=== PATIENT | male | born 1960 | race African-American/Black ===

== ENCOUNTER 2017-02-02 22:17 | Emergency (ER) | payer OTHER ==
[~2017-02-02] VITALS: Ht 175.3 cm; Wt 81.6 kg
[2017-02-02 22:40] VITALS: BP 176/119
[2017-02-02] MEDS ORDERED: AMOX1TAB61 PO (22:45)
--- NOTE | 2017-02-02 22:46 | PHYS DOC ---
Past Medical History Past Medical History: Bronchitis, Hypertension Past Surgical History: No Surgical History Alcohol Use: None Drug Use: None Adult General Chief Complaint Chief Complaint: ANIMAL BITE [facility] HPI Patient is a 57 year old male presents to emergency department with complaints of a dog bite to the left lower extremity. He states he was at his cousin's house and his cousin's dog "who is a biter", bit him on the left lower extremity. She reports she took 1 g of amoxicillin prior to coming to the emergency department. His immunizations today. Review of Systems Review of Systems Constitutional: Denies fever or chills [] Eyes: Denies change in visual acuity, redness, or eye pain [] HENT: Denies nasal congestion or sore throat [] Respiratory: Denies cough or shortness of breath [] Cardiovascular: No additional information not addressed in HPI [] GI: Denies abdominal pain, nausea, vomiting, bloody stools or diarrhea [] : Denies dysuria or hematuria [] Musculoskeletal: Denies back pain or joint pain [] Integument: Dog bite Neurologic: Denies headache, focal weakness or sensory changes [] Endocrine: Denies polyuria or polydipsia [] Allergies Allergies Allergies Coded Allergies Type Severity Reaction Last Updated Verified No Known Drug Allergies 04/14/14 No Physical Exam Physical Exam ] Cardiovascular:Heart rate regular rhythm, no murmur [] Lungs & Thorax: Bilateral breath sounds clear to auscultation [] Skin: Left lower extremity, posterior, with 3 superficial puncture wounds. Back: No tenderness, no CVA tenderness. [] Extremities: No tenderness, no cyanosis, no clubbing, ROM intact, no edema. Left lower extremity, Supple, neurovascular intact distally. Full range of motion the ankle and knee without difficulty. [] Neurologic: Alert and oriented X 3, normal motor function, normal sensory function, no focal deficits noted. [] Psychologic: Affect normal, judgement normal, mood normal. [] EKG EKG [] Radiology/Procedures Radiology/Procedures [] Course & Med Decision Making Course & Med Decision Making Wound was copiously irrigated, cleansed with Betadine normal saline, dressed with a bulky bandage. Patient tolerated procedure well. Pertinent Labs and Imaging studies reviewed. (See chart for details) [] Dragon Disclaimer Dragon Disclaimer This electronic medical record was generated, in whole or in part, using a voice recognition dictation system. Departure Departure Impression: Primary Impression: Dog bite Disposition: 01 HOME, SELF-CARE Condition: STABLE Referrals: NON,STAFF (PCP) Patient Instructions: Animal Bite Additional Instructions: Keep area clean and dry, wash with soap and water, dressing as needed. Scripts Amoxicillin/Potassium Clav (AUGMENTIN 875-125 TABLET) 1 Each Tablet 1 TAB PO BID, #20 TAB Prov: CHECO TRIANA APRN 02/02/17 CHECO TRIANA APRN Feb 02, 2017 22:45
== END 2017-02-02 23:02 | disposition home or self-care (01) ==
LOC: ER 22:17
DX: S81.852A Open bite, left lower leg, initial encounter (principal); I10 Essential (primary) hypertension; W54.0XXA Bitten by dog, initial encounter; Y93.89 Activity, other specified; Y92.009 Unspecified place in unspecified non-institutional (private) residence as the place of occurrence of the external cause; Y99.8 Other external cause status
CPT/HCPCS: 99283

== ENCOUNTER 2019-06-12 18:53 | Inpatient (IN) | payer OTHER ==
[~2019-06-12] VITALS: Ht 170.2 cm; Wt 85.5 kg
[~2019-06-12 18:53] MED LIST: AMOX1TAB61 PO
[2019-06-12] MEDS ORDERED: NITROGLYCERIN SUBLINGUAL 0.4 MG BOTTLE OF 25. SL PRN ×2 (19:00→21:45)
[2019-06-12] MEDS ORDERED: ASPIRIN CHEWABLE 81 MG TABLET. PO ONE (19:15)
--- NOTE | 2019-06-12 19:17 | PHYS DOC ---
Past Medical History Past Medical History: Bronchitis, Hypertension Past Surgical History: No Surgical History Alcohol Use: None Drug Use: None Adult General Chief Complaint Chief Complaint: CHEST PAIN HPI HPI 59-year-old male with history of hypertension presents to emergency Department complaints of chest pain, abdominal pain, shortness of breath which started approximately 1 hour prior to his arrival. Patient states he had no significant activity at that time when symptoms started. He denies any nausea, vomiting, diaphoresis. He is pale on examination. Pressures 200s over 100 systolically, heart rates in the 1 teens with atrial fibrillation. Nothing makes pain worse, nothing makes his pain better. Did not take any pain medications to alleviate his chest pain or abdomen pain. Review of Systems Review of Systems Constitutional: Denies fever or chills [] Respiratory: Shortness of breath Cardiovascular: No additional information not addressed in HPI [] GI: + abdominal pain, no nausea, vomiting, bloody stools or diarrhea [] Musculoskeletal: Denies back pain or joint pain [] Neurologic: Denies headache, focal weakness or sensory changes [] All other systems were reviewed and found to be within normal limits, except as documented in this note. Current Medications Current Medications Current Medications Medications (Trade) Dose Ordered Sig/Edilberto Start Time Stop Time Status Last Admin Dose Admin Aspirin (Children'S Aspirin) 324 mg 1X ONCE 06/12/19 19:15 06/12/19 19:11 DC Diltiazem HCl 125 mg/Dextrose 125 ml @ 5 mls/hr CONT PRN 06/12/19 20:30 06/12/19 20:18 5 MLS/HR Heparin Sodium (Porcine) (Heparin Sodium) 2,250 unit PRN Q6HRS PRN 06/12/19 21:00 Heparin Sodium/ Dextrose 500 ml @ 0 mls/hr CONT PRN 06/12/19 21:00 Info (CONTRAST GIVEN -- Rx MONITORING) 1 each PRN DAILY PRN 06/12/19 19:30 06/14/19 19:29 Iohexol (Omnipaque 350 Mg/ml) 100 ml 1X ONCE 06/12/19 20:30 06/12/19 20:31 DC 06/12/19 20:17 100 ML Labetalol HCl (Normodyne Iv Push) 10 mg 1X ONCE 06/12/19 20:30 06/12/19 20:31 DC 06/12/19 20:13 10 MG Nitroglycerin (Nitrostat) 0.4 mg PRN Q5MIN PRN 06/12/19 19:00 06/12/19 19:11 DC Ondansetron HCl (Zofran) 4 mg 1X ONCE 06/12/19 20:30 06/12/19 20:31 DC 06/12/19 20:18 4 MG Sodium Chloride 1,000 ml @ 1,000 mls/hr 1X ONCE 06/12/19 21:30 06/12/19 22:29 Allergies Allergies Allergies Coded Allergies Type Severity Reaction Last Updated Verified No Known Drug Allergies 04/14/14 No Physical Exam Physical Exam Constitutional: Well developed, well nourished, distress 2/2 sob/pain, non-toxic appearance. [] HENT: Normocephalic, atraumatic, bilateral external ears normal, oropharynx moist, no oral exudates, nose normal. [] Eyes: PERRLA, EOMI, conjunctiva normal, no discharge. [] Neck: Normal range of motion, no tenderness, supple, no stridor. [] Cardiovascular: Irregularly irregular, Lungs & Thorax: Equal breath sounds, mild expiratory wheeze Abdomen: Bowel sounds normal, soft, no tenderness, no masses, no pulsatile masses. [] Skin: Warm, dry, no erythema, no rash. [] Back: No tenderness, no CVA tenderness. [] Extremities: No tenderness, no edema. [] Neurologic: Alert and oriented X 3, no focal deficits noted. [] Psychologic: Affect normal, judgement normal, mood normal. [] Current Patient Data Vital Signs Vital Signs Date Time Temp Pulse Resp B/P (MAP) Pulse Ox O2 Delivery O2 Flow Rate FiO2 06/12/19 21:01 110 16 164/115 (131) 99 Room Air 06/12/19 19:05 97.7 97.7 Lab Values Laboratory Tests Test 06/12/19 19:10 06/12/19 20:05 White Blood Count 6.6 x10^3/uL (4.0-11.0) Red Blood Count 4.80 x10^6/uL (4.30-5.70) Hemoglobin 17.1 g/dL (13.0-17.5) Hematocrit 51.0 % (39.0-53.0) Mean Corpuscular Volume 106 fL (79-100) H Mean Corpuscular Hemoglobin 36 pg (25-35) H Mean Corpuscular Hemoglobin Concent 34 g/dL (31-37) Red Cell Distribution Width 16.6 % (11.5-14.5) H Platelet Count 222 x10^3/uL (140-400) Neutrophils (%) (Auto) 69 % (31-73) Lymphocytes (%) (Auto) 22 % (24-48) L Monocytes (%) (Auto) 7 % (0-9) Eosinophils (%) (Auto) 1 % (0-3) Basophils (%) (Auto) 1 % (0-3) Neutrophils # (Auto) 4.6 x10^3/uL (1.8-7.7) Lymphocytes # (Auto) 1.5 x10^3/uL (1.0-4.8) Monocytes # (Auto) 0.5 x10^3/uL (0.0-1.1) Eosinophils # (Auto) 0.1 x10^3/uL (0.0-0.7) Basophils # (Auto) 0.0 x10^3/uL (0.0-0.2) Sodium Level 137 mmol/L (136-145) Potassium Level 5.9 mmol/L (3.5-5.1) H Chloride Level 103 mmol/L (98-107) Carbon Dioxide Level 25 mmol/L (21-32) Anion Gap 9 (6-14) Blood Urea Nitrogen 29 mg/dL (8-26) H Creatinine 1.9 mg/dL (0.7-1.3) H Estimated GFR (Cockcroft-Gault) 44.1 BUN/Creatinine Ratio 15 (6-20) Glucose Level 108 mg/dL (70-99) H Calcium Level 9.1 mg/dL (8.5-10.1) Total Bilirubin 1.3 mg/dL (0.2-1.0) H Aspartate Amino Transferase (AST) 21 U/L (15-37) Alanine Aminotransferase (ALT) 25 U/L (16-63) Alkaline Phosphatase 108 U/L (46-116) Troponin I Quantitative 0.032 ng/mL (0.000-0.055) Total Protein 6.6 g/dL (6.4-8.2) Albumin 2.9 g/dL (3.4-5.0) L Albumin/Globulin Ratio 0.8 (1.0-1.7) L Laboratory Tests 06/12/19 19:10 Laboratory Tests 06/12/19 20:05 EKG EKG EKG reveals atrial fibrillation, heart rate 118, no evidence of acute ST elevation. He has had some T-wave inversion appreciated in V5.[] Interpretation Time: Interpretation time 1912 Radiology/Procedures Radiology/Procedures [facility] [address] [place] [address] IMAGING REPORT Signed PATIENT: APOLINAR DAVIS ACCOUNT: [id number] : 1960 LOCATION: ER AGE: 59 SEX: M EXAM STATUS: REG ER ORD. PHYSICIAN: MIKEL VELARDE MD REASON: concern for dissection, chest/abdominal pain PROCEDURE: CT ANGIO CHEST ABD PELVIS CT angiography chest, abdomen and pelvis without and with contrast HISTORY: Aortic dissection. Chest and abdominal pain. TECHNIQUE: Helical CT imaging of the chest, abdomen and pelvis acquired precontrast and arterial phase postcontrast with 3-D MIP reconstructions of the arteries to evaluate vascular anatomy and pathology with a total of 200 mL Omnipaque 350 intravenous contrast due to repeat injection performed for improved aorta opacification. Chest findings: No hyperdense intramural hematoma of the thoracic aorta on the precontrast sequence. No pulmonary artery emboli. Left coronary calcified plaque. No thoracic aortic aneurysm or dissection. Ascending thoracic aorta diameter 3.6 cm. There is a 2 cm thrombus within the left atrial appendage. Cardiomegaly with enlargement of all 4 chambers. Main pulmonary artery enlarged diameter of 4.8 cm. No adenopathy. Esophagus unremarkable. Amplatzer device atrial septum for closure. No pneumothorax, pulmonary opacities or pleural effusions. Abdomen findings: No hyperdense intramural hematoma of the aorta or iliac arteries on the noncontrast study. Right renal upper pole 2 cm oval dense lesion on precontrast imaging measures 38 units and on the early postcontrast imaging is more dense measuring 89 units suggesting enhancement. This is best demonstrated on axial noncontrast images 157 and postcontrast image 98. Separately at the right renal upper pole there is a 1.5 cm dense cyst with pre and postcontrast density of 30 units. Calcified plaque and tortuosity aorta and iliac arteries without aneurysm, dissection, tibia stenosis or occlusion. No stenosis or occlusion of the abdominal arteries. Pancreas, adrenals, left kidney, and liver are unremarkable. There could be gallbladder wall thickening present. No obstruction or inflammatory changes in GI tract. Pelvis findings: Calcified plaque and tortuosity iliac arteries. No aneurysm, dissection, stenosis or occlusion. Prominence of the prostate gland. Bladder, rectum and bones are unremarkable. IMPRESSION: 1. No dissection or aneurysm of the thoracic aorta, abdominal aorta or iliac arteries. No pulmonary artery emboli. No acute process. 2. Left atrial appendage thrombus. 3. Right renal upper pole 2 cm dense lesion measuring 38 units precontrast and 89 units arterial phase postcontrast raising the possibility of renal neoplasm. This could be further assessed with outpatient renal sonography or MRI. 4. Possible gallbladder wall thickening of uncertain significance. Early changes of cholecystitis is not excluded. r more of the following individualized dose reduction techniques were utilized for this examination: 1. Automated exposure control 2. Adjustment of the mA and/or kV according to patient size 3. Use of iterative reconstruction technique Electronically signed by: Patel Alvarez MD (06/12/2019 8:27 PM) [facility] DICTATED and SIGNED BY: PATEL ALVAREZ MD DATE: 06/12/192026 [] [facility] [address] [place] [address] IMAGING REPORT Signed PATIENT: APOLINAR DAVIS ACCOUNT: [id number] : 1960 LOCATION: ER AGE: 59 SEX: M EXAM STATUS: REG ER ORD. PHYSICIAN: MIKEL VELARDE MD REASON: Chest Pain PROCEDURE: PORTABLE CHEST 1V AP chest x-ray COMPARISON: Chest x-ray April 14, 2014. HISTORY: Chest pain. FINDINGS: Cardiomegaly stable. Mediastinal silhouette is normal. Enlarged pulmonary arteries at the arlene are stable likely representing changes of pulmonary hypertension. No pneumothorax. No pleural effusions. Linear right infrahilar lower lobe density could be atelectasis or early infiltrate. Left lung clear. Bones unremarkable. IMPRESSION: Right infrahilar linear lower lobe density may represent segmental atelectasis or early pneumonia. Cardiomegaly stable. Electronically signed by: Patel Alvarez MD (06/12/2019 7:38 PM) [facility] DICTATED and SIGNED BY: PATEL ALVAREZ MD DATE: 06/12/191937 Course & Med Decision Making Course & Med Decision Making Pertinent Labs and Imaging studies reviewed. (See chart for details) []59-year-old male with history of hypertension presents to emergency Department complaints of chest pain, abdominal pain, shortness of breath which started approximately 1 hour prior to his arrival. Patient states he had no significant activity at that time when symptoms started. He denies any nausea, vomiting, diaphoresis. He is pale on examination. Pressures 200s over 100 systolically, heart rates in the 1 teens with atrial fibrillation. Nothing makes pain worse, nothing makes his pain better. Did not take any pain medications to alleviate his chest pain or abdomen pain. Patient presented with symptoms as discussed above chest pain, abdominal pain, shortness of breath. Laboratory values revealed white blood count 6.6, Hemoccult 17.1, potassium 5.9, creatinine 1.9, troponin 0.032. Patient provided with IV fluids, initial evaluation with CTA given concern for dissection reveals evidence of right renal mass, left atrial appendage thrombus no evidence of dissection appreciated. Patient was noted to be in atrial fibrillation, atrial flutter rate initially in the 140s to 150s have subsequently improved to the low 100s after labetalol 10 mg, Cardizem drip. Given atrial fibrillation, atrial flutter, atrial appendage thrombus patient started on heparin drip. IV fluids initiated given renal insufficiency. Medical management regarding patient's hyperkalemia at 5.9. Patient plan for admission to [facility] Discussed admission with hospitalist Consultation placed to Cardiology VS reviewed - HR 90's, saturations 99%, Afebrile Dragon Disclaimer Dragon Disclaimer This electronic medical record was generated, in whole or in part, using a voice recognition dictation system. Critical Care Time Critical care time was 40 minutes exclusive of procedures. Departure Departure Impression: Primary Impression: Chest pain Additional Impressions: OSORIO (acute kidney injury) Atrial fibrillation and flutter Hyperkalemia Left atrial thrombus Disposition: ADMITTED INPATIENT Admitting Physician: LINDA Condition: IMPROVED Referrals: NON,STAFF (PCP) Problem Qualifiers MIKEL VELARDE MD Jun 12, 2019 19:17
[2019-06-12 19:20] LABS: BASO % 1 % (0-3); EOS # 0.1 x10^3/uL (0.0-0.7); EOS % 1 % (0-3); HEMOGLOBIN 17.1 g/dL (13.0-17.5); LYMPH # 1.5 x10^3/uL (1.0-4.8); LYMPH % 22 % (24-48); MEAN CORPUSCULAR HEMOGLOBIN 36 pg (25-35); MEAN CORPUSCULAR HGB CONC 34 g/dL (31-37); MEAN CORPUSCULAR VOLUME 106 fL (79-100); MONO # 0.5 x10^3/uL (0.0-1.1); MONO % 7 % (0-9); NEUT # 4.6 x10^3/uL (1.8-7.7); NEUT % 69 % (31-73); PLATELET COUNT 222 x10^3/uL (140-400); RED CELL DISTRIBUTION WIDTH 16.6 % (11.5-14.5); WHITE BLOOD COUNT 6.6 x10^3/uL (4.0-11.0)
[2019-06-12] MEDS ORDERED: IOHEXOL 350 MG/ML 100 ML VIAL. IV ONE ×2 (19:30→20:30)
[2019-06-12] MEDS ORDERED: CONTRAST GIVEN. MC PRN (19:30)
--- NOTE | 2019-06-12 19:42 | RAD ---
AP chest x-ray COMPARISON: Chest x-ray April 14, 2014. HISTORY: Chest pain. FINDINGS: Cardiomegaly stable. Mediastinal silhouette is normal. Enlarged pulmonary arteries at the arlene are stable likely representing changes of pulmonary hypertension. No pneumothorax. No pleural effusions. Linear right infrahilar lower lobe density could be atelectasis or early infiltrate. Left lung clear. Bones unremarkable. IMPRESSION: Right infrahilar linear lower lobe density may represent segmental atelectasis or early pneumonia. Cardiomegaly stable. Electronically signed by: Cristobal Gasca MD (06/12/2019 7:38 PM) [facility]
[2019-06-12] MEDS: dilTIAZem INJ 125 MG in IV DEXTROSE 5% 100ML 100 ML IV PRN (20:18)
[2019-06-12] MEDS ORDERED: ONDANSETRON PF 4 MG/2 ML VIAL. IV ONE (20:30)
[2019-06-12] MEDS ORDERED: LABETALOL 20 MG/4 ML DISP.SYRIN. IVP ONE (20:30)
--- NOTE | 2019-06-12 20:30 | RAD ---
CT angiography chest, abdomen and pelvis without and with contrast HISTORY: Aortic dissection. Chest and abdominal pain. TECHNIQUE: Helical CT imaging of the chest, abdomen and pelvis acquired precontrast and arterial phase postcontrast with 3-D MIP reconstructions of the arteries to evaluate vascular anatomy and pathology with a total of 200 mL Omnipaque 350 intravenous contrast due to repeat injection performed for improved aorta opacification. Chest findings: No hyperdense intramural hematoma of the thoracic aorta on the precontrast sequence. No pulmonary artery emboli. Left coronary calcified plaque. No thoracic aortic aneurysm or dissection. Ascending thoracic aorta diameter 3.6 cm. There is a 2 cm thrombus within the left atrial appendage. Cardiomegaly with enlargement of all 4 chambers. Main pulmonary artery enlarged diameter of 4.8 cm. No adenopathy. Esophagus unremarkable. Amplatzer device atrial septum for closure. No pneumothorax, pulmonary opacities or pleural effusions. Abdomen findings: No hyperdense intramural hematoma of the aorta or iliac arteries on the noncontrast study. Right renal upper pole 2 cm oval dense lesion on precontrast imaging measures 38 units and on the early postcontrast imaging is more dense measuring 89 units suggesting enhancement. This is best demonstrated on axial noncontrast images 157 and postcontrast image 98. Separately at the right renal upper pole there is a 1.5 cm dense cyst with pre and postcontrast density of 30 units. Calcified plaque and tortuosity aorta and iliac arteries without aneurysm, dissection, tibia stenosis or occlusion. No stenosis or occlusion of the abdominal arteries. Pancreas, adrenals, left kidney, and liver are unremarkable. There could be gallbladder wall thickening present. No obstruction or inflammatory changes in GI tract. Pelvis findings: Calcified plaque and tortuosity iliac arteries. No aneurysm, dissection, stenosis or occlusion. Prominence of the prostate gland. Bladder, rectum and bones are unremarkable. IMPRESSION: 1. No dissection or aneurysm of the thoracic aorta, abdominal aorta or iliac arteries. No pulmonary artery emboli. No acute process. 2. Left atrial appendage thrombus. 3. Right renal upper pole 2 cm dense lesion measuring 38 units precontrast and 89 units arterial phase postcontrast raising the possibility of renal neoplasm. This could be further assessed with outpatient renal sonography or MRI. 4. Possible gallbladder wall thickening of uncertain significance. Early changes of cholecystitis is not excluded. r more of the following individualized dose reduction techniques were utilized for this examination: 1. Automated exposure control 2. Adjustment of the mA and/or kV according to patient size 3. Use of iterative reconstruction technique Electronically signed by: Cristobal Gasca MD (06/12/2019 8:27 PM) [facility]
[2019-06-12 20:34] LABS: CALCIUM 9.1 mg/dL (8.5-10.1); CREATININE 1.9 mg/dL (0.7-1.3); GFR 44.1; POTASSIUM 5.9 mmol/L (3.5-5.1)
[2019-06-12 20:38] LABS: ALBUMIN 2.9 g/dL (3.4-5.0); ALBUMIN/GLOBULIN RATIO 0.8 (1.0-1.7); TOTAL BILIRUBIN 1.3 mg/dL (0.2-1.0); TOTAL PROTEIN 6.6 g/dL (6.4-8.2)
[2019-06-12] MEDS ORDERED: HEPARIN 25,000UTS/500ML PREMIX 500 ML IV PRN (21:00)
[2019-06-12] MEDS ORDERED: HEPARIN for IV BOLUS 10,000 UNIT/10 ML VIAL. IV PRN (21:00)
[2019-06-12] MEDS ORDERED: HEPARIN for IV BOLUS 10,000 UNIT/10 ML VIAL. IV ONE (21:00)
[2019-06-12] MEDS ORDERED: SODIUM BICARB ADULT 8.4% 50 MEQ/50 ML DISP.SYRIN. IV ONE (21:15)
[2019-06-12] MEDS ORDERED: INSULIN REGULAR 100 UNIT/ML 3ML VIAL. IV ONE (21:15)
[2019-06-12] MEDS ORDERED: DEXTROSE 50% 25 GM / 50ML DISP.SYRIN. IV ONE (21:15)
[2019-06-12] MEDS ORDERED: IV NORMAL SALINE 1000ML BAG 1,000 ML IV ONE (21:30)
[2019-06-12] MEDS ORDERED: ACETAMINOPHEN 325 MG TABLET. PO PRN (21:45)
[2019-06-12] MEDS ORDERED: ONDANSETRON PF 4 MG/2 ML VIAL. IV PRN (21:45)
[2019-06-12] MEDS ORDERED: MORPHINE SULFATE 2 MG/ML VIAL. IV PRN (21:45)
[2019-06-12 22:30] VITALS: BP 181/138
--- NOTE | 2019-06-12 22:30 | NUR ---
Pt admitted with chest pain, troy, renal mass and thrombus. admission packet given explained poc, pt verbalized understanding. call light in reach, will cont to monitor pt status and safety. pmrn
[2019-06-12 22:45] VITALS: BP 184/137
[2019-06-12 23:00] VITALS: BP 147/114
[2019-06-12 23:15] VITALS: BP 165/120
[2019-06-13] VITALS (9 sets, daily range): BP systolic 120–266; BP diastolic 80–126
[2019-06-13] MEDS ORDERED: POLYETHYLENE GLYCOL 3350 17 GM PACKET. PO PRN
[2019-06-13] MEDS: hydrALAZINE 20 MG/ML VIAL. IVP PRN ×2 (00:08→04:12)
[2019-06-13 01:57] LABS: BASO % 0 % (0-3); EOS % 0 % (0-3); HEMATOCRIT 48.7 % (39.0-53.0); HEMOGLOBIN 16.4 g/dL (13.0-17.5); LYMPH # 1.3 x10^3/uL (1.0-4.8); LYMPH % 15 % (24-48); MEAN CORPUSCULAR HEMOGLOBIN 36 pg (25-35); MEAN CORPUSCULAR HGB CONC 34 g/dL (31-37); MEAN CORPUSCULAR VOLUME 106 fL (79-100); MONO # 0.5 x10^3/uL (0.0-1.1); MONO % 6 % (0-9); NEUT # 6.4 x10^3/uL (1.8-7.7); NEUT % 78 % (31-73); PLATELET COUNT 191 x10^3/uL (140-400); RED BLOOD COUNT 4.59 x10^6/uL (4.30-5.70); RED CELL DISTRIBUTION WIDTH 16.5 % (11.5-14.5); WHITE BLOOD COUNT 8.2 x10^3/uL (4.0-11.0)
[2019-06-13 02:21] LABS: ALBUMIN 2.8 g/dL (3.4-5.0); ALBUMIN/GLOBULIN RATIO 0.6 (1.0-1.7); CALCIUM 8.8 mg/dL (8.5-10.1); CREATININE 1.9 mg/dL (0.7-1.3); GFR 44.1; POTASSIUM 4.6 mmol/L (3.5-5.1); TOTAL BILIRUBIN 1.3 mg/dL (0.2-1.0); TOTAL PROTEIN 7.2 g/dL (6.4-8.2)
[2019-06-13] MEDS ORDERED: FURO-69 PO (04:29)
[2019-06-13] MEDS ORDERED: APIX5TAB PO (04:29)
[2019-06-13] MEDS ORDERED: ASPI-630 PO (04:29)
[2019-06-13] MEDS ORDERED: SPIR25TA5 PO (04:29)
[2019-06-13] MEDS ORDERED: CARV25TA PO (04:29)
[2019-06-13] MEDS ORDERED: TAMS0.4C97 PO (04:29)
[2019-06-13] MEDS ORDERED: HYDR100T24 PO (04:29)
--- NOTE | 2019-06-13 05:07 | NUR ---
Critical ufh and elevated 2nd troponin pt asystomatic, on heparin gtt and cardizem gtt as per protocal will inform cardiology and cont plan of care. will monitor pt status and safety. pmrn
[2019-06-13] MEDS: dilTIAZem INJ 125 MG in IV DEXTROSE 5% 100ML 100 ML IV PRN (06:22)
--- NOTE | 2019-06-13 06:49 | EKG ---
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
[2019-06-13] MEDS ORDERED: HEPARIN for IV BOLUS 10,000 UNIT/10 ML VIAL. IV PRN ×2 (07:20→07:30)
[2019-06-13] MEDS ORDERED: ASPIRIN CHEWABLE 81 MG TABLET. PO SCH (08:00)
[2019-06-13] MEDS ORDERED: CARVEDILOL 12.5 MG TABLET. PO SCH (08:00)
[2019-06-13] MEDS ORDERED: SPIRONOLACTONE 25 MG TABLET PO SCH (09:00)
[2019-06-13] MEDS ORDERED: AMOXICILLIN/K CLAV 875/125MG TABLET. PO SCH (09:00)
[2019-06-13] MEDS ORDERED: TAMSULOSIN 0.4 MG CAP.ER.24H. PO SCH (09:00)
[2019-06-13] MEDS ORDERED: FUROSEMIDE 20 MG TABLET PO SCH (09:00)
--- NOTE | 2019-06-13 09:42 | PDOC2 ---
CARDIAC CONSULT DATE OF CONSULT Date of Consult DATE: 06/13/19 TIME: 09:32 REASON FOR CONSULT Reason for Consult: CP, afib/flutter, VENKATA thrombus REFERRING PHYSICIAN Referring Physician: Ruben SOURCE Source: Chart review, Patient HISTORY OF PRESENT ILLNESS HISTORY OF PRESENT ILLNESS This is a 59 yo male admitted for complains of chest pain and shortness of breath. This started yesterday but mainly his SOA is the complain. also has been coughing but no fever orchills and nonproductive. His BP was high to begin with. He has not been forthcoming with the details of his s/s and told me that he just fallen off the wagon reporting that he has been skipping his meds and has been intermittently somking and using cocaine as well. He is known for AFIB and has CAD he told me. He could not clear the information in regards to his VENKATA thrombus but he has been seeing Dr. Olson in for cardiology. No nausea or vomiting, no diaphoresis. PAST MEDICAL HISTORY Cardiovascular: AFIB, CAD, CHF (NICM), HTN, Hyperlipidemia, Other (PAD; ASD; hx of VENKATA thrombus) Pulmonary: COPD (?) GI: No pertinent hx Heme/Onc: Other (chronic NOAC) Hepatobiliary: No pertinent hx Psych: No pertinent hx Musculoskeletal: Osteoarthritis Rheumatologic: No pertinent hx Infectious disease: No pertinent hx ENT: No pertinent hx Renal/: Chronic renal insuff (CKD3), Other (right renal mass) Endocrine: No pertinent hx Dermatology: No pertinent hx PAST SURGICAL HISTORY Past Surgical History: Other (s/p right popliteal/tibial thrombectomy; cardiac ablation; ASD with closure 2015) FAMILY HISTORY Family History: Family History Unknown SOCIAL HISTORY Smoke: <1 pack per day ALCOHOL: none Drugs: Cocaine, Marijuana Lives: Alone CURRENT MEDICATIONS CURRENT MEDICATIONS Current Medications Medications (Trade) Dose Ordered Sig/Edilberto Route PRN Reason Start Time Stop Time Status Last Admin Dose Admin Iohexol (Omnipaque 350 Mg/ml) 100 ml 1X ONCE IV 06/12/19 19:30 06/12/19 19:31 DC 06/12/19 19:30 Labetalol HCl (Normodyne Iv Push) 10 mg 1X ONCE IVP 06/12/19 20:30 06/12/19 20:31 DC 06/12/19 20:13 Ondansetron HCl (Zofran) 4 mg 1X ONCE IV 06/12/19 20:30 06/12/19 20:31 DC 06/12/19 20:18 Diltiazem HCl 125 mg/Dextrose 125 ml @ 5 mls/hr CONT PRN IV PER PROTOCOL 06/12/19 20:30 06/13/19 06:22 Iohexol (Omnipaque 350 Mg/ml) 100 ml 1X ONCE IV 06/12/19 20:30 06/12/19 20:31 DC 06/12/19 20:17 Heparin Sodium (Porcine) (Heparin Sodium) 4,000 unit 1X ONCE IV 06/12/19 21:00 06/12/19 21:01 DC 06/12/19 20:58 Heparin Sodium/ Dextrose 500 ml @ 0 mls/hr CONT PRN IV PER PROTOCOL 06/12/19 21:00 06/12/19 21:12 Sodium Bicarbonate (Sodium Bicarb Adult 8.4% Syr) 50 meq 1X ONCE IV 06/12/19 21:15 06/12/19 21:16 DC 06/12/19 21:20 Dextrose (Dextrose 50%-Water Syringe) 25 gm 1X ONCE IV 06/12/19 21:15 06/12/19 21:16 DC 06/12/19 21:22 Insulin Human Regular (HumuLIN R VIAL) 10 unit 1X ONCE IV 06/12/19 21:15 06/12/19 21:16 DC 06/12/19 21:24 Hydralazine HCl (Apresoline Inj) 20 mg PRN Q4HRS PRN IVP ELEVATED BP, SEE COMMENTS 06/12/19 23:30 06/13/19 04:12 ALLERGIES ALLERGIES: Coded Allergies: No Known Drug Allergies (Unverified , 04/14/14) ROS Review of System limited, not cooperative with details. PHYSICAL EXAM General: Alert, Oriented X3, Cooperative, No acute distress HEENT: Atraumatic, Mucous membr. moist/pink Lungs: Other (diminisehd bases) Heart: Other (AFIB) Abdomen: Soft, No tenderness Extremities: No cyanosis, No edema Skin: No breakdown, No significant lesion Neuro: Normal speech, Sensation intact Psych/Mental Status: Mental status NL, Mood NL MUSCULOSKELETAL: Osteoarthritic changes both hands VITALS/I&O VITALS/I&O: Vital Signs Date Time Temp Pulse Resp B/P (MAP) Pulse Ox O2 Delivery O2 Flow Rate FiO2 06/13/19 07:00 99.0 88 18 155/97 (116) 93 Room Air 99.0 06/12/19 23:00 2.0 I & O 06/12/19 06/12/19 06/13/19 14:59 22:59 06:59 Intake Total 317 ml Output Total 625 ml Balance -308 ml LABS Lab: Laboratory Tests Test 06/12/19 19:10 06/12/19 20:05 06/13/19 01:45 White Blood Count 6.6 x10^3/uL (4.0-11.0) 8.2 x10^3/uL (4.0-11.0) Red Blood Count 4.80 x10^6/uL (4.30-5.70) 4.59 x10^6/uL (4.30-5.70) Hemoglobin 17.1 g/dL (13.0-17.5) 16.4 g/dL (13.0-17.5) Hematocrit 51.0 % (39.0-53.0) 48.7 % (39.0-53.0) Mean Corpuscular Volume 106 fL (79-100) H 106 fL (79-100) H Mean Corpuscular Hemoglobin 36 pg (25-35) H 36 pg (25-35) H Mean Corpuscular Hemoglobin Concent 34 g/dL (31-37) 34 g/dL (31-37) Red Cell Distribution Width 16.6 % (11.5-14.5) H 16.5 % (11.5-14.5) H Platelet Count 222 x10^3/uL (140-400) 191 x10^3/uL (140-400) Neutrophils (%) (Auto) 69 % (31-73) 78 % (31-73) H Lymphocytes (%) (Auto) 22 % (24-48) L 15 % (24-48) L Monocytes (%) (Auto) 7 % (0-9) 6 % (0-9) Eosinophils (%) (Auto) 1 % (0-3) 0 % (0-3) Basophils (%) (Auto) 1 % (0-3) 0 % (0-3) Neutrophils # (Auto) 4.6 x10^3/uL (1.8-7.7) 6.4 x10^3/uL (1.8-7.7) Lymphocytes # (Auto) 1.5 x10^3/uL (1.0-4.8) 1.3 x10^3/uL (1.0-4.8) Monocytes # (Auto) 0.5 x10^3/uL (0.0-1.1) 0.5 x10^3/uL (0.0-1.1) Eosinophils # (Auto) 0.1 x10^3/uL (0.0-0.7) 0.0 x10^3/uL (0.0-0.7) Basophils # (Auto) 0.0 x10^3/uL (0.0-0.2) 0.0 x10^3/uL (0.0-0.2) Sodium Level 137 mmol/L (136-145) 141 mmol/L (136-145) Potassium Level 5.9 mmol/L (3.5-5.1) H 4.6 mmol/L (3.5-5.1) # Chloride Level 103 mmol/L (98-107) 106 mmol/L (98-107) Carbon Dioxide Level 25 mmol/L (21-32) 28 mmol/L (21-32) Anion Gap 9 (6-14) 7 (6-14) Blood Urea Nitrogen 29 mg/dL (8-26) H 27 mg/dL (8-26) H Creatinine 1.9 mg/dL (0.7-1.3) H 1.9 mg/dL (0.7-1.3) H Estimated GFR (Cockcroft-Gault) 44.1 44.1 BUN/Creatinine Ratio 15 (6-20) 14 (6-20) Glucose Level 108 mg/dL (70-99) H 106 mg/dL (70-99) H Calcium Level 9.1 mg/dL (8.5-10.1) 8.8 mg/dL (8.5-10.1) Total Bilirubin 1.3 mg/dL (0.2-1.0) H 1.3 mg/dL (0.2-1.0) H Aspartate Amino Transferase (AST) 21 U/L (15-37) 16 U/L (15-37) Alanine Aminotransferase (ALT) 25 U/L (16-63) 19 U/L (16-63) Alkaline Phosphatase 108 U/L (46-116) 107 U/L (46-116) Troponin I Quantitative 0.032 ng/mL (0.000-0.055) 0.057 ng/mL (0.000-0.055) Total Protein 6.6 g/dL (6.4-8.2) 7.2 g/dL (6.4-8.2) Albumin 2.9 g/dL (3.4-5.0) L 2.8 g/dL (3.4-5.0) L Albumin/Globulin Ratio 0.8 (1.0-1.7) L 0.6 (1.0-1.7) L Heparin Anti-Xa Act, Unfractionated > 1.10 IU/mL (0.30-0.70) *H Thyroid Stimulating Hormone (TSH) 0.557 uIU/mL (0.358-3.74) Laboratory Tests 06/12/19 19:10 06/13/19 01:45 Laboratory Tests 06/12/19 20:05 06/13/19 01:45 ECHOCARDIOGRAM ECHOCARDIOGRAM 12/31/2017 The left ventricle is mildly dilated, moderately depressed function, estimated ejection fraction is 40%. The inferior and inferolateral segments are hypokinetic. Moderate diastolic function The right ventricle is normal in size and function. The left and right atria are mildly dilated. Amplatzer septal occlusion device is present, no residual interatrial shunt No significant valve disease is identified. The estimated PA systolic pressure is 57 mmHg HEART CATH HEART CATH 11/2015, normal coronaries ASSESSMENT/PLAN ASSESSMENT/PLAN 1. Possible pneumonia: per PCP 2. Accelerated HTN: improving 3. Cocaine/marijuana abuse 4. AIFB RVR: now rate controlled. this is paroxysmal by hx 5. Atypical CP: due to multiple culprits above. Doubt ACS 6. Elevated trop: peaked at 0.05, demand mediated, type 2 with above culprits. 7. 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 Now noted in CT. On eliquis at home 8. NICM: last known EF at 40%. compensated 9. Hx of ASD percutaneous repair 10. Noncompliance: has been skipping meds. 11. Hx of right renal mass: follows with urology. 12. OSORIO on CKD3: baseline Cr in 2018 was at 1.5 Recommendations. 1. Will restart home BP regimen including coreg. Discussed interaction with cocaine if he continues. Discussed cessation 2. DC cardizem, stop heparin and restart home eliquis, 3. TTE, and TSH. 4. AFIB induction is due to his cocaine abuse and noncompliance. He has a follow up with cardiology in 06/23/2019 and will defer further treatment adjustment with them 5. Smoking cessation. HEENA MCKEON [employer] MEMBER Jun 13, 2019 09:42
[2019-06-13 10:10] LABS: BARBITURATES NEG (NEG); BENZODIAZEPINES NEG (NEG); CANNABINOIDS POS (NEG); COCAINE POS (NEG); METHADONE NEG (NEG); OPIATES NEG (NEG); PHENCYCLIDINE NEG (NEG)
[2019-06-13 10:11] LABS: AMPHETAMINE/METHAMPHETAMINE NEG (NEG)
--- NOTE | 2019-06-13 10:38 | PDOC1 ---
History and Physical Date of Admission Date of Admission DATE: 06/13/19 TIME: 10:38 Source Source: Chart review History of Present Illness History of Present Illness Mr. Bermudez, 59-year-old male with history of hypertension presents to emergency Department complaints of chest pain, abdominal pain, shortness of breath which started approximately 1 hour prior to his arrival. Patient states he had no significant activity at that time when symptoms started. He denies any nausea, vomiting, diaphoresis. He is pale on examination. Pressures 200s over 100 systolically, heart rates in the 1 teens with atrial fibrillation. Nothing makes pain worse, nothing makes his pain better. Did not take any pain medications to alleviate his chest pain or abdomen pain. Past Medical History Cardiovascular: AFIB, CAD, CHF (NICM), HTN, Hyperlipidemia, Other (PAD; ASD; hx of VENKATA thrombus) Pulmonary: COPD (?) GI: No pertinent hx Heme/Onc: Other (chronic NOAC) Hepatobiliary: No pertinent hx Psych: No pertinent hx Musculoskeletal: Osteoarthritis Rheumatologic: No pertinent hx Infectious disease: No pertinent hx ENT: No pertinent hx Renal/: Chronic renal insuff (CKD3), Other (right renal mass) Endocrine: No pertinent hx Dermatology: No pertinent hx Past Surgical History Past Surgical History: Other (s/p right popliteal/tibial thrombectomy; cardiac ablation; ASD with closure 2015) Family History Family History: Family History Unknown Social History Smoke: <1 pack per day ALCOHOL: none Drugs: Cocaine, Marijuana Current Problem List Problem List Problems Medical Problems: (1) OSORIO (acute kidney injury) Status: Acute (2) Atrial fibrillation and flutter Status: Acute (3) Chest pain Status: Acute (4) Hyperkalemia Status: Acute (5) Left atrial thrombus Status: Acute Current Medications Current Medications Current Medications Aspirin (Children'S Aspirin) 324 mg 1X ONCE PO ; Start 06/12/19 at 19:15; Stop 06/12/19 at 19:11; Status DC Nitroglycerin (Nitrostat) 0.4 mg PRN Q5MIN PRN SL CP RATING > 1/10; Start 06/12/19 at 19:00; Stop 06/12/19 at 19:11; Status DC Iohexol (Omnipaque 350 Mg/ml) 100 ml 1X ONCE IV Last administered on 06/12/19at 19:30; Start 06/12/19 at 19:30; Stop 06/12/19 at 19:31; Status DC Info (CONTRAST GIVEN -- Rx MONITORING) 1 each PRN DAILY PRN MC SEE COMMENTS; Start 06/12/19 at 19:30; Stop 06/14/19 at 19:29 Labetalol HCl (Normodyne Iv Push) 10 mg 1X ONCE IVP Last administered on 06/12/19at 20:13; Start 06/12/19 at 20:30; Stop 06/12/19 at 20:31; Status DC Ondansetron HCl (Zofran) 4 mg 1X ONCE IV Last administered on 06/12/19at 20:18; Start 06/12/19 at 20:30; Stop 06/12/19 at 20:31; Status DC Diltiazem HCl 125 mg/Dextrose 125 ml @ 5 mls/hr CONT PRN IV PER PROTOCOL Last administered on 06/13/19at 06:22; Start 06/12/19 at 20:30 Iohexol (Omnipaque 350 Mg/ml) 100 ml 1X ONCE IV Last administered on 06/12/19at 20:17; Start 06/12/19 at 20:30; Stop 06/12/19 at 20:31; Status DC Heparin Sodium (Porcine) (Heparin Sodium) 4,000 unit 1X ONCE IV Last administered on 06/12/19at 20:58; Start 06/12/19 at 21:00; Stop 06/12/19 at 21:01; Status DC Heparin Sodium/ Dextrose 500 ml @ 0 mls/hr CONT PRN IV PER PROTOCOL Last administered on 06/12/19at 21:12; Start 06/12/19 at 21:00; Stop 06/13/19 at 10:29; Status DC Heparin Sodium (Porcine) (Heparin Sodium) 2,250 unit PRN Q6HRS PRN IV FOR UFH LEVEL LESS THAN 0.2; Start 06/12/19 at 21:00; Stop 06/13/19 at 07:20; Status DC Sodium Chloride 1,000 ml @ 1,000 mls/hr 1X ONCE IV ; Start 06/12/19 at 21:30; Stop 06/12/19 at 22:29; Status DC Sodium Bicarbonate (Sodium Bicarb Adult 8.4% Syr) 50 meq 1X ONCE IV Last administered on 06/12/19at 21:20; Start 06/12/19 at 21:15; Stop 06/12/19 at 21:16; Status DC Dextrose (Dextrose 50%-Water Syringe) 25 gm 1X ONCE IV Last administered on 06/12/19at 21:22; Start 06/12/19 at 21:15; Stop 06/12/19 at 21:16; Status DC Insulin Human Regular (HumuLIN R VIAL) 10 unit 1X ONCE IV Last administered on 06/12/19at 21:24; Start 06/12/19 at 21:15; Stop 06/12/19 at 21:16; Status DC Ondansetron HCl (Zofran) 4 mg PRN Q8HRS PRN IV NAUSEA/VOMITING; Start 06/12/19 at 21:45; Stop 06/13/19 at 21:44 Morphine Sulfate (Morphine Sulfate) 2 mg PRN Q2HR PRN IV PAIN; Start 06/12/19 at 21:45; Stop 06/13/19 at 21:44 Acetaminophen (Tylenol) 650 mg PRN Q4HRS PRN PO FEVER; Start 06/12/19 at 21:45; Stop 06/13/19 at 21:44 Nitroglycerin (Nitrostat) 0.4 mg PRN Q5MIN PRN SL CHEST PAIN; Start 06/12/19 at 21:45; Stop 06/13/19 at 21:44 Hydralazine HCl (Apresoline Inj) 20 mg PRN Q4HRS PRN IVP ELEVATED BP, SEE COMMENTS Last administered on 06/13/19at 04:12; Start 06/12/19 at 23:30 Polyethylene Glycol (miraLAX PACKET) 17 gm PRN DAILY PRN PO CONSTIPATION; Start 06/13/19 at 00:00 Amoxicillin/ Clavulanate Potassium (Augmentin 875/ 125mg) 1 tab BID PO ; Start 06/13/19 at 09:00 Apixaban (Eliquis) 5 mg BID PO ; Start 06/13/19 at 11:00 Aspirin (Children'S Aspirin) 81 mg DAILYWBKFT PO ; Start 06/13/19 at 08:00 Furosemide (Lasix) 20 mg DAILY PO ; Start 06/13/19 at 09:00 Spironolactone (Aldactone) 25 mg DAILY PO ; Start 06/13/19 at 09:00 Tamsulosin HCl (Flomax) 0.4 mg DAILY PO ; Start 06/13/19 at 09:00 Carvedilol (Coreg) 25 mg BIDWMEALS PO ; Start 06/13/19 at 08:00 Hydralazine HCl (Apresoline) 100 mg TID PO ; Start 06/13/19 at 09:00 Heparin Sodium (Porcine) (Heparin Sodium) 5,100 unit PRN Q6HRS PRN IV FOR aPTT <30; Start 06/13/19 at 07:20; Stop 06/13/19 at 10:29; Status DC Heparin Sodium (Porcine) (Heparin Sodium) 3,400 unit PRN Q6HRS PRN IV FOR aPTT 30-44; Start 06/13/19 at 07:30; Stop 06/13/19 at 10:29; Status DC Active Scripts Active Augmentin 875-125 Tablet (Amoxicillin/Potassium Clav) 1 Each Tablet 1 Tab PO BID Reported Aspirin 81 Mg Tab.chew 81 Mg PO DAILY Eliquis (Apixaban) 5 Mg Tablet 5 Mg PO BID Lasix (Furosemide) 20 Mg Tablet 20 Mg PO DAILY Spironolactone 25 Mg Tablet 25 Mg PO DAILY Coreg (Carvedilol) 25 Mg Tablet 25 Mg PO BIDWMEALS Hydralazine Hcl 100 Mg Tablet 100 Mg PO TID Flomax (Tamsulosin Hcl) 0.4 Mg Cap.er.24h 0.4 Mg PO DAILY Allergies Allergies: Coded Allergies: No Known Drug Allergies (Unverified , 04/14/14) ROS General: YES: Fatigue, Malaise; No: Chills, Night Sweats, Appetite, Other PSYCHOLOGICAL ROS: YES: Irritablity, Sleep disturbances; No: Anxiety, Behavioral Disorder, Concentration difficultie, Decreased libido, Depression, Disorientation, Hostility, Memory difficulties, Mood Swings, Obsessive thoughts, Suicidal ideation, Other Eyes: No Blurry vision, No Decreased vision, No Double vision, No Dry eyes, No Excessive tearing, No Eye Pain, No Itchy Eyes, No Loss of vision, No Photophobia, No Scotomata, No Uses contacts, No Uses glasses, No Other HEENT: No: Heacaches, Visual Changes, Hearing change, Nasal congestion, Nasal discharge, Oral lesions, Sinus pain, Sore Throat, Epistaxis, Sneezing, Snoring, Tinnitus, Vertigo, Vocal changes, Other Respiratory: YES: Shortness of breath, SOB with excertion; No: Cough, Hemoptysis, Orthopnea, Pleuritic Pain, Sputum Changes, Stridor, Tachypnea, Wheezing, Other Cardiovascular: No Chest Pain, No Palpitations, No Orthopnea, No Paroxysmal Noc. Dyspnea, No Edema, No Lt Headedness, No Other Gastrointestinal: No Nausea, No Vomiting, No Abdominal Pain, No Diarrhea, No Constipation, No Melena, No Hematochezia, No Other Genitourinary: No Dysuria, No Frequency, No Incontinence, No Hematuria, No Retention, No Discharge, No Urgency, No Pain, No Flank Pain, No Other, No , No , No , No , No , No , No Musculoskeletal: Yes Joint Stiffness; No Gait Disturbance, No Joint Pain, No Joint Swelling, No Muscle Pain, No Muscular Weakness, No Pain In:, No Swelling In:, No Other Neurological: No Behavorial Changes, No Bowel/Bladder ControlChng, No Confusio n, No Dizziness, No Gait Disturbance, No Headaches, No Impaired Coord/balance, No Memory Loss, No Numbness/Tingling, No Seizures, No Speech Problems, No Tremors, No Visual Changes, No Weakness, No Other Skin: No Dry Skin, No Eczema, No Hair Changes, No Lumps, No Mole Changes, No Mottling, No Nail Changes, No Pruritus, No Rash, No Skin Lesion Changes, No Other, No Acne Physical Exam General: Alert, Oriented X3, Cooperative, No acute distress HEENT: Atraumatic Lungs: Clear to auscultation Heart: S1S2, no gallops, irregularly irregular Abdomen: Normal bowel sounds, Soft Extremities: No clubbing, No edema, Normal pulses Skin: No rashes, No significant lesion Neuro: Normal gait, Normal tone Psych/Mental Status: Mood NL Vitals Vitals Vital Signs Date Time Temp Pulse Resp B/P (MAP) Pulse Ox O2 Delivery O2 Flow Rate FiO2 06/13/19 07:00 99.0 88 18 155/97 (116) 93 Room Air 99.0 06/12/19 23:00 2.0 Labs Labs Laboratory Tests Test 06/12/19 19:10 06/12/19 20:05 06/13/19 01:45 06/13/19 08:50 White Blood Count 6.6 x10^3/uL (4.0-11.0) 8.2 x10^3/uL (4.0-11.0) Red Blood Count 4.80 x10^6/uL (4.30-5.70) 4.59 x10^6/uL (4.30-5.70) Hemoglobin 17.1 g/dL (13.0-17.5) 16.4 g/dL (13.0-17.5) Hematocrit 51.0 % (39.0-53.0) 48.7 % (39.0-53.0) Mean Corpuscular Volume 106 fL (79-100) 106 fL (79-100) Mean Corpuscular Hemoglobin 36 pg (25-35) 36 pg (25-35) Mean Corpuscular Hemoglobin Concent 34 g/dL (31-37) 34 g/dL (31-37) Red Cell Distribution Width 16.6 % (11.5-14.5) 16.5 % (11.5-14.5) Platelet Count 222 x10^3/uL (140-400) 191 x10^3/uL (140-400) Neutrophils (%) (Auto) 69 % (31-73) 78 % (31-73) Lymphocytes (%) (Auto) 22 % (24-48) 15 % (24-48) Monocytes (%) (Auto) 7 % (0-9) 6 % (0-9) Eosinophils (%) (Auto) 1 % (0-3) 0 % (0-3) Basophils (%) (Auto) 1 % (0-3) 0 % (0-3) Neutrophils # (Auto) 4.6 x10^3/uL (1.8-7.7) 6.4 x10^3/uL (1.8-7.7) Lymphocytes # (Auto) 1.5 x10^3/uL (1.0-4.8) 1.3 x10^3/uL (1.0-4.8) Monocytes # (Auto) 0.5 x10^3/uL (0.0-1.1) 0.5 x10^3/uL (0.0-1.1) Eosinophils # (Auto) 0.1 x10^3/uL (0.0-0.7) 0.0 x10^3/uL (0.0-0.7) Basophils # (Auto) 0.0 x10^3/uL (0.0-0.2) 0.0 x10^3/uL (0.0-0.2) Sodium Level 137 mmol/L (136-145) 141 mmol/L (136-145) Potassium Level 5.9 mmol/L (3.5-5.1) 4.6 mmol/L (3.5-5.1) Chloride Level 103 mmol/L (98-107) 106 mmol/L (98-107) Carbon Dioxide Level 25 mmol/L (21-32) 28 mmol/L (21-32) Anion Gap 9 (6-14) 7 (6-14) Blood Urea Nitrogen 29 mg/dL (8-26) 27 mg/dL (8-26) Creatinine 1.9 mg/dL (0.7-1.3) 1.9 mg/dL (0.7-1.3) Estimated GFR (Cockcroft-Gault) 44.1 44.1 BUN/Creatinine Ratio 15 (6-20) 14 (6-20) Glucose Level 108 mg/dL (70-99) 106 mg/dL (70-99) Calcium Level 9.1 mg/dL (8.5-10.1) 8.8 mg/dL (8.5-10.1) Total Bilirubin 1.3 mg/dL (0.2-1.0) 1.3 mg/dL (0.2-1.0) Aspartate Amino Transf (AST/SGOT) 21 U/L (15-37) 16 U/L (15-37) Alanine Aminotransferase (ALT/SGPT) 25 U/L (16-63) 19 U/L (16-63) Alkaline Phosphatase 108 U/L (46-116) 107 U/L (46-116) Troponin I Quantitative 0.032 ng/mL (0.000-0.055) 0.057 ng/mL (0.000-0.055) 0.071 ng/mL (0.000-0.055) Total Protein 6.6 g/dL (6.4-8.2) 7.2 g/dL (6.4-8.2) Albumin 2.9 g/dL (3.4-5.0) 2.8 g/dL (3.4-5.0) Albumin/Globulin Ratio 0.8 (1.0-1.7) 0.6 (1.0-1.7) Heparin Anti-Xa Act, Unfractionated > 1.10 IU/mL (0.30-0.70) Thyroid Stimulating Hormone (TSH) 0.557 uIU/mL (0.358-3.74) Activated Partial Thromboplast Time 48 SEC (24-38) Test 06/13/19 09:50 Urine Opiates Screen Neg (NEG) Urine Methadone Screen Neg (NEG) Urine Barbiturates Neg (NEG) Urine Phencyclidine Screen Neg (NEG) Urine Amphetamine/Methamphetamine Neg (NEG) Urine Benzodiazepines Screen Neg (NEG) Urine Cocaine Screen Pos (NEG) Urine Cannabinoids Screen Pos (NEG) Urine Ethyl Alcohol Neg (NEG) Laboratory Tests Test 06/12/19 19:10 06/12/19 20:05 06/13/19 01:45 06/13/19 08:50 White Blood Count 6.6 x10^3/uL (4.0-11.0) 8.2 x10^3/uL (4.0-11.0) Red Blood Count 4.80 x10^6/uL (4.30-5.70) 4.59 x10^6/uL (4.30-5.70) Hemoglobin 17.1 g/dL (13.0-17.5) 16.4 g/dL (13.0-17.5) Hematocrit 51.0 % (39.0-53.0) 48.7 % (39.0-53.0) Mean Corpuscular Volume 106 fL (79-100) 106 fL (79-100) Mean Corpuscular Hemoglobin 36 pg (25-35) 36 pg (25-35) Mean Corpuscular Hemoglobin Concent 34 g/dL (31-37) 34 g/dL (31-37) Red Cell Distribution Width 16.6 % (11.5-14.5) 16.5 % (11.5-14.5) Platelet Count 222 x10^3/uL (140-400) 191 x10^3/uL (140-400) Neutrophils (%) (Auto) 69 % (31-73) 78 % (31-73) Lymphocytes (%) (Auto) 22 % (24-48) 15 % (24-48) Monocytes (%) (Auto) 7 % (0-9) 6 % (0-9) Eosinophils (%) (Auto) 1 % (0-3) 0 % (0-3) Basophils (%) (Auto) 1 % (0-3) 0 % (0-3) Neutrophils # (Auto) 4.6 x10^3/uL (1.8-7.7) 6.4 x10^3/uL (1.8-7.7) Lymphocytes # (Auto) 1.5 x10^3/uL (1.0-4.8) 1.3 x10^3/uL (1.0-4.8) Monocytes # (Auto) 0.5 x10^3/uL (0.0-1.1) 0.5 x10^3/uL (0.0-1.1) Eosinophils # (Auto) 0.1 x10^3/uL (0.0-0.7) 0.0 x10^3/uL (0.0-0.7) Basophils # (Auto) 0.0 x10^3/uL (0.0-0.2) 0.0 x10^3/uL (0.0-0.2) Sodium Level 137 mmol/L (136-145) 141 mmol/L (136-145) Potassium Level 5.9 mmol/L (3.5-5.1) 4.6 mmol/L (3.5-5.1) Chloride Level 103 mmol/L (98-107) 106 mmol/L (98-107) Carbon Dioxide Level 25 mmol/L (21-32) 28 mmol/L (21-32) Anion Gap 9 (6-14) 7 (6-14) Blood Urea Nitrogen 29 mg/dL (8-26) 27 mg/dL (8-26) Creatinine 1.9 mg/dL (0.7-1.3) 1.9 mg/dL (0.7-1.3) Estimated GFR (Cockcroft-Gault) 44.1 44.1 BUN/Creatinine Ratio 15 (6-20) 14 (6-20) Glucose Level 108 mg/dL (70-99) 106 mg/dL (70-99) Calcium Level 9.1 mg/dL (8.5-10.1) 8.8 mg/dL (8.5-10.1) Total Bilirubin 1.3 mg/dL (0.2-1.0) 1.3 mg/dL (0.2-1.0) Aspartate Amino Transf (AST/SGOT) 21 U/L (15-37) 16 U/L (15-37) Alanine Aminotransferase (ALT/SGPT) 25 U/L (16-63) 19 U/L (16-63) Alkaline Phosphatase 108 U/L (46-116) 107 U/L (46-116) Troponin I Quantitative 0.032 ng/mL (0.000-0.055) 0.057 ng/mL (0.000-0.055) 0.071 ng/mL (0.000-0.055) Total Protein 6.6 g/dL (6.4-8.2) 7.2 g/dL (6.4-8.2) Albumin 2.9 g/dL (3.4-5.0) 2.8 g/dL (3.4-5.0) Albumin/Globulin Ratio 0.8 (1.0-1.7) 0.6 (1.0-1.7) Heparin Anti-Xa Act, Unfractionated > 1.10 IU/mL (0.30-0.70) Thyroid Stimulating Hormone (TSH) 0.557 uIU/mL (0.358-3.74) Activated Partial Thromboplast Time 48 SEC (24-38) Test 06/13/19 09:50 Urine Opiates Screen Neg (NEG) Urine Methadone Screen Neg (NEG) Urine Barbiturates Neg (NEG) Urine Phencyclidine Screen Neg (NEG) Urine Amphetamine/Methamphetamine Neg (NEG) Urine Benzodiazepines Screen Neg (NEG) Urine Cocaine Screen Pos (NEG) Urine Cannabinoids Screen Pos (NEG) Urine Ethyl Alcohol Neg (NEG) VTE Prophylaxis Ordered VTE Prophylaxis Devices: Yes VTE Pharmacological Prophylaxi: Yes Assessment/Plan Assessment/Plan afib RVR acute diastolic chf renal mass known, follows at [facility], has had repeat imaging and has been stable no atrial thrombus, has hx of PVO or other repair to atria cocaine abuse, recent, cause problems to admit TARIK DENNEY MD Jun 13, 2019 10:38
[2019-06-13] MEDS ORDERED: APIXABAN 5 MG TABLET. PO SCH (11:00)
--- NOTE | 2019-06-13 11:19 | NUR ---
SS following for discharge planning. SS reviewed pt chart. Pt is from home and is currently on room air. SS will continue to follow for discharge planning.
--- NOTE | 2019-06-13 12:50 | PDOC3 ---
Discharge Summary Visit Information Date of Admission: Jun 13, 2019 Date of Discharge: Jun 13, 2019 Final Diagnosis afib RVR acute diastolic chf renal mass known, follows at , has had repeat imaging and has been stable no atrial thrombus, has hx of PVO or other repair to atria cocaine abuse, recent, cause problems to admit Problems Medical Problems: (1) OSORIO (acute kidney injury) Status: Acute (2) Atrial fibrillation and flutter Status: Acute (3) Chest pain Status: Acute (4) Hyperkalemia Status: Acute (5) Left atrial thrombus Status: Acute Brief Hospital Course Allergies Allergies Coded Allergies Type Severity Reaction Last Updated Verified No Known Drug Allergies 04/14/14 No Vital Signs Vital Signs Date Time Temp Pulse Resp B/P (MAP) Pulse Ox O2 Delivery O2 Flow Rate FiO2 06/13/19 10:44 98.0 84 16 141/86 (104) 92 Room Air 98.0 06/12/19 23:00 2.0 Lab Results Laboratory Tests Test 06/12/19 19:10 06/12/19 20:05 06/13/19 01:45 06/13/19 08:50 White Blood Count 6.6 x10^3/uL (4.0-11.0) 8.2 x10^3/uL (4.0-11.0) Red Blood Count 4.80 x10^6/uL (4.30-5.70) 4.59 x10^6/uL (4.30-5.70) Hemoglobin 17.1 g/dL (13.0-17.5) 16.4 g/dL (13.0-17.5) Hematocrit 51.0 % (39.0-53.0) 48.7 % (39.0-53.0) Mean Corpuscular Volume 106 fL (79-100) 106 fL (79-100) Mean Corpuscular Hemoglobin 36 pg (25-35) 36 pg (25-35) Mean Corpuscular Hemoglobin Concent 34 g/dL (31-37) 34 g/dL (31-37) Red Cell Distribution Width 16.6 % (11.5-14.5) 16.5 % (11.5-14.5) Platelet Count 222 x10^3/uL (140-400) 191 x10^3/uL (140-400) Neutrophils (%) (Auto) 69 % (31-73) 78 % (31-73) Lymphocytes (%) (Auto) 22 % (24-48) 15 % (24-48) Monocytes (%) (Auto) 7 % (0-9) 6 % (0-9) Eosinophils (%) (Auto) 1 % (0-3) 0 % (0-3) Basophils (%) (Auto) 1 % (0-3) 0 % (0-3) Neutrophils # (Auto) 4.6 x10^3/uL (1.8-7.7) 6.4 x10^3/uL (1.8-7.7) Lymphocytes # (Auto) 1.5 x10^3/uL (1.0-4.8) 1.3 x10^3/uL (1.0-4.8) Monocytes # (Auto) 0.5 x10^3/uL (0.0-1.1) 0.5 x10^3/uL (0.0-1.1) Eosinophils # (Auto) 0.1 x10^3/uL (0.0-0.7) 0.0 x10^3/uL (0.0-0.7) Basophils # (Auto) 0.0 x10^3/uL (0.0-0.2) 0.0 x10^3/uL (0.0-0.2) Sodium Level 137 mmol/L (136-145) 141 mmol/L (136-145) Potassium Level 5.9 mmol/L (3.5-5.1) 4.6 mmol/L (3.5-5.1) Chloride Level 103 mmol/L (98-107) 106 mmol/L (98-107) Carbon Dioxide Level 25 mmol/L (21-32) 28 mmol/L (21-32) Anion Gap 9 (6-14) 7 (6-14) Blood Urea Nitrogen 29 mg/dL (8-26) 27 mg/dL (8-26) Creatinine 1.9 mg/dL (0.7-1.3) 1.9 mg/dL (0.7-1.3) Estimated GFR (Cockcroft-Gault) 44.1 44.1 BUN/Creatinine Ratio 15 (6-20) 14 (6-20) Glucose Level 108 mg/dL (70-99) 106 mg/dL (70-99) Calcium Level 9.1 mg/dL (8.5-10.1) 8.8 mg/dL (8.5-10.1) Total Bilirubin 1.3 mg/dL (0.2-1.0) 1.3 mg/dL (0.2-1.0) Aspartate Amino Transf (AST/SGOT) 21 U/L (15-37) 16 U/L (15-37) Alanine Aminotransferase (ALT/SGPT) 25 U/L (16-63) 19 U/L (16-63) Alkaline Phosphatase 108 U/L (46-116) 107 U/L (46-116) Troponin I Quantitative 0.032 ng/mL (0.000-0.055) 0.057 ng/mL (0.000-0.055) 0.071 ng/mL (0.000-0.055) Total Protein 6.6 g/dL (6.4-8.2) 7.2 g/dL (6.4-8.2) Albumin 2.9 g/dL (3.4-5.0) 2.8 g/dL (3.4-5.0) Albumin/Globulin Ratio 0.8 (1.0-1.7) 0.6 (1.0-1.7) Heparin Anti-Xa Act, Unfractionated > 1.10 IU/mL (0.30-0.70) Thyroid Stimulating Hormone (TSH) 0.557 uIU/mL (0.358-3.74) Activated Partial Thromboplast Time 48 SEC (24-38) Test 06/13/19 09:50 Urine Opiates Screen Neg (NEG) Urine Methadone Screen Neg (NEG) Urine Barbiturates Neg (NEG) Urine Phencyclidine Screen Neg (NEG) Urine Amphetamine/Methamphetamine Neg (NEG) Urine Benzodiazepines Screen Neg (NEG) Urine Cocaine Screen Pos (NEG) Urine Cannabinoids Screen Pos (NEG) Urine Ethyl Alcohol Neg (NEG) Laboratory Tests Test 06/12/19 19:10 06/12/19 20:05 06/13/19 01:45 06/13/19 08:50 White Blood Count 6.6 x10^3/uL (4.0-11.0) 8.2 x10^3/uL (4.0-11.0) Red Blood Count 4.80 x10^6/uL (4.30-5.70) 4.59 x10^6/uL (4.30-5.70) Hemoglobin 17.1 g/dL (13.0-17.5) 16.4 g/dL (13.0-17.5) Hematocrit 51.0 % (39.0-53.0) 48.7 % (39.0-53.0) Mean Corpuscular Volume 106 fL (79-100) 106 fL (79-100) Mean Corpuscular Hemoglobin 36 pg (25-35) 36 pg (25-35) Mean Corpuscular Hemoglobin Concent 34 g/dL (31-37) 34 g/dL (31-37) Red Cell Distribution Width 16.6 % (11.5-14.5) 16.5 % (11.5-14.5) Platelet Count 222 x10^3/uL (140-400) 191 x10^3/uL (140-400) Neutrophils (%) (Auto) 69 % (31-73) 78 % (31-73) Lymphocytes (%) (Auto) 22 % (24-48) 15 % (24-48) Monocytes (%) (Auto) 7 % (0-9) 6 % (0-9) Eosinophils (%) (Auto) 1 % (0-3) 0 % (0-3) Basophils (%) (Auto) 1 % (0-3) 0 % (0-3) Neutrophils # (Auto) 4.6 x10^3/uL (1.8-7.7) 6.4 x10^3/uL (1.8-7.7) Lymphocytes # (Auto) 1.5 x10^3/uL (1.0-4.8) 1.3 x10^3/uL (1.0-4.8) Monocytes # (Auto) 0.5 x10^3/uL (0.0-1.1) 0.5 x10^3/uL (0.0-1.1) Eosinophils # (Auto) 0.1 x10^3/uL (0.0-0.7) 0.0 x10^3/uL (0.0-0.7) Basophils # (Auto) 0.0 x10^3/uL (0.0-0.2) 0.0 x10^3/uL (0.0-0.2) Sodium Level 137 mmol/L (136-145) 141 mmol/L (136-145) Potassium Level 5.9 mmol/L (3.5-5.1) 4.6 mmol/L (3.5-5.1) Chloride Level 103 mmol/L (98-107) 106 mmol/L (98-107) Carbon Dioxide Level 25 mmol/L (21-32) 28 mmol/L (21-32) Anion Gap 9 (6-14) 7 (6-14) Blood Urea Nitrogen 29 mg/dL (8-26) 27 mg/dL (8-26) Creatinine 1.9 mg/dL (0.7-1.3) 1.9 mg/dL (0.7-1.3) Estimated GFR (Cockcroft-Gault) 44.1 44.1 BUN/Creatinine Ratio 15 (6-20) 14 (6-20) Glucose Level 108 mg/dL (70-99) 106 mg/dL (70-99) Calcium Level 9.1 mg/dL (8.5-10.1) 8.8 mg/dL (8.5-10.1) Total Bilirubin 1.3 mg/dL (0.2-1.0) 1.3 mg/dL (0.2-1.0) Aspartate Amino Transf (AST/SGOT) 21 U/L (15-37) 16 U/L (15-37) Alanine Aminotransferase (ALT/SGPT) 25 U/L (16-63) 19 U/L (16-63) Alkaline Phosphatase 108 U/L (46-116) 107 U/L (46-116) Troponin I Quantitative 0.032 ng/mL (0.000-0.055) 0.057 ng/mL (0.000-0.055) 0.071 ng/mL (0.000-0.055) Total Protein 6.6 g/dL (6.4-8.2) 7.2 g/dL (6.4-8.2) Albumin 2.9 g/dL (3.4-5.0) 2.8 g/dL (3.4-5.0) Albumin/Globulin Ratio 0.8 (1.0-1.7) 0.6 (1.0-1.7) Heparin Anti-Xa Act, Unfractionated > 1.10 IU/mL (0.30-0.70) Thyroid Stimulating Hormone (TSH) 0.557 uIU/mL (0.358-3.74) Activated Partial Thromboplast Time 48 SEC (24-38) Test 06/13/19 09:50 Urine Opiates Screen Neg (NEG) Urine Methadone Screen Neg (NEG) Urine Barbiturates Neg (NEG) Urine Phencyclidine Screen Neg (NEG) Urine Amphetamine/Methamphetamine Neg (NEG) Urine Benzodiazepines Screen Neg (NEG) Urine Cocaine Screen Pos (NEG) Urine Cannabinoids Screen Pos (NEG) Urine Ethyl Alcohol Neg (NEG) Brief Hospital Course Mr. Bermudez is a 59 old male, admit with acute dyspnea, afib RVR, acute diatolic failure I was very upset about poss problems, but then found out he used cocaine the day before admit, has known renal mass that is stable and has prior repair to PFO of atria or something at has great care and plan for mult chronic problems at and should follow there needed 20 hrs of cardizem gtt here, then great we talked to him at length about cocaine use, komal. with him taking Coreg, CV team and I discussed with ourselves and with him, f/u Discharge Information Condition at Discharge: Improved Follow Up: Weeks Disposition/Orders: D/C to Home Scheduled Apixaban (Eliquis) 5 Mg Tablet, 5 MG PO BID for stroke prevention, (Reported) Entered as Reported by: MARTÍNEZ DAWSON on 06/13/19428 Last Action: Continued on 06/13/19432 by MARTÍNEZ DAWSON Aspirin (Aspirin) 81 Mg Tab.chew, 81 MG PO DAILY for blood thinner, (Reported) Entered as Reported by: MARTÍNEZ DAWSON on 06/13/19428 Last Action: Continued on 06/13/19432 by MARTÍNEZ DAWSON Carvedilol (Coreg) 25 Mg Tablet, 25 MG PO BIDWMEALS for blood pressure and chf, (Reported) Entered as Reported by: MARTÍNEZ DAWSON on 06/13/19428 Last Action: Converted on 06/13/19432 by MARTÍNEZ DAWSON Furosemide (Lasix) 20 Mg Tablet, 20 MG PO DAILY for diuretic, (Reported) Entered as Reported by: MARTÍNEZ DAWSON on 06/13/19428 Last Action: Continued on 06/13/19432 by MARTÍNEZ DAWSON Hydralazine Hcl (Hydralazine Hcl) 100 Mg Tablet, 100 MG PO TID for blood pressure, (Reported) Entered as Reported by: MARTÍNEZ DAWSON on 06/13/19428 Last Action: Converted on 06/13/19432 by MARTÍNEZ DAWSON Spironolactone (Spironolactone) 25 Mg Tablet, 25 MG PO DAILY for heart, (Reported) Entered as Reported by: MARTÍNEZ DAWSON on 06/13/19428 Last Action: Continued on 06/13/19432 by MARTÍNEZ DAWSON Tamsulosin Hcl (Flomax) 0.4 Mg Cap.er.24h, 0.4 MG PO DAILY for prostate, (Reported) Entered as Reported by: MARTÍNEZ DAWSON on 06/13/19428 Last Action: Continued on 06/13/19432 by MARTÍNEZ DAWSON Discontinued Medications Amoxicillin/Potassium Clav (Augmentin 875-125 Tablet) 1 Each Tablet, 1 TAB PO BID, #20 Prescribed by: CHECO TRIANA APRN on 02/02/17 3865 Last Action: Continued on 06/13/19432 by MARTÍNEZ DAWSON Patient Instructions Patient Instructions > 30 min face to face, TARIK DENNEY MD Jun 13, 2019 12:50
--- NOTE | 2019-06-13 14:09 | CARD ---
MR#: [id number] Date of Study: 06/13/2019 Ordering Physician: HEENA MCKEON, Referring Physician: HEENA MCKEON, Tech: Kacey Quevedo APPROVED REPORT EXAM: Two-dimensional and M-mode echocardiogram with Doppler and color Doppler. Other Information Quality : AverageHR: 92bpm INDICATION Atrial Fibrillation Chest Pain 2D DIMENSIONS RVDd3.8 (2.9-3.5cm)Left Atrium(2D)4.7 (1.6-4.0cm) IVSd1.9 (0.7-1.1cm)Aortic Root(2D)3.0 (2.0-3.7cm) LVDd5.5 (3.9-5.9cm)LVOT Diameter2.2 (1.8-2.4cm) PWd1.5 (0.7-1.1cm)LVDs4.3 (2.5-4.0cm) FS (%) 22.4 %SV67.0 ml LVEF(%)44.6 (>50%) Aortic Valve AoV Peak Bakari.88.7cm/sAoV VTI19.1cm AO Peak GR.3.1mmHgLVOT VTI 10.83cm AO Mean GR.3mmHg Mitral Valve MV E Gcqiuamb10.6cm/sMV DECEL [id number] MV A Umikspwq58.4cm/sE/A Ratio1.8 TDI Lateral E' P. V11.01cm/sMedial E' P. V6.18cm/s E/Lateral E'8.0E/Medial E'14.2 Tricuspid Valve TR P. Qrtzeukt224te/sRAP [id number] TR Peak Gr.46ywBfMSYM41flTd Pulmonary Vein S1 Nmoplofv26.9cm/sS2 Umsmhayh87.31cm/s D2 Nuzqhqpx30.3cm/sPVa [id number] LEFT VENTRICLE The left ventricle is normal size. There is moderate to severe concentric left ventricular hypertroph y. The systolic function is mildly impaired. The Ejection Fraction is 40-45%. There is global hypokin esis of the left ventricle. Basal to mid inferior wall is moderately hypokinetic. Tissue Doppler imag ing reveals moderate left ventricular diastolic dysfunction. RIGHT VENTRICLE The right ventricle is moderate to severely dilated. Mild RV hypertrophy. Normal RV function. ATRIA The left atrium is mildly dilated. The right atrium is moderately dilated. The interatrial septum is intact with no evidence for an atrial septal defect or patent foramen ovale as noted on 2-D or Dopple r imaging. AORTIC VALVE The aortic valve is normal in structure and function. Doppler and Color Flow revealed no significant aortic regurgitation. There is no significant aortic valvular stenosis. MITRAL VALVE The mitral valve is normal in structure and function. There is no evidence of mitral valve prolapse. There is no mitral valve stenosis. Doppler and Color-flow revealed trace mitral regurgitation. TRICUSPID VALVE The tricuspid valve is normal in structure and function. Doppler and Color Flow revealed mild tricusp id regurgitation with an estimated PAP of 59 mmHg. There is no tricuspid valve prolapse or vegetation . There is no tricuspid valve stenosis. PULMONIC VALVE The pulmonic valve is not well visualized. Doppler and Color Flow revealed moderate pulmonic valvular regurgitation. There is no pulmonic valvular stenosis. GREAT VESSELS The aortic root is normal in size. The IVC is dilated and collapses <50% with inspiration. PERICARDIAL EFFUSION There is moderate left pleural effusion. There is no evidence of significant pericardial effusion. Critical Notification Critical Value: No <Conclusion> The systolic function is mildly impaired. The Ejection Fraction is 40-45%. There is global hypokinesis of the left ventricle. Basal to mid inferior wall is moderately hypokinet ic. The right ventricle is moderate to severely dilated. Doppler and Color Flow revealed mild tricuspid regurgitation with an estimated PAP of 59 mmHg. Signed by : Guillermo Aragon, Electronically Approved : 06/13/2019 14:08:59
--- NOTE | 2019-06-13 17:05 | NUR ---
Discharge Note: APOLINAR DAVIS Discharge instructions and discharge home medications reviewed with Patient and a copy given. All questions have been answered and understanding verbalized. The following instructions and handouts were given: SOA, Atrial Flutter, Afib, CP, OSORIO, Discontinued lines and drains: Peripheral IV intact. Patient discharged to Home or Self Care with Family Member via Wheelchair
--- NOTE | 2019-06-13 19:09 | CONS ---
DATE OF CONSULTATION: 06/13/2019 REQUESTING PHYSICIAN: Arlene Wells M.D. REASON FOR CONSULTATION: Right renal upper pole 2-cm mass noted on CT scan on 06/12/2019. HISTORY OF PRESENT ILLNESS: The patient is a 59-year-old -[place] gentleman who has a history of cardiovascular disease, nonischemic cardiomyopathy, atrial flutter status post ablation, and history of right popliteal tibial thrombectomy. He was noted to have a right superior pole renal mass in 2016 for which a right partial nephrectomy was scheduled, but on the day of surgery, he was found to have urine positive for cocaine and the surgery was canceled. He follows at [facility] for management, and he was last seen by Dr. Agrawal in 05/2018 and he was noted to have stable renal mass. He had an ultrasound of the right kidney on 05/01/2019, which revealed that the mass was 2.3 cm, slightly decreased when compared to the previous size of 2.8 cm. He was admitted to [facility] on 06/12/2019 with chest pain. He underwent CT angiogram of the chest, abdomen, and pelvis on 06/12/2019, which revealed no evidence of dissection or aneurysm of the aorta. A 2-cm mass lesion noted in the right kidney and hence I was consulted for further evaluation. The patient has been evaluated by Cardiology. PAST MEDICAL HISTORY: AFib, coronary artery disease, CHF, hypertension, hyperlipidemia, COPD, osteoarthritis, CKD, right renal mass. FAMILY HISTORY: Negative for kidney cancer. SOCIAL HISTORY: He smokes less than 1 pack a day. He uses cocaine and marijuana. REVIEW OF SYSTEMS: A 12-point review of system was performed. Pertinent positives are mentioned in the history of present illness. Rest of the system review is negative. PHYSICAL EXAMINATION: GENERAL APPEARANCE: The patient is a 59-year-old -[place] gentleman who is in no acute cardiorespiratory distress. VITAL SIGNS: Blood pressure 120/80, temperature 98 degrees. HEENT: Head: Atraumatic, normocephalic. Eyes: No icterus. NECK: Supple. CHEST: Bilaterally symmetrical. No crepitations or rhonchi heard. HEART: S1, S2 normal. ABDOMEN: Soft, nontender. CENTRAL NERVOUS SYSTEM: No focal deficits. LYMPHATICS: No lymphadenopathy. SKIN: No rashes. PSYCHOLOGIC: Mood and affect are appropriate. LABORATORY DATA: WBC 8.2, hemoglobin 16.4, and platelet count 191. Creatinine 1.9. IMPRESSION AND PLAN: 1. Right renal mass that he has had since 2016. I reviewed the CT scan done on 06/12/2019. I also reviewed the records at [facility] and he continues to follow with Urology, Dr. Agrawal. His most recent scan at [facility] in 04/2019 revealed mild improvement in the renal lesion. The patient prefers to continue to follow up with Dr. Erik Agrawal at [facility]. Hence, no further workup will be ordered during this admission. 2. Chest pain. Appreciate Cardiology evaluation. CT scan does not reveal any evidence of aortic dissection or aneurysm. 3. Chronic kidney disease. Continue management per primary team. I discussed with registered nurse. JOSE HERNANDEZ MD DR: PANTERA/yair JOB#: [id number] / [id number] FIORDALIZA
== END 2019-06-13 17:08 | disposition home or self-care (01) | DRG 917 ==
LOC: ER 18:53 → 2 NORTH 21:00
PROVIDERS: ADMIT Internal Medicine; ATTEND Internal Medicine
DX: T40.5X1A Poisoning by cocaine, accidental (unintentional), initial encounter (principal); I50.31 Acute diastolic (congestive) heart failure; N17.9 Acute kidney failure, unspecified; I13.0 Hypertensive heart and chronic kidney disease with heart failure and stage 1 through stage 4 chronic kidney disease, or unspecified chronic kidney disease; I24.8 Other forms of acute ischemic heart disease; I48.92 Unspecified atrial flutter; I42.9 Cardiomyopathy, unspecified; I48.0 Paroxysmal atrial fibrillation; E87.5 Hyperkalemia; I51.3 Intracardiac thrombosis, not elsewhere classified; I25.10 Atherosclerotic heart disease of native coronary artery without angina pectoris; E78.5 Hyperlipidemia, unspecified; M19.90 Unspecified osteoarthritis, unspecified site; N18.3 Chronic kidney disease, stage 3 (moderate); F17.210 Nicotine dependence, cigarettes, uncomplicated; F14.10 Cocaine abuse, uncomplicated; F12.10 Cannabis abuse, uncomplicated; Z91.19 Patient's noncompliance with other medical treatment and regimen; J44.9 Chronic obstructive pulmonary disease, unspecified; Z53.9 Procedure and treatment not carried out, unspecified reason; Z79.01 Long term (current) use of anticoagulants; Z90.5 Acquired absence of kidney
CPT/HCPCS: 36415; 71045; 71275; 74174; 80053; 80307; 84443; 84484; 85025; 85520; 85730; 93005; 93306; 96365; 96375; 96376; J0360; J1644; J1815; J2405; J3490; J7042; Q9967; 99291-25; G0378

== ENCOUNTER 2021-04-07 08:46 | Inpatient (IN) | payer OTHER ==
[~2021-04-07] VITALS: Ht 170.2 cm; Wt 82.6 kg
[~2021-04-07 08:46] MED LIST changes: +APIX5TAB PO; +ASPI-630 PO; +CARV25TA PO; +FURO-69 PO; +HYDR100T24 PO; +SPIR25TA5 PO; +TAMS0.4C97 PO
[2021-04-07] MEDS ORDERED: IPRATRPIUM/ALBUTEROL 0.5/2.5MG 3 ML NEBU. NEB ONE ×2 (09:15→21:00)
[2021-04-07] MEDS ORDERED: DEXAMETHASONE SOD PHOS 4 MG/ML VIAL IVP ONE (09:15)
[2021-04-07] MEDS ORDERED: ASPIRIN ENTERIC COATED 325 MG TABLET.DR. PO ONE (09:15)
[2021-04-07 09:21] LABS: BASO % 1 % (0-3); EOS # 0.1 x10^3/uL (0.0-0.7); EOS % 1 % (0-3); HEMATOCRIT 51.7 % (39.0-53.0); HEMOGLOBIN 17.7 g/dL (13.0-17.5); LYMPH # 1.2 x10^3/uL (1.0-4.8); LYMPH % 23 % (24-48); MEAN CORPUSCULAR HEMOGLOBIN 37 pg (25-35); MEAN CORPUSCULAR HGB CONC 34 g/dL (31-37); MEAN CORPUSCULAR VOLUME 107 fL (79-100); MONO # 0.8 x10^3/uL (0.0-1.1); MONO % 17 % (0-9); NEUT # 2.9 x10^3/uL (1.8-7.7); NEUT % 58 % (31-73); PLATELET COUNT 197 x10^3/uL (140-400); RED BLOOD COUNT 4.83 x10^6/uL (4.30-5.70); RED CELL DISTRIBUTION WIDTH 18.1 % (11.5-14.5)
--- NOTE | 2021-04-07 09:26 | PHYS DOC ---
Past Medical History Past Medical History: A-Fib, Hypertension Additional Past Medical Histor: ENLARGED PROSTATE Past Surgical History: No Surgical History Smoking Status: Current Every Day Smoker Alcohol Use: Occasionally Drug Use: None Social History Narrative: LAST USED 2 DAYS AGO General Adult EDM: Chief Complaint: SHORTNESS OF BREATH HPI: HPI: Patient is a 61 year old male who presents with shortness of breath that began two days ago and has worsened recently. States symptoms began soon after he relapsed on crack cocaine two days ago. Since then patient also reports new onset orthopnea, dyspnea on exetion, and bilateral LE swelling. Also reports new onset cough with frothy white sputum. Denies chest pain, headache, nausea, vomiting, or hemoptysis. Review of Systems: Review of Systems: Constitutional: Denies fever or chills Eyes: Denies redness or eye pain HENT: Denies nasal congestion or sore throat Respiratory: Reports cough, shortness of breath, and orthopnea Cardiovascular: Denies chest pain or palpitations GI: Denies abdominal pain, nausea, or vomiting : Denies dysuria or hematuria Musculoskeletal: Reports bilateral lower extremity swelling. Denies back pain or joint pain Integument: Denies rash or skin lesions Neurologic: Denies headache, focal weakness or sensory changes Complete systems were reviewed and found to be within normal limits, except as documented in this note. Heart Score: C/O Chest Pain: N/A Current Medications: Current Medications Medications (Trade) Dose Ordered Sig/Edilberto Start Time Stop Time Status Last Admin Dose Admin Albuterol/ Ipratropium (Duoneb) 3 ml 1X ONCE 04/07/21 09:15 04/07/21 09:16 DC Aspirin (Ecotrin) 325 mg 1X ONCE 04/07/21 09:15 04/07/21 09:16 DC Dexamethasone Sodium Phosphate (Decadron) 10 mg 1X ONCE 04/07/21 09:15 04/07/21 09:16 DC Allergies: Allergies: Allergies Coded Allergies Type Severity Reaction Last Updated Verified No Known Drug Allergies 04/14/14 No Physical Exam: PE: Constitutional: Well developed, well nourished, no acute distress, non-toxic appearance HENT: Normocephalic, atraumatic Eyes: PERRL, EOMI, conjunctiva normal, no discharge Neck: Normal range of motion, no tenderness, supple Cardiovascular: Irregularly irregular rhythm. No murmurs. Lungs & Thorax: Expiratory wheezes heard over lower lung bases. No respiratory distress, equal chest rise and fall Abdomen: Soft, no tenderness Skin: Warm, dry, no erythema, no rash Back: No tenderness, no CVA tenderness Extremities: 3+ pitting edema in bilateral LE. No tenderness, ROM intact Neurologic: Alert and oriented X 3, normal motor function, normal sensory function, no focal deficits noted Psychologic: Affect normal, judgment normal Current Patient Data: Vital Signs: Vital Signs Date Time Temp Pulse Resp B/P (MAP) Pulse Ox O2 Delivery O2 Flow Rate FiO2 04/07/21 09:05 98.9 128 32 157/98 (93) 96 Room Air 98.9 EKG: EK BPM, a-fb, t wave inversion noted in V4 and V5 likely from old infarct, QRS 92ms, QTc 455ms Radiology/Procedures: Radiology/Procedures: EXAM: CT OF THE CHEST WITHOUT CONTRAST. HISTORY: Shortness of breath. TECHNIQUE: Computed tomography of the chest was performed without intravenous contrast. One or more of the following individualized dose reduction techniques were utilized for this examination: 1. Automated exposure control. 2. Adjustment of the mA and/or kV according to patient size. 3. Use of iterative reconstruction technique. COMPARISON: 06/12/2019. FINDINGS: Images of the upper abdomen reveal a 1.8 cm benign cyst in the right kidney. Bone windows reveal no suspicious lesions. There are no pathologically enlarged mediastinal or axillary lymph nodes. There is no pleural or pericardial effusion. The heart is moderately enlarged in a predominantly right-sided pattern. An atrial septal closure device is in place. The main pulmonary artery measures 4.4 cm. There are mild groundglass opacities in both lower lobes. There are small nodular infiltrates in the right lower lobe and posteriorly in the right upper lobe. Mild centrilobular emphysema is suspected in the apices. There is mild bronchial wall thickening. IMPRESSION: 1. Moderate cardiomegaly in a predominantly right-sided pattern. Enlargement of the central pulmonary arteries suggests pulmonary arterial hypertension. 2. Mild nodular infiltrates in the right lung may reflect aspiration or minimal infectious pneumonitis. 3. Groundglass opacities in the bases suggest mild pulmonary edema. 4. Suspect mild centrilobular emphysema. Electronically signed by: Alexis Major MD (04/07/2021 11:24 AM) [id number] Course & Med Decision Making: Course & Med Decision Making 61 year old male presents with 2 day history of shortness of breath. Labs and im aging obtained and posted to chart. Breathing treatment administered with some improvement of symptoms. Abnormal labs include elevated BNP, troponin, and creatinine. Patient is also hyperkalemic and was given calcium gluconate. Upon chart review, it appears that his creatinine level is his baseline. Patient requiring admission for further evaluation and treatment. Discussed with Dr. Miranda (hospitalist) who is in agreement with admission. Discussed findings and plan with patient, who acknowledges understanding and agreement. Dragon Disclaimer: Dragon Disclaimer: This electronic medical record was generated, in whole or in part, using a voice recognition dictation system. Departure Departure Impression: Primary Impression: Atrial fibrillation with RVR Additional Impressions: Cocaine use CHF (congestive heart failure) Qualified Codes: I50.9 - Heart failure, unspecified Elevated troponin Hyperkalemia Chronic renal insufficiency Qualified Codes: N18.9 - Chronic kidney disease, unspecified Disposition: 09 ADMITTED INPATIENT Admitting Physician: LINDA Kumar) Condition: GUARDED Referrals: UNKNOWN PCP NAME (PCP) Critical Care Time Critical care time was 30 minutes which includes time at bedside, spent in discussion of patient's care with specialists and/or family members, with interpretation of laboratory and/or radiological studies and is exclusive of katie quiles. ANNIE TYLER DO Apr 07, 2021 09:26
[2021-04-07 09:32] LABS: BASE EXCESS COOX -2 mmol/L (-3-3); HCO3 COOX 24 mmol/L (21-28); METHEMOGLOBIN 0.5 % (0.0-1.9); OXYHEMOGLOBIN 95.7 %; PCO2 COOX 47 mmHg (35-46); PO2 COOX 100 mmHg (65-108); SAT O2 COOX 97 % (92-99)
[2021-04-07 09:38] LABS: CALCIUM 9.2 mg/dL (8.5-10.1); GFR 41.3
[2021-04-07 09:40] LABS: ALBUMIN/GLOBULIN RATIO 0.6 (1.0-1.7); MAGNESIUM 2.3 mg/dL (1.8-2.4); TOTAL BILIRUBIN 0.7 mg/dL (0.2-1.0); TOTAL PROTEIN 8.2 g/dL (6.4-8.2)
--- NOTE | 2021-04-07 10:31 | EKG ---
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 (Measurements might be questionable) RI6.02 No previous ECG available for comparison
[2021-04-07] MEDS ORDERED: BUMETANIDE 1 MG/4 ML VIAL. IV ONE (10:44)
[2021-04-07] MEDS ORDERED: CALCIUM GLUCONATE 1,000 MG/10 ML VIAL. IVP ONE (11:15)
[2021-04-07] MEDS ORDERED: DEXTROSE 50% 25 GM / 50ML DISP.SYRIN. IV ONE (11:15)
[2021-04-07] MEDS ORDERED: INSULIN REGULAR 100 UNIT/ML 3ML VIAL. IV ONE (11:15)
--- NOTE | 2021-04-07 11:27 | RAD ---
EXAM: CT OF THE CHEST WITHOUT CONTRAST. HISTORY: Shortness of breath. TECHNIQUE: Computed tomography of the chest was performed without intravenous contrast. One or more o f the following individualized dose reduction techniques were utilized for this examination: 1. Automated exposure control. 2. Adjustment of the mA and/or kV according to patient size. 3. Use of iterative reconstruction technique. COMPARISON: 06/12/2019. FINDINGS: Images of the upper abdomen reveal a 1.8 cm benign cyst in the right kidney. Bone windows r eveal no suspicious lesions. There are no pathologically enlarged mediastinal or axillary lymph nodes. There is no pleural or quincy cardial effusion. The heart is moderately enlarged in a predominantly right-sided pattern. An atrial septal closure dev ice is in place. The main pulmonary artery measures 4.4 cm. There are mild groundglass opacities in both lower lobes. There are small nodular infiltrates in the right lower lobe and posteriorly in the right upper lobe. Mild centrilobular emphysema is suspected i n the apices. There is mild bronchial wall thickening. IMPRESSION: 1. Moderate cardiomegaly in a predominantly right-sided pattern. Enlargement of the central pulmonary arteries suggests pulmonary arterial hypertension. 2. Mild nodular infiltrates in the right lung may reflect aspiration or minimal infectious pneumoniti s. 3. Groundglass opacities in the bases suggest mild pulmonary edema. 4. Suspect mild centrilobular emphysema. Electronically signed by: Alexis Major MD (04/07/2021 11:24 AM) [id number]
[2021-04-07] MEDS ORDERED: ONDANSETRON PF 4 MG/2 ML VIAL. IVP PRN (12:30)
[2021-04-07] MEDS ORDERED: PIP/TAZO PER PHARMACY MC PRN (12:45)
[2021-04-07] MEDS ORDERED: PIPERACILLIN/TAZOBACTAM 3.375 GM in IV NORMAL SALINE 50ML 50 ML IV ONE (13:00)
--- NOTE | 2021-04-07 13:14 | HP ---
ADMIT DATE: 04/07/2021 CHIEF COMPLAINT: Shortness of breath. HISTORY OF PRESENT ILLNESS: The patient is a pleasant 61-year-old male who presented with shortness of breath. While in the ER, we had noticed that he is quite hypoxic, we have him on a lot of oxygen. His potassium is also high at 6. He also has azotemia with a BUN of 35 and a creatinine of 2. Hemoglobin is high at 17.7. Surprisingly, his COVID testing is negative, but his chest x-ray does show cardiomegaly and pulmonary hypertension, infiltrates and possible emphysema. We are admitting the patient with consultation to Cardiology and Nephrology. PAST MEDICAL HISTORY: BPH, AFib, hypertension, tobacco abuse. ALLERGIES: None. FAMILY HISTORY: Hypertension. SOCIAL HISTORY: He smokes and drinks. No drugs. MEDICATIONS: Reviewed, please refer to the MRAD. REVIEW OF SYSTEMS: Unobtainable. The patient is just too weak and barely talk, but he does complain of shortness of breath and cough and weakness. PHYSICAL EXAMINATION: VITALS: Within normal limits and are stable. GENERAL: No apparent distress. Alert and oriented. HEENT: Normal cephalic atraumatic, external auditory canals are patent EYES: Extraocular muscles are intact, pupils are equally round and reactive to light and accommodation MUSCULOSKELETAL: Well developed, well nourished, good range of motion ENDOCRINE: No thyromegaly was palpated LYMPHATICS: No cervical chain or axillary nodes were noted HEMATOPOIETIC: No bruising NECK: Supple, no JVD, no thyromegaly was noted. LUNGS: He has bibasilar crackles. HEART: He has a distant S1, S2 with a soft S3. ABDOMEN: Soft, nontender. Positive bowel sounds no organomegaly, normal bowel sounds. EXTREMITIES: He has 2-3+ edema. NEUROLOGIC: Normal speech, normal tone. A and O x 3, moves all extremities, no obvious focal deficits. PSYCHIATRIC: Normal affect, normal mood. Stable. SKIN: He has some ichthyosis on the lower extremities. VASCULAR: Good capillary refill, neurovascular bundle appears to be intact. LABORATORY DATA: COVID testing is negative. White count 5, hemoglobin 17.7, platelets 197. Electrolytes: Sodium 139, potassium 6.0, chloride 104, bicarb 29, BUN 35, creatinine 2, glucose 125. Chest x-ray shows vascular congestion, cardiomegaly, possible pneumonia and pulmonary hypertension. ASSESSMENT AND PLAN: Wzcgl-bx-norylit systolic and diastolic heart failure, respiratory failure, renal failure. The patient has been admitted to the cardiac floor. IV Lasix. We are going to correct his potassium. We are giving him insulin and glucose, breathing treatments, Kayexalate. He got a dose of IV Cardizem in the ER for some tachycardia. Start empiric IV antibiotics, p.r.n. Zofran. Trend labs. Serial enzymes, serial EKGs. Prognosis extremely guarded. CC TIME: Thirty-one minutes. ROD/DOMINIK/CRISTINA DR: Matt TID: [id number]
--- NOTE | 2021-04-07 15:10 | PDOC2 ---
[facility] 04/07/21 1510: CARDIAC CONSULT DATE OF CONSULT Date of Consult DATE: 04/07/21 TIME: 14:12 REASON FOR CONSULT Reason for Consult: AFIB RVR, CHF, elevated troponin REFERRING PHYSICIAN Referring Physician: Mike SOURCE Source: Chart review, Patient HISTORY OF PRESENT ILLNESS HISTORY OF PRESENT ILLNESS This is a pleasant 61 yo male admitted for complains shortness of breath. Further imaging verified that he has fluid overload. He is known for cardiovascular disease, noncompliance and substance abuse. Also noted with atrial flutter with RVR. He is a smoker and admits he used crack cocaine 2 days ago. Positive for orthopnea, leg swelling and EVANS. Denies any chest pain, fever or chills. Reports that he has been complaint with his meds and had a setback 2 days ago and used cocaine thinking about his son who 2 yrs ago. PAST MEDICAL HISTORY Past Medical History Cardiovascular: AFIB, CAD, CHF (NICM), HTN, Hyperlipidemia, Other (PAD; ASD; hx of VENKATA thrombus) Pulmonary: COPD, pneumonia GI: No pertinent hx Heme/Onc: Other (chronic NOAC) Hepatobiliary: No pertinent hx Psych: No pertinent hx Musculoskeletal: Osteoarthritis Rheumatologic: No pertinent hx Infectious disease: No pertinent hx ENT: No pertinent hx Renal/: Chronic renal insuff (CKD3), Other (right renal mass) Endocrine: No pertinent hx Dermatology: No pertinent hx PAST SURGICAL HISTORY Past Surgical History s/p right popliteal/tibial thrombectomy; cardiac ablation; ASD with closure 2016 FAMILY HISTORY Family History: Family History Unknown SOCIAL HISTORY Social History Smoke: <1 pack per day ALCOHOL: none Drugs: Cocaine, Marijuana Lives: Alone CURRENT MEDICATIONS CURRENT MEDICATIONS Current Medications Medications (Trade) Dose Ordered Sig/Edilberto Route PRN Reason Start Time Stop Time Status Last Admin Dose Admin Albuterol/ Ipratropium (Duoneb) 3 ml 1X ONCE NEB 04/07/21 09:15 04/07/21 09:16 DC 04/07/21 09:19 Dexamethasone Sodium Phosphate (Decadron) 10 mg 1X ONCE IVP 04/07/21 09:15 04/07/21 09:16 DC 04/07/21 09:19 Aspirin (Ecotrin) 325 mg 1X ONCE PO 04/07/21 09:15 04/07/21 09:16 DC 04/07/21 09:18 Diltiazem HCl (Cardizem Iv Push) 20 mg 1X ONCE IVP 04/07/21 09:45 04/07/21 09:46 DC 04/07/21 09:33 Diltiazem HCl 125 mg/Sodium Chloride 125 ml @ 5 mls/hr CONT PRN IV SEE I/O RECORD 04/07/21 09:30 04/07/21 09:34 Bumetanide (Bumex) 1 mg DAILY ONCE IV 04/07/21 10:44 04/07/21 10:45 DC 04/07/21 11:09 Calcium Gluconate (Calcium Gluconate) 1,000 mg 1X ONCE IVP 04/07/21 11:15 04/07/21 11:16 DC 04/07/21 12:14 Insulin Human Regular (HumuLIN R VIAL) 10 unit 1X ONCE IV 04/07/21 11:15 04/07/21 11:16 DC 04/07/21 12:19 Dextrose (Dextrose 50%-Water Syringe) 25 gm 1X ONCE IV 04/07/21 11:15 04/07/21 11:16 DC 04/07/21 12:12 ALLERGIES ALLERGIES: Coded Allergies: No Known Drug Allergies (Unverified , 04/14/14) ROS Review of System 14 point ROS evaluated with pertinent positives noted per HPI PHYSICAL EXAM General: Alert, Oriented X3, Cooperative, No acute distress HEENT: Atraumatic, Mucous membr. moist/pink Lungs: Other (diminished, diffuse wheeze) Heart: Regular rate (atrial flutter with variable conduction) Abdomen: Soft Extremities: No cyanosis, Other (3+ bilateral LE pitting edema) Skin: No breakdown Neuro: Normal speech, Sensation intact Psych/Mental Status: Mental status NL MUSCULOSKELETAL: Osteoarthritic changes both hands VITALS/I&O VITALS/I&O: Vital Signs Date Time Temp Pulse Resp B/P (MAP) Pulse Ox O2 Delivery O2 Flow Rate FiO2 04/07/21 13:30 72 105/58 (74) 96 Nasal Cannula 2.0 04/07/21 09:05 98.9 32 98.9 LABS Lab: Laboratory Tests Test 04/07/21 09:00 04/07/21 09:20 04/07/21 09:33 White Blood Count 5.0 x10^3/uL (4.0-11.0) Red Blood Count 4.83 x10^6/uL (4.30-5.70) Hemoglobin 17.7 g/dL (13.0-17.5) H Hematocrit 51.7 % (39.0-53.0) Mean Corpuscular Volume 107 fL (79-100) H Mean Corpuscular Hemoglobin 37 pg (25-35) H Mean Corpuscular Hemoglobin Concent 34 g/dL (31-37) Red Cell Distribution Width 18.1 % (11.5-14.5) H Platelet Count 197 x10^3/uL (140-400) Neutrophils (%) (Auto) 58 % (31-73) Lymphocytes (%) (Auto) 23 % (24-48) L Monocytes (%) (Auto) 17 % (0-9) H Eosinophils (%) (Auto) 1 % (0-3) Basophils (%) (Auto) 1 % (0-3) Neutrophils # (Auto) 2.9 x10^3/uL (1.8-7.7) Lymphocytes # (Auto) 1.2 x10^3/uL (1.0-4.8) Monocytes # (Auto) 0.8 x10^3/uL (0.0-1.1) Eosinophils # (Auto) 0.1 x10^3/uL (0.0-0.7) Basophils # (Auto) 0.0 x10^3/uL (0.0-0.2) Sodium Level 139 mmol/L (136-145) Potassium Level 6.0 mmol/L (3.5-5.1) H Chloride Level 104 mmol/L (98-107) Carbon Dioxide Level 29 mmol/L (21-32) Anion Gap 6 (6-14) Blood Urea Nitrogen 35 mg/dL (8-26) H Creatinine 2.0 mg/dL (0.7-1.3) H Estimated GFR (Cockcroft-Gault) 41.3 BUN/Creatinine Ratio 18 (6-20) Glucose Level 125 mg/dL (70-99) H Lactic Acid Level 1.1 mmol/L (0.4-2.0) Calcium Level 9.2 mg/dL (8.5-10.1) Magnesium Level 2.3 mg/dL (1.8-2.4) Total Bilirubin 0.7 mg/dL (0.2-1.0) Aspartate Amino Transferase (AST) 30 U/L (15-37) Alanine Aminotransferase (ALT) 33 U/L (16-63) Alkaline Phosphatase 140 U/L (46-116) H Creatine Kinase 224 U/L (39-308) Creatine Kinase MB (Mass) 8.7 ng/mL (0.0-3.6) H Creatine Kinase MB Relative Index 3.9 % (0-4) Troponin I Quantitative 0.104 ng/mL (0.000-0.055) BB-Zfd-N-Type Natriuretic Peptide 6224 pg/mL (0-124) H Total Protein 8.2 g/dL (6.4-8.2) Albumin 3.0 g/dL (3.4-5.0) L Albumin/Globulin Ratio 0.6 (1.0-1.7) L SARS-CoV-2 Antigen (Rapid) Negative (NEGATIVE) O2 Saturation 97 % (92-99) Arterial Blood pH 7.34 (7.35-7.45) L Arterial Blood pCO2 at Patient Temp 47 mmHg (35-46) H Arterial Blood pO2 at Patient Temp 100 mmHg (65-108) Arterial Blood HCO3 24 mmol/L (21-28) Arterial Blood Base Excess -2 mmol/L (-3-3) Oxyhemoglobin 95.7 % Methemoglobin 0.5 % (0.0-1.9) Carbon Monoxide, Quantitative 0.9 % (0.0-1.9) FiO2 32%/ 3l nc Laboratory Tests 04/07/21 09:00 Laboratory Tests 04/07/21 09:00 ECHOCARDIOGRAM ECHOCARDIOGRAM * RONI 03/26/2020 [facility] * * Normal left ventricular systolic function with an EF of 20%. * Mild left ventricular dilation * Moderate to severe left atrial enlargement * The RV is mildly dilated with mildly impaired function * 24 mm Amplatzer ASO occluder device is well seated. No evidence of residual shunt by color doppler. * Small partially mobile thrombus (9 mm X 6 mm) is noted in the left atrial appendage. * Dense spontaneous echo contrast is noted in the left atrium * VENKATA emptying velocity 20 cm/s * Mild mitral and tricuspid valve regurgitation * No pericardial effusion STRESS TEST STRESS TEST 03/27/2020 [facility] FINDINGS: Pharmacological Stress Electrocardiogram: The patient's resting heart rate was 97 bpm and the resting blood pressure was 116/94. The patients peak stress heart rate was 105 bpm and the peak stress blood pressure was 81/60. The patient experienced shortness of breath, flushing, and dizziness. He was given reversal agent with 50 mg IV aminophylline. He complained of some right-sided chest tightness. The resting ECG shows atrial fibrillation with a rapid ventricular response. The heart rate was 110 bpm. There was a left axis deviation with a left anterior fascicular block. There were nonspecific T wave abnormalities, most prominent in the lateral leads. Following Regadenoson infusion there are no new diagnostic ECG changes and the patient remained in atrial fibrillation with borderline rapid ventricular response throughout the study. Conclusion: Pharmacologic stress ECG is nondiagnostic for ischemia due to the underlying baseline nonspecific T wave abnormalities in the lateral leads. Iscymrjai-tg-Kaembtpfyy Count Ratio: 0.59 (normal = or < 0.52). Scintigraphic Findings: Raw images reveal the left ventricular cavity is normal in size. There is increased pulmonary tracer uptake, a high risk prognostic indicator. There is anterior soft tissue attenuation present, which is most prominent on the upright acquisition. There is a small amount of diaphragm attenuation as well. No transient ischemic dilation is present. Tomographic images were reconstructed in three orthogonal views. There is a small sized, mild intensity, reversible perfusion abnormality of the inferoapical segment. The stress upright images demonstrate a small sized, mild intensity, reversible perfusion abnormality of the mid to apical anterior wall. This finding is not correlated on the stress supine images, and therefore is most likely secondary to a shifting soft tissue attenuation artifact. There is normal homogenous uptake of thallium in all other myocardial segments. All myocardial segments appear viable. Polar coordinate map identifies similar perfusion abnormalities. TID Ratio: 1.24 (normal <1.36). Summed Stress Score: 4 , Summed Rest Score: 0 Regional Wall Thickening and Motion Post Stress: Given the patient's underlying atrial fibrillation with rapid ventricular response throughout the study, they were expected gating abnormalities. The calculated LV systolic function may be inaccurate on this study as a result. There does appear to be diffuse global hypokinesis. Left Ventricular Ejection Fraction = 21 %. Left Ventricular End Diastolic Volume: 120 mL SUMMARY/OPINION: This study is abnormal, and technically high risk overall based on the calculated ejection fraction and the presence of an increased pulmonary to m yocardial count ratio. There is also a small sized, mild intensity, reversible perfusion abnormality of the inferoapical segment. There is diffuse global hypokinesis, with a calculated ejection fraction of 21%. This may be less accurate, given the gating challenges with the patient in an irregular u nderlying cardiac rhythm. The pharmacologic stress ECG was nondiagnostic for ischemia in the setting of baseline T wave inversion in the lateral leads. The patient was in atrial fibrillation with a borderline rapid ventricular response throughout the study. There are no prior studies available for comparison. In aggregate the current study is high risk in regards to predicted annual cardiovascular mortality rate. ASSESSMENT/PLAN ASSESSMENT/PLAN 1. Acute on chronic diastolic/systolic CHF 2. Cocaine/marijuana abuse: last use 2 days ago 3. NICM: last known EF at 20% 4. AFIB RVR: appears to be chronic. rate better 5. NSTEMI: type 2, demand mediated with culprits above 6. Hx of VENKATA thrombus and ASD closure 7. CKD3 and hx of right renal mass 8. Hyperkalemia: K at 6 9. Hx of noncompliance: has been skipping meds. 10. Acute respiratory failure with CHF/COPD and possible pneumonitis likely from cocaine inhalation 11. AECOPD 12. Metabolic encephalopathy Recommendations. 1. DC cardizem. Monitor BP trend. Start on coreg and if wheezing remains then will consider an alternative .Hold aldactone for now. May utilize digoxin PRN once K is better. Discussed case with primary florist helper 2. Restart eliquis for stroke prevention 3. Optimize diuretic therapy. K reversal agents have been given in ED. 5. Discussed smoking and substance abuse abstinence 6. Follow up with cardiology on 04/18 @ 1300 7. Antibiotic per PCP 8. Solumedrol and albuterol x1, Consult pulmonary 9. Bipap PRN DAVID GORMAN MD 04/07/21 5072: CARDIAC CONSULT ASSESSMENT/PLAN ASSESSMENT/PLAN Patient seen and examined The patient reports feeling significantly better. I agree with our nurse practitioners assessment and plan. Acute on chronic diastolic/systolic CHF. Nonischemic cardiomyopathy with an ejection fraction of 20%. Mild diuresis with monitoring of lab. Cocaine/marijuana abuse: last use 2 days ago. The patient also has been skipping his medications. NICM: last known EF at 20% AFIB RVR: appears to be chronic. rate significantly improved. Discontinuing Cardizem and starting low-dose Coreg. Possible use of digoxin once potassium is under better control. NSTEMI: type 2, demand mediated with culprits above. Continue treatment as above and rule out. Hx of VENKATA thrombus and ASD closure CKD3 and hx of right renal mass. Monitoring lab. Hyperkalemia: K at 6. Treatment as above. Acute respiratory failure with CHF/COPD and possible pneumonitis likely from cocaine inhalation. Solu-Medrol. Pulmonary consultation. HEENA MCKEON APRN Apr 07, 2021 15:10 DAVID GORMAN MD Apr 07, 2021 17:42
[2021-04-07 15:43] LABS: CALCIUM 9.4 mg/dL (8.5-10.1); CREATININE 1.9 mg/dL (0.7-1.3); GFR 43.8; POTASSIUM 5.1 mmol/L (3.5-5.1)
[2021-04-07] MEDS ORDERED: methylPREDNISolone SOD SUCC PF 125 MG/2 ML VIAL. IV ONE (15:45)
[2021-04-07] MEDS ORDERED: ALBUTEROL SULFATE 2.5 MG/3 ML NEBU. NEB ONE (15:45)
[2021-04-07] MEDS: FUROSEMIDE 40 MG/4 ML VIAL. IVP SCH (16:05)
[2021-04-07] MEDS ORDERED: DIGOXIN IV 500 MCG/2 ML AMPUL. IV ONE (16:15)
[2021-04-07] MEDS ORDERED: CARVEDILOL 6.25 MG TABLET. PO SCH (17:00)
[2021-04-07] MEDS ORDERED: CARVEDILOL 3.125 MG TABLET. PO SCH (17:00)
[2021-04-07 17:22] VITALS: BP 158/84
[2021-04-07 17:34] VITALS: BP 158/84
[2021-04-07 17:42] VITALS: BP 158/84
[2021-04-07] MEDS: PIPERACILLIN/TAZOBACTAM 3.375 GM in IV NORMAL SALINE 50ML 50 ML IV SCH ×2 (18:15→18:30)
[2021-04-07 18:17] LABS: BILIRUBIN,URINE NEGATIVE (NEG); CLARITY,URINE CLEAR; COLOR,URINE YELLOW; NITRITE,URINE NEGATIVE (NEG); PROTEIN,URINE 30 mg/dL (NEG-TRACE); UROBILINOGEN,URINE 0.2 mg/dL (0.2 mg/dL)
[2021-04-07 18:22] LABS: AMPHETAMINE/METHAMPHETAMINE NEG (NEG); BARBITURATES NEG (NEG); BENZODIAZEPINES NEG (NEG); CANNABINOIDS NEG (NEG); COCAINE POS (NEG); METHADONE NEG (NEG); OPIATES NEG (NEG); PHENCYCLIDINE NEG (NEG)
[2021-04-07 18:23] LABS: HYALINE CASTS, URINE MODERATE /HPF
[2021-04-07 18:24] LABS: AMORPHOUS SEDIMENT,UR PRESENT /HPF; BACTERIA,URINE 0 /HPF (0-FEW)
[2021-04-07 18:44] VITALS: BP 167/92
--- NOTE | 2021-04-07 18:49 | NUR ---
The patient, APOLINAR DAVIS, 61 y/o, M admitted by VAIBHAV MAYO III, DO, was given written information regarding hospital policies, unit procedures and contact persons. Valuables were checked and left with patient. Pt admitted to room 663 at 1405. VSS. A&O x4. POWERS. Monitor showing a fib with ventricular response 80-90's. No ectopy. O2 at 2L NC with sats in 90's. Coarse expiratory breath sounds posteriorly. No cough or sputum production. Bilateral 4+ pedal edema with faint pp present. Voiding yellow urine with foul smell.Tolerating diet well. Skin intact. Cardizem infusing at 5 cc/hr per LAC. #20 saline lock inserted in left hand. Cardizem DC'd at 1535 per ortavia. Coreg, Lasix, Solumedrol, and Digoxin administered as ordered. UA sent. Follow-up K+ was 5.1. Fall precautions. Pt states he had both Covid vaccines-Moderna. First one in November and second one in December. Denies pain. Cardiology and renal consults called. Orders reviewed.
[2021-04-07 19:00] VITALS: BP 148/107
--- NOTE | 2021-04-07 19:30 | NUR ---
IN REPORT NOTICED THAT 663 CAME OFF THE MONITOR, HE WAS ALL TANGLED IN HIW CORDS,WIRES,OXYGEN TUBING, TELE BOX WAS ON HIS BEDSIDE TABLE. PT SAID HIS RIGHT LEG HURT SAW A DARKER AREA THE SIZE OF PINKY FINGER. NO SWELLING, EDEMA OR REDNESS. LCRN
[2021-04-07 19:50] LABS: AMPHETAMINE/METHAMPHETAMINE NEG (NEG); BARBITURATES NEG (NEG); BENZODIAZEPINES NEG (NEG); CANNABINOIDS NEG (NEG); COCAINE POS (NEG); METHADONE NEG (NEG); OPIATES NEG (NEG); PHENCYCLIDINE NEG (NEG)
--- NOTE | 2021-04-07 19:55 | NUR ---
PLACED PT ON 50% MATHEUS MASK. AND CALLED A RAPID. AND CALLED HIS DOCTORS. SANDRO
[2021-04-07] MEDS: APIXABAN 5 MG TABLET. PO SCH (20:20)
[2021-04-07] MEDS ORDERED: ACETAMINOPHEN 500 MG TABLET PO PRN (21:00)
--- NOTE | 2021-04-07 21:00 | NUR ---
pt bp elevated 148/107 and 184/111, wheezes/coarse reported, lcrn
--- NOTE | 2021-04-07 21:00 | NUR ---
a rapid was called. dr mai. lasix and morphine. lcrn
[2021-04-07] MEDS: hydrALAZINE 20 MG/ML VIAL. IVP PRN (21:19)
[2021-04-07] MEDS ORDERED: IPRATRPIUM/ALBUTEROL 0.5/2.5MG 3 ML NEBU. NEB SCH (21:30)
[2021-04-07] MEDS ORDERED: oxyCODONE/APAP 5/325 1 TAB TABLET PO ONE (21:30)
[2021-04-07] MEDS: MORPHINE SULFATE 2 MG/ML INJ. IVP PRN (21:42)
[2021-04-07] MEDS ORDERED: FUROSEMIDE 40 MG/4 ML VIAL. IVP ONE (22:00)
[2021-04-07 23:00] VITALS: BP 161/112
[2021-04-08] VITALS (15 sets, daily range): BP systolic 81–181; BP diastolic 59–117
[2021-04-08] MEDS: MORPHINE SULFATE 2 MG/ML INJ. IVP PRN ×4 (01:46→22:44)
[2021-04-08] MEDS: hydrALAZINE 20 MG/ML VIAL. IVP PRN (03:19)
--- NOTE | 2021-04-08 03:40 | EKG ---
[facility] [address] [place] [address] Test Date: 2021-04-07 Test Time: 10:11:11 Pat Name: APOLINAR DAVIS Department: Room: 654 1 Gender: M [employer] Developer: : 1960 Requested By: ANNIE TYLER Order Number: [id number] Reading MD: Measurements Intervals [place] Rate: 100 P: OR: QRS: -64 QRSD: 92 T: 144 QT: 350 QTc: 455 Interpretive Statements IRREGULAR RHYTHM, NO P-WAVE FOUND ABNORMAL LEFT AXIS DEVIATION S1,S2,S3 PATTERN CONSIDER LEFT VENTRICULAR HYPERTROPHY QRS(T) CONTOUR ABNORMALITY CONSIDER ANTEROSEPTAL MYOCARDIAL DAMAGE CONSISTENT WITH INFERIOR INFARCT PROBABLY OLD ST & T ABNORMALITY, CONSIDER ANTEROLATERAL ISCHEMIA OR LEFT VENTRICULAR STRAIN T ABNORMALITY IN ANTERIOR LEADS ABNORMAL ECG RI6.02 Compared to ECG 04/07/2021 10:09:49 Left-axis deviation now present Myocardial infarct finding now present Possible ischemia now present Possible ischemia now present T-wave abnormality now present
[2021-04-08] MEDS ORDERED: ALPRAZolam 0.25 MG TABLET PO ONE (04:30)
[2021-04-08] MEDS ORDERED: CARVEDILOL 6.25 MG TABLET. PO ONE (04:30)
[2021-04-08] MEDS: PIPERACILLIN/TAZOBACTAM 3.375 GM in IV NORMAL SALINE 50ML 50 ML IV SCH ×2 (05:43→12:41)
[2021-04-08 05:58] LABS: BASE EXCESS ABG -1 mmol/L (-3-3); FIO2 ABG 50; HCO3 ABG 24 mmol/L (21-28); PCO2 ABG 43 mmHg (35-46); PO2 ABG 84 mmHg (65-108); SAT O2 ABG 96 % (92-99)
[2021-04-08] MEDS: FUROSEMIDE 40 MG/4 ML VIAL. IVP SCH ×2 (06:00→20:24)
[2021-04-08] MEDS ORDERED: FUROSEMIDE 40 MG/4 ML VIAL. IVP ONE ×2 (06:00→10:45)
[2021-04-08] MEDS ORDERED: DIGOXIN IV 500 MCG/2 ML AMPUL. IV ONE (07:00)
--- NOTE | 2021-04-08 07:00 | NUR ---
SYNAPSE OF THE LAST DIRECTOR CORRECTIONAL AGENCY: 04/[address] ELIZABETH PT'S HOME MEDS.REPORTED RIGHT LEG PAIN AND ELEVATED BP. SEE ORDERS. 04/[address] ELIZABETH ABOUT COARSE AND WHEEZY LUNGS. DUO NEBS WERE ORDERED AND CHANGED TO INHALER PER RT DUE TO PT BEING A PUI PT.. AND PT REQUESTING A PAIN PILL FOR HIS RIGHT LOWER LEG WHICH IS EDEMATOUS AND RED BOTTOM OF KNEE TO TOP OF FOOT BOTH FEET ARE +4 EDEMA. 04/[address] GORMAN ABOUT PT'S HEART RATE AND RESTLESSNESS. SEE ORDER FOR MORPHINE 2MG PRN Q 2. 04/[address] GORMNA ABOUT PT'S HEART RATE AND RESTLESSNESS. SEE ORDER FOR COREG AND XANAX. 04/[address] ELIZABETH AND DR RIGGS. JENNIFERIX, SONIA HERNANDEZ. THEN MOVED PT UP TO 254 DUE TO HIM FREQUENTLY GETTING OOB, PT SOB AND HEART RATE STILL ELEVATED. PT URINATING ALL OVER HIS ROOM THROUGH OUT THE NIGHT AND NOT HITTING THE URINAL. CHEST XRAY ORDERED BY SONIA HUTCHINSON ORDERED DUE TO SECOND DOSE OF IV LASIX 40MG. ABG'S WERE OKAY. PT NOW WORN OUT HR 160"S, RR WERE 40'S 04/[address] GORMAN ABOUT ELEVATED HEART RATE SUSTAINING 160'S . SEE ORDERS FOR DIGOXIN. PASSING PT OFF TO [facility] ON DAYS LCRN
[2021-04-08] MEDS: DIGOXIN IV 500 MCG/2 ML AMPUL. IV SCH ×2 (07:26→08:57)
[2021-04-08] MEDS ORDERED: METOPROLOL IV PUSH 5 MG/5 ML VIAL. IVP ONE (08:15)
[2021-04-08] MEDS: TAMSULOSIN 0.4 MG CAP.ER.24H. PO SCH ×2 (09:00→10:13)
--- NOTE | 2021-04-08 09:06 | CONS ---
DATE OF CONSULTATION: 04/08/2021 PULMONARY CONSULTATION ATTENDING PHYSICIAN: Dr. Miranda. REASON FOR CONSULTATION: Respiratory failure. HISTORY OF PRESENT ILLNESS: The patient is a 61-year-old male who has history of nonischemic cardiomyopathy with an EF of 40%, history of cocaine abuse, history of ASD, history of left atrial thrombus. He was brought into the hospital with increasing dyspnea. He is noncompliant. The patient was noted to be in atrial flutter with rapid ventricular response. He has been doing crack cocaine for the last 2 days. He has orthopnea and lower extremity edema and dyspnea on exertion. Last night, he was very restless and agitated and I was informed about the patient's consult. Initial ABG showed a pH of 7.34, pCO2 of 47, pO2 100 on 32% FIO2. Due to the patient's respiratory distress, he was placed on BiPAP overnight. ABGs done showed a pH of 7.37, pCO2 of 43 and a pO2 of 84 on 50% FIO2. The patient's CT chest was reviewed. The patient has cardiomegaly and prominent right-sided pattern. He has ground glass mild infiltrates in the lower lobes consistent with pneumonitis and centrilobular emphysema. The patient has been seen by Cardiology for AFib, RVR. He received 80 mg of morphine overnight and he is not fully awake today, currently on BiPAP. He is still tachycardic, heart rate in the 140s. PAST MEDICAL HISTORY: Significant for history of nonischemic cardiomyopathy, EF of 40%; history of cocaine abuse; has history of CHF; CAD; atrial fibrillation; PAD, ASD; history of a left atrial thrombus; COPD; osteoarthritis; CKD and history of right renal mass. SURGERIES: Including a right popliteal tibial thrombectomy, cardiac ablation, ASD with closure in 2016. FAMILY HISTORY: Unknown. SOCIAL HISTORY: Has tobaccoism as well as cocaine and marijuana. SYSTEM REVIEW: Unable to obtain due to his encephalopathy. PHYSICAL EXAMINATION: VITAL SIGNS: Reviewed. Blood pressure 94/59; pulse is in the 140s, atrial flutter; pulse ox 97%. GENERAL: He is not following any commands. He received 8 mg of morphine. NECK: Supple. LUNGS: With diminished breath sounds. CARDIOVASCULAR: With tachycardia. ABDOMEN: Obese. EXTREMITIES: Bilateral 2+ pitting edema. LABORATORY DATA: Reviewed. COVID negative. Urine drug screen positive for cocaine. BUN 36, creatinine 1.9. Troponin 0.076. ABGs are discussed in my history of presence illness. IMPRESSION: 1. Acute hypoxic respiratory failure secondary to atrial flutter with rapid ventricular response and suspected congestive heart failure. 2. Abnormal CT chest with ground glass infiltrates. Could be early congestive heart failure versus cocaine-induced pneumonitis. 3. Atrial flutter with rapid ventricular response, heart rate is still 140s. Cardiology is managing. 4. Acute kidney injury. 5. Substance abuse and ongoing cocainism. The patient also has tobacco use. 6. Abnormal previous echo with RV dilation due to suspected secondary Pulmonary HTN ( ASD/ CMP). No need for VTE w/u except dopplers. Pt already on Eliquis RECOMMENDATIONS: 1. Discussed with RN and RT. We will continue present BiPAP. 2. The patient is status post diuresis. 3. Follow chest x-ray. 4. Management of atrial flutter per Cardiology. 5. The patient has encephalopathy, received morphine sulfate, will avoid further morphine. He could be withdrawing from drugs as well. 6. DuoNebs. 7. Empiric antibiotics were initiated, appeared clinically low suspicion for infection. 7. Continue Eliquis for atrial flutter/fib. 8. Obtain venous Dopplers of lower extremities. 9. Discussed with RN and RT. Chart reviewed, imaging studies reviewed. Critical care time 35 minutes including decision making. WHITNEY/HELENE MARTELL: WHITNEY/yair TID: [id number] MTDD
[2021-04-08 09:22] LABS: CREATININE 2.6 mg/dL (0.7-1.3); GFR 30.5
--- NOTE | 2021-04-08 10:03 | RAD ---
Portable chest x-ray compared to noncontrast CT scan of the chest dated April 07, 2021 for cancer de bris. FINDINGS: The demonstration of cardiomegaly and bilateral pulmonary artery enlargement suggests mild pulmonary hypertension. Lung volumes are low. There are vague groundglass opacities peripherally, whi ch may reflect pulmonary edema or atypical infectious or inflammatory infiltrate. No large pleural ef fusions. IMPRESSION: 1. Vague peripheral groundglass infiltrates bilaterally possibly due to early edema or atypical infec tious or inflammatory pneumonitis. 2. Cardiomegaly. 3. Pulmonary hypertension. Electronically signed by: Jasvir Barreto MD (04/08/2021 10:01 AM) [id number]
[2021-04-08] MEDS: APIXABAN 5 MG TABLET. PO SCH (10:13)
[2021-04-08] MEDS: IPRATROPIUM/ALBUTEROL 20/100mcg/INH INHALER. INH SCH ×4 (10:13→20:00)
--- NOTE | 2021-04-08 10:43 | PDOC2 ---
CONSULT Date of Consult Date of Consult DATE: 04/08/21 TIME: 10:28 Reason for Consult Reason for Consult: RENAL FAILURE WITH HIGH K Referring Physician Referring Physician: MARIA ESTHER Identification/Chief Complaint Chief Complaint SOB History of Present Illness Reason for Visit: THIS IS A 61 YR OLD WITH SOB. HAS HX OF CM WITH EF OF 20%. HAD AFIB RVR AND TX WITH CARDIZEM GTT. ALSO HAS HX OF L ATRIAL THROMBUS WITH HX OF ASD AND HAS BEEN ON ANTICOAGULATION. ON ADMIT NOTED TO BE ALSO POS FOR COCAINE ON HIS UDS. HAS C/O OF LE EDEMA WELL. PLACED ON BIPAP THIS AM DUE TO HIS RESP DISTRESS. ABG SHOWED A RESP ACIDOSIS WELL. REMAINS TACHYCARDIC WITH OCC LOW BP. WAS HYPERTENSIVE ON ADMIT. APPARENTLY VERY NON COMPLIANT. HAS CKD STAGE 3B. CR HAS BEEN IN THE 2.0 RANGE WITH MOST RECENT CR OF 2.6. K OF 6.0. NO OTHER HX KNOWN PAST MEDICAL HISTORY: Significant for history of nonischemic cardiomyopathy, EF of 40%; history of cocaine abuse; has history of CHF; CAD; atrial fibrillation; PAD, ASD; history of a left atrial thrombus; COPD; osteoarthritis; CKD and history of right renal mass. Past Medical History Cardiovascular: AFIB, CAD, CHF, HTN, Hyperlipidemia, Other Pulmonary: COPD GI: No pertinent hx Heme/Onc: Other Hepatobiliary: No pertinent hx Psych: No pertinent hx Musculoskeletal: Osteoarthritis Rheumatologic: No pertinent hx Infectious disease: No pertinent hx Renal/: Chronic renal insuff, Other Endocrine: No pertinent hx Past Surgical History Past Surgical History: Other Family History Family History: Family History Unknown Social History ALCOHOL: none Drugs: Cocaine, Marijuana Lives: Alone Current Problem List Problem List Problems Medical Problems: (1) Atrial fibrillation with RVR Status: Acute (2) CHF (congestive heart failure) Status: Acute (3) Chronic renal insufficiency Status: Acute (4) Cocaine use Status: Acute (5) Elevated troponin Status: Acute (6) Hyperkalemia Status: Acute Current Medications Current Medications Current Medications Albuterol/ Ipratropium (Duoneb) 3 ml 1X ONCE NEB Last administered on 04/07/21at 09:19; Start 04/07/21 at 09:15; Stop 04/07/21 at 09:16; Status DC Dexamethasone Sodium Phosphate (Decadron) 10 mg 1X ONCE IVP Last administered on 04/07/21at 09:19; Start 04/07/21 at 09:15; Stop 04/07/21 at 09:16; Status DC Aspirin (Ecotrin) 325 mg 1X ONCE PO Last administered on 04/07/21at 09:18; Sta rt 04/07/21 at 09:15; Stop 04/07/21 at 09:16; Status DC Diltiazem HCl (Cardizem Iv Push) 20 mg 1X ONCE IVP Last administered on 04/07/21at 09:33; Start 04/07/21 at 09:45; Stop 04/07/21 at 09:46; Status DC Diltiazem HCl 125 mg/Sodium Chloride 125 ml @ 5 mls/hr CONT PRN IV SEE I/O RECORD Last administered on 04/07/21at 09:34; Start 04/07/21 at 09:30; Stop 04/07/21 at 14:58; Status DC Bumetanide (Bumex) 1 mg DAILY ONCE IV Last administered on 04/07/21at 11:09; Start 04/07/21 at 10:44; Stop 04/07/21 at 10:45; Status DC Calcium Gluconate (Calcium Gluconate) 1,000 mg 1X ONCE IVP Last administered on 04/07/21at 12:14; Start 04/07/21 at 11:15; Stop 04/07/21 at 11:16; Status DC Insulin Human Regular (HumuLIN R VIAL) 10 unit 1X ONCE IV Last administered on 04/07/21at 12:19; Start 04/07/21 at 11:15; Stop 04/07/21 at 11:16; Status DC Dextrose (Dextrose 50%-Water Syringe) 25 gm 1X ONCE IV Last administered on 04/07/21at 12:12; Start 04/07/21 at 11:15; Stop 04/07/21 at 11:16; Status DC Ondansetron HCl (Zofran) 4 mg PRN Q8HRS PRN IVP NAUSEA/VOMITING; Start 04/07/21 at 12:30; Stop 04/08/21 at 12:29 Piperacillin Sod/ Tazobactam Sod (Zosyn Per Pharmacy) 1 each PRN DAILY PRN MC SEE COMMENTS; Start 04/07/21 at 12:45 Piperacillin Sod/ Tazobactam Sod 3.375 gm/Sodium Chloride 50 ml @ 100 mls/hr 1X ONCE IV Last administered on 04/07/21at 14:30; Start 04/07/21 at 13:00; Stop 04/07/21 at 13:29; Status DC Piperacillin Sod/ Tazobactam Sod 3.375 gm/Sodium Chloride 50 ml @ 100 mls/hr Q6HRS IV Last administered on 04/08/21at 05:43; Start 04/07/21 at 18:00 Carvedilol (Coreg) 3.125 mg BIDWMEALS PO ; Start 04/07/21 at 17:00; Stop 04/07/21 at 15:07; Status DC Carvedilol (Coreg) 6.25 mg BIDWMEALS PO Last administered on 04/07/21at 15:52; Start 04/07/21 at 17:00 Apixaban (Eliquis) 5 mg BID PO Last administered on 04/07/21at 20:20; Start 04/07/21 at 21:00 Furosemide (Lasix) 40 mg BID66 IVP Last administered on 04/07/21at 16:05; Start 04/07/21 at 18:00 Info (Anti-Coagulation Monitoring By Pharmacy) 1 each PRN DAILY PRN MC PER PROTOCOL; Start 04/07/21 at 15:15 Methylprednisolone Sodium Succinate (SOLU-Medrol 125MG VIAL) 125 mg 1X ONCE IV Last administered on 04/07/21at 15:59; Start 04/07/21 at 15:45; Stop 04/07/21 at 15:46; Status DC Albuterol Sulfate (Ventolin Neb Soln) 2.5 mg 1X ONCE NEB Last administered on 04/07/21at 16:54; Start 04/07/21 at 15:45; Stop 04/07/21 at 15:46; Status DC Digoxin (Lanoxin) 250 mcg 1X ONCE IV Last administered on 04/07/21at 16:16; Start 04/07/21 at 16:15; Stop 04/07/21 at 16:16; Status DC Tamsulosin HCl (Flomax) 0.4 mg DAILY PO ; Start 04/08/21 at 09:00 Acetaminophen (Tylenol) 500 mg PRN Q6HRS PRN PO MILD PAIN / TEMP > 100.3'F; Start 04/07/21 at 21:00 Albuterol/ Ipratropium (Duoneb) 3 ml 1X ONCE NEB ; Start 04/07/21 at 21:00; Stop 04/07/21 at 21:01; Status DC Hydralazine HCl (Apresoline Inj) 10 mg PRN Q4HRS PRN IVP ELEVATED BP, SEE COMMENTS Last administered on 04/08/21at 03:19; Start 04/07/21 at 21:00 Oxycodone/ Acetaminophen (Percocet 5/325) 1 tab 1X ONCE PO Last administered on 04/07/21at 21:17; Start 04/07/21 at 21:30; Stop 04/07/21 at 21:31; Status DC Albuterol/ Ipratropium (Duoneb) 3 ml RTQID NEB ; Start 04/07/21 at 21:30; Status Cancel Furosemide (Lasix) 40 mg 1X ONCE IVP Last administered on 04/07/21at 21:42; Start 04/07/21 at 22:00; Stop 04/07/21 at 22:01; Status DC Morphine Sulfate (Morphine Sulfate) 2 mg PRN Q2HR PRN IVP SEVERE PAIN 7-10 Last administered on 04/08/21at 05:42; Start 04/07/21 at 21:30 Albuterol/ Ipratropium (Combivent Respimat 20-100 Mcg) 1 puff RTQID INH Last administered on 04/08/21at 10:13; Start 04/08/21 at 08:00 Carvedilol (Coreg) 6.25 mg 1X ONCE PO Last administered on 04/08/21at 04:20; S tart 04/08/21 at 04:30; Stop 04/08/21 at 04:31; Status DC Alprazolam (Xanax) 0.25 mg 1X ONCE PO Last administered on 04/08/21at 04:20; Start 04/08/21 at 04:30; Stop 04/08/21 at 04:31; Status DC Furosemide (Lasix) 40 mg 1X ONCE IVP Last administered on 04/08/21at 05:42; Start 04/08/21 at 06:00; Stop 04/08/21 at 06:01; Status DC Digoxin (Lanoxin) 250 mcg 1X ONCE IV Last administered on 04/08/21at 06:49; Start 04/08/21 at 07:00; Stop 04/08/21 at 07:01; Status DC Digoxin (Lanoxin) 250 mcg DAILY IV Last administered on 04/08/21at 08:57; Start 04/08/21 at 07:15 Metoprolol Tartrate (Lopressor Vial) 5 mg 1X ONCE IVP Last administered on 04/08/21at 08:56; Start 04/08/21 at 08:15; Stop 04/08/21 at 08:17; Status DC Lorazepam (Ativan Inj) 2 mg PRN Q4HRS PRN IVP ANXIETY / AGITATION Last administered on 04/08/21at 10:12; Start 04/08/21 at 10:15 Active Scripts Active Reported Aspirin 81 Mg Tab.chew 81 Mg PO DAILY Eliquis (Apixaban) 5 Mg Tablet 5 Mg PO BID Lasix (Furosemide) 20 Mg Tablet 20 Mg PO DAILY Spironolactone 25 Mg Tablet 25 Mg PO DAILY Coreg (Carvedilol) 25 Mg Tablet 25 Mg PO BIDWMEALS Flomax (Tamsulosin Hcl) 0.4 Mg Cap.er.24h 0.4 Mg PO DAILY Allergies Allergies: Coded Allergies: No Known Drug Allergies (Unverified , 04/14/14) ROS Review of System UNABLE TO OBTAIN FROM THIS PT DUE TO RESP DISTRESS AND ON BIPAP Physical Exam General: Cooperative, moderate distress HEENT: Atraumatic, PERRLA Lungs: Other (WHEEZES AND RALES AT BASES) Heart: Other (TACHY WITH AFIB RVR AND MR) Abdomen: Normal bowel sounds, Soft, No tenderness Extremities: No clubbing, Other (2+ LE EDEMA) Skin: No significant lesion Neuro: Other (UNABLE TO ASSESS) Psych/Mental Status: Other (ANXIOUS AFFECT ON BIPAP) MUSCULOSKELETAL: No joint tenderness, No deformity, Other Vitals VITALS Vital Signs Date Time Temp Pulse Resp B/P (MAP) Pulse Ox O2 Delivery O2 Flow Rate FiO2 04/08/21 08:57 142 100/63 04/08/21 07:55 97 BiPAP/CPAP 04/08/21 06:52 97.7 33 97.7 04/08/21 03:00 15.0 Labs Labs Laboratory Tests Test 04/07/21 09:00 04/07/21 09:20 04/07/21 09:33 04/07/21 15:20 White Blood Count 5.0 x10^3/uL (4.0-11.0) Red Blood Count 4.83 x10^6/uL (4.30-5.70) Hemoglobin 17.7 g/dL (13.0-17.5) Hematocrit 51.7 % (39.0-53.0) Mean Corpuscular Volume 107 fL (79-100) Mean Corpuscular Hemoglobin 37 pg (25-35) Mean Corpuscular Hemoglobin Concent 34 g/dL (31-37) Red Cell Distribution Width 18.1 % (11.5-14.5) Platelet Count 197 x10^3/uL (140-400) Neutrophils (%) (Auto) 58 % (31-73) Lymphocytes (%) (Auto) 23 % (24-48) Monocytes (%) (Auto) 17 % (0-9) Eosinophils (%) (Auto) 1 % (0-3) Basophils (%) (Auto) 1 % (0-3) Neutrophils # (Auto) 2.9 x10^3/uL (1.8-7.7) Lymphocytes # (Auto) 1.2 x10^3/uL (1.0-4.8) Monocytes # (Auto) 0.8 x10^3/uL (0.0-1.1) Eosinophils # (Auto) 0.1 x10^3/uL (0.0-0.7) Basophils # (Auto) 0.0 x10^3/uL (0.0-0.2) Sodium Level 139 mmol/L (136-145) 141 mmol/L (136-145) Potassium Level 6.0 mmol/L (3.5-5.1) 5.1 mmol/L (3.5-5.1) Chloride Level 104 mmol/L (98-107) 105 mmol/L (98-107) Carbon Dioxide Level 29 mmol/L (21-32) 28 mmol/L (21-32) Anion Gap 6 (6-14) 8 (6-14) Blood Urea Nitrogen 35 mg/dL (8-26) 36 mg/dL (8-26) Creatinine 2.0 mg/dL (0.7-1.3) 1.9 mg/dL (0.7-1.3) Estimated GFR (Cockcroft-Gault) 41.3 43.8 BUN/Creatinine Ratio 18 (6-20) Glucose Level 125 mg/dL (70-99) 119 mg/dL (70-99) Lactic Acid Level 1.1 mmol/L (0.4-2.0) Calcium Level 9.2 mg/dL (8.5-10.1) 9.4 mg/dL (8.5-10.1) Magnesium Level 2.3 mg/dL (1.8-2.4) Total Bilirubin 0.7 mg/dL (0.2-1.0) Aspartate Amino Transf (AST/SGOT) 30 U/L (15-37) Alanine Aminotransferase (ALT/SGPT) 33 U/L (16-63) Alkaline Phosphatase 140 U/L (46-116) Creatine Kinase 224 U/L (39-308) Creatine Kinase MB (Mass) 8.7 ng/mL (0.0-3.6) Creatine Kinase MB Relative Index 3.9 % (0-4) Troponin I Quantitative 0.104 ng/mL (0.000-0.055) 0.049 ng/mL (0.000-0.055) AI-Cdt-Z-Type Natriuretic Peptide 6224 pg/mL (0-124) Total Protein 8.2 g/dL (6.4-8.2) Albumin 3.0 g/dL (3.4-5.0) Albumin/Globulin Ratio 0.6 (1.0-1.7) SARS-CoV-2 RNA (MICHAEL) Negative (Negative) SARS-CoV-2 Antigen (Rapid) Negative (NEGATIVE) O2 Saturation 97 % (92-99) Arterial Blood pH 7.34 (7.35-7.45) Arterial Blood pCO2 at Patient Temp 47 mmHg (35-46) Arterial Blood pO2 at Patient Temp 100 mmHg (65-108) Arterial Blood HCO3 24 mmol/L (21-28) Arterial Blood Base Excess -2 mmol/L (-3-3) Oxyhemoglobin 95.7 % Methemoglobin 0.5 % (0.0-1.9) Carbon Monoxide, Quantitative 0.9 % (0.0-1.9) FiO2 32%/ 3l nc Test 04/07/21 18:10 04/08/21 01:45 04/08/21 03:03 Urine Collection Type Unknown Urine Color Yellow Urine Clarity Clear Urine pH 5.0 (<5.0-8.0) Urine Specific [place] 1.010 (1.000-1.030) Urine Protein 30 mg/dL (NEG-TRACE) Urine Glucose (UA) Negative mg/dL (NEG) Urine Ketones (Stick) Negative mg/dL (NEG) Urine Blood Small (NEG) Urine Nitrite Negative (NEG) Urine Bilirubin Negative (NEG) Urine Urobilinogen Dipstick 0.2 mg/dL (0.2 mg/dL) Urine Leukocyte Esterase Negative (NEG) Urine RBC 3-5 /HPF (0-2) Urine WBC 1-4 /HPF (0-4) Urine Squamous Epithelial Cells Few /LPF Urine Amorphous Sediment Present /HPF Urine Bacteria 0 /HPF (0-FEW) Urine Hyaline Casts Moderate /HPF Urine Mucus Slight /LPF Urine Opiates Screen Neg (NEG) Urine Methadone Screen Neg (NEG) Urine Barbiturates Neg (NEG) Urine Phencyclidine Screen Neg (NEG) Urine Amphetamine/Methamphetamine Neg (NEG) Urine Benzodiazepines Screen Neg (NEG) Urine Cocaine Screen Pos (NEG) Urine Cannabinoids Screen Neg (NEG) Urine Ethyl Alcohol Neg (NEG) Sodium Level 139 mmol/L (136-145) Potassium Level 5.0 mmol/L (3.5-5.1) Chloride Level 99 mmol/L (98-107) Carbon Dioxide Level 29 mmol/L (21-32) Anion Gap 11 (6-14) Blood Urea Nitrogen 50 mg/dL (8-26) Creatinine 2.6 mg/dL (0.7-1.3) Estimated GFR (Cockcroft-Gault) 30.5 Glucose Level 137 mg/dL (70-99) Calcium Level 10.0 mg/dL (8.5-10.1) Magnesium Level 2.3 mg/dL (1.8-2.4) Troponin I Quantitative 0.076 ng/mL (0.000-0.055) O2 Saturation 96 % (92-99) Arterial Blood pH 7.37 (7.35-7.45) Arterial Blood pCO2 at Patient Temp 43 mmHg (35-46) Arterial Blood pO2 at Patient Temp 84 mmHg (65-108) Arterial Blood HCO3 24 mmol/L (21-28) Arterial Blood Base Excess -1 mmol/L (-3-3) FiO2 50 Laboratory Tests Test 04/07/21 15:20 04/07/21 18:10 04/08/21 01:45 04/08/21 03:03 Sodium Level 141 mmol/L (136-145) 139 mmol/L (136-145) Potassium Level 5.1 mmol/L (3.5-5.1) 5.0 mmol/L (3.5-5.1) Chloride Level 105 mmol/L (98-107) 99 mmol/L (98-107) Carbon Dioxide Level 28 mmol/L (21-32) 29 mmol/L (21-32) Anion Gap 8 (6-14) 11 (6-14) Blood Urea Nitrogen 36 mg/dL (8-26) 50 mg/dL (8-26) Creatinine 1.9 mg/dL (0.7-1.3) 2.6 mg/dL (0.7-1.3) Estimated GFR (Cockcroft-Gault) 43.8 30.5 Glucose Level 119 mg/dL (70-99) 137 mg/dL (70-99) Calcium Level 9.4 mg/dL (8.5-10.1) 10.0 mg/dL (8.5-10.1) Troponin I Quantitative 0.049 ng/mL (0.000-0.055) 0.076 ng/mL (0.000-0.055) Urine Collection Type Unknown Urine Color Yellow Urine Clarity Clear Urine pH 5.0 (<5.0-8.0) Urine Specific [place] 1.010 (1.000-1.030) Urine Protein 30 mg/dL (NEG-TRACE) Urine Glucose (UA) Negative mg/dL (NEG) Urine Ketones (Stick) Negative mg/dL (NEG) Urine Blood Small (NEG) Urine Nitrite Negative (NEG) Urine Bilirubin Negative (NEG) Urine Urobilinogen Dipstick 0.2 mg/dL (0.2 mg/dL) Urine Leukocyte Esterase Negative (NEG) Urine RBC 3-5 /HPF (0-2) Urine WBC 1-4 /HPF (0-4) Urine Squamous Epithelial Cells Few /LPF Urine Amorphous Sediment Present /HPF Urine Bacteria 0 /HPF (0-FEW) Urine Hyaline Casts Moderate /HPF Urine Mucus Slight /LPF Urine Opiates Screen Neg (NEG) Urine Methadone Screen Neg (NEG) Urine Barbiturates Neg (NEG) Urine Phencyclidine Screen Neg (NEG) Urine Amphetamine/Methamphetamine Neg (NEG) Urine Benzodiazepines Screen Neg (NEG) Urine Cocaine Screen Pos (NEG) Urine Cannabinoids Screen Neg (NEG) Urine Ethyl Alcohol Neg (NEG) Magnesium Level 2.3 mg/dL (1.8-2.4) O2 Saturation 96 % (92-99) Arterial Blood pH 7.37 (7.35-7.45) Arterial Blood pCO2 at Patient Temp 43 mmHg (35-46) Arterial Blood pO2 at Patient Temp 84 mmHg (65-108) Arterial Blood HCO3 24 mmol/L (21-28) Arterial Blood Base Excess -1 mmol/L (-3-3) FiO2 50 Images Images Portable chest x-ray compared to noncontrast CT scan of the chest dated April 07, 2021 for cancer debris. FINDINGS: The demonstration of cardiomegaly and bilateral pulmonary artery enlargement suggests mild pulmonary hypertension. Lung volumes are low. There are vague groundglass opacities peripherally, which may reflect pulmonary edema or atypical infectious or inflammatory infiltrate. No large pleural effusions. IMPRESSION: 1. Vague peripheral groundglass infiltrates bilaterally possibly due to early edema or atypical infectious or inflammatory pneumonitis. 2. Cardiomegaly. 3. Pulmonary hypertension. Electronically signed by: Jasvir Barreto MD (04/08/2021 10:01 AM) [id number] EXAM: CT OF THE CHEST WITHOUT CONTRAST. HISTORY: Shortness of breath. TECHNIQUE: Computed tomography of the chest was performed without intravenous contrast. One or more of the following individualized dose reduction techniques were utilized for this examination: 1. Automated exposure control. 2. Adjustment of the mA and/or kV according to patient size. 3. Use of iterative reconstruction technique. COMPARISON: 06/12/2019. FINDINGS: Images of the upper abdomen reveal a 1.8 cm benign cyst in the right kidney. Bone windows reveal no suspicious lesions. There are no pathologically enlarged mediastinal or axillary lymph nodes. There is no pleural or pericardial effusion. The heart is moderately enlarged in a predominantly right-sided pattern. An atrial septal closure device is in place. The main pulmonary artery measures 4.4 cm. There are mild groundglass opacities in both lower lobes. There are small nodular infiltrates in the right lower lobe and posteriorly in the right upper lobe. Mild centrilobular emphysema is suspected in the apices. There is mild bronchial wall thickening. IMPRESSION: 1. Moderate cardiomegaly in a predominantly right-sided pattern. Enlargement of the central pulmonary arteries suggests pulmonary arterial hypertension. 2. Mild nodular infiltrates in the right lung may reflect aspiration or minimal infectious pneumonitis. 3. Groundglass opacities in the bases suggest mild pulmonary edema. 4. Suspect mild centrilobular emphysema. Electronically signed by: Alexis Major MD (04/07/2021 11:24 AM) [id number] Assessment/Plan Assessment/Plan IMP HYPERKALEMIA CKD STAGE 3B - CR OF ABOUT 2.0 OSORIO-CARDIORENAL WITH CR OF 2.6-UA NEG AFIB RVT NSTEMI ACUTE ON CHRONIC SYSTOLIC AND DIASTOLIC CHF CM WITH EF OF 20% COCAIN ABUSE POLYCYTHEMIA HX ASD CLOSURE AND LA THROMBUS ACUTE ON CHRONIC RESP FAILURE POSSIBLE PNEUMONITIS PLAN EMPIRIC ANTIBIOTICS SUPPLEMENTAL O2 BIPAP PULM TOILET CARDIOLOGY EVAL NEED RATE CONTROL PULM EVAL ANTICOAGULATION DIURESIS MAY NEED DIALYSIS CCT [id number] EFE URENA MD Apr 08, 2021 10:43
--- NOTE | 2021-04-08 10:55 | RAD ---
INDICATION: Reason: leg edema / Spl. Instructions: / History: COMPARISON: None. TECHNIQUE: Grayscale, color and doppler ultrasound images were obtained of the right lower extremity venous vasculature. Could not perform left leg ultrasound secondary to patient declining at this time . RIGHT: No thrombus identified in the common femoral vein, femoral vein, popliteal vein or visualized calf ve ins. IMPRESSION: * No thrombus identified in deep venous system of right lower extremity. Electronically signed by: Ming Alba MD (04/08/2021 10:53 AM) [id number]
--- NOTE | 2021-04-08 11:12 | PDOC ---
[facility] PROGRESS NOTE Date of Service DOS: DATE: 04/08/21 TIME: 11:04 History of Present Illness History of Present Illness 04/08/2021 Pt seen and examined Pt was very agitated and encephalopathic Pt has Folley to BSD Pt has mits on hands for safety Pt has edema D/W RN Chart reviewed The patient is a pleasant 61-year-old male who presented with shortness of breath. While in the ER, we had noticed that he is quite hypoxic, we have him on a lot of oxygen. His potassium is also high at 6. He also has azotemia with a BUN of 35 and a creatinine of 2. Hemoglobin is high at 17.7. Surprisingly, his COVID testing is negative, but his chest x-ray does show cardiomegaly and pulmonary hypertension, infiltrates and possible emphysema. We are admitting the patient with consultation to Cardiology and Nephrology. Vitals/I&O Vitals/I&O: Vital Signs Date Time Temp Pulse Resp B/P (MAP) Pulse Ox O2 Delivery O2 Flow Rate FiO2 04/08/21 08:57 142 100/63 04/08/21 07:55 97 BiPAP/CPAP 04/08/21 06:52 97.7 33 97.7 04/08/21 03:00 15.0 I & O 04/07/21 04/07/21 04/08/21 15:00 23:00 07:00 Intake Total 500 ml Output Total 800 ml 1300 ml 1100 ml Balance -800 ml -800 ml -1100 ml Physical Exam General: Cooperative, moderate distress Heart: Other (TACHY WITH AFIB RVR AND MR) Lungs: Other ( BIPAP) Abdomen: Normal bowel sounds, No tenderness Extremities: No clubbing, Other (2+ LE EDEMA) Skin: No significant lesion Labs Labs: Laboratory Tests Test 04/07/21 15:20 04/07/21 18:10 04/08/21 01:45 04/08/21 03:03 Sodium Level 141 mmol/L (136-145) 139 mmol/L (136-145) Potassium Level 5.1 mmol/L (3.5-5.1) 5.0 mmol/L (3.5-5.1) Chloride Level 105 mmol/L (98-107) 99 mmol/L (98-107) Carbon Dioxide Level 28 mmol/L (21-32) 29 mmol/L (21-32) Anion Gap 8 (6-14) 11 (6-14) Blood Urea Nitrogen 36 mg/dL (8-26) 50 mg/dL (8-26) Creatinine 1.9 mg/dL (0.7-1.3) 2.6 mg/dL (0.7-1.3) Estimated GFR (Cockcroft-Gault) 43.8 30.5 Glucose Level 119 mg/dL (70-99) 137 mg/dL (70-99) Calcium Level 9.4 mg/dL (8.5-10.1) 10.0 mg/dL (8.5-10.1) Troponin I Quantitative 0.049 ng/mL (0.000-0.055) 0.076 ng/mL (0.000-0.055) Urine Collection Type Unknown Urine Color Yellow Urine Clarity Clear Urine pH 5.0 (<5.0-8.0) Urine Specific [place] 1.010 (1.000-1.030) Urine Protein 30 mg/dL (NEG-TRACE) Urine Glucose (UA) Negative mg/dL (NEG) Urine Ketones (Stick) Negative mg/dL (NEG) Urine Blood Small (NEG) Urine Nitrite Negative (NEG) Urine Bilirubin Negative (NEG) Urine Urobilinogen Dipstick 0.2 mg/dL (0.2 mg/dL) Urine Leukocyte Esterase Negative (NEG) Urine RBC 3-5 /HPF (0-2) Urine WBC 1-4 /HPF (0-4) Urine Squamous Epithelial Cells Few /LPF Urine Amorphous Sediment Present /HPF Urine Bacteria 0 /HPF (0-FEW) Urine Hyaline Casts Moderate /HPF Urine Mucus Slight /LPF Urine Opiates Screen Neg (NEG) Urine Methadone Screen Neg (NEG) Urine Barbiturates Neg (NEG) Urine Phencyclidine Screen Neg (NEG) Urine Amphetamine/Methamphetamine Neg (NEG) Urine Benzodiazepines Screen Neg (NEG) Urine Cocaine Screen Pos (NEG) Urine Cannabinoids Screen Neg (NEG) Urine Ethyl Alcohol Neg (NEG) Magnesium Level 2.3 mg/dL (1.8-2.4) O2 Saturation 96 % (92-99) Arterial Blood pH 7.37 (7.35-7.45) Arterial Blood pCO2 at Patient Temp 43 mmHg (35-46) Arterial Blood pO2 at Patient Temp 84 mmHg (65-108) Arterial Blood HCO3 24 mmol/L (21-28) Arterial Blood Base Excess -1 mmol/L (-3-3) FiO2 50 Review of Systems Review of Systems: No cervical chain or axillary nodes were noted No bruising Assessment and Plan Assessmemt and Plan 04/08/2021 Assessment: CHF exacerbation Afib Rvr Hypokalemia Plan: Bipap Folley to BSD Mits on hands Ativan 2mg IV Lasix Cardiac monitoring Home Rx Full code Await covid reports Appreciate subspecialty input Problems Medical Problems: (1) Atrial fibrillation with RVR Status: Acute (2) CHF (congestive heart failure) Status: Acute (3) Chronic renal insufficiency Status: Acute (4) Cocaine use Status: Acute (5) Elevated troponin Status: Acute (6) Hyperkalemia Status: Acute Comment Review of Relevant I have reviewed the following items vesna (where applicable) has been applied. Medications: Current Medications Medications (Trade) Dose Ordered Sig/Edilberto Route PRN Reason Start Time Stop Time Status Last Admin Dose Admin Calcium Gluconate (Calcium Gluconate) 1,000 mg 1X ONCE IVP 04/07/21 11:15 04/07/21 11:16 DC 04/07/21 12:14 Insulin Human Regular (HumuLIN R VIAL) 10 unit 1X ONCE IV 04/07/21 11:15 04/07/21 11:16 DC 04/07/21 12:19 Dextrose (Dextrose 50%-Water Syringe) 25 gm 1X ONCE IV 04/07/21 11:15 04/07/21 11:16 DC 04/07/21 12:12 Piperacillin Sod/ Tazobactam Sod 3.375 gm/Sodium Chloride 50 ml @ 100 mls/hr 1X ONCE IV 04/07/21 13:00 04/07/21 13:29 DC 04/07/21 14:30 Piperacillin Sod/ Tazobactam Sod 3.375 gm/Sodium Chloride 50 ml @ 100 mls/hr Q6HRS IV 04/07/21 18:00 04/08/21 05:43 Carvedilol (Coreg) 6.25 mg BIDWMEALS PO 04/07/21 17:00 04/07/21 15:52 Apixaban (Eliquis) 5 mg BID PO 04/07/21 21:00 04/07/21 20:20 Furosemide (Lasix) 40 mg [id number] IVP 04/07/21 18:00 04/07/21 16:05 Methylprednisolone Sodium Succinate (SOLU-Medrol 125MG VIAL) 125 mg 1X ONCE IV 04/07/21 15:45 04/07/21 15:46 DC 04/07/21 15:59 Albuterol Sulfate (Ventolin Neb Soln) 2.5 mg 1X ONCE NEB 04/07/21 15:45 04/07/21 15:46 DC 04/07/21 16:54 Digoxin (Lanoxin) 250 mcg 1X ONCE IV 04/07/21 16:15 04/07/21 16:16 DC 04/07/21 16:16 Hydralazine HCl (Apresoline Inj) 10 mg PRN Q4HRS PRN IVP ELEVATED BP, SEE COMMENTS 04/07/21 21:00 04/08/21 03:19 Oxycodone/ Acetaminophen (Percocet 5/325) 1 tab 1X ONCE PO 04/07/21 21:30 04/07/21 21:31 DC 04/07/21 21:17 Furosemide (Lasix) 40 mg 1X ONCE IVP 04/07/21 22:00 04/07/21 22:01 DC 04/07/21 21:42 Morphine Sulfate (Morphine Sulfate) 2 mg PRN Q2HR PRN IVP SEVERE PAIN 7-10 04/07/21 21:30 04/08/21 05:42 Albuterol/ Ipratropium (Combivent Respimat 20-100 Mcg) 1 puff RTQID INH 04/08/21 08:00 04/08/21 10:13 Carvedilol (Coreg) 6.25 mg 1X ONCE PO 04/08/21 04:30 04/08/21 04:31 DC 04/08/21 04:20 Alprazolam (Xanax) 0.25 mg 1X ONCE PO 04/08/21 04:30 04/08/21 04:31 DC 04/08/21 04:20 Furosemide (Lasix) 40 mg 1X ONCE IVP 04/08/21 06:00 04/08/21 06:01 DC 04/08/21 05:42 Digoxin (Lanoxin) 250 mcg 1X ONCE IV 04/08/21 07:00 04/08/21 07:01 DC 04/08/21 06:49 Digoxin (Lanoxin) 250 mcg DAILY IV 04/08/21 07:15 04/08/21 08:57 Metoprolol Tartrate (Lopressor Vial) 5 mg 1X ONCE IVP 04/08/21 08:15 04/08/21 08:17 DC 04/08/21 08:56 Lorazepam (Ativan Inj) 2 mg PRN Q4HRS PRN IVP ANXIETY / AGITATION 04/08/21 10:15 04/08/21 10:12 Justifications for Admission Other Justification [email or web address] MAYO III DO Apr 08, 2021 11:12
--- NOTE | 2021-04-08 12:45 | NUR ---
SS following for discharge planning. SS reviewed pt chart and discussed with pt RN. Pt is from home and is currently on the BIPAP at 50%. COVID19 negative. Pt on IV Zosyn. SS will continue to follow for discharge planning.
--- NOTE | 2021-04-08 14:17 | PDOC ---
HEENA MCKEON RESAW FEEDER 04/08/21 1417: CARDIO Progress Notes Date and Time Date of Service 04/08/2021 Time of Evaluation 1350 Vitals Vitals Vital Signs Date Time Temp Pulse Resp B/P (MAP) Pulse Ox O2 Delivery O2 Flow Rate FiO2 04/08/21 11:36 96 BiPAP/CPAP 04/08/21 11:00 95.5 140 33 117/66 (83) 95.5 04/08/21 03:00 15.0 Weight Weight [ ] Input and Output Intake and Output Intake and Output 04/08/21 07:00 Intake Total 500 ml Output Total 3200 ml Balance -2700 ml Intake Oral 500 ml Output Urine Total 3200 ml # Voids 4 Laboratory Labs Laboratory Tests Test 04/07/21 15:20 04/07/21 18:10 04/08/21 01:45 04/08/21 03:03 Sodium Level 141 mmol/L (136-145) 139 mmol/L (136-145) Potassium Level 5.1 mmol/L (3.5-5.1) 5.0 mmol/L (3.5-5.1) Chloride Level 105 mmol/L (98-107) 99 mmol/L (98-107) Carbon Dioxide Level 28 mmol/L (21-32) 29 mmol/L (21-32) Anion Gap 8 (6-14) 11 (6-14) Blood Urea Nitrogen 36 mg/dL (8-26) 50 mg/dL (8-26) Creatinine 1.9 mg/dL (0.7-1.3) 2.6 mg/dL (0.7-1.3) Estimated GFR (Cockcroft-Gault) 43.8 30.5 Glucose Level 119 mg/dL (70-99) 137 mg/dL (70-99) Calcium Level 9.4 mg/dL (8.5-10.1) 10.0 mg/dL (8.5-10.1) Troponin I Quantitative 0.049 ng/mL (0.000-0.055) 0.076 ng/mL (0.000-0.055) Urine Collection Type Unknown Urine Color Yellow Urine Clarity Clear Urine pH 5.0 (<5.0-8.0) Urine Specific [place] 1.010 (1.000-1.030) Urine Protein 30 mg/dL (NEG-TRACE) Urine Glucose (UA) Negative mg/dL (NEG) Urine Ketones (Stick) Negative mg/dL (NEG) Urine Blood Small (NEG) Urine Nitrite Negative (NEG) Urine Bilirubin Negative (NEG) Urine Urobilinogen Dipstick 0.2 mg/dL (0.2 mg/dL) Urine Leukocyte Esterase Negative (NEG) Urine RBC 3-5 /HPF (0-2) Urine WBC 1-4 /HPF (0-4) Urine Squamous Epithelial Cells Few /LPF Urine Amorphous Sediment Present /HPF Urine Bacteria 0 /HPF (0-FEW) Urine Hyaline Casts Moderate /HPF Urine Mucus Slight /LPF Urine Opiates Screen Neg (NEG) Urine Methadone Screen Neg (NEG) Urine Barbiturates Neg (NEG) Urine Phencyclidine Screen Neg (NEG) Urine Amphetamine/Methamphetamine Neg (NEG) Urine Benzodiazepines Screen Neg (NEG) Urine Cocaine Screen Pos (NEG) Urine Cannabinoids Screen Neg (NEG) Urine Ethyl Alcohol Neg (NEG) Magnesium Level 2.3 mg/dL (1.8-2.4) O2 Saturation 96 % (92-99) Arterial Blood pH 7.37 (7.35-7.45) Arterial Blood pCO2 at Patient Temp 43 mmHg (35-46) Arterial Blood pO2 at Patient Temp 84 mmHg (65-108) Arterial Blood HCO3 24 mmol/L (21-28) Arterial Blood Base Excess -1 mmol/L (-3-3) FiO2 50 Physical Exam HEENT: Neck Supple W Full Motion Chest: Symmetric LUNGS: Other (diminished, bipap) Heart: irregularly irregular (AFIB RVR) Abdomen: Other (protuberant) Extremities: Other (RLE 3+ pitting edema) Neurology: other (sedated, confused) Assessment Assessment 1. Acute on chronic diastolic/systolic CHF 2. Cocaine/marijuana abuse: last use 3 days ago 3. NICM: last known EF at 20% 4. AFIB RVR: appears to be chronic 5. NSTEMI: type 2, demand mediated with culprits above 6. Hx of VENKATA thrombus and ASD closure 7. OSORIO on CKD3 and hx of right renal mass. Nephrology following 8. Hyperkalemia: K better 9. Hx of noncompliance: has been skipping meds. 10. Acute respiratory failure with CHF/COPD and possible pneumonitis likely from cocaine inhalation. Pulmonary following 11. AECOPD 12. Metabolic encephalopathy; sedated with ativan Recommendations. 1. Metoprolol IV with pt being NPO due to mentation. Hold PO coreg. Monitor BP trend 2. Continue eliquis for stroke prevention will hold as pt is NPO transition to lovenox 3. Continue lasix therapy 5. Smoking and substance abuse abstinence 6. Follow up with cardiology as scheduled on 04/18 @ 1300 7. Antibiotic per PCP 8. Received digoxin boluses and RVR is refractory as pt is restless but ABG is wnl with bipap. Start on amiodarone drip for rate control 9. Continue bipap 10. Would benefit from milrinone but his HR in RVR. Will consider once HR is better controlled. Justicifation of Admission Dx: Justifications for Admission: Justification of Admission Dx: Yes DAVID GORMAN MD 04/08/21 1642: CARDIO Progress Notes Assessment Assessment Patient seen and evaluated. I agree with our nurse practitioners assessment and plan. Acute on chronic diastolic/systolic CHF. With poor LV function. Cocaine/marijuana abuse: last use 3 days ago NICM: last known EF at 20%. Followed at . AFIB RVR: appears to be chronic. Metoprolol IV secondary the patient being n.p.o. Discontinuing Coreg. Starting amiodarone [place]. NSTEMI: type 2, demand mediated with culprits above Hx of VENKATA thrombus and ASD closure OSORIO on CKD3 and hx of right renal mass. Nephrology following Hyperkalemia: K better Hx of noncompliance: has been skipping meds. Acute respiratory failure with CHF/COPD and possible pneumonitis likely from cocaine inhalation. Pulmonary following AECOPD Metabolic encephalopathy; sedated with ativan HEENA MCKEON RESAW FEEDER Apr 08, 2021 14:17 DAVID GORMAN MD Apr 08, 2021 16:42
[2021-04-08] MEDS ORDERED: AMIODARONE 150 MG in IV DEXTROSE 5% 100ML 100 ML IV ONE (14:30)
[2021-04-08] MEDS: AMIODARONE 450 MG in IV DEXTROSE 5% 250 ML IV PRN (14:49)
[2021-04-08] MEDS: METOPROLOL IV PUSH 5 MG/5 ML VIAL. IVP SCH (20:26)
[2021-04-09] VITALS (15 sets, daily range): BP systolic 85–121; BP diastolic 46–103
[2021-04-09] MEDS: AMIODARONE 450 MG in IV DEXTROSE 5% 250 ML IV PRN ×2 (00:16→18:19)
[2021-04-09] MEDS: FUROSEMIDE 40 MG/4 ML VIAL. IVP SCH ×2 (00:17→18:25)
[2021-04-09] MEDS: METOPROLOL IV PUSH 5 MG/5 ML VIAL. IVP SCH ×5 (00:17→22:51)
[2021-04-09] MEDS: IPRATROPIUM/ALBUTEROL 20/100mcg/INH INHALER. INH SCH ×4 (08:00→20:00)
[2021-04-09] MEDS: DIGOXIN IV 500 MCG/2 ML AMPUL. IV SCH (08:18)
[2021-04-09 08:51] LABS: CALCIUM 9.5 mg/dL (8.5-10.1); CREATININE 3.9 mg/dL (0.7-1.3); GFR 19.1; MAGNESIUM 2.7 mg/dL (1.8-2.4); PHOSPHORUS 8.3 mg/dL (2.6-4.7); POTASSIUM 5.5 mmol/L (3.5-5.1)
[2021-04-09] MEDS: TAMSULOSIN 0.4 MG CAP.ER.24H. PO SCH (09:00)
--- NOTE | 2021-04-09 09:27 | PDOC ---
PULMONARY PROGRESS NOTES DATE: 04/09/21 TIME: 09:25 Subjective Remains on BiPAP. Restless and agitated. Receiving as needed Ativan. Vitals Vital Signs Date Time Temp Pulse Resp B/P (MAP) Pulse Ox O2 Delivery O2 Flow Rate FiO2 04/09/21 08:57 95 BiPAP/CPAP 04/09/21 08:18 111 92/70 04/09/21 08:00 15.0 04/09/21 07:00 98.2 32 98.2 Lungs: Other (Decreased breath sounds) Cardiovascular: S1, Other (Tachycardia) Abdomen: Soft Extremities: Other (1+ edema) Skin: Warm Labs Laboratory Tests Test 04/07/21 09:33 04/07/21 15:20 04/07/21 18:10 04/08/21 01:45 O2 Saturation 97 % (92-99) Arterial Blood pH 7.34 (7.35-7.45) Arterial Blood pCO2 at Patient Temp 47 mmHg (35-46) Arterial Blood pO2 at Patient Temp 100 mmHg (65-108) Arterial Blood HCO3 24 mmol/L (21-28) Arterial Blood Base Excess -2 mmol/L (-3-3) Oxyhemoglobin 95.7 % Methemoglobin 0.5 % (0.0-1.9) Carbon Monoxide, Quantitative 0.9 % (0.0-1.9) FiO2 32%/ 3l nc Sodium Level 141 mmol/L (136-145) 139 mmol/L (136-145) Potassium Level 5.1 mmol/L (3.5-5.1) 5.0 mmol/L (3.5-5.1) Chloride Level 105 mmol/L (98-107) 99 mmol/L (98-107) Carbon Dioxide Level 28 mmol/L (21-32) 29 mmol/L (21-32) Anion Gap 8 (6-14) 11 (6-14) Blood Urea Nitrogen 36 mg/dL (8-26) 50 mg/dL (8-26) Creatinine 1.9 mg/dL (0.7-1.3) 2.6 mg/dL (0.7-1.3) Estimated GFR (Cockcroft-Gault) 43.8 30.5 Glucose Level 119 mg/dL (70-99) 137 mg/dL (70-99) Calcium Level 9.4 mg/dL (8.5-10.1) 10.0 mg/dL (8.5-10.1) Troponin I Quantitative 0.049 ng/mL (0.000-0.055) 0.076 ng/mL (0.000-0.055) Urine Collection Type Unknown Urine Color Yellow Urine Clarity Clear Urine pH 5.0 (<5.0-8.0) Urine Specific [place] 1.010 (1.000-1.030) Urine Protein 30 mg/dL (NEG-TRACE) Urine Glucose (UA) Negative mg/dL (NEG) Urine Ketones (Stick) Negative mg/dL (NEG) Urine Blood Small (NEG) Urine Nitrite Negative (NEG) Urine Bilirubin Negative (NEG) Urine Urobilinogen Dipstick 0.2 mg/dL (0.2 mg/dL) Urine Leukocyte Esterase Negative (NEG) Urine RBC 3-5 /HPF (0-2) Urine WBC 1-4 /HPF (0-4) Urine Squamous Epithelial Cells Few /LPF Urine Amorphous Sediment Present /HPF Urine Bacteria 0 /HPF (0-FEW) Urine Hyaline Casts Moderate /HPF Urine Mucus Slight /LPF Urine Opiates Screen Neg (NEG) Urine Methadone Screen Neg (NEG) Urine Barbiturates Neg (NEG) Urine Phencyclidine Screen Neg (NEG) Urine Amphetamine/Methamphetamine Neg (NEG) Urine Benzodiazepines Screen Neg (NEG) Urine Cocaine Screen Pos (NEG) Urine Cannabinoids Screen Neg (NEG) Urine Ethyl Alcohol Neg (NEG) Magnesium Level 2.3 mg/dL (1.8-2.4) Test 04/08/21 03:03 04/09/21 06:45 O2 Saturation 96 % (92-99) Arterial Blood pH 7.37 (7.35-7.45) Arterial Blood pCO2 at Patient Temp 43 mmHg (35-46) Arterial Blood pO2 at Patient Temp 84 mmHg (65-108) Arterial Blood HCO3 24 mmol/L (21-28) Arterial Blood Base Excess -1 mmol/L (-3-3) FiO2 50 Sodium Level 137 mmol/L (136-145) Potassium Level 5.5 mmol/L (3.5-5.1) Chloride Level 98 mmol/L (98-107) Carbon Dioxide Level 31 mmol/L (21-32) Anion Gap 8 (6-14) Blood Urea Nitrogen 74 mg/dL (8-26) Creatinine 3.9 mg/dL (0.7-1.3) Estimated GFR (Cockcroft-Gault) 19.1 Glucose Level 122 mg/dL (70-99) Calcium Level 9.5 mg/dL (8.5-10.1) Phosphorus Level 8.3 mg/dL (2.6-4.7) Magnesium Level 2.7 mg/dL (1.8-2.4) Laboratory Tests Test 04/09/21 06:45 Sodium Level 137 mmol/L (136-145) Potassium Level 5.5 mmol/L (3.5-5.1) Chloride Level 98 mmol/L (98-107) Carbon Dioxide Level 31 mmol/L (21-32) Anion Gap 8 (6-14) Blood Urea Nitrogen 74 mg/dL (8-26) Creatinine 3.9 mg/dL (0.7-1.3) Estimated GFR (Cockcroft-Gault) 19.1 Glucose Level 122 mg/dL (70-99) Calcium Level 9.5 mg/dL (8.5-10.1) Phosphorus Level 8.3 mg/dL (2.6-4.7) Magnesium Level 2.7 mg/dL (1.8-2.4) Medications Active Scripts Medications Dose Route/Sig Max Daily Dose Days Date Category Aspirin 81 Mg Tab.chew 81 Mg PO DAILY 06/13/19 Reported Eliquis (Apixaban) 5 Mg Tablet 5 Mg PO BID 06/13/19 Reported Lasix (Furosemide) 20 Mg Tablet 20 Mg PO DAILY 06/13/19 Reported Spironolactone 25 Mg Tablet 25 Mg PO DAILY 06/13/19 Reported Coreg (Carvedilol) 25 Mg Tablet 25 Mg PO BIDWMEALS 06/13/19 Reported Flomax (Tamsulosin Hcl) 0.4 Mg Cap.er.24h 0.4 Mg PO DAILY 06/13/19 Reported Impression . 1. Acute hypoxic respiratory failure secondary to atrial flutter with rapid ventricular response and suspected congestive heart failure. 2. Abnormal CT chest with ground glass infiltrates. Could be early congestive heart failure versus cocaine-induced pneumonitis. 3. Atrial flutter with rapid ventricular response, heart rate is still 140s. Cardiology is managing. 4. Acute kidney injury. 5. Substance abuse and ongoing cocainism. The patient also has tobacco use. 6. Abnormal previous echo with RV dilation due to suspected secondary Pulmonary HTN ( ASD/ CMP). No need for VTE w/u except dopplers. Pt already on Eliquis Plan . RECOMMENDATIONS: 1. Discussed with RN and RT. We will continue present BiPAP. 2. The patient is status post diuresis. 3. Follow chest x-ray. as needed 4. Management of atrial flutter per Cardiology. 5. The patient has encephalopathy, He could be withdrawing from drugs as well. 6. DuoNebs. 7. Empiric antibiotics were initiated, appeared clinically low suspicion for infection. 7. Continue Eliquis for atrial flutter/fib. 8. Obtain venous Dopplers of lower extremities. 9. Discussed with RN and RT. Chart reviewed, imaging studies reviewed. Venous Dopplers negative for DVT JULIETA RIGGS MD Apr 09, 2021 09:27
--- NOTE | 2021-04-09 10:46 | PDOC ---
Renal-Progress Notes Subjective Notes Notes CONFUSED History of Present Illness Hx of present illness NOT GETTING ANY BETTER Vitals Vitals Vital Signs Date Time Temp Pulse Resp B/P (MAP) Pulse Ox O2 Delivery O2 Flow Rate FiO2 04/09/21 08:57 95 BiPAP/CPAP 04/09/21 08:18 111 92/70 04/09/21 08:00 15.0 04/09/21 07:00 98.2 32 98.2 Weight Weight [ ] I.O. Intake and Output Intake and Output 04/09/21 07:00 Intake Total 100 ml Output Total 1000 ml Balance -900 ml Intake Oral 100 ml Output Urine Total 1000 ml Labs Labs Laboratory Tests Test 04/09/21 06:45 Sodium Level 137 mmol/L (136-145) Potassium Level 5.5 mmol/L (3.5-5.1) Chloride Level 98 mmol/L (98-107) Carbon Dioxide Level 31 mmol/L (21-32) Anion Gap 8 (6-14) Blood Urea Nitrogen 74 mg/dL (8-26) Creatinine 3.9 mg/dL (0.7-1.3) Estimated GFR (Cockcroft-Gault) 19.1 Glucose Level 122 mg/dL (70-99) Calcium Level 9.5 mg/dL (8.5-10.1) Phosphorus Level 8.3 mg/dL (2.6-4.7) Magnesium Level 2.7 mg/dL (1.8-2.4) Review of Systems Constitutional: yes: other (UNABLE TO OBTAIN) Physical Exam General Appearance: moderate distress, cachetic Skin: warm Respiratory: decreased breath sounds, BiPAP/NIPPV, dyspnea Abdomen: soft, bowel sounds present, no guarding Genitourinary: bladder flat Extremities: pulses present Neurology: confused, other (confused) Assessment Assessment IMP HYPERKALEMI CKD STAGE 3B - CR OF ABOUT 2.0 OSORIO-CARDIORENAL WITH WORSENING CLEARANCE AFIB RVT NSTEMI ACUTE ON CHRONIC SYSTOLIC AND DIASTOLIC CHF CM WITH EF OF 20% COCAIN ABUSE POLYCYTHEMIA HX ASD CLOSURE AND LA THROMBUS ACUTE ON CHRONIC RESP FAILURE POSSIBLE PNEUMONITIS PLAN EMPIRIC ANTIBIOTICS SUPPLEMENTAL O2 BIPAP PULM TOILET CARDIOLOGY EVAL NEED RATE CONTROL PULM EVAL ANTICOAGULATION DIURESIS UNABLE TO COME OFF BIPAP NEEDS TO START DIALYSIS UNABLE TO FIND FAMILY TO GET CONSENT HAVE D/W DR MAYO DUE TO MED NECESSITY WILL PROCEED WITH LINE AND HD MAY NOT TOLERATE DIALYSIS DUE TO SEVERE CM WILL ATTEMPT TO HD UF ABOUT 2.0 LITERS OR MORE IF TOLERATED OVERALL POOR PROGNOSIS EFE URENA MD Apr 09, 2021 10:46
--- NOTE | 2021-04-09 11:12 | PDOC ---
[facility] PROGRESS NOTE Date of Service DOS: DATE: 04/09/21 TIME: 11:06 Chief Complaint Chief Complaint CHF exacerbation Afib Rvr Hypokalemia History of Present Illness History of Present Illness 04/09/2021 Pt seen and examined at bedside D/W nephrology to do emergent dialysis. We tried to get ahold of a family member but could not find a working phone number. We deemed the temporary cath for d ialysis necessary for pt care and treatment. It is in the pts best interest to get dialysis today. Pt has hypoxic encephalitis Pt is very agitated D/W RN Chart reviewed 04/08/2021 Pt seen and examined Pt was very agitated and encephalopathic Pt has Fol[place] to BSD Pt has mits on hands for safety Pt has edema D/W RN Chart reviewed The patient is a pleasant 61-year-old male who presented with shortness of breath. While in the ER, we had noticed that he is quite hypoxic, we have him on a lot of oxygen. His potassium is also high at 6. He also has azotemia with a BUN of 35 and a creatinine of 2. Hemoglobin is high at 17.7. Surprisingly, his COVID testing is negative, but his chest x-ray does show cardiomegaly and pulmonary hypertension, infiltrates and possible emphysema. We are admitting the patient with consultation to Cardiology and Nephrology. Vitals/I&O Vitals/I&O: Vital Signs Date Time Temp Pulse Resp B/P (MAP) Pulse Ox O2 Delivery O2 Flow Rate FiO2 04/09/21 10:54 97.6 99 28 104/84 (91) 92 BiPAP/CPAP 97.6 04/09/21 08:00 15.0 I & O 04/08/21 04/08/21 04/09/21 15:00 23:00 07:00 Intake Total 100 ml 0 ml Output Total 450 ml 550 ml Balance -350 ml -550 ml Physical Exam General: Cooperative, moderate distress Heart: Other (TACHY WITH AFIB RVR AND MR) Lungs: Other (Decreased breath sounds) Abdomen: Normal bowel sounds, No tenderness Extremities: No clubbing, Other (2+ LE EDEMA) Skin: No significant lesion Labs Labs: Laboratory Tests Test 04/09/21 06:45 Sodium Level 137 mmol/L (136-145) Potassium Level 5.5 mmol/L (3.5-5.1) Chloride Level 98 mmol/L (98-107) Carbon Dioxide Level 31 mmol/L (21-32) Anion Gap 8 (6-14) Blood Urea Nitrogen 74 mg/dL (8-26) Creatinine 3.9 mg/dL (0.7-1.3) Estimated GFR (Cockcroft-Gault) 19.1 Glucose Level 122 mg/dL (70-99) Calcium Level 9.5 mg/dL (8.5-10.1) Phosphorus Level 8.3 mg/dL (2.6-4.7) Magnesium Level 2.7 mg/dL (1.8-2.4) Review of Systems Review of Systems: Could not assess due to bipap and respiratory distress Assessment and Plan Assessmemt and Plan 04/09/2021 Assessment: CHF exacerbation Afib Rvr Hypokalemia BPH AFib HTN Tobacco abuse Plan: Going for temporary emergent dialysis today. Refer to HPI. Full code Bipap DVT Prophylaxis Continue Rx Appreciate nephrology input Cardiac monitoring Problems Medical Problems: (1) Atrial fibrillation with RVR Status: Acute (2) CHF (congestive heart failure) Status: Acute (3) Chronic renal insufficiency Status: Acute (4) Cocaine use Status: Acute (5) Elevated troponin Status: Acute (6) Hyperkalemia Status: Acute Comment Review of Relevant I have reviewed the following items vesna (where applicable) has been applied. Medications: Current Medications Medications (Trade) Dose Ordered Sig/Edilberto Route PRN Reason Start Time Stop Time Status Last Admin Dose Admin Amiodarone HCl 150 mg/Dextrose 103 ml @ 600 mls/hr 1X ONCE IV 04/08/21 14:30 04/08/21 14:40 DC 04/08/21 14:43 Amiodarone HCl 450 mg/Dextrose 259 ml @ 0 mls/hr CONT PRN IV SEE I/O RECORD 04/08/21 14:30 04/09/21 14:29 04/09/21 00:16 Metoprolol Tartrate (Lopressor Vial) 5 mg Q6HRS IVP 04/08/21 18:00 04/09/21 06:26 Enoxaparin Sodium (Lovenox 100mg Syringe) 90 mg Q24H SQ 04/08/21 16:00 04/08/21 17:18 Justifications for Admission Other Justification VAIBHAV MAYO III DO Apr 09, 2021 11:12
--- NOTE | 2021-04-09 14:45 | PDOC ---
PROGRESS NOTES Date of Service DATE: 04/09/21 TIME: 14:42 Subjective Subjective Patient seen and examined Objective Objective Vital Signs Date Time Temp Pulse Resp B/P (MAP) Pulse Ox O2 Delivery O2 Flow Rate FiO2 04/09/21 13:05 99 104/84 04/09/21 11:35 94 BiPAP/CPAP 04/09/21 10:54 97.6 28 97.6 04/09/21 08:00 15.0 Intake and Output 04/09/21 07:00 Intake Total 100 ml Output Total 1000 ml Balance -900 ml Intake Oral 100 ml Output Urine Total 1000 ml Physical Exam Physical Exam Agitated. Chest. Decreased breath sounds bilaterally. CV. Irregularly irregular. Rate now 95 bpm. Abdomen. Soft. Assessment Assessment Problems Medical Problems: (1) Atrial fibrillation with RVR Status: Acute (2) CHF (congestive heart failure) Status: Acute (3) Chronic renal insufficiency Status: Acute (4) Cocaine use Status: Acute (5) Elevated troponin Status: Acute (6) Hyperkalemia Status: Acute Acute on chronic diastolic/systolic CHF. With poor LV function. Increasing shortness of breath due to poor LV function and progressive renal failure. Attempting to increase cardiac medications as tolerated. Renal evaluating for possible dialysis. Cocaine/marijuana abuse: last use 3 days prior to admission. NICM: last known EF at 20%. Followed at . AFIB RVR: appears to be chronic. Metoprolol IV secondary the patient being n.p.o. Discontined Coreg. On amiodarone. Continuing to monitor. NSTEMI: type 2, demand mediated with culprits above Hx of VENKATA thrombus and ASD closure OSORIO on CKD3 and hx of right renal mass. Creatinine today has increased to 3.9 with a potassium of 5.5. Nephrology is following Hx of noncompliance: has been skipping meds. Acute respiratory failure with CHF/COPD and possible pneumonitis likely from britney darwin inhalation. Pulmonary following AECOPD Metabolic encephalopathy; sedated with ativan Comment Review of Relevant I have reviewed the following items vesna (where applicable) has been applied. Labs Laboratory Tests Test 04/07/21 15:20 04/07/21 18:10 04/08/21 01:45 04/08/21 03:03 Sodium Level 141 mmol/L (136-145) 139 mmol/L (136-145) Potassium Level 5.1 mmol/L (3.5-5.1) 5.0 mmol/L (3.5-5.1) Chloride Level 105 mmol/L (98-107) 99 mmol/L (98-107) Carbon Dioxide Level 28 mmol/L (21-32) 29 mmol/L (21-32) Anion Gap 8 (6-14) 11 (6-14) Blood Urea Nitrogen 36 mg/dL (8-26) 50 mg/dL (8-26) Creatinine 1.9 mg/dL (0.7-1.3) 2.6 mg/dL (0.7-1.3) Estimated GFR (Cockcroft-Gault) 43.8 30.5 Glucose Level 119 mg/dL (70-99) 137 mg/dL (70-99) Calcium Level 9.4 mg/dL (8.5-10.1) 10.0 mg/dL (8.5-10.1) Troponin I Quantitative 0.049 ng/mL (0.000-0.055) 0.076 ng/mL (0.000-0.055) Urine Collection Type Unknown Urine Color Yellow Urine Clarity Clear Urine pH 5.0 (<5.0-8.0) Urine Specific Harwood 1.010 (1.000-1.030) Urine Protein 30 mg/dL (NEG-TRACE) Urine Glucose (UA) Negative mg/dL (NEG) Urine Ketones (Stick) Negative mg/dL (NEG) Urine Blood Small (NEG) Urine Nitrite Negative (NEG) Urine Bilirubin Negative (NEG) Urine Urobilinogen Dipstick 0.2 mg/dL (0.2 mg/dL) Urine Leukocyte Esterase Negative (NEG) Urine RBC 3-5 /HPF (0-2) Urine WBC 1-4 /HPF (0-4) Urine Squamous Epithelial Cells Few /LPF Urine Amorphous Sediment Present /HPF Urine Bacteria 0 /HPF (0-FEW) Urine Hyaline Casts Moderate /HPF Urine Mucus Slight /LPF Urine Opiates Screen Neg (NEG) Urine Methadone Screen Neg (NEG) Urine Barbiturates Neg (NEG) Urine Phencyclidine Screen Neg (NEG) Urine Amphetamine/Methamphetamine Neg (NEG) Urine Benzodiazepines Screen Neg (NEG) Urine Cocaine Screen Pos (NEG) Urine Cannabinoids Screen Neg (NEG) Urine Ethyl Alcohol Neg (NEG) Magnesium Level 2.3 mg/dL (1.8-2.4) O2 Saturation 96 % (92-99) Arterial Blood pH 7.37 (7.35-7.45) Arterial Blood pCO2 at Patient Temp 43 mmHg (35-46) Arterial Blood pO2 at Patient Temp 84 mmHg (65-108) Arterial Blood HCO3 24 mmol/L (21-28) Arterial Blood Base Excess -1 mmol/L (-3-3) FiO2 50 Test 04/09/21 06:45 Sodium Level 137 mmol/L (136-145) Potassium Level 5.5 mmol/L (3.5-5.1) Chloride Level 98 mmol/L (98-107) Carbon Dioxide Level 31 mmol/L (21-32) Anion Gap 8 (6-14) Blood Urea Nitrogen 74 mg/dL (8-26) Creatinine 3.9 mg/dL (0.7-1.3) Estimated GFR (Cockcroft-Gault) 19.1 Glucose Level 122 mg/dL (70-99) Calcium Level 9.5 mg/dL (8.5-10.1) Phosphorus Level 8.3 mg/dL (2.6-4.7) Magnesium Level 2.7 mg/dL (1.8-2.4) Laboratory Tests Test 04/09/21 06:45 Sodium Level 137 mmol/L (136-145) Potassium Level 5.5 mmol/L (3.5-5.1) Chloride Level 98 mmol/L (98-107) Carbon Dioxide Level 31 mmol/L (21-32) Anion Gap 8 (6-14) Blood Urea Nitrogen 74 mg/dL (8-26) Creatinine 3.9 mg/dL (0.7-1.3) Estimated GFR (Cockcroft-Gault) 19.1 Glucose Level 122 mg/dL (70-99) Calcium Level 9.5 mg/dL (8.5-10.1) Phosphorus Level 8.3 mg/dL (2.6-4.7) Magnesium Level 2.7 mg/dL (1.8-2.4) Medications Current Medications Albuterol/ Ipratropium (Duoneb) 3 ml 1X ONCE NEB Last administered on 04/07/21at 09:19; Start 04/07/21 at 09:15; Stop 04/07/21 at 09:16; Status DC Dexamethasone Sodium Phosphate (Decadron) 10 mg 1X ONCE IVP Last administered on 04/07/21at 09:19; Start 04/07/21 at 09:15; Stop 04/07/21 at 09:16; Status DC Aspirin (Ecotrin) 325 mg 1X ONCE PO Last administered on 04/07/21at 09:18; Start 04/07/21 at 09:15; Stop 04/07/21 at 09:16; Status DC Diltiazem HCl (Cardizem Iv Push) 20 mg 1X ONCE IVP Last administered on 04/07/21at 09:33; Start 04/07/21 at 09:45; Stop 04/07/21 at 09:46; Status DC Diltiazem HCl 125 mg/Sodium Chloride 125 ml @ 5 mls/hr CONT PRN IV SEE I/O RECORD Last administered on 04/07/21at 09:34; Start 04/07/21 at 09:30; Stop 04/07/21 at 14:58; Status DC Bumetanide (Bumex) 1 mg DAILY ONCE IV Last administered on 04/07/21at 11:09; Start 04/07/21 at 10:44; Stop 04/07/21 at 10:45; Status DC Calcium Gluconate (Calcium Gluconate) 1,000 mg 1X ONCE IVP Last administered on 04/07/21at 12:14; Start 04/07/21 at 11:15; Stop 04/07/21 at 11:16; Status DC Insulin Human Regular (HumuLIN R VIAL) 10 unit 1X ONCE IV Last administered on 04/07/21at 12:19; Start 04/07/21 at 11:15; Stop 04/07/21 at 11:16; Status DC Dextrose (Dextrose 50%-Water Syringe) 25 gm 1X ONCE IV Last administered on 04/07/21at 12:12; Start 04/07/21 at 11:15; Stop 04/07/21 at 11:16; Status DC Ondansetron HCl (Zofran) 4 mg PRN Q8HRS PRN IVP NAUSEA/VOMITING; Start 04/07/21 at 12:30; Stop 04/08/21 at 12:29; Status DC Piperacillin Sod/ Tazobactam Sod (Zosyn Per Pharmacy) 1 each PRN DAILY PRN MC SEE COMMENTS; Start 04/07/21 at 12:45; Stop 04/08/21 at 13:50; Status DC Piperacillin Sod/ Tazobactam Sod 3.375 gm/Sodium Chloride 50 ml @ 100 mls/hr 1X ONCE IV Last administered on 04/07/21at 14:30; Start 04/07/21 at 13:00; Stop 04/07/21 at 13:29; Status DC Piperacillin Sod/ Tazobactam Sod 3.375 gm/Sodium Chloride 50 ml @ 100 mls/hr Q6HRS IV Last administered on 04/08/21at 12:41; Start 04/07/21 at 18:00; Stop 04/08/21 at 13:50; Status DC Carvedilol (Coreg) 3.125 mg BIDWMEALS PO ; Start 04/07/21 at 17:00; Stop 04/07/21 at 15:07; Status DC Carvedilol (Coreg) 6.25 mg BIDWMEALS PO Last administered on 04/07/21at 15:52; Start 04/07/21 at 17:00; Stop 04/08/21 at 14:18; Status DC Apixaban (Eliquis) 5 mg BID PO Last administered on 04/07/21at 20:20; Start 04/07/21 at 21:00; Stop 04/08/21 at 14:18; Status DC Furosemide (Lasix) 40 mg BID66 IVP Last administered on 04/09/21at 00:17; Start 04/07/21 at 18:00 Info (Anti-Coagulation Monitoring By Pharmacy) 1 each PRN DAILY PRN MC PER PROTOCOL; Start 04/07/21 at 15:15 Methylprednisolone Sodium Succinate (SOLU-Medrol 125MG VIAL) 125 mg 1X ONCE IV Last administered on 04/07/21at 15:59; Start 04/07/21 at 15:45; Stop 04/07/21 at 15:46; Status DC Albuterol Sulfate (Ventolin Neb Soln) 2.5 mg 1X ONCE NEB Last administered on 04/07/21at 16:54; Start 04/07/21 at 15:45; Stop 04/07/21 at 15:46; Status DC Digoxin (Lanoxin) 250 mcg 1X ONCE IV Last administered on 04/07/21at 16:16; Start 04/07/21 at 16:15; Stop 04/07/21 at 16:16; Status DC Tamsulosin HCl (Flomax) 0.4 mg DAILY PO ; Start 04/08/21 at 09:00 Acetaminophen (Tylenol) 500 mg PRN Q6HRS PRN PO MILD PAIN / TEMP > 100.3'F; Start 04/07/21 at 21:00 Albuterol/ Ipratropium (Duoneb) 3 ml 1X ONCE NEB ; Start 04/07/21 at 21:00; Stop 04/07/21 at 21:01; Status DC Hydralazine HCl (Apresoline Inj) 10 mg PRN Q4HRS PRN IVP ELEVATED BP, SEE COMMENTS Last administered on 04/08/21at 03:19; Start 04/07/21 at 21:00 Oxycodone/ Acetaminophen (Percocet 5/325) 1 tab 1X ONCE PO Last administered on 04/07/21at 21:17; Start 04/07/21 at 21:30; Stop 04/07/21 at 21:31; Status DC Albuterol/ Ipratropium (Duoneb) 3 ml RTQID NEB ; Start 04/07/21 at 21:30; Status Cancel Furosemide (Lasix) 40 mg 1X ONCE IVP Last administered on 04/07/21at 21:42; Start 04/07/21 at 22:00; Stop 04/07/21 at 22:01; Status DC Morphine Sulfate (Morphine Sulfate) 2 mg PRN Q2HR PRN IVP SEVERE PAIN 7-10 Last administered on 04/08/21at 22:44; Start 04/07/21 at 21:30 Albuterol/ Ipratropium (Combivent Respimat 20-100 Mcg) 1 puff RTQID INH Last administered on 04/08/21at 17:17; Start 04/08/21 at 08:00 Carvedilol (Coreg) 6.25 mg 1X ONCE PO Last administered on 04/08/21at 04:20; Start 04/08/21 at 04:30; Stop 04/08/21 at 04:31; Status DC Alprazolam (Xanax) 0.25 mg 1X ONCE PO Last administered on 04/08/21at 04:20; Start 04/08/21 at 04:30; Stop 04/08/21 at 04:31; Status DC Furosemide (Lasix) 40 mg 1X ONCE IVP Last administered on 04/08/21at 05:42; Start 04/08/21 at 06:00; Stop 04/08/21 at 06:01; Status DC Digoxin (Lanoxin) 250 mcg 1X ONCE IV Last administered on 04/08/21at 06:49; Start 04/08/21 at 07:00; Stop 04/08/21 at 07:01; Status DC Digoxin (Lanoxin) 250 mcg DAILY IV Last administered on 04/09/21at 08:18; Start 04/08/21 at 07:15 Metoprolol Tartrate (Lopressor Vial) 5 mg 1X ONCE IVP Last administered on 04/08/21at 08:56; Start 04/08/21 at 08:15; Stop 04/08/21 at 08:17; Status DC Lorazepam (Ativan Inj) 2 mg PRN Q4HRS PRN IVP ANXIETY / AGITATION Last administered on 04/09/21at 08:21; Start 04/08/21 at 10:15 Furosemide (Lasix) 40 mg 1X ONCE IVP Last administered on 04/08/21at 12:43; Start 04/08/21 at 10:45; Stop 04/08/21 at 10:47; Status DC Amiodarone HCl 150 mg/Dextrose 103 ml @ 600 mls/hr 1X ONCE IV Last administered on 04/08/21at 14:43; Start 04/08/21 at 14:30; Stop 04/08/21 at 14:40; Status DC Amiodarone HCl 450 mg/Dextrose 259 ml @ 0 mls/hr CONT PRN IV SEE I/O RECORD Last administered on 04/09/21at 00:16; Start 04/08/21 at 14:30; Stop 04/09/21 at 14:29; Status DC Metoprolol Tartrate (Lopressor Vial) 5 mg Q6HRS IVP Last administered on 04/09/21at 13:05; Start 04/08/21 at 18:00 Enoxaparin Sodium (Lovenox Per Pharmacy Treatment Dosing) 1 each PRN DAILY PRN MC SEE COMMENTS; Start 04/08/21 at 14:30 Enoxaparin Sodium (Lovenox 100mg Syringe) 90 mg Q24H SQ Last administered on 04/08/21at 17:18; Start 04/08/21 at 16:00 Active Scripts Active Reported Aspirin 81 Mg Tab.chew 81 Mg PO DAILY Eliquis (Apixaban) 5 Mg Tablet 5 Mg PO BID Lasix (Furosemide) 20 Mg Tablet 20 Mg PO DAILY Spironolactone 25 Mg Tablet 25 Mg PO DAILY Coreg (Carvedilol) 25 Mg Tablet 25 Mg PO BIDWMEALS Flomax (Tamsulosin Hcl) 0.4 Mg Cap.er.24h 0.4 Mg PO DAILY Vitals/I & O Vital Sign - Last 24 Hours 04/08/21 04/08/21 04/08/21 04/08/21 14:43 14:45 15:05 15:25 Pulse 140 104 104 96 B/P (MAP) 117/66 104/75 (85) 104/79 (87) 90/71 (77) 04/08/21 04/08/21 04/08/21 04/08/21 15:45 16:05 16:10 16:45 Pulse 98 94 98 B/P (MAP) 98/69 (79) 90/60 (70) 124/67 (86) Pulse Ox 93 O2 Delivery BiPAP/CPAP 04/08/21 04/08/21 04/08/21 04/08/21 17:05 18:25 19:00 19:35 Temp 97.5 97.5 Pulse 96 102 110 Resp 30 B/P (MAP) 81/60 (67) 129/117 (121) 115/86 (96) Pulse Ox 96 O2 Delivery BiPAP/CPAP Bi-pap 04/08/21 04/08/21 04/08/21 04/08/21 20:00 20:25 20:26 21:24 Pulse 96 96 B/P (MAP) 181/94 (123) 181/94 Pulse Ox 98 O2 Delivery BiPAP/CPAP O2 Flow Rate 15.0 04/08/21 04/08/21 04/08/21 04/09/21 22:44 23:00 23:14 00:00 Temp 96.7 96.7 Pulse 114 Resp 20 36 20 B/P (MAP) 150/69 (96) Pulse Ox 98 96 92 90 O2 Delivery BiPAP/CPAP BiPAP/CPAP 04/09/21 04/09/21 04/09/21 04/09/21 00:17 02:00 02:50 05:00 Temp 97.0 97.0 Pulse 114 93 Resp 30 B/P (MAP) 150/69 97/74 (82) Pulse Ox 91 97 89 O2 Delivery BiPAP/CPAP BiPAP/CPAP BiPAP/CPAP 04/09/21 04/09/21 04/09/21 04/09/21 06:26 07:00 07:35 08:00 Temp 98.2 98.2 Pulse 97 105 Resp 32 B/P (MAP) 92/70 92/65 (74) Pulse Ox 90 97 O2 Delivery BiPAP/CPAP BiPAP/CPAP O2 Flow Rate 15.0 04/09/21 04/09/21 04/09/21 04/09/21 08:00 08:18 08:57 10:54 Temp 97.6 97.6 Pulse 111 99 Resp 28 B/P (MAP) 92/70 104/84 (91) Pulse Ox 95 92 O2 Delivery Bi-pap BiPAP/CPAP BiPAP/CPAP 04/09/21 04/09/21 11:35 13:05 Pulse 99 B/P (MAP) 104/84 Pulse Ox 94 O2 Delivery BiPAP/CPAP Intake and Output 04/08/21 04/08/21 04/09/21 15:00 23:00 07:00 Intake Total 100 ml 0 ml Output Total 450 ml 550 ml Balance -350 ml -550 ml Justifications for Admission Other Justification DAVID GORMAN MD Apr 09, 2021 14:45
[2021-04-09] MEDS ORDERED: MORPHINE SULFATE 4 MG/ML INJ. IVP PRN (19:30)
[2021-04-10 02:34] VITALS: BP 92/65
[2021-04-10 04:58] VITALS: BP 96/52
[2021-04-10] MEDS: METOPROLOL IV PUSH 5 MG/5 ML VIAL. IVP SCH ×2 (05:46→11:40)
[2021-04-10] MEDS: FUROSEMIDE 40 MG/4 ML VIAL. IVP SCH ×2 (05:46→16:14)
[2021-04-10 06:31] VITALS: BP 123/76
[2021-04-10 08:23] LABS: CALCIUM 9.3 mg/dL (8.5-10.1); CREATININE 4.4 mg/dL (0.7-1.3); GFR 16.6; MAGNESIUM 2.7 mg/dL (1.8-2.4); PHOSPHORUS 8.7 mg/dL (2.6-4.7); POTASSIUM 5.4 mmol/L (3.5-5.1)
[2021-04-10] MEDS: DIGOXIN IV 500 MCG/2 ML AMPUL. IV SCH (08:36)
[2021-04-10] MEDS: TAMSULOSIN 0.4 MG CAP.ER.24H. PO SCH (08:44)
[2021-04-10] MEDS ORDERED: LIDOCAINE WITH 8.4% SOD BICARB 3 ML DISP.SYRIN. ONE (09:36)
[2021-04-10] MEDS ORDERED: HEPARIN PF 500 UNIT/5 ML DISP.SYRIN. IVP ONE (09:39)
[2021-04-10] MEDS ORDERED: HEPARIN for IV BOLUS 10,000 UNIT/10 ML VIAL. ONE (09:41)
--- NOTE | 2021-04-10 09:48 | PDOC ---
PULMONARY PROGRESS NOTES DATE: 04/10/21 TIME: 09:48 Subjective Remains on BiPAP. Restless and agitated. Receiving as needed Ativan. Vitals Vital Signs Date Time Temp Pulse Resp B/P (MAP) Pulse Ox O2 Delivery O2 Flow Rate FiO2 04/10/21 08:36 98 123/76 04/10/21 07:38 94 BiPAP/CPAP 04/10/21 06:31 98.2 24 98.2 04/09/21 21:57 3.0 Lungs: Other (Decreased breath sounds) Cardiovascular: S1, Other (Tachycardia) Abdomen: Soft Extremities: Other (1+ edema) Skin: Warm Labs Laboratory Tests Test 04/09/21 06:45 04/09/21 15:15 04/10/21 06:10 Sodium Level 137 mmol/L (136-145) 142 mmol/L (136-145) Potassium Level 5.5 mmol/L (3.5-5.1) 5.4 mmol/L (3.5-5.1) Chloride Level 98 mmol/L (98-107) 102 mmol/L (98-107) Carbon Dioxide Level 31 mmol/L (21-32) 30 mmol/L (21-32) Anion Gap 8 (6-14) 10 (6-14) Blood Urea Nitrogen 74 mg/dL (8-26) 98 mg/dL (8-26) Creatinine 3.9 mg/dL (0.7-1.3) 4.4 mg/dL (0.7-1.3) Estimated GFR (Cockcroft-Gault) 19.1 16.6 Glucose Level 122 mg/dL (70-99) 114 mg/dL (70-99) Calcium Level 9.5 mg/dL (8.5-10.1) 9.3 mg/dL (8.5-10.1) Phosphorus Level 8.3 mg/dL (2.6-4.7) 8.7 mg/dL (2.6-4.7) Magnesium Level 2.7 mg/dL (1.8-2.4) 2.7 mg/dL (1.8-2.4) Hepatitis B Surface Antigen Nonreactive (Nonreactive) Laboratory Tests Test 04/09/21 15:15 04/10/21 06:10 Hepatitis B Surface Antigen Nonreactive (Nonreactive) Sodium Level 142 mmol/L (136-145) Potassium Level 5.4 mmol/L (3.5-5.1) Chloride Level 102 mmol/L (98-107) Carbon Dioxide Level 30 mmol/L (21-32) Anion Gap 10 (6-14) Blood Urea Nitrogen 98 mg/dL (8-26) Creatinine 4.4 mg/dL (0.7-1.3) Estimated GFR (Cockcroft-Gault) 16.6 Glucose Level 114 mg/dL (70-99) Calcium Level 9.3 mg/dL (8.5-10.1) Phosphorus Level 8.7 mg/dL (2.6-4.7) Magnesium Level 2.7 mg/dL (1.8-2.4) Medications Active Scripts Medications Dose Route/Sig Max Daily Dose Days Date Category Aspirin 81 Mg Tab.chew 81 Mg PO DAILY 06/13/19 Reported Eliquis (Apixaban) 5 Mg Tablet 5 Mg PO BID 06/13/19 Reported Lasix (Furosemide) 20 Mg Tablet 20 Mg PO DAILY 06/13/19 Reported Spironolactone 25 Mg Tablet 25 Mg PO DAILY 06/13/19 Reported Coreg (Carvedilol) 25 Mg Tablet 25 Mg PO BIDWMEALS 06/13/19 Reported Flomax (Tamsulosin Hcl) 0.4 Mg Cap.er.24h 0.4 Mg PO DAILY 06/13/19 Reported Impression . 1. Acute hypoxic respiratory failure secondary to atrial flutter with rapid ventricular response and suspected congestive heart failure. 2. Abnormal CT chest with ground glass infiltrates. Could be early congestive heart failure versus cocaine-induced pneumonitis. 3. Atrial flutter with rapid ventricular response, heart rate is still 140s. Cardiology is managing. 4. Acute kidney injury. 5. Substance abuse and ongoing cocainism. The patient also has tobacco use. 6. Abnormal previous echo with RV dilation due to suspected secondary Pulmonary HTN ( ASD/ CMP). No need for VTE w/u except dopplers. Pt already on Eliquis Plan . RECOMMENDATIONS: 1. Discussed with RN . We will continue present BiPAP. 2. The patient is status post diuresis. 3. Follow chest x-ray. as needed 4. Management of atrial flutter per Cardiology. 5. The patient has encephalopathy, He could be withdrawing from drugs as well. 6. DuoNebs. 7. Empiric antibiotics were initiated, appeared clinically low suspicion for infection. 7. Continue Eliquis for atrial flutter/fib. 8. Obtain venous Dopplers of lower extremities. 9. Discussed with RN . Venous Dopplers negative for DVT JULIETA RIGGS MD Apr 10, 2021 09:48
[2021-04-10] MEDS ORDERED: LIDOCAINE WITH 8.4% SOD BICARB 3 ML DISP.SYRIN. IJ ONE (10:00)
--- NOTE | 2021-04-10 10:45 | PDOC ---
Renal-Progress Notes Subjective Notes Notes REMAINS CONFUSED History of Present Illness Hx of present illness WORSE Vitals Vitals Vital Signs Date Time Temp Pulse Resp B/P (MAP) Pulse Ox O2 Delivery O2 Flow Rate FiO2 04/10/21 08:36 98 123/76 04/10/21 07:38 94 BiPAP/CPAP 04/10/21 06:31 98.2 24 98.2 04/09/21 21:57 3.0 Weight Weight [ ] I.O. Intake and Output Intake and Output 04/10/21 07:00 Intake Total 203 ml Output Total 650 ml Balance -447 ml Intake Oral 0 ml IV Total 203 ml Output Urine Total 650 ml Labs Labs Laboratory Tests Test 04/09/21 15:15 04/10/21 06:10 Hepatitis B Surface Antigen Nonreactive (Nonreactive) Sodium Level 142 mmol/L (136-145) Potassium Level 5.4 mmol/L (3.5-5.1) Chloride Level 102 mmol/L (98-107) Carbon Dioxide Level 30 mmol/L (21-32) Anion Gap 10 (6-14) Blood Urea Nitrogen 98 mg/dL (8-26) Creatinine 4.4 mg/dL (0.7-1.3) Estimated GFR (Cockcroft-Gault) 16.6 Glucose Level 114 mg/dL (70-99) Calcium Level 9.3 mg/dL (8.5-10.1) Phosphorus Level 8.7 mg/dL (2.6-4.7) Magnesium Level 2.7 mg/dL (1.8-2.4) Review of Systems Constitutional: yes: other (UNABLE TO OBTAIN, CONFUSED) Physical Exam General Appearance: moderate distress, cachetic Skin: warm Respiratory: decreased breath sounds, BiPAP/NIPPV, dyspnea Abdomen: soft, bowel sounds present, no guarding Genitourinary: bladder flat Extremities: pulses present Neurology: confused, other (confused) Assessment Assessment IMP HYPERKALEMIA CKD STAGE 3B - CR OF ABOUT 2.0 OSORIO-CARDIORENAL WITH WORSENING CLEARANCE-CR UP TO 4.4 AFIB RVT NSTEMI ACUTE ON CHRONIC SYSTOLIC AND DIASTOLIC CHF CM WITH EF OF 20% COCAIN ABUSE POLYCYTHEMIA HX ASD CLOSURE AND LA THROMBUS ACUTE ON CHRONIC RESP FAILURE POSSIBLE PNEUMONITIS PLAN EMPIRIC ANTIBIOTICS SUPPLEMENTAL O2 BIPAP PULM TOILET CARDIOLOGY EVAL NEED RATE CONTROL PULM EVAL ANTICOAGULATION DIURESIS UNABLE TO COME OFF BIPAP NEEDS TO START DIALYSIS UNABLE TO FIND FAMILY TO GET CONSENT HAVE D/W DR MAYO DUE TO MED NECESSITY WILL PROCEED WITH LINE AND HD MAY NOT TOLERATE DIALYSIS DUE TO SEVERE CM TEMP HD LINE TODAY WILL ATTEMPT TO HD UF ABOUT 2.0 LITERS OR MORE IF TOLERATED OVERALL POOR PROGNOSIS EFE URENA MD Apr 10, 2021 10:45
--- NOTE | 2021-04-10 11:04 | RAD ---
XR CHEST 1V CLINICAL INDICATIONS: Reason: post temporary hemodialysis catheter placement. COMPARISON: April 08, 2021. Findings: A right IJ hemodialysis catheter has been placed and the inferior tip is seen within the up per right atrium. No acute lung infiltrate or pleural effusion or pulmonary edema or lung mass or pne umothorax is seen. Heart size is enlarged but stable. Mediastinum and pulmonary vasculature are uncha nged. IMPRESSION: No pneumothorax after placement of hemodialysis catheter. Electronically signed by: Edu Herndon MD (04/10/2021 11:02 AM) [id number]
[2021-04-10 11:15] VITALS: BP 150/69
[2021-04-10] MEDS ORDERED: ALBUMIN HUMAN 25% 200 ML IV PRN (11:15)
[2021-04-10] MEDS ORDERED: IV NORMAL SALINE 1000ML BAG 1,000 ML IV PRN ×2 (11:15)
[2021-04-10] MEDS ORDERED: DIALYSIS PATIENT. MC PRN ×2 (12:15)
--- NOTE | 2021-04-10 12:59 | PDOC ---
[facility] PROGRESS NOTE Date of Service DOS: DATE: 04/10/21 TIME: 12:53 Chief Complaint Chief Complaint CHF exacerbation Afib Rvr Hypokalemia History of Present Illness History of Present Illness 04/10/2021 Pt seen and examined at bedside Patient got his temporary dialysis catheter yesterday its in the right IJ Patient's brother Cleveland is now here Pt went for dialysis today Pt has hypoxic encephalitis Pt has a Bipap Pt is on 60% FiO2 with 99% Sat Pt has Mits on for safety D/W RN Chart reviewed 04/09/2021 Pt seen and examined at bedside D/W nephrology to do emergent dialysis. We tried to get ahold of a family member but could not find a working phone number. We deemed the temporary cath for dialysis necessary for pt care and treatment. It is in the pts best interest to get dialysis today. Pt has hypoxic encephalitis Pt is very agitated D/W RN Chart reviewed 04/08/2021 Pt seen and examined Pt was very agitated and encephalopathic Pt has Folley to BSD Pt has mits on hands for safety Pt has edema D/W RN Chart reviewed The patient is a pleasant 61-year-old male who presented with shortness of breath. While in the ER, we had noticed that he is quite hypoxic, we have him on a lot of oxygen. His potassium is also high at 6. He also has azotemia with a BUN of 35 and a creatinine of 2. Hemoglobin is high at 17.7. Surprisingly, his COVID testing is negative, but his chest x-ray does show cardiomegaly and pulmonary hypertension, infiltrates and possible emphysema. We are admitting the patient with consultation to Cardiology and Nephrology. Vitals/I&O Vitals/I&O: Vital Signs Date Time Temp Pulse Resp B/P (MAP) Pulse Ox O2 Delivery O2 Flow Rate FiO2 04/10/21 11:53 98 Venturi Mask 15.0 04/10/21 11:40 61 150/69 04/10/21 11:15 96.8 18 96.8 I & O 04/09/21 04/09/21 04/10/21 15:00 23:00 07:00 Intake Total 203 ml 0 ml 0 ml Output Total 350 ml 300 ml Balance 203 ml -350 ml -300 ml Physical Exam General: moderate distress Heart: Other (TACHY WITH AFIB RVR AND MR) Lungs: Other (Decreased breath sounds) Abdomen: Normal bowel sounds, No tenderness Extremities: No clubbing, Other (2+ LE EDEMA) Skin: No significant lesion Labs Labs: Laboratory Tests Test 04/09/21 15:15 04/10/21 06:10 Hepatitis B Surface Antigen Nonreactive (Nonreactive) Sodium Level 142 mmol/L (136-145) Potassium Level 5.4 mmol/L (3.5-5.1) Chloride Level 102 mmol/L (98-107) Carbon Dioxide Level 30 mmol/L (21-32) Anion Gap 10 (6-14) Blood Urea Nitrogen 98 mg/dL (8-26) Creatinine 4.4 mg/dL (0.7-1.3) Estimated GFR (Cockcroft-Gault) 16.6 Glucose Level 114 mg/dL (70-99) Calcium Level 9.3 mg/dL (8.5-10.1) Phosphorus Level 8.7 mg/dL (2.6-4.7) Magnesium Level 2.7 mg/dL (1.8-2.4) Review of Systems Review of Systems: Could not obtain ROS from Pt due to Bipap and respiratory distress Assessment and Plan Assessmemt and Plan 04/10/2021 Assessment: CHF exacerbation Afib Rvr Hypokalemia Anoxic encephalopathy Edema Plan: Continue Bipap Dialysis today Mikey Lara to JESSICA Rojas for patient safety Ativan 2mg as needed Cardiac monitoring Home Rx Full code Appreciate cardiology, nephrology, and pulmonolgy input Trend labs DVT Prophylaxis Prognosis guarded CC time 32-minutes Problems Medical Problems: (1) Atrial fibrillation with RVR Status: Acute (2) CHF (congestive heart failure) Status: Acute (3) Chronic renal insufficiency Status: Acute (4) Cocaine use Status: Acute (5) Elevated troponin Status: Acute (6) Hyperkalemia Status: Acute Comment Review of Relevant I have reviewed the following items vesna (where applicable) has been applied. Medications: Current Medications Medications (Trade) Dose Ordered Sig/Edilberto Route PRN Reason Start Time Stop Time Status Last Admin Dose Admin Amiodarone HCl 450 mg/Dextrose 259 ml @ 0 mls/hr CONT PRN IV SEE I/O RECORD 04/09/21 17:30 04/09/21 18:19 Lorazepam (Ativan Inj) 2 mg PRN Q2HRS PRN IVP ANXIETY / AGITATION 8/14/21 19:15 04/10/21 10:09 Lidocaine HCl (Buffered Lidocaine 1%) 3 ml 1X ONCE IJ 04/10/21 10:00 04/10/21 10:03 DC 04/10/21 10:13 Justifications for Admission Other Justification VAIBHAV MAYO III DO Apr 10, 2021 12:59
--- NOTE | 2021-04-10 13:25 | PDOC ---
PROGRESS NOTES Date of Service DATE: 04/10/21 TIME: 13:23 Subjective Subjective Patient seen and examined Objective Objective Vital Signs Date Time Temp Pulse Resp B/P (MAP) Pulse Ox O2 Delivery O2 Flow Rate FiO2 04/10/21 11:53 98 Venturi Mask 15.0 04/10/21 11:40 61 150/69 04/10/21 11:15 96.8 18 96.8 Intake and Output 04/10/21 07:00 Intake Total 203 ml Output Total 650 ml Balance -447 ml Intake Oral 0 ml IV Total 203 ml Output Urine Total 650 ml Physical Exam Abdomen: Normal bowel sounds Heart: Regular rate General: Other (Agitated) Lungs: Other (Decreased breath sounds) Assessment Assessment Problems Medical Problems: (1) Atrial fibrillation with RVR Status: Acute (2) CHF (congestive heart failure) Status: Acute (3) Chronic renal insufficiency Status: Acute (4) Cocaine use Status: Acute (5) Elevated troponin Status: Acute (6) Hyperkalemia Status: Acute Acute on chronic diastolic/systolic CHF. Poor LV function. Increasing shortness of breath due to poor LV function and progressive renal failure. Dialysis today. Adjusting medications based on patient's response. Cocaine/marijuana abuse: last use 3 days prior to admission. NICM: last known EF at 20%. Followed at . Paroxysmal atrial fib flutter. Rate is under better control. Continuing to monitor. Continue present treatment. NSTEMI: type 2, demand mediated with culprits above Hx of VENKATA thrombus and ASD closure OSORIO on CKD3 and hx of right renal mass. Dialysis as per the renal service. Hx of noncompliance: has been skipping meds. Acute respiratory failure with CHF/COPD and possible pneumonitis likely from cocaine inhalation. Pulmonary following AECOPD Metabolic encephalopathy; sedated with ativan Comment Review of Relevant I have reviewed the following items vesna (where applicable) has been applied. Labs Laboratory Tests Test 04/09/21 06:45 04/09/21 15:15 04/10/21 06:10 Sodium Level 137 mmol/L (136-145) 142 mmol/L (136-145) Potassium Level 5.5 mmol/L (3.5-5.1) 5.4 mmol/L (3.5-5.1) Chloride Level 98 mmol/L (98-107) 102 mmol/L (98-107) Carbon Dioxide Level 31 mmol/L (21-32) 30 mmol/L (21-32) Anion Gap 8 (6-14) 10 (6-14) Blood Urea Nitrogen 74 mg/dL (8-26) 98 mg/dL (8-26) Creatinine 3.9 mg/dL (0.7-1.3) 4.4 mg/dL (0.7-1.3) Estimated GFR (Cockcroft-Gault) 19.1 16.6 Glucose Level 122 mg/dL (70-99) 114 mg/dL (70-99) Calcium Level 9.5 mg/dL (8.5-10.1) 9.3 mg/dL (8.5-10.1) Phosphorus Level 8.3 mg/dL (2.6-4.7) 8.7 mg/dL (2.6-4.7) Magnesium Level 2.7 mg/dL (1.8-2.4) 2.7 mg/dL (1.8-2.4) Hepatitis B Surface Antigen Nonreactive (Nonreactive) Laboratory Tests Test 04/09/21 15:15 04/10/21 06:10 Hepatitis B Surface Antigen Nonreactive (Nonreactive) Sodium Level 142 mmol/L (136-145) Potassium Level 5.4 mmol/L (3.5-5.1) Chloride Level 102 mmol/L (98-107) Carbon Dioxide Level 30 mmol/L (21-32) Anion Gap 10 (6-14) Blood Urea Nitrogen 98 mg/dL (8-26) Creatinine 4.4 mg/dL (0.7-1.3) Estimated GFR (Cockcroft-Gault) 16.6 Glucose Level 114 mg/dL (70-99) Calcium Level 9.3 mg/dL (8.5-10.1) Phosphorus Level 8.7 mg/dL (2.6-4.7) Magnesium Level 2.7 mg/dL (1.8-2.4) Medications Current Medications Albuterol/ Ipratropium (Duoneb) 3 ml 1X ONCE NEB Last administered on 04/07/21at 09:19; Start 04/07/21 at 09:15; Stop 04/07/21 at 09:16; Status DC Dexamethasone Sodium Phosphate (Decadron) 10 mg 1X ONCE IVP Last administered on 04/07/21at 09:19; Start 04/07/21 at 09:15; Stop 04/07/21 at 09:16; Status DC Aspirin (Ecotrin) 325 mg 1X ONCE PO Last administered on 04/07/21at 09:18; Start 04/07/21 at 09:15; Stop 04/07/21 at 09:16; Status DC Diltiazem HCl (Cardizem Iv Push) 20 mg 1X ONCE IVP Last administered on 04/07at 09:33; Start 04/07/21 at 09:45; Stop 04/07/21 at 09:46; Status DC Diltiazem HCl 125 mg/Sodium Chloride 125 ml @ 5 mls/hr CONT PRN IV SEE I/O RECORD Last administered on 04/07/21at 09:34; Start 04/07/21 at 09:30; Stop 04/07/21 at 14:58; Status DC Bumetanide (Bumex) 1 mg DAILY ONCE IV Last administered on 04/07/21at 11:09; Start 04/07/21 at 10:44; Stop 04/07/21 at 10:45; Status DC Calcium Gluconate (Calcium Gluconate) 1,000 mg 1X ONCE IVP Last administered on 04/07/21at 12:14; Start 04/07/21 at 11:15; Stop 04/07/21 at 11:16; Status DC Insulin Human Regular (HumuLIN R VIAL) 10 unit 1X ONCE IV Last administered on 04/07/21at 12:19; Start 04/07/21 at 11:15; Stop 04/07/21 at 11:16; Status DC Dextrose (Dextrose 50%-Water Syringe) 25 gm 1X ONCE IV Last administered on 04/07/21at 12:12; Start 04/07/21 at 11:15; Stop 04/07/21 at 11:16; Status DC Ondansetron HCl (Zofran) 4 mg PRN Q8HRS PRN IVP NAUSEA/VOMITING; Start 04/07/21 at 12:30; Stop 04/08/21 at 12:29; Status DC Piperacillin Sod/ Tazobactam Sod (Zosyn Per Pharmacy) 1 each PRN DAILY PRN MC SEE COMMENTS; Start 04/07/21 at 12:45; Stop 04/08/21 at 13:50; Status DC Piperacillin Sod/ Tazobactam Sod 3.375 gm/Sodium Chloride 50 ml @ 100 mls/hr 1X ONCE IV Last administered on 04/07/21at 14:30; Start 04/07/21 at 13:00; Stop 04/07/21 at 13:29; Status DC Piperacillin Sod/ Tazobactam Sod 3.375 gm/Sodium Chloride 50 ml @ 100 mls/hr Q6HRS IV Last administered on 04/08/21at 12:41; Start 04/07/21 at 18:00; Stop 04/08/21 at 13:50; Status DC Carvedilol (Coreg) 3.125 mg BIDWMEALS PO ; Start 04/07/21 at 17:00; Stop 04/07/21 at 15:07; Status DC Carvedilol (Coreg) 6.25 mg BIDWMEALS PO Last administered on 04/07/21at 15:52; Start 04/07/21 at 17:00; Stop 04/08/21 at 14:18; Status DC Apixaban (Eliquis) 5 mg BID PO Last administered on 04/07/21at 20:20; Start 04/07/21 at 21:00; Stop 04/08/21 at 14:18; Status DC Furosemide (Lasix) 40 mg BID66 IVP Last administered on 04/10/21at 05:46; Start 04/07/21 at 18:00 Info (Anti-Coagulation Monitoring By Pharmacy) 1 each PRN DAILY PRN MC PER PROTOCOL; Start 04/07/21 at 15:15 Methylprednisolone Sodium Succinate (SOLU-Medrol 125MG VIAL) 125 mg 1X ONCE IV Last administered on 04/07/21at 15:59; Start 04/07/21 at 15:45; Stop 04/07/21 at 15:46; Status DC Albuterol Sulfate (Ventolin Neb Soln) 2.5 mg 1X ONCE NEB Last administered on 04/07/21at 16:54; Start 04/07/21 at 15:45; Stop 04/07/21 at 15:46; Status DC Digoxin (Lanoxin) 250 mcg 1X ONCE IV Last administered on 04/07/21at 16:16; Start 04/07/21 at 16:15; Stop 04/07/21 at 16:16; Status DC Tamsulosin HCl (Flomax) 0.4 mg DAILY PO ; Start 04/08/21 at 09:00 Acetaminophen (Tylenol) 500 mg PRN Q6HRS PRN PO MILD PAIN / TEMP > 100.3'F; Start 04/07/21 at 21:00 Albuterol/ Ipratropium (Duoneb) 3 ml 1X ONCE NEB ; Start 04/07/21 at 21:00; Stop 04/07/21 at 21:01; Status DC Hydralazine HCl (Apresoline Inj) 10 mg PRN Q4HRS PRN IVP ELEVATED BP, SEE COMMENTS Last administered on 04/08/21at 03:19; Start 04/07/21 at 21:00 Oxycodone/ Acetaminophen (Percocet 5/325) 1 tab 1X ONCE PO Last administered on 04/07/21at 21:17; Start 04/07/21 at 21:30; Stop 04/07/21 at 21:31; Status DC Albuterol/ Ipratropium (Duoneb) 3 ml RTQID NEB ; Start 04/07/21 at 21:30; Status Cancel Furosemide (Lasix) 40 mg 1X ONCE IVP Last administered on 04/07/21at 21:42; Start 04/07/21 at 22:00; Stop 04/07/21 at 22:01; Status DC Morphine Sulfate (Morphine Sulfate) 2 mg PRN Q2HR PRN IVP SEVERE PAIN 7-10 Last administered on 04/08/21at 22:44; Start 04/07/21 at 21:30; Stop 04/09/21 at 19:08; Status DC Albuterol/ Ipratropium (Combivent Respimat 20-100 Mcg) 1 puff RTQID INH Last administered on 04/08/21at 17:17; Start 04/08/21 at 08:00 Carvedilol (Coreg) 6.25 mg 1X ONCE PO Last administered on 04/08/21at 04:20; Start 04/08/21 at 04:30; Stop 04/08/21 at 04:31; Status DC Alprazolam (Xanax) 0.25 mg 1X ONCE PO Last administered on 04/08/21at 04:20; Start 04/08/21 at 04:30; Stop 04/08/21 at 04:31; Status DC Furosemide (Lasix) 40 mg 1X ONCE IVP Last administered on 04/08/21at 05:42; Start 04/08/21 at 06:00; Stop 04/08/21 at 06:01; Status DC Digoxin (Lanoxin) 250 mcg 1X ONCE IV Last administered on 04/08/21at 06:49; Start 04/08/21 at 07:00; Stop 04/08/21 at 07:01; Status DC Digoxin (Lanoxin) 250 mcg DAILY IV Last administered on 04/10/21at 08:36; Start 04/08/21 at 07:15 Metoprolol Tartrate (Lopressor Vial) 5 mg 1X ONCE IVP Last administered on 04/08/21at 08:56; Start 04/08/21 at 08:15; Stop 04/08/21 at 08:17; Status DC Lorazepam (Ativan Inj) 2 mg PRN Q4HRS PRN IVP ANXIETY / AGITATION Last administered on 04/09/21at 16:16; Start 04/08/21 at 10:15; Stop 04/09/21 at 19:08; Status DC Furosemide (Lasix) 40 mg 1X ONCE IVP Last administered on 04/08/21at 12:43; S tart 04/08/21 at 10:45; Stop 04/08/21 at 10:47; Status DC Amiodarone HCl 150 mg/Dextrose 103 ml @ 600 mls/hr 1X ONCE IV Last administered on 04/08/21at 14:43; Start 04/08/21 at 14:30; Stop 04/08/21 at 14:40; Status DC Amiodarone HCl 450 mg/Dextrose 259 ml @ 0 mls/hr CONT PRN IV SEE I/O RECORD Last administered on 04/09/21at 00:16; Start 04/08/21 at 14:30; Stop 04/09/21 at 14:29; Status DC Metoprolol Tartrate (Lopressor Vial) 5 mg Q6HRS IVP Last administered on 04/10/21at 05:46; Start 04/08/21 at 18:00; Stop 04/10/21 at 11:44; Status DC Enoxaparin Sodium (Lovenox Per Pharmacy Treatment Dosing) 1 each PRN DAILY PRN MC SEE COMMENTS; Start 04/08/21 at 14:30 Enoxaparin Sodium (Lovenox 100mg Syringe) 90 mg Q24H SQ Last administered on 04/09/21at 16:16; Start 04/08/21 at 16:00 Amiodarone HCl 450 mg/Dextrose 259 ml @ 0 mls/hr CONT PRN IV SEE I/O RECORD Last administered on 04/09/21at 18:19; Start 04/09/21 at 17:30 Lorazepam (Ativan Inj) 2 mg PRN Q2HRS PRN IVP ANXIETY / AGITATION Last administered on 04/10/21at 10:09; Start 04/09/21 at 19:15 Morphine Sulfate (Morphine Sulfate) 4 mg PRN Q2HR PRN IVP SEVERE PAIN 7-10; Start 04/09/21 at 19:30; Stop 04/09/21 at 19:22; Status DC Lidocaine HCl (Buffered Lidocaine 1%) 3 ml STK-MED ONCE .ROUTE ; Start 04/10/21 at 09:36; Stop 04/10/21 at 09:36; Status DC Heparin Sodium (Porcine) (Hep Lock Adult) 500 unit STK-MED ONCE IVP ; Start 04/10/21 at 09:39; Stop 04/10/21 at 09:39; Status DC Heparin Sodium (Porcine) (Heparin Sodium) 10,000 unit STK-MED ONCE .ROUTE ; Start 04/10/21 at 09:41; Stop 04/10/21 at 09:41; Status DC Lidocaine HCl (Buffered Lidocaine 1%) 3 ml 1X ONCE IJ Last administered on 04/10/21at 10:13; Start 04/10/21 at 10:00; Stop 04/10/21 at 10:03; Status DC Sodium Chloride 1,000 ml @ 1,000 mls/hr Q1H PRN IV hypotension; Start 04/10/21 at 11:15; Stop 04/10/21 at 17:14 Albumin Human 200 ml @ 200 mls/hr 1X PRN PRN IV Hypotension; Start 04/10/21 at 11:15; Stop 04/10/21 at 17:14 Sodium Chloride 1,000 ml @ 400 mls/hr Q2H30M PRN IV PATENCY; Start 04/10/21 at 11:15; Stop 04/10/21 at 23:14 Info (PHARMACY MONITORING -- do not chart) 1 each PRN DAILY PRN MC SEE COMMENTS; Start 04/10/21 at 12:15; Status UNV Info (PHARMACY MONITORING -- do not chart) 1 each PRN DAILY PRN MC SEE COMMENTS; Start 04/10/21 at 12:15 Active Scripts Active Reported Aspirin 81 Mg Tab.chew 81 Mg PO DAILY Eliquis (Apixaban) 5 Mg Tablet 5 Mg PO BID Lasix (Furosemide) 20 Mg Tablet 20 Mg PO DAILY Spironolactone 25 Mg Tablet 25 Mg PO DAILY Coreg (Carvedilol) 25 Mg Tablet 25 Mg PO BIDWMEALS Flomax (Tamsulosin Hcl) 0.4 Mg Cap.er.24h 0.4 Mg PO DAILY Vitals/I & O Vital Sign - Last 24 Hours 04/09/21 04/09/21 04/09/21 04/09/21 13:55 14:53 15:50 15:55 Temp 98.1 98.1 Pulse 90 92 114 Resp 26 B/P (MAP) 91/74 (80) 89/66 (74) 121/103 (109) Pulse Ox 95 94 O2 Delivery BiPAP/CPAP BiPAP/CPAP 04/09/21 04/09/21 04/09/21 04/09/21 16:55 17:55 18:22 18:26 Pulse 98 98 100 B/P (MAP) 104/57 (73) 116/72 (87) 116/72 Pulse Ox 94 O2 Delivery BiPAP/CPAP 04/09/21 04/09/21 04/09/21 04/09/21 18:55 19:14 19:22 21:05 Temp 98.1 98.1 Pulse 90 94 Resp 20 B/P (MAP) 91/75 (80) 112/75 (87) Pulse Ox 99 94 O2 Delivery Bi-pap BiPAP/CPAP BiPAP/CPAP 04/09/21 04/09/21 04/09/21 04/09/21 21:57 22:36 22:50 22:51 Temp 97.5 97.5 Pulse 61 81 81 Resp 24 B/P (MAP) 85/46 (59) 96/48 (64) 96/48 Pulse Ox 96 100 O2 Delivery VAPOTHERM BiPAP/CPAP O2 Flow Rate 3.0 04/10/21 04/10/21 04/10/21 04/10/21 00:00 02:34 02:39 04:58 Temp 97.9 97.9 Pulse 97 89 Resp 18 B/P (MAP) 92/65 (74) 96/52 (67) Pulse Ox 96 100 100 O2 Delivery BiPAP/CPAP BiPAP/CPAP BiPAP/CPAP 04/10/21 04/10/21 04/10/21 04/10/21 05:00 05:46 06:31 07:38 Temp 98.2 98.2 Pulse 104 76 Resp 24 B/P (MAP) 123/76 123/76 (92) Pulse Ox 100 95 94 O2 Delivery BiPAP/CPAP BiPAP/CPAP BiPAP/CPAP 04/10/21 04/10/21 04/10/21 04/10/21 08:00 08:36 11:15 11:40 Temp 96.8 96.8 Pulse 98 61 61 Resp 18 B/P (MAP) 123/76 150/69 (96) 150/69 Pulse Ox 100 O2 Delivery Bi-pap Room Air 04/10/21 11:53 Pulse Ox 98 O2 Delivery Venturi Mask O2 Flow Rate 15.0 Intake and Output 04/09/21 04/09/21 04/10/21 15:00 23:00 07:00 Intake Total 203 ml 0 ml 0 ml Output Total 350 ml 300 ml Balance 203 ml -350 ml -300 ml Justifications for Admission Other Justification DAVID GORMAN MD Apr 10, 2021 13:25
[2021-04-10 17:23] LABS: BASE EXCESS COOX -2 mmol/L (-3-3); HCO3 COOX 25 mmol/L (21-28); METHEMOGLOBIN 0.6 % (0.0-1.9); OXYHEMOGLOBIN 97.4 %; PCO2 COOX 53 mmHg (35-46); PO2 COOX 138 mmHg (65-108); SAT O2 COOX 98 % (92-99)
[2021-04-10 19:23] VITALS: BP 106/82
[2021-04-10] MEDS: IPRATROPIUM/ALBUTEROL 20/100mcg/INH INHALER. INH SCH (20:00)
[2021-04-10 22:33] VITALS: BP 138/89
[2021-04-11] VITALS (14 sets, daily range): BP systolic 59–109; BP diastolic 42–74
[2021-04-11] MEDS: AMIODARONE 450 MG in IV DEXTROSE 5% 250 ML IV PRN ×2 (01:01→17:19)
[2021-04-11] MEDS: FUROSEMIDE 40 MG/4 ML VIAL. IVP SCH ×2 (05:00→17:19)
[2021-04-11] MEDS: IPRATROPIUM/ALBUTEROL 20/100mcg/INH INHALER. INH SCH (08:00)
[2021-04-11] MEDS: TAMSULOSIN 0.4 MG CAP.ER.24H. PO SCH (08:09)
[2021-04-11] MEDS: DIGOXIN IV 500 MCG/2 ML AMPUL. IV SCH (08:17)
[2021-04-11 08:24] LABS: CALCIUM 9.3 mg/dL (8.5-10.1); CREATININE 5.6 mg/dL (0.7-1.3); GFR 12.6
[2021-04-11] MEDS ORDERED: IV NORMAL SALINE 1000ML BAG 1,000 ML IV PRN ×2 (08:30)
[2021-04-11] MEDS ORDERED: DIALYSIS PATIENT. MC PRN (08:30)
[2021-04-11 08:33] LABS: POTASSIUM 6.2 mmol/L (3.5-5.1)
[2021-04-11 08:36] LABS: HEMOGLOBIN 16.4 g/dL (13.0-17.5); RED BLOOD COUNT 4.56 x10^6/uL (4.30-5.70); RED CELL DISTRIBUTION WIDTH 16.9 % (11.5-14.5); WHITE BLOOD COUNT 16.5 x10^3/uL (4.0-11.0)
--- NOTE | 2021-04-11 09:05 | PDOC ---
PULMONARY PROGRESS NOTES DATE: 04/11/21 TIME: 09:03 Subjective Remains on BiPAP. Restless and agitated. Receiving as needed Ativan. Vitals Vital Signs Date Time Temp Pulse Resp B/P (MAP) Pulse Ox O2 Delivery O2 Flow Rate FiO2 04/11/21 08:19 97 BiPAP/CPAP 04/11/21 08:17 115 91/56 04/11/21 07:00 95.8 20 95.8 04/10/21 17:21 15.0 Lungs: Other (Decreased breath sounds) Cardiovascular: S1, Other (Tachycardia) Abdomen: Soft Extremities: Other (1+ edema) Skin: Warm Labs Laboratory Tests Test 04/09/21 15:15 04/10/21 06:10 04/10/21 17:15 04/11/21 07:40 Hepatitis B Surface Antigen Nonreactive (Nonreactive) Sodium Level 142 mmol/L (136-145) 139 mmol/L (136-145) Potassium Level 5.4 mmol/L (3.5-5.1) 6.2 mmol/L (3.5-5.1) Chloride Level 102 mmol/L (98-107) 100 mmol/L (98-107) Carbon Dioxide Level 30 mmol/L (21-32) 25 mmol/L (21-32) Anion Gap 10 (6-14) 14 (6-14) Blood Urea Nitrogen 98 mg/dL (8-26) 91 mg/dL (8-26) Creatinine 4.4 mg/dL (0.7-1.3) 5.6 mg/dL (0.7-1.3) Estimated GFR (Cockcroft-Gault) 16.6 12.6 Glucose Level 114 mg/dL (70-99) 126 mg/dL (70-99) Calcium Level 9.3 mg/dL (8.5-10.1) 9.3 mg/dL (8.5-10.1) Phosphorus Level 8.7 mg/dL (2.6-4.7) Magnesium Level 2.7 mg/dL (1.8-2.4) Hepatitis B Surface Antibody Reactive O2 Saturation 98 % (92-99) Arterial Blood pH 7.30 (7.35-7.45) Arterial Blood pCO2 at Patient Temp 53 mmHg (35-46) Arterial Blood pO2 at Patient Temp 138 mmHg (65-108) Arterial Blood HCO3 25 mmol/L (21-28) Arterial Blood Base Excess -2 mmol/L (-3-3) Oxyhemoglobin 97.4 % Methemoglobin 0.6 % (0.0-1.9) Carbon Monoxide, Quantitative 0.3 % (0.0-1.9) FiO2 50% venti mask White Blood Count 16.5 x10^3/uL (4.0-11.0) Red Blood Count 4.56 x10^6/uL (4.30-5.70) Hemoglobin 16.4 g/dL (13.0-17.5) Hematocrit 49.0 % (39.0-53.0) Mean Corpuscular Volume 107 fL (79-100) Mean Corpuscular Hemoglobin 36 pg (25-35) Mean Corpuscular Hemoglobin Concent 34 g/dL (31-37) Red Cell Distribution Width 16.9 % (11.5-14.5) Platelet Count 133 x10^3/uL (140-400) Laboratory Tests Test 04/10/21 17:15 04/11/21 07:40 O2 Saturation 98 % (92-99) Arterial Blood pH 7.30 (7.35-7.45) Arterial Blood pCO2 at Patient Temp 53 mmHg (35-46) Arterial Blood pO2 at Patient Temp 138 mmHg (65-108) Arterial Blood HCO3 25 mmol/L (21-28) Arterial Blood Base Excess -2 mmol/L (-3-3) Oxyhemoglobin 97.4 % Methemoglobin 0.6 % (0.0-1.9) Carbon Monoxide, Quantitative 0.3 % (0.0-1.9) FiO2 50% venti mask White Blood Count 16.5 x10^3/uL (4.0-11.0) Red Blood Count 4.56 x10^6/uL (4.30-5.70) Hemoglobin 16.4 g/dL (13.0-17.5) Hematocrit 49.0 % (39.0-53.0) Mean Corpuscular Volume 107 fL (79-100) Mean Corpuscular Hemoglobin 36 pg (25-35) Mean Corpuscular Hemoglobin Concent 34 g/dL (31-37) Red Cell Distribution Width 16.9 % (11.5-14.5) Platelet Count 133 x10^3/uL (140-400) Sodium Level 139 mmol/L (136-145) Potassium Level 6.2 mmol/L (3.5-5.1) Chloride Level 100 mmol/L (98-107) Carbon Dioxide Level 25 mmol/L (21-32) Anion Gap 14 (6-14) Blood Urea Nitrogen 91 mg/dL (8-26) Creatinine 5.6 mg/dL (0.7-1.3) Estimated GFR (Cockcroft-Gault) 12.6 Glucose Level 126 mg/dL (70-99) Calcium Level 9.3 mg/dL (8.5-10.1) Medications Active Scripts Medications Dose Route/Sig Max Daily Dose Days Date Category Aspirin 81 Mg Tab.chew 81 Mg PO DAILY 06/13/19 Reported Eliquis (Apixaban) 5 Mg Tablet 5 Mg PO BID 06/13/19 Reported Lasix (Furosemide) 20 Mg Tablet 20 Mg PO DAILY 06/13/19 Reported Spironolactone 25 Mg Tablet 25 Mg PO DAILY 06/13/19 Reported Coreg (Carvedilol) 25 Mg Tablet 25 Mg PO BIDWMEALS 06/13/19 Reported Flomax (Tamsulosin Hcl) 0.4 Mg Cap.er.24h 0.4 Mg PO DAILY 06/13/19 Reported Impression . 1. Acute hypoxic respiratory failure secondary to atrial flutter with rapid ventricular response and suspected congestive heart failure. 2. Abnormal CT chest with ground glass infiltrates. Could be early congestive heart failure versus cocaine-induced pneumonitis. 3. Atrial flutter with rapid ventricular response, heart rate is still 140s. Cardiology is managing. 4. Acute kidney injury. 5. Substance abuse and ongoing cocainism. The patient also has tobacco use. 6. Abnormal previous echo with RV dilation due to suspected secondary Pulmonary HTN ( ASD/ CMP). No need for VTE w/u except dopplers. Pt already on Eliquis 7. Encephalopathy, drug induced Plan . RECOMMENDATIONS: 1. Discussed with RN . We will continue present BiPAP. 2. The patient is status post diuresis. 3. Follow chest x-ray. as needed 4. Management of atrial flutter per Cardiology.on Amio 5. The patient has encephalopathy, He could be withdrawing from drugs as well. 6. DuoNebs. 7. Empiric antibiotics were initiated, appeared clinically low suspicion for infection. 7. Continue Eliquis for atrial flutter/fib. 8. Neg venous Dopplers of lower extremities. 9. Discussed with RN . JULIETA RIGGS MD Apr 11, 2021 09:05
--- NOTE | 2021-04-11 10:39 | PDOC ---
Renal-Progress Notes Subjective Notes Notes REMAINS CONFUSED History of Present Illness Hx of present illness NOT MUCH BETTER OVERALL Vitals Vitals Vital Signs Date Time Temp Pulse Resp B/P (MAP) Pulse Ox O2 Delivery O2 Flow Rate FiO2 04/11/21 08:19 97 BiPAP/CPAP 04/11/21 08:17 115 91/56 04/11/21 07:00 95.8 20 95.8 04/10/21 17:21 15.0 Weight Weight [ ] I.O. Intake and Output Intake and Output 04/11/21 07:00 Intake Total 1371 ml Output Total 300 ml Balance 1071 ml Intake Oral 0 ml IV Total 200 ml Other 1171 ml Output Urine Total 300 ml Labs Labs Laboratory Tests Test 04/10/21 17:15 04/11/21 07:40 O2 Saturation 98 % (92-99) Arterial Blood pH 7.30 (7.35-7.45) Arterial Blood pCO2 at Patient Temp 53 mmHg (35-46) Arterial Blood pO2 at Patient Temp 138 mmHg (65-108) Arterial Blood HCO3 25 mmol/L (21-28) Arterial Blood Base Excess -2 mmol/L (-3-3) Oxyhemoglobin 97.4 % Methemoglobin 0.6 % (0.0-1.9) Carbon Monoxide, Quantitative 0.3 % (0.0-1.9) FiO2 50% venti mask White Blood Count 16.5 x10^3/uL (4.0-11.0) Red Blood Count 4.56 x10^6/uL (4.30-5.70) Hemoglobin 16.4 g/dL (13.0-17.5) Hematocrit 49.0 % (39.0-53.0) Mean Corpuscular Volume 107 fL (79-100) Mean Corpuscular Hemoglobin 36 pg (25-35) Mean Corpuscular Hemoglobin Concent 34 g/dL (31-37) Red Cell Distribution Width 16.9 % (11.5-14.5) Platelet Count 133 x10^3/uL (140-400) Sodium Level 139 mmol/L (136-145) Potassium Level 6.2 mmol/L (3.5-5.1) Chloride Level 100 mmol/L (98-107) Carbon Dioxide Level 25 mmol/L (21-32) Anion Gap 14 (6-14) Blood Urea Nitrogen 91 mg/dL (8-26) Creatinine 5.6 mg/dL (0.7-1.3) Estimated GFR (Cockcroft-Gault) 12.6 Glucose Level 126 mg/dL (70-99) Calcium Level 9.3 mg/dL (8.5-10.1) Review of Systems Constitutional: yes: other (UNABLE TO OBTAIN, CONFUSED) All Other Systems XR CHEST 1V CLINICAL INDICATIONS: Reason: post temporary hemodialysis catheter placement. COMPARISON: April 08, 2021. Findings: A right IJ hemodialysis catheter has been placed and the inferior tip is seen within the upper right atrium. No acute lung infiltrate or pleural effusion or pulmonary edema or lung mass or pneumothorax is seen. Heart size is enlarged but stable. Mediastinum and pulmonary vasculature are unchanged. IMPRESSION: No pneumothorax after placement of hemodialysis catheter. Electronically signed by: Edu Herndon MD (04/10/2021 11:02 AM) [id number] Physical Exam General Appearance: moderate distress, cachetic Skin: warm Respiratory: decreased breath sounds, BiPAP/NIPPV, dyspnea Abdomen: soft, bowel sounds present, no guarding Genitourinary: bladder flat Extremities: pulses present Neurology: confused, other (confused) Assessment Assessment IMP HYPERKALEMIA-K OF 6.2 CKD STAGE 3B - CR OF ABOUT 2.0 OSORIO-CARDIORENAL WITH WORSENING CLEARANCE AND ANURIA AFIB RVT NSTEMI ACUTE ON CHRONIC SYSTOLIC AND DIASTOLIC CHF CM WITH EF OF 20% COCAIN ABUSE POLYCYTHEMIA HX ASD CLOSURE AND LA THROMBUS ACUTE ON CHRONIC RESP FAILURE POSSIBLE PNEUMONITIS PLAN EMPIRIC ANTIBIOTICS SUPPLEMENTAL O2 BIPAP PULM TOILET CARDIOLOGY EVAL NEED RATE CONTROL PULM EVAL ANTICOAGULATION DIURESIS UNABLE TO COME OFF BIPAP NEEDS TO START DIALYSIS HD AGAIN TODAY UF TOLERATED OVERALL POOR PROGNOSIS EFE URENA MD Apr 11, 2021 10:39
--- NOTE | 2021-04-11 10:44 | PDOC ---
PROGRESS NOTES Date of Service: DATE: 04/11/21 TIME: 10:42 Chief Complaint Chief Complaint CHF exacerbation Afib Rvr Hypokalemia History of Present Illness History of Present Illness 04/10/2021 Pt seen and examined at bedside Patient got his temporary dialysis catheter yesterday its in the right IJ Patient's brother [place] is now here Pt went for dialysis today Pt has hypoxic encephalitis Pt has a Bipap Pt is on 60% FiO2 with 99% Sat Pt has Mits on for safety D/W RN Chart reviewed 04/09/2021 Pt seen and examined at bedside D/W nephrology to do emergent dialysis. We tried to get ahold of a family member but could not find a working phone number. We deemed the temporary cath for dialysis necessary for pt care and treatment. It is in the pts best interest to get dialysis today. Pt has hypoxic encephalitis Pt is very agitated D/W RN Chart reviewed 04/08/2021 Pt seen and examined Pt was very agitated and encephalopathic Pt has Folley to BSD Pt has mits on hands for safety Pt has edema D/W RN Chart reviewed The patient is a pleasant 61-year-old male who presented with shortness of breath. While in the ER, we had noticed that he is quite hypoxic, we have him on a lot of oxygen. His potassium is also high at 6. He also has azotemia with a BUN of 35 and a creatinine of 2. Hemoglobin is high at 17.7. Surprisingly, his COVID testing is negative, but his chest x-ray does show cardiomegaly and pulmonary hypertension, infiltrates and possible emphysema. We are admitting the patient with consultation to Cardiology and Nephrology. 04/11/2021 seen and examined at bedside temporary dialysis catheter 8-14 its in the right IJ hypoxic encephalopathy Pt has a Bipap Pt is on 60% FiO2 with 99% Sat Mits on for safety D/W RN Chart reviewed Vitals Vitals Vital Signs Date Time Temp Pulse Resp B/P (MAP) Pulse Ox O2 Delivery O2 Flow Rate FiO2 04/11/21 08:19 97 BiPAP/CPAP 04/11/21 08:17 115 91/56 04/11/21 07:00 95.8 20 95.8 04/10/21 17:21 15.0 Physical Exam General: Other (Agitated) Heart: Regular rate Lungs: Other (Decreased breath sounds) Abdomen: Normal bowel sounds Extremities: No clubbing, Other (2+ LE EDEMA) Skin: No significant lesion Labs LABS PATIENT: APOLINAR DAVIS ACCOUNT: [id number] : 1960 LOCATION: [facility] AGE: 61 SEX: M EXAM STATUS: ADM IN ORD. PHYSICIAN: JITENDRA KAMINSKI MD REASON: post temporary HD cath placement right IJ PROCEDURE: CHEST AP ONLY XR CHEST 1V CLINICAL INDICATIONS: Reason: post temporary hemodialysis catheter placement. COMPARISON: April 08, 2021. Findings: A right IJ hemodialysis catheter has been placed and the inferior tip is seen within the upper right atrium. No acute lung infiltrate or pleural effusion or pulmonary edema or lung mass or pneumothorax is seen. Heart size is enlarged but stable. Mediastinum and pulmonary vasculature are unchanged. IMPRESSION: No pneumothorax after placement of hemodialysis catheter. Electronically signed by: Jerrell Herndon MD (04/10/2021 11:02 AM) [id number] DICTATED and SIGNED BY: JERRELL HERNDON MD DATE: 04/10/21 [id number] Laboratory Tests Test 04/10/21 17:15 04/11/21 07:40 O2 Saturation 98 % (92-99) Arterial Blood pH 7.30 (7.35-7.45) Arterial Blood pCO2 at Patient Temp 53 mmHg (35-46) Arterial Blood pO2 at Patient Temp 138 mmHg (65-108) Arterial Blood HCO3 25 mmol/L (21-28) Arterial Blood Base Excess -2 mmol/L (-3-3) Oxyhemoglobin 97.4 % Methemoglobin 0.6 % (0.0-1.9) Carbon Monoxide, Quantitative 0.3 % (0.0-1.9) FiO2 50% venti mask White Blood Count 16.5 x10^3/uL (4.0-11.0) Red Blood Count 4.56 x10^6/uL (4.30-5.70) Hemoglobin 16.4 g/dL (13.0-17.5) Hematocrit 49.0 % (39.0-53.0) Mean Corpuscular Volume 107 fL (79-100) Mean Corpuscular Hemoglobin 36 pg (25-35) Mean Corpuscular Hemoglobin Concent 34 g/dL (31-37) Red Cell Distribution Width 16.9 % (11.5-14.5) Platelet Count 133 x10^3/uL (140-400) Sodium Level 139 mmol/L (136-145) Potassium Level 6.2 mmol/L (3.5-5.1) Chloride Level 100 mmol/L (98-107) Carbon Dioxide Level 25 mmol/L (21-32) Anion Gap 14 (6-14) Blood Urea Nitrogen 91 mg/dL (8-26) Creatinine 5.6 mg/dL (0.7-1.3) Estimated GFR (Cockcroft-Gault) 12.6 Glucose Level 126 mg/dL (70-99) Calcium Level 9.3 mg/dL (8.5-10.1) Assessment and Plan Assessmemt and Plan Problems Medical Problems: (1) Atrial fibrillation with RVR Status: Acute (2) CHF (congestive heart failure) Status: Acute (3) Chronic renal insufficiency Status: Acute (4) Cocaine use Status: Acute (5) Elevated troponin Status: Acute (6) Hyperkalemia Status: Acute Comment Review of Relevant I have reviewed the following items vesna (where applicable) has been applied. Labs Laboratory Tests Test 04/09/21 15:15 04/10/21 06:10 04/10/21 17:15 04/11/21 07:40 Hepatitis B Surface Antigen Nonreactive (Nonreactive) Sodium Level 142 mmol/L (136-145) 139 mmol/L (136-145) Potassium Level 5.4 mmol/L (3.5-5.1) 6.2 mmol/L (3.5-5.1) Chloride Level 102 mmol/L (98-107) 100 mmol/L (98-107) Carbon Dioxide Level 30 mmol/L (21-32) 25 mmol/L (21-32) Anion Gap 10 (6-14) 14 (6-14) Blood Urea Nitrogen 98 mg/dL (8-26) 91 mg/dL (8-26) Creatinine 4.4 mg/dL (0.7-1.3) 5.6 mg/dL (0.7-1.3) Estimated GFR (Cockcroft-Gault) 16.6 12.6 Glucose Level 114 mg/dL (70-99) 126 mg/dL (70-99) Calcium Level 9.3 mg/dL (8.5-10.1) 9.3 mg/dL (8.5-10.1) Phosphorus Level 8.7 mg/dL (2.6-4.7) Magnesium Level 2.7 mg/dL (1.8-2.4) Hepatitis B Surface Antibody Reactive O2 Saturation 98 % (92-99) Arterial Blood pH 7.30 (7.35-7.45) Arterial Blood pCO2 at Patient Temp 53 mmHg (35-46) Arterial Blood pO2 at Patient Temp 138 mmHg (65-108) Arterial Blood HCO3 25 mmol/L (21-28) Arterial Blood Base Excess -2 mmol/L (-3-3) Oxyhemoglobin 97.4 % Methemoglobin 0.6 % (0.0-1.9) Carbon Monoxide, Quantitative 0.3 % (0.0-1.9) FiO2 50% venti mask White Blood Count 16.5 x10^3/uL (4.0-11.0) Red Blood Count 4.56 x10^6/uL (4.30-5.70) Hemoglobin 16.4 g/dL (13.0-17.5) Hematocrit 49.0 % (39.0-53.0) Mean Corpuscular Volume 107 fL (79-100) Mean Corpuscular Hemoglobin 36 pg (25-35) Mean Corpuscular Hemoglobin Concent 34 g/dL (31-37) Red Cell Distribution Width 16.9 % (11.5-14.5) Platelet Count 133 x10^3/uL (140-400) Laboratory Tests Test 04/10/21 17:15 04/11/21 07:40 O2 Saturation 98 % (92-99) Arterial Blood pH 7.30 (7.35-7.45) Arterial Blood pCO2 at Patient Temp 53 mmHg (35-46) Arterial Blood pO2 at Patient Temp 138 mmHg (65-108) Arterial Blood HCO3 25 mmol/L (21-28) Arterial Blood Base Excess -2 mmol/L (-3-3) Oxyhemoglobin 97.4 % Methemoglobin 0.6 % (0.0-1.9) Carbon Monoxide, Quantitative 0.3 % (0.0-1.9) FiO2 50% venti mask White Blood Count 16.5 x10^3/uL (4.0-11.0) Red Blood Count 4.56 x10^6/uL (4.30-5.70) Hemoglobin 16.4 g/dL (13.0-17.5) Hematocrit 49.0 % (39.0-53.0) Mean Corpuscular Volume 107 fL (79-100) Mean Corpuscular Hemoglobin 36 pg (25-35) Mean Corpuscular Hemoglobin Concent 34 g/dL (31-37) Red Cell Distribution Width 16.9 % (11.5-14.5) Platelet Count 133 x10^3/uL (140-400) Sodium Level 139 mmol/L (136-145) Potassium Level 6.2 mmol/L (3.5-5.1) Chloride Level 100 mmol/L (98-107) Carbon Dioxide Level 25 mmol/L (21-32) Anion Gap 14 (6-14) Blood Urea Nitrogen 91 mg/dL (8-26) Creatinine 5.6 mg/dL (0.7-1.3) Estimated GFR (Cockcroft-Gault) 12.6 Glucose Level 126 mg/dL (70-99) Calcium Level 9.3 mg/dL (8.5-10.1) Medications Current Medications Albuterol/ Ipratropium (Duoneb) 3 ml 1X ONCE NEB Last administered on 04/07/21at 09:19; Start 04/07/21 at 09:15; Stop 04/07/21 at 09:16; Status DC Dexamethasone Sodium Phosphate (Decadron) 10 mg 1X ONCE IVP Last administered on 04/07/21at 09:19; Start 04/07/21 at 09:15; Stop 04/07/21 at 09:16; Status DC Aspirin (Ecotrin) 325 mg 1X ONCE PO Last administered on 04/07/21at 09:18; Start 04/07/21 at 09:15; Stop 04/07/21 at 09:16; Status DC Diltiazem HCl (Cardizem Iv Push) 20 mg 1X ONCE IVP Last administered on 04/07/21at 09:33; Start 04/07/21 at 09:45; Stop 04/07/21 at 09:46; Status DC Diltiazem HCl 125 mg/Sodium Chloride 125 ml @ 5 mls/hr CONT PRN IV SEE I/O RECORD Last administered on 04/07/21at 09:34; Start 04/07/21 at 09:30; Stop 04/07/21 at 14:58; Status DC Bumetanide (Bumex) 1 mg DAILY ONCE IV Last administered on 04/07/21at 11:09; Start 04/07/21 at 10:44; Stop 04/07/21 at 10:45; Status DC Calcium Gluconate (Calcium Gluconate) 1,000 mg 1X ONCE IVP Last administered on 04/07/21at 12:14; Start 04/07/21 at 11:15; Stop 04/07/21 at 11:16; Status DC Insulin Human Regular (HumuLIN R VIAL) 10 unit 1X ONCE IV Last administered on 04/07/21at 12:19; Start 04/07/21 at 11:15; Stop 04/07/21 at 11:16; Status DC Dextrose (Dextrose 50%-Water Syringe) 25 gm 1X ONCE IV Last administered on 04/07/21at 12:12; Start 04/07/21 at 11:15; Stop 04/07/21 at 11:16; Status DC Ondansetron HCl (Zofran) 4 mg PRN Q8HRS PRN IVP NAUSEA/VOMITING; Start 04/07/21 at 12:30; Stop 04/08/21 at 12:29; Status DC Piperacillin Sod/ Tazobactam Sod (Zosyn Per Pharmacy) 1 each PRN DAILY PRN MC SEE COMMENTS; Start 04/07/21 at 12:45; Stop 04/08/21 at 13:50; Status DC Piperacillin Sod/ Tazobactam Sod 3.375 gm/Sodium Chloride 50 ml @ 100 mls/hr 1X ONCE IV Last administered on 04/07/21at 14:30; Start 04/07/21 at 13:00; Stop 04/07/21 at 13:29; Status DC Piperacillin Sod/ Tazobactam Sod 3.375 gm/Sodium Chloride 50 ml @ 100 mls/hr Q 6HRS IV Last administered on 04/08/21at 12:41; Start 04/07/21 at 18:00; Stop 04/08/21 at 13:50; Status DC Carvedilol (Coreg) 3.125 mg BIDWMEALS PO ; Start 04/07/21 at 17:00; Stop 04/07/21 at 15:07; Status DC Carvedilol (Coreg) 6.25 mg BIDWMEALS PO Last administered on 04/07/21at 15:52; Start 04/07/21 at 17:00; Stop 04/08/21 at 14:18; Status DC Apixaban (Eliquis) 5 mg BID PO Last administered on 04/07/21at 20:20; Start 04/07/21 at 21:00; Stop 04/08/21 at 14:18; Status DC Furosemide (Lasix) 40 mg BID66 IVP Last administered on 04/11/21at 05:00; Start 04/07/21 at 18:00 Info (Anti-Coagulation Monitoring By Pharmacy) 1 each PRN DAILY PRN MC PER PROTOCOL; Start 04/07/21 at 15:15 Methylprednisolone Sodium Succinate (SOLU-Medrol 125MG VIAL) 125 mg 1X ONCE IV Last administered on 04/07/21at 15:59; Start 04/07/21 at 15:45; Stop 04/07/21 at 15:46; Status DC Albuterol Sulfate (Ventolin Neb Soln) 2.5 mg 1X ONCE NEB Last administered on 04/07/21at 16:54; Start 04/07/21 at 15:45; Stop 04/07/21 at 15:46; Status DC Digoxin (Lanoxin) 250 mcg 1X ONCE IV Last administered on 04/07/21at 16:16; Start 04/07/21 at 16:15; Stop 04/07/21 at 16:16; Status DC Tamsulosin HCl (Flomax) 0.4 mg DAILY PO ; Start 04/08/21 at 09:00 Acetaminophen (Tylenol) 500 mg PRN Q6HRS PRN PO MILD PAIN / TEMP > 100.3'F; Start 04/07/21 at 21:00 Albuterol/ Ipratropium (Duoneb) 3 ml 1X ONCE NEB ; Start 04/07/21 at 21:00; Stop 04/07/21 at 21:01; Status DC Hydralazine HCl (Apresoline Inj) 10 mg PRN Q4HRS PRN IVP ELEVATED BP, SEE COMMENTS Last administered on 04/08/21at 03:19; Start 04/07/21 at 21:00 Oxycodone/ Acetaminophen (Percocet 5/325) 1 tab 1X ONCE PO Last administered on 04/07/21at 21:17; Start 04/07/21 at 21:30; Stop 04/07/21 at 21:31; Status DC Albuterol/ Ipratropium (Duoneb) 3 ml RTQID NEB ; Start 04/07/21 at 21:30; Status Cancel Furosemide (Lasix) 40 mg 1X ONCE IVP Last administered on 04/07/21at 21:42; Start 04/07/21 at 22:00; Stop 04/07/21 at 22:01; Status DC Morphine Sulfate (Morphine Sulfate) 2 mg PRN Q2HR PRN IVP SEVERE PAIN 7-10 Last administered on 04/08/21at 22:44; Start 04/07/21 at 21:30; Stop 04/09/21 at 19:08; Status DC Albuterol/ Ipratropium (Combivent Respimat 20-100 Mcg) 1 puff RTQID INH Last administered on 04/08/21at 17:17; Start 04/08/21 at 08:00; Stop 04/11/21 at 08:10; Status DC Carvedilol (Coreg) 6.25 mg 1X ONCE PO Last administered on 04/08/21at 04:20; Start 04/08/21 at 04:30; Stop 04/08/21 at 04:31; Status DC Alprazolam (Xanax) 0.25 mg 1X ONCE PO Last administered on 04/08/21at 04:20; Start 04/08/21 at 04:30; Stop 04/08/21 at 04:31; Status DC Furosemide (Lasix) 40 mg 1X ONCE IVP Last administered on 04/08/21at 05:42; Start 04/08/21 at 06:00; Stop 04/08/21 at 06:01; Status DC Digoxin (Lanoxin) 250 mcg 1X ONCE IV Last administered on 04/08/21at 06:49; Start 04/08/21 at 07:00; Stop 04/08/21 at 07:01; Status DC Digoxin (Lanoxin) 250 mcg DAILY IV Last administered on 04/11/21at 08:17; Start 04/08/21 at 07:15 Metoprolol Tartrate (Lopressor Vial) 5 mg 1X ONCE IVP Last administered on 04/08/21at 08:56; Start 04/08/21 at 08:15; Stop 04/08/21 at 08:17; Status DC Lorazepam (Ativan Inj) 2 mg PRN Q4HRS PRN IVP ANXIETY / AGITATION Last administered on 04/09/21at 16:16; Start 04/08/21 at 10:15; Stop 04/09/21 at 19:08; Status DC Furosemide (Lasix) 40 mg 1X ONCE IVP Last administered on 04/08/21at 12:43; Start 04/08/21 at 10:45; Stop 04/08/21 at 10:47; Status DC Amiodarone HCl 150 mg/Dextrose 103 ml @ 600 mls/hr 1X ONCE IV Last administered on 04/08/21at 14:43; Start 04/08/21 at 14:30; Stop 04/08/21 at 14:40; Status DC Amiodarone HCl 450 mg/Dextrose 259 ml @ 0 mls/hr CONT PRN IV SEE I/O RECORD Last administered on 04/09/21at 00:16; Start 04/08/21 at 14:30; Stop 04/09/21 at 14:29; Status DC Metoprolol Tartrate (Lopressor Vial) 5 mg Q6HRS IVP Last administered on 04/10/21at 05:46; Start 04/08/21 at 18:00; Stop 04/10/21 at 11:44; Status DC Enoxaparin Sodium (Lovenox Per Pharmacy Treatment Dosing) 1 each PRN DAILY PRN MC SEE COMMENTS; Start 04/08/21 at 14:30 Enoxaparin Sodium (Lovenox 100mg Syringe) 90 mg Q24H SQ Last administered on 04/10/21at 16:17; Start 04/08/21 at 16:00 Amiodarone HCl 450 mg/Dextrose 259 ml @ 0 mls/hr CONT PRN IV SEE I/O RECORD Last administered on 04/11/21at 01:01; Start 04/09/21 at 17:30 Lorazepam (Ativan Inj) 2 mg PRN Q2HRS PRN IVP ANXIETY / AGITATION Last administered on 04/11/21at 05:12; Start 04/09/21 at 19:15 Morphine Sulfate (Morphine Sulfate) 4 mg PRN Q2HR PRN IVP SEVERE PAIN 7-10; Start 04/09/21 at 19:30; Stop 04/09/21 at 19:22; Status DC Lidocaine HCl (Buffered Lidocaine 1%) 3 ml STK-MED ONCE .ROUTE ; Start 04/10/21 at 09:36; Stop 04/10/21 at 09:36; Status DC Heparin Sodium (Porcine) (Hep Lock Adult) 500 unit STK-MED ONCE IVP ; Start 04/10/21 at 09:39; Stop 04/10/21 at 09:39; Status DC Heparin Sodium (Porcine) (Heparin Sodium) 10,000 unit STK-MED ONCE .ROUTE ; Start 04/10/21 at 09:41; Stop 04/10/21 at 09:41; Status DC Lidocaine HCl (Buffered Lidocaine 1%) 3 ml 1X ONCE IJ Last administered on 04/10/21at 10:13; Start 04/10/21 at 10:00; Stop 04/10/21 at 10:03; Status DC Sodium Chloride 1,000 ml @ 1,000 mls/hr Q1H PRN IV hypotension; Start 04/10/21 at 11:15; Stop 04/10/21 at 17:14; Status DC Albumin Human 200 ml @ 200 mls/hr 1X PRN PRN IV Hypotension Last administered on 04/10/21at 13:00; Start 04/10/21 at 11:15; Stop 04/10/21 at 17:14; Status DC Sodium Chloride 1,000 ml @ 400 mls/hr Q2H30M PRN IV PATENCY; Start 04/10/21 at 11:15; Stop 04/10/21 at 23:14; Status DC Info (PHARMACY MONITORING -- do not chart) 1 each PRN DAILY PRN MC SEE COMMENTS; Start 04/10/21 at 12:15; Status UNV Info (PHARMACY MONITORING -- do not chart) 1 each PRN DAILY PRN MC SEE COMMENTS; Start 04/10/21 at 12:15 Albuterol/ Ipratropium (Duoneb) 3 ml RTQID NEB ; Start 04/11/21 at 12:00 Heparin Sodium (Porcine) (Heparin Sodium) 2,000 unit 1X ONCE IV Last administered on 04/11/21at 08:30; Start 04/11/21 at 08:30; Stop 04/11/21 at 08:37; Status DC Sodium Chloride 1,000 ml @ 1,000 mls/hr Q1H PRN IV hypotension; Start 04/11/21 at 08:30; Stop 04/11/21 at 14:29 Sodium Chloride 1,000 ml @ 400 mls/hr Q2H30M PRN IV PATENCY; Start 04/11/21 at 08:30; Stop 04/11/21 at 20:29 Info (PHARMACY MONITORING -- do not chart) 1 each PRN DAILY PRN MC SEE COMMENTS; Start 04/11/21 at 08:30 Active Scripts Active Reported Aspirin 81 Mg Tab.chew 81 Mg PO DAILY Eliquis (Apixaban) 5 Mg Tablet 5 Mg PO BID Lasix (Furosemide) 20 Mg Tablet 20 Mg PO DAILY Spironolactone 25 Mg Tablet 25 Mg PO DAILY Coreg (Carvedilol) 25 Mg Tablet 25 Mg PO BIDWMEALS Flomax (Tamsulosin Hcl) 0.4 Mg Cap.er.24h 0.4 Mg PO DAILY Vitals/I & O Vital Sign - Last 24 Hours 04/10/21 04/10/21 04/10/21 04/10/21 11:15 11:40 11:53 17:21 Temp 96.8 96.8 Pulse 61 61 Resp 18 B/P (MAP) 150/69 (96) 150/69 Pulse Ox 100 98 98 O2 Delivery Room Air Venturi Mask Venturi Mask O2 Flow Rate 15.0 15.0 04/10/21 04/10/21 04/10/21 04/11/21 19:23 19:29 22:33 00:30 Temp 98.7 98.3 98.7 98.3 Pulse 60 110 Resp 20 22 B/P (MAP) 106/82 (90) 138/89 (105) Pulse Ox 95 96 100 O2 Delivery BiPAP/CPAP Mask BiPAP/CPAP BiPAP/CPAP 04/11/21 04/11/21 04/11/21 04/11/21 02:40 05:33 07:00 08:17 Temp 98.4 95.8 98.4 95.8 Pulse 114 104 115 Resp 20 20 B/P (MAP) 105/74 (84) 91/56 (68) 91/56 Pulse Ox 97 99 96 O2 Delivery BiPAP/CPAP BiPAP/CPAP BiPAP/CPAP 04/11/21 08:19 Pulse Ox 97 O2 Delivery BiPAP/CPAP Intake and Output 04/10/21 04/10/21 04/11/21 15:00 23:00 07:00 Intake Total 0 ml 1171 ml 200 ml Output Total 250 ml 50 ml Balance 0 ml 921 ml 150 ml Justicifation of Admission Dx: Justifications for Admission: Justification of Admission Dx: Yes OG BRUNSON MD Apr 11, 2021 10:44
[2021-04-11] MEDS: IPRATRPIUM/ALBUTEROL 0.5/2.5MG 3 ML NEBU. NEB SCH ×3 (12:05→21:10)
--- NOTE | 2021-04-11 13:16 | NUR ---
SS following up with discharge planning. SS reviewed pt chart and discussed with pt RN. Pt is currently requiring BIPAP at 35%. COVID19 negative. Pt on IV Lasix and Amiodarone drip. Temporary hemodialysis. Pt confused. SS discussed with Pulmonology and LTACH recommended. SS contacted pt's mother, Magnolia Durand, , and discussed. Pt's mother agreeable to referral to LTACH at [facility], ; fax [phone]. Referral phoned and faxed to [facility]. SS will continue to follow for discharge planning.
--- NOTE | 2021-04-11 19:14 | PDOC ---
PROGRESS NOTES Date of Service DATE: 04/11/21 TIME: 19:13 Subjective Subjective Patient seen and examined Objective Objective Vital Signs Date Time Temp Pulse Resp B/P (MAP) Pulse Ox O2 Delivery O2 Flow Rate FiO2 04/11/21 17:54 96 BiPAP/CPAP 04/11/21 15:00 94.4 110 20 84/57 (66) 94.4 04/10/21 17:21 15.0 Intake and Output 04/11/21 07:00 Intake Total 1371 ml Output Total 300 ml Balance 1071 ml Intake Oral 0 ml IV Total 200 ml Other 1171 ml Output Urine Total 300 ml Physical Exam Abdomen: Normal bowel sounds Heart: Other (Irregular rhythm) General: Other (Continues to be agitated.) Lungs: Other (Decreased breath sounds) Assessment Assessment Problems Medical Problems: (1) Atrial fibrillation with RVR Status: Acute (2) CHF (congestive heart failure) Status: Acute (3) Chronic renal insufficiency Status: Acute (4) Cocaine use Status: Acute (5) Elevated troponin Status: Acute (6) Hyperkalemia Status: Acute Acute on chronic diastolic/systolic CHF. Poor LV function. Increasing shortness of breath due to poor LV function and progressive renal failure. Seen in dialysis. Adjusting medications based on patient's response. Cocaine/marijuana abuse: last use 3 days prior to admission. NICM: last known EF at 20%. Followed at . Paroxysmal atrial fib flutter. Rate is under better control. Continuing to monitor. Continue present treatment. NSTEMI: type 2, demand mediated with culprits above Hx of VENKATA thrombus and ASD closure OSORIO on CKD3 and hx of right renal mass. Dialysis as per the renal service. Hx of noncompliance: has been skipping meds. Acute respiratory failure with CHF/COPD and possible pneumonitis likely from cocaine inhalation. Pulmonary following AECOPD Metabolic encephalopathy; sedated with ativan Comment Review of Relevant I have reviewed the following items vesna (where applicable) has been applied. Labs Laboratory Tests Test 04/10/21 06:10 04/10/21 17:15 04/11/21 07:40 Sodium Level 142 mmol/L (136-145) 139 mmol/L (136-145) Potassium Level 5.4 mmol/L (3.5-5.1) 6.2 mmol/L (3.5-5.1) Chloride Level 102 mmol/L (98-107) 100 mmol/L (98-107) Carbon Dioxide Level 30 mmol/L (21-32) 25 mmol/L (21-32) Anion Gap 10 (6-14) 14 (6-14) Blood Urea Nitrogen 98 mg/dL (8-26) 91 mg/dL (8-26) Creatinine 4.4 mg/dL (0.7-1.3) 5.6 mg/dL (0.7-1.3) Estimated GFR (Cockcroft-Gault) 16.6 12.6 Glucose Level 114 mg/dL (70-99) 126 mg/dL (70-99) Calcium Level 9.3 mg/dL (8.5-10.1) 9.3 mg/dL (8.5-10.1) Phosphorus Level 8.7 mg/dL (2.6-4.7) Magnesium Level 2.7 mg/dL (1.8-2.4) Hepatitis B Surface Antibody Reactive O2 Saturation 98 % (92-99) Arterial Blood pH 7.30 (7.35-7.45) Arterial Blood pCO2 at Patient Temp 53 mmHg (35-46) Arterial Blood pO2 at Patient Temp 138 mmHg (65-108) Arterial Blood HCO3 25 mmol/L (21-28) Arterial Blood Base Excess -2 mmol/L (-3-3) Oxyhemoglobin 97.4 % Methemoglobin 0.6 % (0.0-1.9) Carbon Monoxide, Quantitative 0.3 % (0.0-1.9) FiO2 50% venti mask White Blood Count 16.5 x10^3/uL (4.0-11.0) Red Blood Count 4.56 x10^6/uL (4.30-5.70) Hemoglobin 16.4 g/dL (13.0-17.5) Hematocrit 49.0 % (39.0-53.0) Mean Corpuscular Volume 107 fL (79-100) Mean Corpuscular Hemoglobin 36 pg (25-35) Mean Corpuscular Hemoglobin Concent 34 g/dL (31-37) Red Cell Distribution Width 16.9 % (11.5-14.5) Platelet Count 133 x10^3/uL (140-400) Laboratory Tests Test 04/11/21 07:40 White Blood Count 16.5 x10^3/uL (4.0-11.0) Red Blood Count 4.56 x10^6/uL (4.30-5.70) Hemoglobin 16.4 g/dL (13.0-17.5) Hematocrit 49.0 % (39.0-53.0) Mean Corpuscular Volume 107 fL (79-100) Mean Corpuscular Hemoglobin 36 pg (25-35) Mean Corpuscular Hemoglobin Concent 34 g/dL (31-37) Red Cell Distribution Width 16.9 % (11.5-14.5) Platelet Count 133 x10^3/uL (140-400) Sodium Level 139 mmol/L (136-145) Potassium Level 6.2 mmol/L (3.5-5.1) Chloride Level 100 mmol/L (98-107) Carbon Dioxide Level 25 mmol/L (21-32) Anion Gap 14 (6-14) Blood Urea Nitrogen 91 mg/dL (8-26) Creatinine 5.6 mg/dL (0.7-1.3) Estimated GFR (Cockcroft-Gault) 12.6 Glucose Level 126 mg/dL (70-99) Calcium Level 9.3 mg/dL (8.5-10.1) Medications Current Medications Albuterol/ Ipratropium (Duoneb) 3 ml 1X ONCE NEB Last administered on 04/07/21at 09:19; Start 04/07/21 at 09:15; Stop 04/07/21 at 09:16; Status DC Dexamethasone Sodium Phosphate (Decadron) 10 mg 1X ONCE IVP Last administered on 04/07/21at 09:19; Start 04/07/21 at 09:15; Stop 04/07/21 at 09:16; Status DC Aspirin (Ecotrin) 325 mg 1X ONCE PO Last administered on 04/07/21at 09:18; Start 04/07/21 at 09:15; Stop 04/07/21 at 09:16; Status DC Diltiazem HCl (Cardizem Iv Push) 20 mg 1X ONCE IVP Last administered on 04/07/21at 09:33; Start 04/07/21 at 09:45; Stop 04/07/21 at 09:46; Status DC Diltiazem HCl 125 mg/Sodium Chloride 125 ml @ 5 mls/hr CONT PRN IV SEE I/O RECORD Last administered on 04/07/21at 09:34; Start 04/07/21 at 09:30; Stop 04/07/21 at 14:58; Status DC Bumetanide (Bumex) 1 mg DAILY ONCE IV Last administered on 04/07/21at 11:09; Start 04/07/21 at 10:44; Stop 04/07/21 at 10:45; Status DC Calcium Gluconate (Calcium Gluconate) 1,000 mg 1X ONCE IVP Last administered on 04/07/21at 12:14; Start 04/07/21 at 11:15; Stop 04/07/21 at 11:16; Status DC Insulin Human Regular (HumuLIN R VIAL) 10 unit 1X ONCE IV Last administered on 04/07/21at 12:19; Start 04/07/21 at 11:15; Stop 04/07/21 at 11:16; Status DC Dextrose (Dextrose 50%-Water Syringe) 25 gm 1X ONCE IV Last administered on 04/07/21at 12:12; Start 04/07/21 at 11:15; Stop 04/07/21 at 11:16; Status DC Ondansetron HCl (Zofran) 4 mg PRN Q8HRS PRN IVP NAUSEA/VOMITING; Start 04/07/21 at 12:30; Stop 04/08/21 at 12:29; Status DC Piperacillin Sod/ Tazobactam Sod (Zosyn Per Pharmacy) 1 each PRN DAILY PRN MC SEE COMMENTS; Start 04/07/21 at 12:45; Stop 04/08/21 at 13:50; Status DC Piperacillin Sod/ Tazobactam Sod 3.375 gm/Sodium Chloride 50 ml @ 100 mls/hr 1X ONCE IV Last administered on 04/07/21at 14:30; Start 04/07/21 at 13:00; Stop 04/07/21 at 13:29; Status DC Piperacillin Sod/ Tazobactam Sod 3.375 gm/Sodium Chloride 50 ml @ 100 mls/hr Q6HRS IV Last administered on 04/08/21at 12:41; Start 04/07/21 at 18:00; Stop 04/08/21 at 13:50; Status DC Carvedilol (Coreg) 3.125 mg BIDWMEALS PO ; Start 04/07/21 at 17:00; Stop 04/07/21 at 15:07; Status DC Carvedilol (Coreg) 6.25 mg BIDWMEALS PO Last administered on 04/07/21at 15:52; Start 04/07/21 at 17:00; Stop 04/08/21 at 14:18; Status DC Apixaban (Eliquis) 5 mg BID PO Last administered on 04/07/21at 20:20; Start 04/07/21 at 21:00; Stop 04/08/21 at 14:18; Status DC Furosemide (Lasix) 40 mg BID66 IVP Last administered on 04/11/21at 17:19; Start 04/07/21 at 18:00 Info (Anti-Coagulation Monitoring By Pharmacy) 1 each PRN DAILY PRN MC PER PROTOCOL; Start 04/07/21 at 15:15 Methylprednisolone Sodium Succinate (SOLU-Medrol 125MG VIAL) 125 mg 1X ONCE IV Last administered on 04/07/21at 15:59; Start 04/07/21 at 15:45; Stop 04/07/21 at 15:46; Status DC Albuterol Sulfate (Ventolin Neb Soln) 2.5 mg 1X ONCE NEB Last administered on 04/07/21at 16:54; Start 04/07/21 at 15:45; Stop 04/07/21 at 15:46; Status DC Digoxin (Lanoxin) 250 mcg 1X ONCE IV Last administered on 04/07/21at 16:16; S tart 04/07/21 at 16:15; Stop 04/07/21 at 16:16; Status DC Tamsulosin HCl (Flomax) 0.4 mg DAILY PO ; Start 04/08/21 at 09:00 Acetaminophen (Tylenol) 500 mg PRN Q6HRS PRN PO MILD PAIN / TEMP > 100.3'F; Start 04/07/21 at 21:00 Albuterol/ Ipratropium (Duoneb) 3 ml 1X ONCE NEB ; Start 04/07/21 at 21:00; Stop 04/07/21 at 21:01; Status DC Hydralazine HCl (Apresoline Inj) 10 mg PRN Q4HRS PRN IVP ELEVATED BP, SEE COMMENTS Last administered on 04/08/21at 03:19; Start 04/07/21 at 21:00 Oxycodone/ Acetaminophen (Percocet 5/325) 1 tab 1X ONCE PO Last administered on 04/07/21at 21:17; Start 04/07/21 at 21:30; Stop 04/07/21 at 21:31; Status DC Albuterol/ Ipratropium (Duoneb) 3 ml RTQID NEB ; Start 04/07/21 at 21:30; Status Cancel Furosemide (Lasix) 40 mg 1X ONCE IVP Last administered on 04/07/21at 21:42; Start 04/07/21 at 22:00; Stop 04/07/21 at 22:01; Status DC Morphine Sulfate (Morphine Sulfate) 2 mg PRN Q2HR PRN IVP SEVERE PAIN 7-10 Last administered on 04/08/21at 22:44; Start 04/07/21 at 21:30; Stop 04/09/21 at 19:08; Status DC Albuterol/ Ipratropium (Combivent Respimat 20-100 Mcg) 1 puff RTQID INH Last administered on 04/08/21at 17:17; Start 04/08/21 at 08:00; Stop 04/11/21 at 08:10; Status DC Carvedilol (Coreg) 6.25 mg 1X ONCE PO Last administered on 04/08/21at 04:20; Start 04/08/21 at 04:30; Stop 04/08/21 at 04:31; Status DC Alprazolam (Xanax) 0.25 mg 1X ONCE PO Last administered on 04/08/21at 04:20; Start 04/08/21 at 04:30; Stop 04/08/21 at 04:31; Status DC Furosemide (Lasix) 40 mg 1X ONCE IVP Last administered on 04/08/21at 05:42; Start 04/08/21 at 06:00; Stop 04/08/21 at 06:01; Status DC Digoxin (Lanoxin) 250 mcg 1X ONCE IV Last administered on 04/08/21at 06:49; Start 04/08/21 at 07:00; Stop 04/08/21 at 07:01; Status DC Digoxin (Lanoxin) 250 mcg DAILY IV Last administered on 04/11/21at 08:17; Start 04/08/21 at 07:15 Metoprolol Tartrate (Lopressor Vial) 5 mg 1X ONCE IVP Last administered on 04/08/21at 08:56; Start 04/08/21 at 08:15; Stop 04/08/21 at 08:17; Status DC Lorazepam (Ativan Inj) 2 mg PRN Q4HRS PRN IVP ANXIETY / AGITATION Last administered on 04/09/21at 16:16; Start 04/08/21 at 10:15; Stop 04/09/21 at 19:08; Status DC Furosemide (Lasix) 40 mg 1X ONCE IVP Last administered on 04/08/21at 12:43; Start 04/08/21 at 10:45; Stop 04/08/21 at 10:47; Status DC Amiodarone HCl 150 mg/Dextrose 103 ml @ 600 mls/hr 1X ONCE IV Last administered on 04/08/21at 14:43; Start 04/08/21 at 14:30; Stop 04/08/21 at 14:40; Status DC Amiodarone HCl 450 mg/Dextrose 259 ml @ 0 mls/hr CONT PRN IV SEE I/O RECORD Las t administered on 04/09/21at 00:16; Start 04/08/21 at 14:30; Stop 04/09/21 at 14:29; Status DC Metoprolol Tartrate (Lopressor Vial) 5 mg Q6HRS IVP Last administered on 04/10/21at 05:46; Start 04/08/21 at 18:00; Stop 04/10/21 at 11:44; Status DC Enoxaparin Sodium (Lovenox Per Pharmacy Treatment Dosing) 1 each PRN DAILY PRN MC SEE COMMENTS; Start 04/08/21 at 14:30 Enoxaparin Sodium (Lovenox 100mg Syringe) 90 mg Q24H SQ Last administered on 04/10/21at 16:17; Start 04/08/21 at 16:00 Amiodarone HCl 450 mg/Dextrose 259 ml @ 0 mls/hr CONT PRN IV SEE I/O RECORD Last administered on 04/11/21at 17:19; Start 04/09/21 at 17:30 Lorazepam (Ativan Inj) 2 mg PRN Q2HRS PRN IVP ANXIETY / AGITATION Last administered on 04/11/21at 17:19; Start 04/09/21 at 19:15 Morphine Sulfate (Morphine Sulfate) 4 mg PRN Q2HR PRN IVP SEVERE PAIN 7-10; Start 04/09/21 at 19:30; Stop 04/09/21 at 19:22; Status DC Lidocaine HCl (Buffered Lidocaine 1%) 3 ml STK-MED ONCE .ROUTE ; Start 04/10/21 at 09:36; Stop 04/10/21 at 09:36; Status DC Heparin Sodium (Porcine) (Hep Lock Adult) 500 unit STK-MED ONCE IVP ; Start 04/10/21 at 09:39; Stop 04/10/21 at 09:39; Status DC Heparin Sodium (Porcine) (Heparin Sodium) 10,000 unit STK-MED ONCE .ROUTE ; Start 04/10/21 at 09:41; Stop 04/10/21 at 09:41; Status DC Lidocaine HCl (Buffered Lidocaine 1%) 3 ml 1X ONCE IJ Last administered on 04/10/21at 10:13; Start 04/10/21 at 10:00; Stop 04/10/21 at 10:03; Status DC Sodium Chloride 1,000 ml @ 1,000 mls/hr Q1H PRN IV hypotension; Start 04/10/21 at 11:15; Stop 04/10/21 at 17:14; Status DC Albumin Human 200 ml @ 200 mls/hr 1X PRN PRN IV Hypotension Last administered on 04/10/21at 13:00; Start 04/10/21 at 11:15; Stop 04/10/21 at 17:14; Status DC Sodium Chloride 1,000 ml @ 400 mls/hr Q2H30M PRN IV PATENCY; Start 04/10/21 at 11:15; Stop 04/10/21 at 23:14; Status DC Info (PHARMACY MONITORING -- do not chart) 1 each PRN DAILY PRN MC SEE COMME NTS; Start 04/10/21 at 12:15; Status UNV Info (PHARMACY MONITORING -- do not chart) 1 each PRN DAILY PRN MC SEE COMMENTS; Start 04/10/21 at 12:15 Albuterol/ Ipratropium (Duoneb) 3 ml RTQID NEB Last administered on 04/11/21at 15:32; Start 04/11/21 at 12:00 Heparin Sodium (Porcine) (Heparin Sodium) 2,000 unit 1X ONCE IV Last administered on 04/11/21at 08:30; Start 04/11/21 at 08:30; Stop 04/11/21 at 08:37; Status DC Sodium Chloride 1,000 ml @ 1,000 mls/hr Q1H PRN IV hypotension; Start 04/11/21 at 08:30; Stop 04/11/21 at 14:29; Status DC Sodium Chloride 1,000 ml @ 400 mls/hr Q2H30M PRN IV PATENCY; Start 04/11/21 at 08:30; Stop 04/11/21 at 20:29 Info (PHARMACY MONITORING -- do not chart) 1 each PRN DAILY PRN MC SEE COMMENTS; Start 04/11/21 at 08:30; Status Cancel Active Scripts Active Reported Aspirin 81 Mg Tab.chew 81 Mg PO DAILY Eliquis (Apixaban) 5 Mg Tablet 5 Mg PO BID Lasix (Furosemide) 20 Mg Tablet 20 Mg PO DAILY Spironolactone 25 Mg Tablet 25 Mg PO DAILY Coreg (Carvedilol) 25 Mg Tablet 25 Mg PO BIDWMEALS Flomax (Tamsulosin Hcl) 0.4 Mg Cap.er.24h 0.4 Mg PO DAILY Vitals/I & O Vital Sign - Last 24 Hours 04/10/21 04/10/21 04/10/21 04/11/21 19:23 19:29 22:33 00:30 Temp 98.7 98.3 98.7 98.3 Pulse 60 110 Resp 20 22 B/P (MAP) 106/82 (90) 138/89 (105) Pulse Ox 95 96 100 O2 Delivery BiPAP/CPAP Mask BiPAP/CPAP BiPAP/CPAP 04/11/21 04/11/21 04/11/21 04/11/21 02:40 05:33 07:00 08:00 Temp 98.4 95.8 98.4 95.8 Pulse 114 104 Resp 20 20 B/P (MAP) 105/74 (84) 91/56 (68) Pulse Ox 97 99 96 O2 Delivery BiPAP/CPAP BiPAP/CPAP BiPAP/CPAP Bi-pap 04/11/21 04/11/21 04/11/21 04/11/21 08:17 08:19 15:00 15:32 Temp 94.4 94.4 Pulse 115 110 Resp 20 B/P (MAP) 91/56 84/57 (66) Pulse Ox 97 98 97 O2 Delivery BiPAP/CPAP BiPAP/CPAP BiPAP/CPAP 04/11/21 17:54 Pulse Ox 96 O2 Delivery BiPAP/CPAP Intake and Output 04/10/21 04/10/21 04/11/21 15:00 23:00 07:00 Intake Total 0 ml 1171 ml 200 ml Output Total 250 ml 50 ml Balance 0 ml 921 ml 150 ml Justifications for Admission Other Justification DAVID GORMAN MD Apr 11, 2021 19:14
[2021-04-11] MEDS ORDERED: IV NORMAL SALINE 500ML BAG 500 ML IV ONE (23:00)
[2021-04-11 23:07] LABS: BASE EXCESS ABG -2 mmol/L (-3-3); HCO3 ABG 23 mmol/L (21-28); PCO2 ABG 37 mmHg (35-46); PO2 ABG 79 mmHg (65-108); SAT O2 ABG 95 % (92-99)
[2021-04-11 23:09] LABS: FIO2 ABG 35
[2021-04-12] VITALS (22 sets, daily range): BP systolic 74–185; BP diastolic 45–103
[2021-04-12 05:58] LABS: HEMATOCRIT 49.5 % (39.0-53.0); HEMOGLOBIN 16.6 g/dL (13.0-17.5); RED BLOOD COUNT 4.6 x10^6/uL (4.30-5.70); RED CELL DISTRIBUTION WIDTH 16.8 % (11.5-14.5); WHITE BLOOD COUNT 15.7 x10^3/uL (4.0-11.0)
[2021-04-12 06:11] LABS: CALCIUM 9.5 mg/dL (8.5-10.1); CREATININE 4.8 mg/dL (0.7-1.3); POTASSIUM 5.5 mmol/L (3.5-5.1)
[2021-04-12] MEDS: IPRATRPIUM/ALBUTEROL 0.5/2.5MG 3 ML NEBU. NEB SCH ×4 (08:38→20:30)
--- NOTE | 2021-04-12 08:51 | PDOC ---
PULMONARY PROGRESS NOTES DATE: 04/12/21 TIME: 08:47 Subjective pt. remains on BIPAP at 40% on Dopamine and Amio gtt no improvement in mentation Vitals Vital Signs Date Time Temp Pulse Resp B/P (MAP) Pulse Ox O2 Delivery O2 Flow Rate FiO2 04/12/21 08:40 95 BiPAP/CPAP 04/12/21 06:28 97.7 119 18 104/66 (79) 97.7 Comments unable to report ROS Lungs: Other (Decreased breath sounds) Cardiovascular: S1, Other (Tachycardia) Abdomen: Soft Extremities: Other (1+ edema) Skin: Warm Labs Laboratory Tests Test 04/10/21 17:15 04/11/21 07:40 04/11/21 23:00 04/12/21 04:00 O2 Saturation 98 % (92-99) 95 % (92-99) Arterial Blood pH 7.30 (7.35-7.45) 7.41 (7.35-7.45) Arterial Blood pCO2 at Patient Temp 53 mmHg (35-46) 37 mmHg (35-46) Arterial Blood pO2 at Patient Temp 138 mmHg (65-108) 79 mmHg (65-108) Arterial Blood HCO3 25 mmol/L (21-28) 23 mmol/L (21-28) Arterial Blood Base Excess -2 mmol/L (-3-3) -2 mmol/L (-3-3) Oxyhemoglobin 97.4 % Methemoglobin 0.6 % (0.0-1.9) Carbon Monoxide, Quantitative 0.3 % (0.0-1.9) FiO2 50% venti mask 35 White Blood Count 16.5 x10^3/uL (4.0-11.0) 15.7 x10^3/uL (4.0-11.0) Red Blood Count 4.56 x10^6/uL (4.30-5.70) 4.60 x10^6/uL (4.30-5.70) Hemoglobin 16.4 g/dL (13.0-17.5) 16.6 g/dL (13.0-17.5) Hematocrit 49.0 % (39.0-53.0) 49.5 % (39.0-53.0) Mean Corpuscular Volume 107 fL (79-100) 108 fL (79-100) Mean Corpuscular Hemoglobin 36 pg (25-35) 36 pg (25-35) Mean Corpuscular Hemoglobin Concent 34 g/dL (31-37) 34 g/dL (31-37) Red Cell Distribution Width 16.9 % (11.5-14.5) 16.8 % (11.5-14.5) Platelet Count 133 x10^3/uL (140-400) 144 x10^3/uL (140-400) Sodium Level 139 mmol/L (136-145) 137 mmol/L (136-145) Potassium Level 6.2 mmol/L (3.5-5.1) 5.5 mmol/L (3.5-5.1) Chloride Level 100 mmol/L (98-107) 100 mmol/L (98-107) Carbon Dioxide Level 25 mmol/L (21-32) 25 mmol/L (21-32) Anion Gap 14 (6-14) 12 (6-14) Blood Urea Nitrogen 91 mg/dL (8-26) 75 mg/dL (8-26) Creatinine 5.6 mg/dL (0.7-1.3) 4.8 mg/dL (0.7-1.3) Estimated GFR (Cockcroft-Gault) 12.6 15.0 Glucose Level 126 mg/dL (70-99) 137 mg/dL (70-99) Calcium Level 9.3 mg/dL (8.5-10.1) 9.5 mg/dL (8.5-10.1) Laboratory Tests Test 04/11/21 23:00 04/12/21 04:00 O2 Saturation 95 % (92-99) Arterial Blood pH 7.41 (7.35-7.45) Arterial Blood pCO2 at Patient Temp 37 mmHg (35-46) Arterial Blood pO2 at Patient Temp 79 mmHg (65-108) Arterial Blood HCO3 23 mmol/L (21-28) Arterial Blood Base Excess -2 mmol/L (-3-3) FiO2 35 White Blood Count 15.7 x10^3/uL (4.0-11.0) Red Blood Count 4.60 x10^6/uL (4.30-5.70) Hemoglobin 16.6 g/dL (13.0-17.5) Hematocrit 49.5 % (39.0-53.0) Mean Corpuscular Volume 108 fL (79-100) Mean Corpuscular Hemoglobin 36 pg (25-35) Mean Corpuscular Hemoglobin Concent 34 g/dL (31-37) Red Cell Distribution Width 16.8 % (11.5-14.5) Platelet Count 144 x10^3/uL (140-400) Sodium Level 137 mmol/L (136-145) Potassium Level 5.5 mmol/L (3.5-5.1) Chloride Level 100 mmol/L (98-107) Carbon Dioxide Level 25 mmol/L (21-32) Anion Gap 12 (6-14) Blood Urea Nitrogen 75 mg/dL (8-26) Creatinine 4.8 mg/dL (0.7-1.3) Estimated GFR (Cockcroft-Gault) 15.0 Glucose Level 137 mg/dL (70-99) Calcium Level 9.5 mg/dL (8.5-10.1) Medications Active Scripts Medications Dose Route/Sig Max Daily Dose Days Date Category Aspirin 81 Mg Tab.chew 81 Mg PO DAILY 06/13/19 Reported Eliquis (Apixaban) 5 Mg Tablet 5 Mg PO BID 06/13/19 Reported Lasix (Furosemide) 20 Mg Tablet 20 Mg PO DAILY 06/13/19 Reported Spironolactone 25 Mg Tablet 25 Mg PO DAILY 06/13/19 Reported Coreg (Carvedilol) 25 Mg Tablet 25 Mg PO BIDWMEALS 06/13/19 Reported Flomax (Tamsulosin Hcl) 0.4 Mg Cap.er.24h 0.4 Mg PO DAILY 06/13/19 Reported Impression . 1. Acute hypoxic respiratory failure secondary to atrial flutter with rapid ventricular response and suspected congestive heart failure. 2. Abnormal CT chest with ground glass infiltrates. Could be early congestive heart failure versus cocaine-induced pneumonitis. 3. Atrial flutter with rapid ventricular response, heart rate is still 140s. Cardiology is managing. 4. Acute kidney injury.--on HD 5. Substance abuse and ongoing cocainism. The patient also has tobacco use. 6. Abnormal previous echo with RV dilation due to suspected secondary Pulmonary HTN ( ASD/ CMP). No need for VTE w/u except dopplers. Pt already on Eliquis 7. Encephalopathy, drug induced 8. hypotension on pressors Plan . Continue current BIPAP support at 40%, keep oxygen sats above 92% CXR PRN BIPAP setting reviewed 13/04 rate 12 at 40% Follow cardiology recs --EF 20%, on amio gtt and dopmaine Follow Nephrology recs -- on HD NEBS DVT/GI PPX: D/W RN and RT Social work following for DC planning -- planned to DC to [facility]-JULIETA GOLDBERG MD Apr 12, 2021 08:51
[2021-04-12] MEDS: TAMSULOSIN 0.4 MG CAP.ER.24H. PO SCH (09:00)
[2021-04-12] MEDS: DIGOXIN IV 500 MCG/2 ML AMPUL. IV SCH (10:10)
--- NOTE | 2021-04-12 10:15 | PDOC ---
PROGRESS NOTES Date of Service: DATE: 04/12/21 TIME: 10:14 Chief Complaint Chief Complaint CHF exacerbation Afib Rvr Hypokalemia History of Present Illness History of Present Illness 04/10/2021 Pt seen and examined at bedside Patient got his temporary dialysis catheter yesterday its in the right IJ Patient's brother Cleveland is now here Pt went for dialysis today Pt has hypoxic encephalitis Pt has a Bipap Pt is on 60% FiO2 with 99% Sat Pt has Mits on for safety D/W RN Chart reviewed 04/09/2021 Pt seen and examined at bedside D/W nephrology to do emergent dialysis. We tried to get ahold of a family member but could not find a working phone number. We deemed the temporary cath for dialysis necessary for pt care and treatment. It is in the pts best interest to get dialysis today. Pt has hypoxic encephalitis Pt is very agitated D/W RN Chart reviewed 04/08/2021 Pt seen and examined Pt was very agitated and encephalopathic Pt has Folley to BSD Pt has mits on hands for safety Pt has edema D/W RN Chart reviewed The patient is a pleasant 61-year-old male who presented with shortness of breath. While in the ER, we had noticed that he is quite hypoxic, we have him on a lot of oxygen. His potassium is also high at 6. He also has azotemia with a BUN of 35 and a creatinine of 2. Hemoglobin is high at 17.7. Surprisingly, his COVID testing is negative, but his chest x-ray does show cardiomegaly and pulmonary hypertension, infiltrates and possible emphysema. We are admitting the patient with consultation to Cardiology and Nephrology. 04/11/2021 seen and examined at bedside temporary dialysis catheter 8-14 its in the right IJ hypoxic encephalopathy Pt has a Bipap Pt is on 60% FiO2 with 99% Sat Mits on for safety D/W RN Chart reviewed 04/12/2021 seen and examined at bedside temporary dialysis catheter 8-14 its in the right IJ hypoxic encephalopathy Pt has a Bipap Pt is on 60% FiO2 with 99% Sat Mits on for safety D/W RN Chart reviewed pt. remains on BIPAP at 40% on Dopamine and Amio gtt no improvement in mentation Vitals Vitals Vital Signs Date Time Temp Pulse Resp B/P (MAP) Pulse Ox O2 Delivery O2 Flow Rate FiO2 04/12/21 10:10 83 110/73 04/12/21 08:40 95 BiPAP/CPAP 04/12/21 06:28 97.7 18 97.7 Physical Exam General: Other (Continues to be agitated.) Heart: Other (Irregular rhythm) Lungs: Other (Decreased breath sounds) Abdomen: Normal bowel sounds Extremities: No clubbing, Other (2+ LE EDEMA) Skin: No significant lesion Labs LABS Laboratory Tests Test 04/11/21 23:00 04/12/21 04:00 O2 Saturation 95 % (92-99) Arterial Blood pH 7.41 (7.35-7.45) Arterial Blood pCO2 at Patient Temp 37 mmHg (35-46) Arterial Blood pO2 at Patient Temp 79 mmHg (65-108) Arterial Blood HCO3 23 mmol/L (21-28) Arterial Blood Base Excess -2 mmol/L (-3-3) FiO2 35 White Blood Count 15.7 x10^3/uL (4.0-11.0) Red Blood Count 4.60 x10^6/uL (4.30-5.70) Hemoglobin 16.6 g/dL (13.0-17.5) Hematocrit 49.5 % (39.0-53.0) Mean Corpuscular Volume 108 fL (79-100) Mean Corpuscular Hemoglobin 36 pg (25-35) Mean Corpuscular Hemoglobin Concent 34 g/dL (31-37) Red Cell Distribution Width 16.8 % (11.5-14.5) Platelet Count 144 x10^3/uL (140-400) Sodium Level 137 mmol/L (136-145) Potassium Level 5.5 mmol/L (3.5-5.1) Chloride Level 100 mmol/L (98-107) Carbon Dioxide Level 25 mmol/L (21-32) Anion Gap 12 (6-14) Blood Urea Nitrogen 75 mg/dL (8-26) Creatinine 4.8 mg/dL (0.7-1.3) Estimated GFR (Cockcroft-Gault) 15.0 Glucose Level 137 mg/dL (70-99) Calcium Level 9.5 mg/dL (8.5-10.1) Assessment and Plan Assessmemt and Plan Problems Medical Problems: (1) Atrial fibrillation with RVR Status: Acute (2) CHF (congestive heart failure) Status: Acute (3) Chronic renal insufficiency Status: Acute (4) Cocaine use Status: Acute (5) Elevated troponin Status: Acute (6) Hyperkalemia Status: Acute Comment Review of Relevant I have reviewed the following items vesna (where applicable) has been applied. Labs Laboratory Tests Test 04/10/21 17:15 04/11/21 07:40 04/11/21 23:00 04/12/21 04:00 O2 Saturation 98 % (92-99) 95 % (92-99) Arterial Blood pH 7.30 (7.35-7.45) 7.41 (7.35-7.45) Arterial Blood pCO2 at Patient Temp 53 mmHg (35-46) 37 mmHg (35-46) Arterial Blood pO2 at Patient Temp 138 mmHg (65-108) 79 mmHg (65-108) Arterial Blood HCO3 25 mmol/L (21-28) 23 mmol/L (21-28) Arterial Blood Base Excess -2 mmol/L (-3-3) -2 mmol/L (-3-3) Oxyhemoglobin 97.4 % Methemoglobin 0.6 % (0.0-1.9) Carbon Monoxide, Quantitative 0.3 % (0.0-1.9) FiO2 50% venti mask 35 White Blood Count 16.5 x10^3/uL (4.0-11.0) 15.7 x10^3/uL (4.0-11.0) Red Blood Count 4.56 x10^6/uL (4.30-5.70) 4.60 x10^6/uL (4.30-5.70) Hemoglobin 16.4 g/dL (13.0-17.5) 16.6 g/dL (13.0-17.5) Hematocrit 49.0 % (39.0-53.0) 49.5 % (39.0-53.0) Mean Corpuscular Volume 107 fL (79-100) 108 fL (79-100) Mean Corpuscular Hemoglobin 36 pg (25-35) 36 pg (25-35) Mean Corpuscular Hemoglobin Concent 34 g/dL (31-37) 34 g/dL (31-37) Red Cell Distribution Width 16.9 % (11.5-14.5) 16.8 % (11.5-14.5) Platelet Count 133 x10^3/uL (140-400) 144 x10^3/uL (140-400) Sodium Level 139 mmol/L (136-145) 137 mmol/L (136-145) Potassium Level 6.2 mmol/L (3.5-5.1) 5.5 mmol/L (3.5-5.1) Chloride Level 100 mmol/L (98-107) 100 mmol/L (98-107) Carbon Dioxide Level 25 mmol/L (21-32) 25 mmol/L (21-32) Anion Gap 14 (6-14) 12 (6-14) Blood Urea Nitrogen 91 mg/dL (8-26) 75 mg/dL (8-26) Creatinine 5.6 mg/dL (0.7-1.3) 4.8 mg/dL (0.7-1.3) Estimated GFR (Cockcroft-Gault) 12.6 15.0 Glucose Level 126 mg/dL (70-99) 137 mg/dL (70-99) Calcium Level 9.3 mg/dL (8.5-10.1) 9.5 mg/dL (8.5-10.1) Laboratory Tests Test 04/11/21 23:00 04/12/21 04:00 O2 Saturation 95 % (92-99) Arterial Blood pH 7.41 (7.35-7.45) Arterial Blood pCO2 at Patient Temp 37 mmHg (35-46) Arterial Blood pO2 at Patient Temp 79 mmHg (65-108) Arterial Blood HCO3 23 mmol/L (21-28) Arterial Blood Base Excess -2 mmol/L (-3-3) FiO2 35 White Blood Count 15.7 x10^3/uL (4.0-11.0) Red Blood Count 4.60 x10^6/uL (4.30-5.70) Hemoglobin 16.6 g/dL (13.0-17.5) Hematocrit 49.5 % (39.0-53.0) Mean Corpuscular Volume 108 fL (79-100) Mean Corpuscular Hemoglobin 36 pg (25-35) Mean Corpuscular Hemoglobin Concent 34 g/dL (31-37) Red Cell Distribution Width 16.8 % (11.5-14.5) Platelet Count 144 x10^3/uL (140-400) Sodium Level 137 mmol/L (136-145) Potassium Level 5.5 mmol/L (3.5-5.1) Chloride Level 100 mmol/L (98-107) Carbon Dioxide Level 25 mmol/L (21-32) Anion Gap 12 (6-14) Blood Urea Nitrogen 75 mg/dL (8-26) Creatinine 4.8 mg/dL (0.7-1.3) Estimated GFR (Cockcroft-Gault) 15.0 Glucose Level 137 mg/dL (70-99) Calcium Level 9.5 mg/dL (8.5-10.1) Medications Current Medications Albuterol/ Ipratropium (Duoneb) 3 ml 1X ONCE NEB Last administered on 04/07/21at 09:19; Start 04/07/21 at 09:15; Stop 04/07/21 at 09:16; Status DC Dexamethasone Sodium Phosphate (Decadron) 10 mg 1X ONCE IVP Last administered on 04/07/21at 09:19; Start 04/07/21 at 09:15; Stop 04/07/21 at 09:16; Status DC Aspirin (Ecotrin) 325 mg 1X ONCE PO Last administered on 04/07/21at 09:18; Start 04/07/21 at 09:15; Stop 04/07/21 at 09:16; Status DC Diltiazem HCl (Cardizem Iv Push) 20 mg 1X ONCE IVP Last administered on 04/07/21at 09:33; Start 04/07/21 at 09:45; Stop 04/07/21 at 09:46; Status DC Diltiazem HCl 125 mg/Sodium Chloride 125 ml @ 5 mls/hr CONT PRN IV SEE I/O RECORD Last administered on 04/07/21at 09:34; Start 04/07/21 at 09:30; Stop 04/07/21 at 14:58; Status DC Bumetanide (Bumex) 1 mg DAILY ONCE IV Last administered on 04/07/21at 11:09; Start 04/07/21 at 10:44; Stop 04/07/21 at 10:45; Status DC Calcium Gluconate (Calcium Gluconate) 1,000 mg 1X ONCE IVP Last administered on 04/07/21at 12:14; Start 04/07/21 at 11:15; Stop 04/07/21 at 11:16; Status DC Insulin Human Regular (HumuLIN R VIAL) 10 unit 1X ONCE IV Last administered on 04/07/21at 12:19; Start 04/07/21 at 11:15; Stop 04/07/21 at 11:16; Status DC Dextrose (Dextrose 50%-Water Syringe) 25 gm 1X ONCE IV Last administered on 04/07/21at 12:12; Start 04/07/21 at 11:15; Stop 04/07/21 at 11:16; Status DC Ondansetron HCl (Zofran) 4 mg PRN Q8HRS PRN IVP NAUSEA/VOMITING; Start 04/07/21 at 12:30; Stop 04/08/21 at 12:29; Status DC Piperacillin Sod/ Tazobactam Sod (Zosyn Per Pharmacy) 1 each PRN DAILY PRN MC SEE COMMENTS; Start 04/07/21 at 12:45; Stop 04/08/21 at 13:50; Status DC Piperacillin Sod/ Tazobactam Sod 3.375 gm/Sodium Chloride 50 ml @ 100 mls/hr 1X ONCE IV Last administered on 04/07/21at 14:30; Start 04/07/21 at 13:00; Stop 04/07/21 at 13:29; Status DC Piperacillin Sod/ Tazobactam Sod 3.375 gm/Sodium Chloride 50 ml @ 100 mls/hr Q6HRS IV Last administered on 04/08/21at 12:41; Start 04/07/21 at 18:00; Stop 04/08/21 at 13:50; Status DC Carvedilol (Coreg) 3.125 mg BIDWMEALS PO ; Start 04/07/21 at 17:00; Stop 04/07/21 at 15:07; Status DC Carvedilol (Coreg) 6.25 mg BIDWMEALS PO Last administered on 04/07/21at 15:52; Start 04/07/21 at 17:00; Stop 04/08/21 at 14:18; Status DC Apixaban (Eliquis) 5 mg BID PO Last administered on 04/07/21at 20:20; Start 04/07/21 at 21:00; Stop 04/08/21 at 14:18; Status DC Furosemide (Lasix) 40 mg BID66 IVP Last administered on 04/11/21at 17:19; Start 04/07/21 at 18:00 Info (Anti-Coagulation Monitoring By Pharmacy) 1 each PRN DAILY PRN MC PER PROTOCOL; Start 04/07/21 at 15:15 Methylprednisolone Sodium Succinate (SOLU-Medrol 125MG VIAL) 125 mg 1X ONCE IV Last administered on 04/07/21at 15:59; Start 04/07/21 at 15:45; Stop 04/07/21 at 15:46; Status DC Albuterol Sulfate (Ventolin Neb Soln) 2.5 mg 1X ONCE NEB Last administered on 04/07/21at 16:54; Start 04/07/21 at 15:45; Stop 04/07/21 at 15:46; Status DC Digoxin (Lanoxin) 250 mcg 1X ONCE IV Last administered on 04/07/21at 16:16; Start 04/07/21 at 16:15; Stop 04/07/21 at 16:16; Status DC Tamsulosin HCl (Flomax) 0.4 mg DAILY PO ; Start 04/08/21 at 09:00 Acetaminophen (Tylenol) 500 mg PRN Q6HRS PRN PO MILD PAIN / TEMP > 100.3'F; Start 04/07/21 at 21:00 Albuterol/ Ipratropium (Duoneb) 3 ml 1X ONCE NEB ; Start 04/07/21 at 21:00; Stop 04/07/21 at 21:01; Status DC Hydralazine HCl (Apresoline Inj) 10 mg PRN Q4HRS PRN IVP ELEVATED BP, SEE COMM ENTS Last administered on 04/08/21at 03:19; Start 04/07/21 at 21:00 Oxycodone/ Acetaminophen (Percocet 5/325) 1 tab 1X ONCE PO Last administered on 04/07/21at 21:17; Start 04/07/21 at 21:30; Stop 04/07/21 at 21:31; Status DC Albuterol/ Ipratropium (Duoneb) 3 ml RTQID NEB ; Start 04/07/21 at 21:30; Status Cancel Furosemide (Lasix) 40 mg 1X ONCE IVP Last administered on 04/07/21at 21:42; Start 04/07/21 at 22:00; Stop 04/07/21 at 22:01; Status DC Morphine Sulfate (Morphine Sulfate) 2 mg PRN Q2HR PRN IVP SEVERE PAIN 7-10 Last administered on 04/08/21at 22:44; Start 04/07/21 at 21:30; Stop 04/09/21 at 19:08; Status DC Albuterol/ Ipratropium (Combivent Respimat 20-100 Mcg) 1 puff RTQID INH Last administered on 04/08/21at 17:17; Start 04/08/21 at 08:00; Stop 04/11/21 at 08:10; Status DC Carvedilol (Coreg) 6.25 mg 1X ONCE PO Last administered on 04/08/21at 04:20; Start 04/08/21 at 04:30; Stop 04/08/21 at 04:31; Status DC Alprazolam (Xanax) 0.25 mg 1X ONCE PO Last administered on 04/08/21at 04:20; Start 04/08/21 at 04:30; Stop 04/08/21 at 04:31; Status DC Furosemide (Lasix) 40 mg 1X ONCE IVP Last administered on 04/08/21at 05:42; S tart 04/08/21 at 06:00; Stop 04/08/21 at 06:01; Status DC Digoxin (Lanoxin) 250 mcg 1X ONCE IV Last administered on 04/08/21at 06:49; Start 04/08/21 at 07:00; Stop 04/08/21 at 07:01; Status DC Digoxin (Lanoxin) 250 mcg DAILY IV Last administered on 04/12/21at 10:10; Start 04/08/21 at 07:15 Metoprolol Tartrate (Lopressor Vial) 5 mg 1X ONCE IVP Last administered on 04/08/21at 08:56; Start 04/08/21 at 08:15; Stop 04/08/21 at 08:17; Status DC Lorazepam (Ativan Inj) 2 mg PRN Q4HRS PRN IVP ANXIETY / AGITATION Last administered on 04/09/21at 16:16; Start 04/08/21 at 10:15; Stop 04/09/21 at 19:08; Status DC Furosemide (Lasix) 40 mg 1X ONCE IVP Last administered on 04/08/21at 12:43; Start 04/08/21 at 10:45; Stop 04/08/21 at 10:47; Status DC Amiodarone HCl 150 mg/Dextrose 103 ml @ 600 mls/hr 1X ONCE IV Last administered on 04/08/21at 14:43; Start 04/08/21 at 14:30; Stop 04/08/21 at 14 :40; Status DC Amiodarone HCl 450 mg/Dextrose 259 ml @ 0 mls/hr CONT PRN IV SEE I/O RECORD Last administered on 04/09/21at 00:16; Start 04/08/21 at 14:30; Stop 04/09/21 at 14:29; Status DC Metoprolol Tartrate (Lopressor Vial) 5 mg Q6HRS IVP Last administered on 04/10/21at 05:46; Start 04/08/21 at 18:00; Stop 04/10/21 at 11:44; Status DC Enoxaparin Sodium (Lovenox Per Pharmacy Treatment Dosing) 1 each PRN DAILY PRN MC SEE COMMENTS; Start 04/08/21 at 14:30; Stop 04/12/21 at 08:26; Status DC Enoxaparin Sodium (Lovenox 100mg Syringe) 90 mg Q24H SQ Last administered on 04/10/21at 16:17; Start 04/08/21 at 16:00; Stop 04/12/21 at 08:26; Status DC Amiodarone HCl 450 mg/Dextrose 259 ml @ 0 mls/hr CONT PRN IV SEE I/O RECORD Last administered on 04/11/21at 17:19; Start 04/09/21 at 17:30 Lorazepam (Ativan Inj) 2 mg PRN Q2HRS PRN IVP ANXIETY / AGITATION Last administered on 04/11/21at 17:19; Start 04/09/21 at 19:15 Morphine Sulfate (Morphine Sulfate) 4 mg PRN Q2HR PRN IVP SEVERE PAIN 7-10; Start 04/09/21 at 19:30; Stop 04/09/21 at 19:22; Status DC Lidocaine HCl (Buffered Lidocaine 1%) 3 ml STK-MED ONCE .ROUTE ; Start 04/10/21 at 09:36; Stop 04/10/21 at 09:36; Status DC Heparin Sodium (Porcine) (Hep Lock Adult) 500 unit STK-MED ONCE IVP ; Start 04/10/21 at 09:39; Stop 04/10/21 at 09:39; Status DC Heparin Sodium (Porcine) (Heparin Sodium) 10,000 unit STK-MED ONCE .ROUTE ; Start 04/10/21 at 09:41; Stop 04/10/21 at 09:41; Status DC Lidocaine HCl (Buffered Lidocaine 1%) 3 ml 1X ONCE IJ Last administered on 04/10/21at 10:13; Start 04/10/21 at 10:00; Stop 04/10/21 at 10:03; Status DC Sodium Chloride 1,000 ml @ 1,000 mls/hr Q1H PRN IV hypotension; Start 04/10/21 at 11:15; Stop 04/10/21 at 17:14; Status DC Albumin Human 200 ml @ 200 mls/hr 1X PRN PRN IV Hypotension Last administered on 04/10/21at 13:00; Start 04/10/21 at 11:15; Stop 04/10/21 at 17:14; Status DC Sodium Chloride 1,000 ml @ 400 mls/hr Q2H30M PRN IV PATENCY; Start 04/10/21 at 11:15; Stop 04/10/21 at 23:14; Status DC Info (PHARMACY MONITORING -- do not chart) 1 each PRN DAILY PRN MC SEE COMMENTS; Start 04/10/21 at 12:15; Status UNV Info (PHARMACY MONITORING -- do not chart) 1 each PRN DAILY PRN MC SEE COMMENTS; Start 04/10/21 at 12:15 Albuterol/ Ipratropium (Duoneb) 3 ml RTQID NEB Last administered on 04/12/21at 08:38; Start 04/11/21 at 12:00 Heparin Sodium (Porcine) (Heparin Sodium) 2,000 unit 1X ONCE IV Last administered on 04/11/21at 08:30; Start 04/11/21 at 08:30; Stop 04/11/21 at 08:37; Status DC Sodium Chloride 1,000 ml @ 1,000 mls/hr Q1H PRN IV hypotension; Start 04/11/21 at 08:30; Stop 04/11/21 at 14:29; Status DC Sodium Chloride 1,000 ml @ 400 mls/hr Q2H30M PRN IV PATENCY; Start 04/11/21 at 08:30; Stop 04/11/21 at 20:29; Status DC Info (PHARMACY MONITORING -- do not chart) 1 each PRN DAILY PRN MC SEE COMMENTS; Start 04/11/21 at 08:30; Status Cancel Sodium Chloride 500 ml @ 500 mls/hr 1X ONCE IV Last administered on 04/11/21at 22:40; Start 04/11/21 at 23:00; Stop 04/11/21 at 23:59; Status DC Dopamine HCl/ Dextrose 250 ml @ 16.744 mls/ hr CONT PRN IV SEE I/O RECORD Last administered on 04/12/21at 00:08; Start 04/11/21 at 23:45 Active Scripts Active Reported Aspirin 81 Mg Tab.chew 81 Mg PO DAILY Eliquis (Apixaban) 5 Mg Tablet 5 Mg PO BID Lasix (Furosemide) 20 Mg Tablet 20 Mg PO DAILY Spironolactone 25 Mg Tablet 25 Mg PO DAILY Coreg (Carvedilol) 25 Mg Tablet 25 Mg PO BIDWMEALS Flomax (Tamsulosin Hcl) 0.4 Mg Cap.er.24h 0.4 Mg PO DAILY Vitals/I & O Vital Sign - Last 24 Hours 04/11/21 04/11/21 04/11/21 04/11/21 15:00 15:32 17:54 19:14 Temp 94.4 97.5 94.4 97.5 Pulse 110 96 Resp 20 20 B/P (MAP) 84/57 (66) 104/74 (84) Pulse Ox 98 97 96 94 O2 Delivery BiPAP/CPAP BiPAP/CPAP BiPAP/CPAP BiPAP/CPAP 04/11/21 04/11/21 04/11/21 04/11/21 20:00 21:10 22:36 22:45 Pulse 118 118 B/P (MAP) 59/46 (50) 77/61 (66) Pulse Ox 98 O2 Delivery Bi-pap BiPAP/CPAP 04/11/21 04/11/21 04/11/21 04/11/21 22:50 22:55 23:05 23:15 Pulse 90 92 90 B/P (MAP) 78/54 (62) 92/42 (59) 66/52 (57) Pulse Ox 100 O2 Delivery BiPAP/CPAP 8/16/21 8/16/21 8/16/21 8/16/21 23:25 23:35 23:45 23:50 Temp 97.4 97.4 Pulse 92 92 98 103 Resp 22 B/P (MAP) 73/55 (61) 109/54 (72) 93/70 (78) 93/70 (78) Pulse Ox 94 O2 Delivery BiPAP/CPAP 04/11/21 04/12/21 04/12/21 04/12/21 23:55 00:20 00:35 00:50 Pulse 94 112 122 124 B/P (MAP) 69/51 (57) 82/49 (60) 96/62 (73) 113/71 (85) 04/12/21 04/12/21 04/12/21 04/12/21 01:05 01:30 01:35 01:50 Pulse 122 118 118 B/P (MAP) 91/61 (71) 104/58 (73) 106/66 (79) Pulse Ox 98 O2 Delivery BiPAP/CPAP 04/12/21 04/12/21 04/12/21 04/12/21 02:05 02:20 02:35 02:43 Pulse 120 114 114 116 B/P (MAP) 112/69 (83) 114/67 (83) 94/62 (73) 115/66 (82) 04/12/21 04/12/21 04/12/21 04/12/21 02:50 03:05 03:10 03:15 Temp 96.2 96.2 Pulse 116 126 115 Resp 20 B/P (MAP) 78/55 (63) 136/87 (103) 115/66 (82) Pulse Ox 94 95 O2 Delivery BiPAP/CPAP BiPAP/CPAP 04/12/21 04/12/21 04/12/21 04/12/21 03:35 03:35 03:50 04:05 Pulse 128 122 108 108 B/P (MAP) 185/100 (128) 81/53 (62) 74/45 (55) 169/97 (121) 04/12/21 04/12/21 04/12/21 04/12/21 04:20 05:18 06:28 08:40 Temp 97.7 97.7 Pulse 108 119 Resp 18 B/P (MAP) 164/103 (123) 104/66 (79) Pulse Ox 95 97 95 O2 Delivery BiPAP/CPAP BiPAP/CPAP BiPAP/CPAP 04/12/21 10:10 Pulse 83 B/P (MAP) 110/73 Intake and Output 04/11/21 04/11/21 04/12/21 15:00 23:00 07:00 Output Total 350 ml Balance -350 ml Justicifation of Admission Dx: Justifications for Admission: Justification of Admission Dx: Yes OG BRUNSON MD Apr 12, 2021 10:14
[2021-04-12] MEDS: FUROSEMIDE 40 MG/4 ML VIAL. IVP SCH ×2 (11:00→17:50)
--- NOTE | 2021-04-12 11:51 | PDOC ---
Renal-Progress Notes Subjective Notes Notes REMAINS CONFUSED History of Present Illness Hx of present illness STILL ON BIPAP Vitals Vitals Vital Signs Date Time Temp Pulse Resp B/P (MAP) Pulse Ox O2 Delivery O2 Flow Rate FiO2 04/12/21 11:03 96.6 106 24 108/61 (77) 89 BiPAP/CPAP 96.6 Weight Weight [ ] I.O. Intake and Output Intake and Output 04/12/21 07:00 Output Total 350 ml Balance -350 ml Output Urine Total 350 ml Labs Labs Laboratory Tests Test 04/11/21 23:00 04/12/21 04:00 O2 Saturation 95 % (92-99) Arterial Blood pH 7.41 (7.35-7.45) Arterial Blood pCO2 at Patient Temp 37 mmHg (35-46) Arterial Blood pO2 at Patient Temp 79 mmHg (65-108) Arterial Blood HCO3 23 mmol/L (21-28) Arterial Blood Base Excess -2 mmol/L (-3-3) FiO2 35 White Blood Count 15.7 x10^3/uL (4.0-11.0) Red Blood Count 4.60 x10^6/uL (4.30-5.70) Hemoglobin 16.6 g/dL (13.0-17.5) Hematocrit 49.5 % (39.0-53.0) Mean Corpuscular Volume 108 fL (79-100) Mean Corpuscular Hemoglobin 36 pg (25-35) Mean Corpuscular Hemoglobin Concent 34 g/dL (31-37) Red Cell Distribution Width 16.8 % (11.5-14.5) Platelet Count 144 x10^3/uL (140-400) Sodium Level 137 mmol/L (136-145) Potassium Level 5.5 mmol/L (3.5-5.1) Chloride Level 100 mmol/L (98-107) Carbon Dioxide Level 25 mmol/L (21-32) Anion Gap 12 (6-14) Blood Urea Nitrogen 75 mg/dL (8-26) Creatinine 4.8 mg/dL (0.7-1.3) Estimated GFR (Cockcroft-Gault) 15.0 Glucose Level 137 mg/dL (70-99) Calcium Level 9.5 mg/dL (8.5-10.1) Review of Systems Constitutional: yes: other (UNABLE TO OBTAIN, CONFUSED) Physical Exam General Appearance: moderate distress, cachetic Skin: warm Respiratory: decreased breath sounds, BiPAP/NIPPV, dyspnea Abdomen: soft, bowel sounds present, no guarding Genitourinary: bladder flat Extremities: pulses present Neurology: confused, other (confused) Assessment Assessment IMP HYPERKALEMIA-BETTER CKD STAGE 3B - CR OF ABOUT 2.0 OSORIO-CARDIORENAL WITH WORSENING CLEARANCE AND ANURIA AFIB RVT NSTEMI ACUTE ON CHRONIC SYSTOLIC AND DIASTOLIC CHF CM WITH EF OF 20% 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
--- NOTE | 2021-04-12 12:11 | NUR ---
SS following up with discharge planning. SS reviewed pt chart and discussed with pt RN. Pt is currently on the BIPAP at 40%. COVID19 negative. Pt on Amiodarone and Dopamine drip. Pt on IV Lasix. Pt accepted at [facility], ; fax [phone], pending insurance approval. SS discussed with Chase at [facility]. Insurance authorization pending at this time. SS will continue to follow for discharge planning.
[2021-04-12] MEDS ORDERED: METOPROLOL IV PUSH 5 MG/5 ML VIAL. IVP PRN (13:15)
[2021-04-12] MEDS ORDERED: HEPARIN for IV BOLUS 10,000 UNIT/10 ML VIAL. IV PRN (13:15)
--- NOTE | 2021-04-12 13:16 | PDOC ---
CARDIO Progress Notes Date and Time Date of Service 04/12/2021 Time of Evaluation 1245 Vitals Vitals Vital Signs Date Time Temp Pulse Resp B/P (MAP) Pulse Ox O2 Delivery O2 Flow Rate FiO2 04/12/21 12:33 96 BiPAP/CPAP 04/12/21 11:03 96.6 106 24 108/61 (77) 96.6 Weight Weight [ ] Input and Output Intake and Output Intake and Output 04/12/21 07:00 Output Total 350 ml Balance -350 ml Output Urine Total 350 ml Laboratory Labs Laboratory Tests Test 04/11/21 23:00 04/12/21 04:00 O2 Saturation 95 % (92-99) Arterial Blood pH 7.41 (7.35-7.45) Arterial Blood pCO2 at Patient Temp 37 mmHg (35-46) Arterial Blood pO2 at Patient Temp 79 mmHg (65-108) Arterial Blood HCO3 23 mmol/L (21-28) Arterial Blood Base Excess -2 mmol/L (-3-3) FiO2 35 White Blood Count 15.7 x10^3/uL (4.0-11.0) Red Blood Count 4.60 x10^6/uL (4.30-5.70) Hemoglobin 16.6 g/dL (13.0-17.5) Hematocrit 49.5 % (39.0-53.0) Mean Corpuscular Volume 108 fL (79-100) Mean Corpuscular Hemoglobin 36 pg (25-35) Mean Corpuscular Hemoglobin Concent 34 g/dL (31-37) Red Cell Distribution Width 16.8 % (11.5-14.5) Platelet Count 144 x10^3/uL (140-400) Sodium Level 137 mmol/L (136-145) Potassium Level 5.5 mmol/L (3.5-5.1) Chloride Level 100 mmol/L (98-107) Carbon Dioxide Level 25 mmol/L (21-32) Anion Gap 12 (6-14) Blood Urea Nitrogen 75 mg/dL (8-26) Creatinine 4.8 mg/dL (0.7-1.3) Estimated GFR (Cockcroft-Gault) 15.0 Glucose Level 137 mg/dL (70-99) Calcium Level 9.5 mg/dL (8.5-10.1) Review of Systems Constitutional: yes: other (UNABLE TO OBTAIN, CONFUSED) Physical Exam HEENT: Neck Supple W Full Motion Chest: Symmetric LUNGS: Other (diminished, bipap) Heart: irregularly irregular (AFIB RVR) Abdomen: Other (protuberant) Extremities: Other (RLE 3+ pitting edema) Neurology: confused, other (restless) Assessment Assessment 1. Acute on chronic diastolic/systolic CHF 2. Cocaine/marijuana abuse: last use 3 days ago 3. NICM: last known EF at 20% 4. AFIB RVR: appears to be chronic. remains in RVR 5. NSTEMI: type 2, demand mediated with culprits above 6. Hx of VENKATA thrombus and ASD closure 7. OSORIO on CKD3 and hx of right renal mass. Nephrology following 8. Hyperkalemia: K better 9. Hx of noncompliance: has been skipping meds. 10. Acute respiratory failure with CHF/COPD and possible pneumonitis likely from cocaine inhalation. Pulmonary following 11. AECOPD 12. Metabolic encephalopathy; restless Recommendations. 1. DC dopamine, would not tolerate this with RVR. If BP is adequate then start on metoprolol IV for rate control. Continue amiodarone for rate control. DC lovenox and start on heparin drip. QOD digoxin on dialysis days 2. Fluid off loading per HD. Lasix therapy 3. Poor prognosis 4. He has a follow up with [facility] as scheduled on 04/18 @ 1300 but does have poor compliance 5. Antibiotic per PCP 6. Continue bipap Justicifation of Admission Dx: Justifications for Admission: Justification of Admission Dx: Yes HEENA MCKEON [employer] Apr 12, 2021 13:16
[2021-04-12] MEDS: METOPROLOL IV PUSH 5 MG/5 ML VIAL. IVP SCH ×2 (14:26→17:54)
[2021-04-12] MEDS: HEPARIN 25,000UTS/250ML PREMIX 250 ML IV PRN (14:40)
--- NOTE | 2021-04-12 16:15 | NUR ---
BP 70-80/47-58. Monitor showing afib with ventricular response 60-80's. Radial pulses 2+. Ativan 2mg admin at 1504 for restlessness. Now resting calmly. Karen Espinosa APRN notified. No intervention ordered. Continue to monitor.
[2021-04-12 16:46] LABS: BASE EXCESS ABG -1 mmol/L (-3-3); HCO3 ABG 21 mmol/L (21-28); PCO2 ABG 30 mmHg (35-46); PO2 ABG 79 mmHg (65-108); SAT O2 ABG 96 % (92-99)
[2021-04-12 16:49] LABS: FIO2 ABG 40% BIPAP
--- NOTE | 2021-04-12 23:44 | NUR ---
IV infiltration, Amiodarone. Contacted pharmacy, per pharmacy stop IV, elevate, and apply cold or warm compress. Notified Dr. Juan. no orders recieved. Photo taken and placed in chart, Will continue to monitor.
[2021-04-13] VITALS (16 sets, daily range): BP systolic 65–129; BP diastolic 44–85
[2021-04-13] MEDS: AMIODARONE 450 MG in IV DEXTROSE 5% 250 ML IV PRN ×2 (00:06→16:02)
[2021-04-13] MEDS: FUROSEMIDE 40 MG/4 ML VIAL. IVP SCH ×2 (06:00→18:00)
[2021-04-13] MEDS: METOPROLOL IV PUSH 5 MG/5 ML VIAL. IVP SCH ×4 (06:00→18:00)
[2021-04-13] MEDS ORDERED: IV NORMAL SALINE 1000ML BAG 1,000 ML IV PRN ×2 (07:30)
[2021-04-13] MEDS: TAMSULOSIN 0.4 MG CAP.ER.24H. PO SCH (07:35)
[2021-04-13] MEDS: IPRATRPIUM/ALBUTEROL 0.5/2.5MG 3 ML NEBU. NEB SCH ×4 (07:39→20:56)
[2021-04-13 07:49] LABS: BASO % 0 % (0-3); EOS % 0 % (0-3); HEMOGLOBIN 16.2 g/dL (13.0-17.5); LYMPH # 1.6 x10^3/uL (1.0-4.8); LYMPH % 9 % (24-48); MEAN CORPUSCULAR HEMOGLOBIN 37 pg (25-35); MEAN CORPUSCULAR HGB CONC 34 g/dL (31-37); MEAN CORPUSCULAR VOLUME 109 fL (79-100); MONO # 2.4 x10^3/uL (0.0-1.1); MONO % 13 % (0-9); NEUT # 13.7 x10^3/uL (1.8-7.7); NEUT % 78 % (31-73); PLATELET COUNT 166 x10^3/uL (140-400); RED BLOOD COUNT 4.41 x10^6/uL (4.30-5.70); RED CELL DISTRIBUTION WIDTH 16.7 % (11.5-14.5); WHITE BLOOD COUNT 17.6 x10^3/uL (4.0-11.0)
[2021-04-13 08:21] LABS: CALCIUM 9.5 mg/dL (8.5-10.1); CREATININE 4.5 mg/dL (0.7-1.3); GFR 16.2; PHOSPHORUS 5.7 mg/dL (2.6-4.7); POTASSIUM 5.4 mmol/L (3.5-5.1)
--- NOTE | 2021-04-13 09:34 | PDOC ---
PROGRESS NOTES Date of Service: DATE: 04/13/21 TIME: 09:29 Chief Complaint Chief Complaint CHF exacerbation Afib Rvr Hypokalemia History of Present Illness History of Present Illness 04/10/2021 Pt seen and examined at bedside Patient got his temporary dialysis catheter yesterday its in the right IJ Patient's brother [place] is now here Pt went for dialysis today Pt has hypoxic encephalitis Pt has a Bipap Pt is on 60% FiO2 with 99% Sat Pt has Mits on for safety D/W RN Chart reviewed 04/09/2021 Pt seen and examined at bedside D/W nephrology to do emergent dialysis. We tried to get ahold of a family member but could not find a working phone number. We deemed the temporary cath for dialysis necessary for pt care and treatment. It is in the pts best interest to get dialysis today. Pt has hypoxic encephalitis Pt is very agitated D/W RN Chart reviewed 04/08/2021 Pt seen and examined Pt was very agitated and encephalopathic Pt has Folley to BSD Pt has mits on hands for safety Pt has edema D/W RN Chart reviewed The patient is a pleasant 61-year-old male who presented with shortness of breath. While in the ER, we had noticed that he is quite hypoxic, we have him on a lot of oxygen. His potassium is also high at 6. He also has azotemia with a BUN of 35 and a creatinine of 2. Hemoglobin is high at 17.7. Surprisingly, his COVID testing is negative, but his chest x-ray does show cardiomegaly and pulmonary hypertension, infiltrates and possible emphysema. We are admitting the patient with consultation to Cardiology and Nephrology. 04/11/2021 seen and examined at bedside temporary dialysis catheter 8-14 its in the right IJ hypoxic encephalopathy Pt has a Bipap Pt is on 60% FiO2 with 99% Sat Mits on for safety D/W RN Chart reviewed 04/12/2021 seen and examined at bedside temporary dialysis catheter 8-14 its in the right IJ hypoxic encephalopathy Pt has a Bipap Pt is on 60% FiO2 with 99% Sat Mits on for safety D/W RN Chart reviewed pt. remains on BIPAP at 40% on Dopamine and Amio gtt no improvement in mentation 04/13/2021 seen and examined at bedside temporary dialysis catheter 8-14 its in the right IJ hypoxic encephalopathy on Bipap 8 L nasal cannula. Mits on for safety D/W RN Chart reviewed pt. remains on BIPAP at 40% on Dopamine and Amio gtt no improvement in mentation plan SELECT ADMIT pending insurance D/W SS Vitals Vitals Vital Signs Date Time Temp Pulse Resp B/P (MAP) Pulse Ox O2 Delivery O2 Flow Rate FiO2 04/13/21 07:39 97 BiPAP/CPAP 04/13/21 06:50 97 95/75 (82) 04/13/21 06:09 98.3 24 98.3 04/12/21 08:00 15.0 Physical Exam General: Other (Continues to be agitated.) Heart: Other (Irregular rhythm) Lungs: Other (Decreased breath sounds) Abdomen: Normal bowel sounds Extremities: No clubbing, Other (2+ LE EDEMA) Skin: No significant lesion Labs LABS Laboratory Tests Test 04/12/21 16:41 04/12/21 20:40 04/13/21 06:10 04/13/21 08:38 O2 Saturation 96 % (92-99) Arterial Blood pH 7.47 (7.35-7.45) Arterial Blood pCO2 at Patient Temp 30 mmHg (35-46) Arterial Blood pO2 at Patient Temp 79 mmHg (65-108) Arterial Blood HCO3 21 mmol/L (21-28) Arterial Blood Base Excess -1 mmol/L (-3-3) FiO2 40% bipap Heparin Anti-Xa Act, Unfractionated 0.71 IU/mL (0.30-0.70) 0.87 IU/mL (0.30-0.70) White Blood Count 17.6 x10^3/uL (4.0-11.0) Red Blood Count 4.41 x10^6/uL (4.30-5.70) Hemoglobin 16.2 g/dL (13.0-17.5) Hematocrit 48.0 % (39.0-53.0) Mean Corpuscular Volume 109 fL (79-100) Mean Corpuscular Hemoglobin 37 pg (25-35) Mean Corpuscular Hemoglobin Concent 34 g/dL (31-37) Red Cell Distribution Width 16.7 % (11.5-14.5) Platelet Count 166 x10^3/uL (140-400) Neutrophils (%) (Auto) 78 % (31-73) Lymphocytes (%) (Auto) 9 % (24-48) Monocytes (%) (Auto) 13 % (0-9) Eosinophils (%) (Auto) 0 % (0-3) Basophils (%) (Auto) 0 % (0-3) Neutrophils # (Auto) 13.7 x10^3/uL (1.8-7.7) Lymphocytes # (Auto) 1.6 x10^3/uL (1.0-4.8) Monocytes # (Auto) 2.4 x10^3/uL (0.0-1.1) Eosinophils # (Auto) 0.0 x10^3/uL (0.0-0.7) Basophils # (Auto) 0.0 x10^3/uL (0.0-0.2) Sodium Level 139 mmol/L (136-145) Potassium Level 5.4 mmol/L (3.5-5.1) Chloride Level 101 mmol/L (98-107) Carbon Dioxide Level 25 mmol/L (21-32) Anion Gap 13 (6-14) Blood Urea Nitrogen 95 mg/dL (8-26) Creatinine 4.5 mg/dL (0.7-1.3) Estimated GFR (Cockcroft-Gault) 16.2 Glucose Level 121 mg/dL (70-99) Calcium Level 9.5 mg/dL (8.5-10.1) Phosphorus Level 5.7 mg/dL (2.6-4.7) Albumin 2.0 g/dL (3.4-5.0) Assessment and Plan Assessmemt and Plan Problems Medical Problems: (1) Atrial fibrillation with RVR Status: Acute (2) CHF (congestive heart failure) Status: Acute (3) Chronic renal insufficiency Status: Acute (4) Cocaine use Status: Acute (5) Elevated troponin Status: Acute (6) Hyperkalemia Status: Acute Comment Review of Relevant I have reviewed the following items vesna (where applicable) has been applied. Labs Laboratory Tests Test 04/11/21 23:00 04/12/21 04:00 04/12/21 16:41 04/12/21 20:40 O2 Saturation 95 % (92-99) 96 % (92-99) Arterial Blood pH 7.41 (7.35-7.45) 7.47 (7.35-7.45) Arterial Blood pCO2 at Patient Temp 37 mmHg (35-46) 30 mmHg (35-46) Arterial Blood pO2 at Patient Temp 79 mmHg (65-108) 79 mmHg (65-108) Arterial Blood HCO3 23 mmol/L (21-28) 21 mmol/L (21-28) Arterial Blood Base Excess -2 mmol/L (-3-3) -1 mmol/L (-3-3) FiO2 35 40% bipap White Blood Count 15.7 x10^3/uL (4.0-11.0) Red Blood Count 4.60 x10^6/uL (4.30-5.70) Hemoglobin 16.6 g/dL (13.0-17.5) Hematocrit 49.5 % (39.0-53.0) Mean Corpuscular Volume 108 fL (79-100) Mean Corpuscular Hemoglobin 36 pg (25-35) Mean Corpuscular Hemoglobin Concent 34 g/dL (31-37) Red Cell Distribution Width 16.8 % (11.5-14.5) Platelet Count 144 x10^3/uL (140-400) Sodium Level 137 mmol/L (136-145) Potassium Level 5.5 mmol/L (3.5-5.1) Chloride Level 100 mmol/L (98-107) Carbon Dioxide Level 25 mmol/L (21-32) Anion Gap 12 (6-14) Blood Urea Nitrogen 75 mg/dL (8-26) Creatinine 4.8 mg/dL (0.7-1.3) Estimated GFR (Cockcroft-Gault) 15.0 Glucose Level 137 mg/dL (70-99) Calcium Level 9.5 mg/dL (8.5-10.1) Heparin Anti-Xa Act, Unfractionated 0.71 IU/mL (0.30-0.70) Test 04/13/21 06:10 04/13/21 08:38 White Blood Count 17.6 x10^3/uL (4.0-11.0) Red Blood Count 4.41 x10^6/uL (4.30-5.70) Hemoglobin 16.2 g/dL (13.0-17.5) Hematocrit 48.0 % (39.0-53.0) Mean Corpuscular Volume 109 fL (79-100) Mean Corpuscular Hemoglobin 37 pg (25-35) Mean Corpuscular Hemoglobin Concent 34 g/dL (31-37) Red Cell Distribution Width 16.7 % (11.5-14.5) Platelet Count 166 x10^3/uL (140-400) Neutrophils (%) (Auto) 78 % (31-73) Lymphocytes (%) (Auto) 9 % (24-48) Monocytes (%) (Auto) 13 % (0-9) Eosinophils (%) (Auto) 0 % (0-3) Basophils (%) (Auto) 0 % (0-3) Neutrophils # (Auto) 13.7 x10^3/uL (1.8-7.7) Lymphocytes # (Auto) 1.6 x10^3/uL (1.0-4.8) Monocytes # (Auto) 2.4 x10^3/uL (0.0-1.1) Eosinophils # (Auto) 0.0 x10^3/uL (0.0-0.7) Basophils # (Auto) 0.0 x10^3/uL (0.0-0.2) Sodium Level 139 mmol/L (136-145) Potassium Level 5.4 mmol/L (3.5-5.1) Chloride Level 101 mmol/L (98-107) Carbon Dioxide Level 25 mmol/L (21-32) Anion Gap 13 (6-14) Blood Urea Nitrogen 95 mg/dL (8-26) Creatinine 4.5 mg/dL (0.7-1.3) Estimated GFR (Cockcroft-Gault) 16.2 Glucose Level 121 mg/dL (70-99) Calcium Level 9.5 mg/dL (8.5-10.1) Phosphorus Level 5.7 mg/dL (2.6-4.7) Albumin 2.0 g/dL (3.4-5.0) Heparin Anti-Xa Act, Unfractionated 0.87 IU/mL (0.30-0.70) Laboratory Tests Test 04/12/21 16:41 04/12/21 20:40 04/13/21 06:10 04/13/21 08:38 O2 Saturation 96 % (92-99) Arterial Blood pH 7.47 (7.35-7.45) Arterial Blood pCO2 at Patient Temp 30 mmHg (35-46) Arterial Blood pO2 at Patient Temp 79 mmHg (65-108) Arterial Blood HCO3 21 mmol/L (21-28) Arterial Blood Base Excess -1 mmol/L (-3-3) FiO2 40% bipap Heparin Anti-Xa Act, Unfractionated 0.71 IU/mL (0.30-0.70) 0.87 IU/mL (0.30-0.70) White Blood Count 17.6 x10^3/uL (4.0-11.0) Red Blood Count 4.41 x10^6/uL (4.30-5.70) Hemoglobin 16.2 g/dL (13.0-17.5) Hematocrit 48.0 % (39.0-53.0) Mean Corpuscular Volume 109 fL (79-100) Mean Corpuscular Hemoglobin 37 pg (25-35) Mean Corpuscular Hemoglobin Concent 34 g/dL (31-37) Red Cell Distribution Width 16.7 % (11.5-14.5) Platelet Count 166 x10^3/uL (140-400) Neutrophils (%) (Auto) 78 % (31-73) Lymphocytes (%) (Auto) 9 % (24-48) Monocytes (%) (Auto) 13 % (0-9) Eosinophils (%) (Auto) 0 % (0-3) Basophils (%) (Auto) 0 % (0-3) Neutrophils # (Auto) 13.7 x10^3/uL (1.8-7.7) Lymphocytes # (Auto) 1.6 x10^3/uL (1.0-4.8) Monocytes # (Auto) 2.4 x10^3/uL (0.0-1.1) Eosinophils # (Auto) 0.0 x10^3/uL (0.0-0.7) Basophils # (Auto) 0.0 x10^3/uL (0.0-0.2) Sodium Level 139 mmol/L (136-145) Potassium Level 5.4 mmol/L (3.5-5.1) Chloride Level 101 mmol/L (98-107) Carbon Dioxide Level 25 mmol/L (21-32) Anion Gap 13 (6-14) Blood Urea Nitrogen 95 mg/dL (8-26) Creatinine 4.5 mg/dL (0.7-1.3) Estimated GFR (Cockcroft-Gault) 16.2 Glucose Level 121 mg/dL (70-99) Calcium Level 9.5 mg/dL (8.5-10.1) Phosphorus Level 5.7 mg/dL (2.6-4.7) Albumin 2.0 g/dL (3.4-5.0) Medications Current Medications Albuterol/ Ipratropium (Duoneb) 3 ml 1X ONCE NEB Last administered on 04/07/21at 09:19; Start 04/07/21 at 09:15; Stop 04/07/21 at 09:16; Status DC Dexamethasone Sodium Phosphate (Decadron) 10 mg 1X ONCE IVP Last administered on 04/07/21at 09:19; Start 04/07/21 at 09:15; Stop 04/07/21 at 09:16; Status DC Aspirin (Ecotrin) 325 mg 1X ONCE PO Last administered on 04/07/21at 09:18; Start 04/07/21 at 09:15; Stop 04/07/21 at 09:16; Status DC Diltiazem HCl (Cardizem Iv Push) 20 mg 1X ONCE IVP Last administered on 04/07/21at 09:33; Start 04/07/21 at 09:45; Stop 04/07/21 at 09:46; Status DC Diltiazem HCl 125 mg/Sodium Chloride 125 ml @ 5 mls/hr CONT PRN IV SEE I/O RECORD Last administered on 04/07/21at 09:34; Start 04/07/21 at 09:30; Stop 04/07/21 at 14:58; Status DC Bumetanide (Bumex) 1 mg DAILY ONCE IV Last administered on 04/07/21at 11:09; Start 04/07/21 at 10:44; Stop 04/07/21 at 10:45; Status DC Calcium Gluconate (Calcium Gluconate) 1,000 mg 1X ONCE IVP Last administered on 04/07/21at 12:14; Start 04/07/21 at 11:15; Stop 04/07/21 at 11:16; Status DC Insulin Human Regular (HumuLIN R VIAL) 10 unit 1X ONCE IV Last administered on 04/07/21at 12:19; Start 04/07/21 at 11:15; Stop 04/07/21 at 11:16; Status DC Dextrose (Dextrose 50%-Water Syringe) 25 gm 1X ONCE IV Last administered on 04/07/21at 12:12; Start 04/07/21 at 11:15; Stop 04/07/21 at 11:16; Status DC Ondansetron HCl (Zofran) 4 mg PRN Q8HRS PRN IVP NAUSEA/VOMITING; Start 04/07/21 at 12:30; Stop 04/08/21 at 12:29; Status DC Piperacillin Sod/ Tazobactam Sod (Zosyn Per Pharmacy) 1 each PRN DAILY PRN MC SEE COMMENTS; Start 04/07/21 at 12:45; Stop 04/08/21 at 13:50; Status DC Piperacillin Sod/ Tazobactam Sod 3.375 gm/Sodium Chloride 50 ml @ 100 mls/hr 1X ONCE IV Last administered on 04/07/21at 14:30; Start 04/07/21 at 13:00; Stop 04/07/21 at 13:29; Status DC Piperacillin Sod/ Tazobactam Sod 3.375 gm/Sodium Chloride 50 ml @ 100 mls/hr Q6HRS IV Last administered on 04/08/21at 12:41; Start 04/07/21 at 18:00; Stop 04/08/21 at 13:50; Status DC Carvedilol (Coreg) 3.125 mg BIDWMEALS PO ; Start 04/07/21 at 17:00; Stop 04/07/21 at 15:07; Status DC Carvedilol (Coreg) 6.25 mg BIDWMEALS PO Last administered on 04/07/21at 15:52; Start 04/07/21 at 17:00; Stop 04/08/21 at 14:18; Status DC Apixaban (Eliquis) 5 mg BID PO Last administered on 04/07/21at 20:20; Start 04/07/21 at 21:00; Stop 04/08/21 at 14:18; Status DC Furosemide (Lasix) 40 mg [id number] IVP Last administered on 04/12/21at 11:00; Start 04/07/21 at 18:00 Info (Anti-Coagulation Monitoring By Pharmacy) 1 each PRN DAILY PRN MC PER PROTOCOL; Start 04/07/21 at 15:15 Methylprednisolone Sodium Succinate (SOLU-Medrol 125MG VIAL) 125 mg 1X ONCE IV Last administered on 04/07/21at 15:59; Start 04/07/21 at 15:45; Stop 04/07/21 at 15:46; Status DC Albuterol Sulfate (Ventolin Neb Soln) 2.5 mg 1X ONCE NEB Last administered on 04/07/21at 16:54; Start 04/07/21 at 15:45; Stop 04/07/21 at 15:46; Status DC Digoxin (Lanoxin) 250 mcg 1X ONCE IV Last administered on 04/07/21at 16:16; Start 04/07/21 at 16:15; Stop 04/07/21 at 16:16; Status DC Tamsulosin HCl (Flomax) 0.4 mg DAILY PO ; Start 04/08/21 at 09:00 Acetaminophen (Tylenol) 500 mg PRN Q6HRS PRN PO MILD PAIN / TEMP > 100.3'F; Start 04/07/21 at 21:00 Albuterol/ Ipratropium (Duoneb) 3 ml 1X ONCE NEB ; Start 04/07/21 at 21:00; Stop 04/07/21 at 21:01; Status DC Hydralazine HCl (Apresoline Inj) 10 mg PRN Q4HRS PRN IVP ELEVATED BP, SEE COMMENTS Last administered on 04/08/21at 03:19; Start 04/07/21 at 21:00 Oxycodone/ Acetaminophen (Percocet 5/325) 1 tab 1X ONCE PO Last administered on 04/07/21at 21:17; Start 04/07/21 at 21:30; Stop 04/07/21 at 21:31; Status DC Albuterol/ Ipratropium (Duoneb) 3 ml RTQID NEB ; Start 04/07/21 at 21:30; Status Cancel Furosemide (Lasix) 40 mg 1X ONCE IVP Last administered on 04/07/21at 21:42; Start 04/07/21 at 22:00; Stop 04/07/21 at 22:01; Status DC Morphine Sulfate (Morphine Sulfate) 2 mg PRN Q2HR PRN IVP SEVERE PAIN 7-10 Last administered on 04/08/21at 22:44; Start 04/07/21 at 21:30; Stop 04/09/21 at 19:08; Status DC Albuterol/ Ipratropium (Combivent Respimat 20-100 Mcg) 1 puff RTQID INH Last administered on 04/08/21at 17:17; Start 04/08/21 at 08:00; Stop 04/11/21 at 08:10; Status DC Carvedilol (Coreg) 6.25 mg 1X ONCE PO Last administered on 04/08/21at 04:20; Start 04/08/21 at 04:30; Stop 04/08/21 at 04:31; Status DC Alprazolam (Xanax) 0.25 mg 1X ONCE PO Last administered on 04/08/21at 04:20; Start 04/08/21 at 04:30; Stop 04/08/21 at 04:31; Status DC Furosemide (Lasix) 40 mg 1X ONCE IVP Last administered on 04/08/21at 05:42; Start 04/08/21 at 06:00; Stop 04/08/21 at 06:01; Status DC Digoxin (Lanoxin) 250 mcg 1X ONCE IV Last administered on 04/08/21at 06:49; Start 04/08/21 at 07:00; Stop 04/08/21 at 07:01; Status DC Digoxin (Lanoxin) 250 mcg DAILY IV Last administered on 04/12/21at 10:10; Start 04/08/21 at 07:15; Stop 04/12/21 at 13:12; Status DC Metoprolol Tartrate (Lopressor Vial) 5 mg 1X ONCE IVP Last administered on 04/08/21at 08:56; Start 04/08/21 at 08:15; Stop 04/08/21 at 08:17; Status DC Lorazepam (Ativan Inj) 2 mg PRN Q4HRS PRN IVP ANXIETY / AGITATION Last administered on 04/09/21at 16:16; Start 04/08/21 at 10:15; Stop 04/09/21 at 19:08; Status DC Furosemide (Lasix) 40 mg 1X ONCE IVP Last administered on 04/08/21at 12:43; Start 04/08/21 at 10:45; Stop 04/08/21 at 10:47; Status DC Amiodarone HCl 150 mg/Dextrose 103 ml @ 600 mls/hr 1X ONCE IV Last administered on 04/08/21at 14:43; Start 04/08/21 at 14:30; Stop 04/08/21 at 14:40; Status DC Amiodarone HCl 450 mg/Dextrose 259 ml @ 0 mls/hr CONT PRN IV SEE I/O RECORD Last administered on 04/09/21at 00:16; Start 04/08/21 at 14:30; Stop 04/09/21 at 14:29; Status DC Metoprolol Tartrate (Lopressor Vial) 5 mg Q6HRS IVP Last administered on 04/10/21at 05:46; Start 04/08/21 at 18:00; Stop 04/10/21 at 11:44; Status DC Enoxaparin Sodium (Lovenox Per Pharmacy Treatment Dosing) 1 each PRN DAILY PRN MC SEE COMMENTS; Start 04/08/21 at 14:30; Stop 04/12/21 at 08:26; Status DC Enoxaparin Sodium (Lovenox 100mg Syringe) 90 mg Q24H SQ Last administered on 04/10/21at 16:17; Start 04/08/21 at 16:00; Stop 04/12/21 at 08:26; Status DC Amiodarone HCl 450 mg/Dextrose 259 ml @ 0 mls/hr CONT PRN IV SEE I/O RECORD Last administered on 04/13/21at 00:06; Start 04/09/21 at 17:30 Lorazepam (Ativan Inj) 2 mg PRN Q2HRS PRN IVP ANXIETY / AGITATION Last administered on 04/12/21at 15:04; Start 04/09/21 at 19:15 Morphine Sulfate (Morphine Sulfate) 4 mg PRN Q2HR PRN IVP SEVERE PAIN 7-10; Start 04/09/21 at 19:30; Stop 04/09/21 at 19:22; Status DC Lidocaine HCl (Buffered Lidocaine 1%) 3 ml STK-MED ONCE .ROUTE ; Start 04/10/21 at 09:36; Stop 04/10/21 at 09:36; Status DC Heparin Sodium (Porcine) (Hep Lock Adult) 500 unit STK-MED ONCE IVP ; Start 04/10/21 at 09:39; Stop 04/10/21 at 09:39; Status DC Heparin Sodium (Porcine) (Heparin Sodium) 10,000 unit STK-MED ONCE .ROUTE ; Start 04/10/21 at 09:41; Stop 04/10/21 at 09:41; Status DC Lidocaine HCl (Buffered Lidocaine 1%) 3 ml 1X ONCE IJ Last administered on 04/10/21at 10:13; Start 04/10/21 at 10:00; Stop 04/10/21 at 10:03; Status DC Sodium Chloride 1,000 ml @ 1,000 mls/hr Q1H PRN IV hypotension; Start 04/10/21 at 11:15; Stop 04/10/21 at 17:14; Status DC Albumin Human 200 ml @ 200 mls/hr 1X PRN PRN IV Hypotension Last administered on 04/10/21at 13:00; Start 04/10/21 at 11:15; Stop 04/10/21 at 17:14; Status DC Sodium Chloride 1,000 ml @ 400 mls/hr Q2H30M PRN IV PATENCY; Start 04/10/21 at 11:15; Stop 04/10/21 at 23:14; Status DC Info (PHARMACY MONITORING -- do not chart) 1 each PRN DAILY PRN MC SEE COMMENTS; Start 04/10/21 at 12:15; Status UNV Info (PHARMACY MONITORING -- do not chart) 1 each PRN DAILY PRN MC SEE MAMI TS; Start 04/10/21 at 12:15 Albuterol/ Ipratropium (Duoneb) 3 ml RTQID NEB Last administered on 04/13/21at 07:39; Start 04/11/21 at 12:00 Heparin Sodium (Porcine) (Heparin Sodium) 2,000 unit 1X ONCE IV Last administered on 04/11/21at 08:30; Start 04/11/21 at 08:30; Stop 04/11/21 at 08:37; Status DC Sodium Chloride 1,000 ml @ 1,000 mls/hr Q1H PRN IV hypotension; Start 04/11/21 at 08:30; Stop 04/11/21 at 14:29; Status DC Sodium Chloride 1,000 ml @ 400 mls/hr Q2H30M PRN IV PATENCY; Start 04/11/21 at 08:30; Stop 04/11/21 at 20:29; Status DC Info (PHARMACY MONITORING -- do not chart) 1 each PRN DAILY PRN MC SEE COMMENTS; Start 04/11/21 at 08:30; Status Cancel Sodium Chloride 500 ml @ 500 mls/hr 1X ONCE IV Last administered on 04/11/21at 22:40; Start 04/11/21 at 23:00; Stop 04/11/21 at 23:59; Status DC Dopamine HCl/ Dextrose 250 ml @ 16.744 mls/ hr CONT PRN IV SEE I/O RECORD Last administered on 04/12/21at 00:08; Start 04/11/21 at 23:45; Stop 04/12/21 at 14:50; Status DC Digoxin (Lanoxin) 250 mcg QMWF IV ; Start 04/15/21 at 16:00 Heparin Sodium/ Dextrose 250 ml @ 0 mls/hr CONT PRN IV PER PROTOCOL Last administered on 04/12/21at 14:40; Start 04/12/21 at 13:15 Heparin Sodium (Porcine) (Heparin Sodium) 2,250 unit PRN Q6HRS PRN IV FOR UFH LEVEL LESS THAN 0.2 Last administered on 04/12/21at 14:30; Start 04/12/21 at 13:15 Metoprolol Tartrate (Lopressor Vial) 5 mg PRN Q6HRS PRN IVP HYPERTENSION; Start 04/12/21 at 13:15 Metoprolol Tartrate (Lopressor Vial) 5 mg Q6HRS IVP Last administered on 04/12/21at 14:26; Start 04/12/21 at 13:30 Active Scripts Active Reported Aspirin 81 Mg Tab.chew 81 Mg PO DAILY Eliquis (Apixaban) 5 Mg Tablet 5 Mg PO BID Lasix (Furosemide) 20 Mg Tablet 20 Mg PO DAILY Spironolactone 25 Mg Tablet 25 Mg PO DAILY Coreg (Carvedilol) 25 Mg Tablet 25 Mg PO BIDWMEALS Flomax (Tamsulosin Hcl) 0.4 Mg Cap.er.24h 0.4 Mg PO DAILY Vitals/I & O Vital Sign - Last 24 Hours 04/12/21 04/12/21 04/12/21 04/12/21 10:10 11:03 12:33 14:26 Temp 96.6 96.6 Pulse 83 106 107 Resp 24 B/P (MAP) 110/73 108/61 (77) 106/60 Pulse Ox 89 96 O2 Delivery BiPAP/CPAP BiPAP/CPAP 8/17/04/12/21 04/12/21 04/12/21 15:45 16:20 17:54 19:38 Temp 97.5 98.2 97.5 98.2 Pulse 78 74 78 Resp 24 24 B/P (MAP) 76/55 (62) 86/54 94/53 (67) Pulse Ox 88 96 98 O2 Delivery BiPAP/CPAP BiPAP/CPAP BiPAP/CPAP 04/12/21 04/12/21 04/12/21 04/12/21 20:00 20:29 22:05 23:33 Temp 98.1 98.1 Pulse 94 Resp 24 B/P (MAP) 105/68 (80) Pulse Ox 95 98 92 O2 Delivery Bi-pap BiPAP/CPAP BiPAP/CPAP BiPAP/CPAP 04/13/21 04/13/21 04/13/21 04/13/21 00:00 02:23 03:02 05:13 Temp 98.4 98.4 Pulse 94 100 Resp 24 B/P (MAP) 93/72 99/68 (78) Pulse Ox 96 98 97 O2 Delivery BiPAP/CPAP BiPAP/CPAP BiPAP/CPAP 04/13/21 04/13/21 04/13/21 04/13/21 06:00 06:09 06:50 07:39 Temp 98.3 98.3 Pulse 97 97 97 Resp 24 B/P (MAP) 95/75 129/79 (96) 95/75 (82) Pulse Ox 99 97 O2 Delivery BiPAP/CPAP BiPAP/CPAP Intake and Output 04/12/21 04/12/21 04/13/21 15:00 23:00 07:00 Intake Total 0 ml 0 ml 0 ml Output Total 650 ml Balance 0 ml 0 ml -650 ml Justicifation of Admission Dx: Justifications for Admission: Justification of Admission Dx: Yes OG BRUNSON MD Apr 13, 2021 09:34
--- NOTE | 2021-04-13 09:43 | PDOC ---
PULMONARY PROGRESS NOTES DATE: 04/13/21 TIME: 09:41 Subjective Patient down to 8 L nasal cannula. Responds to some commands Vitals Vital Signs Date Time Temp Pulse Resp B/P (MAP) Pulse Ox O2 Delivery O2 Flow Rate FiO2 04/13/21 07:39 97 BiPAP/CPAP 04/13/21 06:50 97 95/75 (82) 04/13/21 06:09 98.3 24 98.3 04/12/21 08:00 15.0 Comments unable to report ROS Lungs: Other (Decreased breath sounds) Cardiovascular: S1, Other (Tachycardia) Abdomen: Soft Extremities: Other (1+ edema) Skin: Warm Labs Laboratory Tests Test 04/11/21 23:00 04/12/21 04:00 04/12/21 16:41 04/12/21 20:40 O2 Saturation 95 % (92-99) 96 % (92-99) Arterial Blood pH 7.41 (7.35-7.45) 7.47 (7.35-7.45) Arterial Blood pCO2 at Patient Temp 37 mmHg (35-46) 30 mmHg (35-46) Arterial Blood pO2 at Patient Temp 79 mmHg (65-108) 79 mmHg (65-108) Arterial Blood HCO3 23 mmol/L (21-28) 21 mmol/L (21-28) Arterial Blood Base Excess -2 mmol/L (-3-3) -1 mmol/L (-3-3) FiO2 35 40% bipap White Blood Count 15.7 x10^3/uL (4.0-11.0) Red Blood Count 4.60 x10^6/uL (4.30-5.70) Hemoglobin 16.6 g/dL (13.0-17.5) Hematocrit 49.5 % (39.0-53.0) Mean Corpuscular Volume 108 fL (79-100) Mean Corpuscular Hemoglobin 36 pg (25-35) Mean Corpuscular Hemoglobin Concent 34 g/dL (31-37) Red Cell Distribution Width 16.8 % (11.5-14.5) Platelet Count 144 x10^3/uL (140-400) Sodium Level 137 mmol/L (136-145) Potassium Level 5.5 mmol/L (3.5-5.1) Chloride Level 100 mmol/L (98-107) Carbon Dioxide Level 25 mmol/L (21-32) Anion Gap 12 (6-14) Blood Urea Nitrogen 75 mg/dL (8-26) Creatinine 4.8 mg/dL (0.7-1.3) Estimated GFR (Cockcroft-Gault) 15.0 Glucose Level 137 mg/dL (70-99) Calcium Level 9.5 mg/dL (8.5-10.1) Heparin Anti-Xa Act, Unfractionated 0.71 IU/mL (0.30-0.70) Test 04/13/21 06:10 04/13/21 08:38 White Blood Count 17.6 x10^3/uL (4.0-11.0) Red Blood Count 4.41 x10^6/uL (4.30-5.70) Hemoglobin 16.2 g/dL (13.0-17.5) Hematocrit 48.0 % (39.0-53.0) Mean Corpuscular Volume 109 fL (79-100) Mean Corpuscular Hemoglobin 37 pg (25-35) Mean Corpuscular Hemoglobin Concent 34 g/dL (31-37) Red Cell Distribution Width 16.7 % (11.5-14.5) Platelet Count 166 x10^3/uL (140-400) Neutrophils (%) (Auto) 78 % (31-73) Lymphocytes (%) (Auto) 9 % (24-48) Monocytes (%) (Auto) 13 % (0-9) Eosinophils (%) (Auto) 0 % (0-3) Basophils (%) (Auto) 0 % (0-3) Neutrophils # (Auto) 13.7 x10^3/uL (1.8-7.7) Lymphocytes # (Auto) 1.6 x10^3/uL (1.0-4.8) Monocytes # (Auto) 2.4 x10^3/uL (0.0-1.1) Eosinophils # (Auto) 0.0 x10^3/uL (0.0-0.7) Basophils # (Auto) 0.0 x10^3/uL (0.0-0.2) Sodium Level 139 mmol/L (136-145) Potassium Level 5.4 mmol/L (3.5-5.1) Chloride Level 101 mmol/L (98-107) Carbon Dioxide Level 25 mmol/L (21-32) Anion Gap 13 (6-14) Blood Urea Nitrogen 95 mg/dL (8-26) Creatinine 4.5 mg/dL (0.7-1.3) Estimated GFR (Cockcroft-Gault) 16.2 Glucose Level 121 mg/dL (70-99) Calcium Level 9.5 mg/dL (8.5-10.1) Phosphorus Level 5.7 mg/dL (2.6-4.7) Albumin 2.0 g/dL (3.4-5.0) Heparin Anti-Xa Act, Unfractionated 0.87 IU/mL (0.30-0.70) Laboratory Tests Test 04/12/21 16:41 04/12/21 20:40 04/13/21 06:10 04/13/21 08:38 O2 Saturation 96 % (92-99) Arterial Blood pH 7.47 (7.35-7.45) Arterial Blood pCO2 at Patient Temp 30 mmHg (35-46) Arterial Blood pO2 at Patient Temp 79 mmHg (65-108) Arterial Blood HCO3 21 mmol/L (21-28) Arterial Blood Base Excess -1 mmol/L (-3-3) FiO2 40% bipap Heparin Anti-Xa Act, Unfractionated 0.71 IU/mL (0.30-0.70) 0.87 IU/mL (0.30-0.70) White Blood Count 17.6 x10^3/uL (4.0-11.0) Red Blood Count 4.41 x10^6/uL (4.30-5.70) Hemoglobin 16.2 g/dL (13.0-17.5) Hematocrit 48.0 % (39.0-53.0) Mean Corpuscular Volume 109 fL (79-100) Mean Corpuscular Hemoglobin 37 pg (25-35) Mean Corpuscular Hemoglobin Concent 34 g/dL (31-37) Red Cell Distribution Width 16.7 % (11.5-14.5) Platelet Count 166 x10^3/uL (140-400) Neutrophils (%) (Auto) 78 % (31-73) Lymphocytes (%) (Auto) 9 % (24-48) Monocytes (%) (Auto) 13 % (0-9) Eosinophils (%) (Auto) 0 % (0-3) Basophils (%) (Auto) 0 % (0-3) Neutrophils # (Auto) 13.7 x10^3/uL (1.8-7.7) Lymphocytes # (Auto) 1.6 x10^3/uL (1.0-4.8) Monocytes # (Auto) 2.4 x10^3/uL (0.0-1.1) Eosinophils # (Auto) 0.0 x10^3/uL (0.0-0.7) Basophils # (Auto) 0.0 x10^3/uL (0.0-0.2) Sodium Level 139 mmol/L (136-145) Potassium Level 5.4 mmol/L (3.5-5.1) Chloride Level 101 mmol/L (98-107) Carbon Dioxide Level 25 mmol/L (21-32) Anion Gap 13 (6-14) Blood Urea Nitrogen 95 mg/dL (8-26) Creatinine 4.5 mg/dL (0.7-1.3) Estimated GFR (Cockcroft-Gault) 16.2 Glucose Level 121 mg/dL (70-99) Calcium Level 9.5 mg/dL (8.5-10.1) Phosphorus Level 5.7 mg/dL (2.6-4.7) Albumin 2.0 g/dL (3.4-5.0) Medications Active Scripts Medications Dose Route/Sig Max Daily Dose Days Date Category Aspirin 81 Mg Tab.chew 81 Mg PO DAILY 06/13/19 Reported Eliquis (Apixaban) 5 Mg Tablet 5 Mg PO BID 06/13/19 Reported Lasix (Furosemide) 20 Mg Tablet 20 Mg PO DAILY 06/13/19 Reported Spironolactone 25 Mg Tablet 25 Mg PO DAILY 06/13/19 Reported Coreg (Carvedilol) 25 Mg Tablet 25 Mg PO BIDWMEALS 06/13/19 Reported Flomax (Tamsulosin Hcl) 0.4 Mg Cap.er.24h 0.4 Mg PO DAILY 06/13/19 Reported Impression . 1. Acute hypoxic respiratory failure secondary to atrial flutter with rapid ventricular response and suspected congestive heart failure. 2. Abnormal CT chest with ground glass infiltrates. Could be early congestive heart failure versus cocaine-induced pneumonitis. 3. Atrial flutter with rapid ventricular response, heart rate is still 140s. Cardiology is managing. 4. Acute kidney injury.--on HD 5. Substance abuse and ongoing cocainism. The patient also has tobacco use. 6. Abnormal previous echo with RV dilation due to suspected secondary Pulmonary HTN ( ASD/ CMP). No need for VTE w/u except dopplers. Pt already on Eliquis 7. Encephalopathy, drug induced 8. hypotension off pressors Plan . Continue current nasal cannula and as needed BIPAP , keep oxygen sats above 92% CXR PRN BIPAP setting reviewed 13/04 rate 12 at 40% Follow cardiology recs --EF 20%, on amio gtt and heparin. Off dopamine. Follow Nephrology recs -- on HD NEBS DVT/GI PPX: D/W RN and RT Social work following for DC planning -- planned to DC to [facility]-JULIETA GOLDBERG MD Apr 13, 2021 09:43
[2021-04-13 10:10] LABS: % BANDS 6 % (0-9); % LYMPHS 7 % (24-48); % METAS 1 % (0-0); % MONOS 7 % (0-10); % SEGS 79 % (35-66)
--- NOTE | 2021-04-13 10:10 | NUR ---
SS following up with discharge planning. SS reviewed pt chart and discussed with pt RN. Pt is currently on the BIPAP at 40%. COVID19 negative. Pt on Amiodarone and Heparin drip. Pt on IV Metoprolol. Pt accepted at [facility], ; fax [phone]. Insurance authorization received. Chase at [facility] checking on bed availability at this time. Clinical updates phoned and faxed to [facility]. Dr. Juan notified. SS will continue to follow for discharge planning.
[2021-04-13 10:11] LABS: PLT ESTIMATE ADEQUATE (ADEQUATE); POLYCHROMASIA OCCASIONAL
--- NOTE | 2021-04-13 11:04 | PDOC ---
Renal-Progress Notes Subjective Notes Notes SLIGHTLY MORE ALERT History of Present Illness Hx of present illness STILL VERY ILL BUT IMPROVED SOME Vitals Vitals Vital Signs Date Time Temp Pulse Resp B/P (MAP) Pulse Ox O2 Delivery O2 Flow Rate FiO2 04/13/21 07:39 97 BiPAP/CPAP 04/13/21 06:50 97 95/75 (82) 04/13/21 06:09 98.3 24 98.3 04/12/21 08:00 15.0 Weight Weight [ ] I.O. Intake and Output Intake and Output 04/13/21 07:00 Intake Total 0 ml Output Total 650 ml Balance -650 ml Intake Oral 0 ml Output Urine Total 650 ml Labs Labs Laboratory Tests Test 04/12/21 16:41 04/12/21 20:40 04/13/21 06:10 04/13/21 08:38 O2 Saturation 96 % (92-99) Arterial Blood pH 7.47 (7.35-7.45) Arterial Blood pCO2 at Patient Temp 30 mmHg (35-46) Arterial Blood pO2 at Patient Temp 79 mmHg (65-108) Arterial Blood HCO3 21 mmol/L (21-28) Arterial Blood Base Excess -1 mmol/L (-3-3) FiO2 40% bipap Heparin Anti-Xa Act, Unfractionated 0.71 IU/mL (0.30-0.70) 0.87 IU/mL (0.30-0.70) White Blood Count 17.6 x10^3/uL (4.0-11.0) Red Blood Count 4.41 x10^6/uL (4.30-5.70) Hemoglobin 16.2 g/dL (13.0-17.5) Hematocrit 48.0 % (39.0-53.0) Mean Corpuscular Volume 109 fL (79-100) Mean Corpuscular Hemoglobin 37 pg (25-35) Mean Corpuscular Hemoglobin Concent 34 g/dL (31-37) Red Cell Distribution Width 16.7 % (11.5-14.5) Platelet Count 166 x10^3/uL (140-400) Neutrophils (%) (Auto) 78 % (31-73) Lymphocytes (%) (Auto) 9 % (24-48) Monocytes (%) (Auto) 13 % (0-9) Eosinophils (%) (Auto) 0 % (0-3) Basophils (%) (Auto) 0 % (0-3) Neutrophils # (Auto) 13.7 x10^3/uL (1.8-7.7) Lymphocytes # (Auto) 1.6 x10^3/uL (1.0-4.8) Monocytes # (Auto) 2.4 x10^3/uL (0.0-1.1) Eosinophils # (Auto) 0.0 x10^3/uL (0.0-0.7) Basophils # (Auto) 0.0 x10^3/uL (0.0-0.2) Segmented Neutrophils % 79 % (35-66) Band Neutrophils % 6 % (0-9) Lymphocytes % 7 % (24-48) Monocytes % 7 % (0-10) Metamyelocytes % 1 % (0-0) Platelet Estimate Adequate (ADEQUATE) Polychromasia Occasional Macrocytosis Present Sodium Level 139 mmol/L (136-145) Potassium Level 5.4 mmol/L (3.5-5.1) Chloride Level 101 mmol/L (98-107) Carbon Dioxide Level 25 mmol/L (21-32) Anion Gap 13 (6-14) Blood Urea Nitrogen 95 mg/dL (8-26) Creatinine 4.5 mg/dL (0.7-1.3) Estimated GFR (Cockcroft-Gault) 16.2 Glucose Level 121 mg/dL (70-99) Calcium Level 9.5 mg/dL (8.5-10.1) Phosphorus Level 5.7 mg/dL (2.6-4.7) Albumin 2.0 g/dL (3.4-5.0) Review of Systems Constitutional: yes: other (UNABLE TO OBTAIN, CONFUSED) Physical Exam General Appearance: moderate distress, cachetic Skin: warm Respiratory: decreased breath sounds, BiPAP/NIPPV, dyspnea Abdomen: soft, bowel sounds present, no guarding Genitourinary: bladder flat Extremities: pulses present Neurology: confused, other (restless) Assessment Assessment IMP HYPERKALEMIA-BETTER CKD STAGE 3B - CR OF ABOUT 2.0 OSORIO-CARDIORENAL WITH WORSENING CLEARANCE AND ANURIA AFIB RVT NSTEMI ACUTE ON CHRONIC SYSTOLIC AND DIASTOLIC CHF CM WITH EF OF 20% COCAIN ABUSE POLYCYTHEMIA HX ASD CLOSURE AND LA THROMBUS ACUTE ON CHRONIC RESP FAILURE POSSIBLE PNEUMONITIS PLAN EMPIRIC ANTIBIOTICS SUPPLEMENTAL O2 BIPAP CARDIOLOGY EVAL PULM EVAL ANTICOAGULATION HD TODAY UF TO TW OVERALL POOR PROGNOSIS TO SELECT SOON EFE URENA MD Apr 13, 2021 11:04
[2021-04-13] MEDS ORDERED: DIALYSIS PATIENT. MC PRN ×2 (11:30)
[2021-04-13] MEDS: DIGOXIN IV 500 MCG/2 ML AMPUL. IV SCH ×2 (13:10→16:00)
--- NOTE | 2021-04-13 14:32 | PDOC ---
DANIEL GONZALEZ METAL FURRER 04/13/21 1432: CARDIO Progress Notes Date and Time Date of Service 04/13/21 Time of Evaluation 1340 Subjective Subjective: Other (sleeping ) Vitals Vitals Vital Signs Date Time Temp Pulse Resp B/P (MAP) Pulse Ox O2 Delivery O2 Flow Rate FiO2 04/13/21 13:10 105 104/75 04/13/21 12:35 96 Nasal Cannula 6.0 04/13/21 06:09 98.3 24 98.3 Weight Weight [ ] Input and Output Intake and Output Intake and Output 04/13/21 07:00 Intake Total 0 ml Output Total 650 ml Balance -650 ml Intake Oral 0 ml Output Urine Total 650 ml Laboratory Labs Laboratory Tests Test 04/12/21 16:41 04/12/21 20:40 04/13/21 06:10 04/13/21 08:38 O2 Saturation 96 % (92-99) Arterial Blood pH 7.47 (7.35-7.45) Arterial Blood pCO2 at Patient Temp 30 mmHg (35-46) Arterial Blood pO2 at Patient Temp 79 mmHg (65-108) Arterial Blood HCO3 21 mmol/L (21-28) Arterial Blood Base Excess -1 mmol/L (-3-3) FiO2 40% bipap Heparin Anti-Xa Act, Unfractionated 0.71 IU/mL (0.30-0.70) 0.87 IU/mL (0.30-0.70) White Blood Count 17.6 x10^3/uL (4.0-11.0) Red Blood Count 4.41 x10^6/uL (4.30-5.70) Hemoglobin 16.2 g/dL (13.0-17.5) Hematocrit 48.0 % (39.0-53.0) Mean Corpuscular Volume 109 fL (79-100) Mean Corpuscular Hemoglobin 37 pg (25-35) Mean Corpuscular Hemoglobin Concent 34 g/dL (31-37) Red Cell Distribution Width 16.7 % (11.5-14.5) Platelet Count 166 x10^3/uL (140-400) Neutrophils (%) (Auto) 78 % (31-73) Lymphocytes (%) (Auto) 9 % (24-48) Monocytes (%) (Auto) 13 % (0-9) Eosinophils (%) (Auto) 0 % (0-3) Basophils (%) (Auto) 0 % (0-3) Neutrophils # (Auto) 13.7 x10^3/uL (1.8-7.7) Lymphocytes # (Auto) 1.6 x10^3/uL (1.0-4.8) Monocytes # (Auto) 2.4 x10^3/uL (0.0-1.1) Eosinophils # (Auto) 0.0 x10^3/uL (0.0-0.7) Basophils # (Auto) 0.0 x10^3/uL (0.0-0.2) Segmented Neutrophils % 79 % (35-66) Band Neutrophils % 6 % (0-9) Lymphocytes % 7 % (24-48) Monocytes % 7 % (0-10) Metamyelocytes % 1 % (0-0) Platelet Estimate Adequate (ADEQUATE) Polychromasia Occasional Macrocytosis Present Sodium Level 139 mmol/L (136-145) Potassium Level 5.4 mmol/L (3.5-5.1) Chloride Level 101 mmol/L (98-107) Carbon Dioxide Level 25 mmol/L (21-32) Anion Gap 13 (6-14) Blood Urea Nitrogen 95 mg/dL (8-26) Creatinine 4.5 mg/dL (0.7-1.3) Estimated GFR (Cockcroft-Gault) 16.2 Glucose Level 121 mg/dL (70-99) Calcium Level 9.5 mg/dL (8.5-10.1) Phosphorus Level 5.7 mg/dL (2.6-4.7) Albumin 2.0 g/dL (3.4-5.0) Review of Systems Constitutional: yes: other (UNABLE TO OBTAIN, CONFUSED) Physical Exam HEENT: Neck Supple W Full Motion Chest: Symmetric LUNGS: Other (diminished, NC) Heart: irregularly irregular (AFIB, rate controlled ) Abdomen: Other (soft ) Extremities: Other (RLE 3+ pitting edema) Neurology: other (sleeping, confused per nursing staff) Assessment Assessment 1. Acute on chronic diastolic/systolic CHF 2. Cocaine/marijuana abuse: last use 3 days prior to arrival 3. NICM: last known EF at 20% 4. AFIB RVR: appears to be chronic. rate mostly controlled 5. NSTEMI: type 2, demand mediated with culprits above 6. Hx of VENKATA thrombus and ASD closure 7. OSORIO on CKD, hyperkalemia; HD initiated 8. Hx of noncompliance 8. Acute respiratory failure with CHF/AECOPD and possible pneumonitis likely from cocaine inhalation. Pulmonary following 10. Metabolic encephalopathy Recommendations Digoxin QOD for rate control On Amiodarone as well for rate control. BP has not been adequate for scheduled metoprolol Heparin gtt for stroke prophylaxis Fluid off loading per HD Poor prognosis Follow up with cardiology as scheduled on 04/18 @ 1300 Ongoing support Justicifation of Admission Dx: Justifications for Admission: Justification of Admission Dx: Yes DAVID GORMAN MD 04/13/21 1649: CARDIO Progress Notes Assessment Assessment Patient seen and evaluated. He remains agitated. I agree with our nurse practitioners assessment and plan. Acute on chronic diastolic/systolic CHF. Continuing present treatment. Cocaine/marijuana abuse: last use 3 days prior to arrival NICM: last known EF at 20% AFIB RVR: appears to be chronic. rate mostly controlled . Continuing on amiodarone and QOD digoxin NSTEMI: type 2, demand mediated with culprits above Hx of VENKATA thrombus and ASD closure OSORIO on CKD, hyperkalemia; HD initiated. Followed by renal. Hx of noncompliance Acute respiratory failure with CHF/AECOPD and possible pneumonitis likely from cocaine inhalation. Pulmonary following Metabolic encephalopathy DANIEL GONZALEZ APRN Apr 13, 2021 14:32 DAVID GORMAN MD Apr 13, 2021 16:49
[2021-04-13] MEDS: ANTI-COAG MONITOR BY PHARMACY. MC PRN (14:58)
--- NOTE | 2021-04-13 15:58 | NUR ---
Wound Care: Patient seen per wound care consult regarding and left hand IV infiltrate, and a right nostril and left nostril from the Bi-pap patient was continually on. The nostrils are scabbed, there are no open wounds. Patient has been able to transition to the nasal cannula. The left hand is swollen but there are also no open areas. Complete head to toe assessment completed. Patient repositioned to the left side using pillows. Bed lowered and call light in reach and alarm in place. Wound care will sign off at this time. Please re consult with any changes per wound care.
--- NOTE | 2021-04-13 16:51 | NUR ---
Mayer catheter replaced with a new one in dialysis today due to mass spectrometry specialist finding it out of patient. timber estimator talked to Dr. Mendez & kar still needed.
--- NOTE | 2021-04-13 19:48 | NUR ---
Patient has been on 5L NC all day with oxygen saturation in the 90s.
[2021-04-13] MEDS: HEPARIN 25,000UTS/250ML PREMIX 250 ML IV PRN (22:58)
[2021-04-14] MEDS: METOPROLOL IV PUSH 5 MG/5 ML VIAL. IVP SCH ×4 (00:56→17:15)
[2021-04-14 03:23] VITALS: BP 106/82
[2021-04-14] MEDS: FUROSEMIDE 40 MG/4 ML VIAL. IVP SCH ×2 (05:46→12:06)
[2021-04-14 07:00] VITALS: BP 127/75
[2021-04-14] MEDS: IPRATRPIUM/ALBUTEROL 0.5/2.5MG 3 ML NEBU. NEB SCH ×4 (07:49→20:00)
[2021-04-14] MEDS: HEPARIN 25,000UTS/250ML PREMIX 250 ML IV PRN (08:29)
[2021-04-14] MEDS: TAMSULOSIN 0.4 MG CAP.ER.24H. PO SCH (08:50)
[2021-04-14] MEDS: ANTI-COAG MONITOR BY PHARMACY. MC PRN (09:40)
--- NOTE | 2021-04-14 10:16 | PDOC ---
PULMONARY PROGRESS NOTES DATE: 04/14/21 TIME: 10:15 Subjective Patient down to 8 L nasal cannula. Responds to some commands Vitals Vital Signs Date Time Temp Pulse Resp B/P (MAP) Pulse Ox O2 Delivery O2 Flow Rate FiO2 04/14/21 07:50 94 Nasal Cannula 5.0 04/14/21 07:00 94.9 76 24 127/75 (92) 94.9 Comments unable to report ROS Lungs: Other (Decreased breath sounds) Cardiovascular: S1, Other (Tachycardia) Abdomen: Soft Extremities: Other (1+ edema) Skin: Warm Labs Laboratory Tests Test 04/12/21 16:41 04/12/21 20:40 04/13/21 06:10 04/13/21 08:38 O2 Saturation 96 % (92-99) Arterial Blood pH 7.47 (7.35-7.45) Arterial Blood pCO2 at Patient Temp 30 mmHg (35-46) Arterial Blood pO2 at Patient Temp 79 mmHg (65-108) Arterial Blood HCO3 21 mmol/L (21-28) Arterial Blood Base Excess -1 mmol/L (-3-3) FiO2 40% bipap Heparin Anti-Xa Act, Unfractionated 0.71 IU/mL (0.30-0.70) 0.87 IU/mL (0.30-0.70) White Blood Count 17.6 x10^3/uL (4.0-11.0) Red Blood Count 4.41 x10^6/uL (4.30-5.70) Hemoglobin 16.2 g/dL (13.0-17.5) Hematocrit 48.0 % (39.0-53.0) Mean Corpuscular Volume 109 fL (79-100) Mean Corpuscular Hemoglobin 37 pg (25-35) Mean Corpuscular Hemoglobin Concent 34 g/dL (31-37) Red Cell Distribution Width 16.7 % (11.5-14.5) Platelet Count 166 x10^3/uL (140-400) Neutrophils (%) (Auto) 78 % (31-73) Lymphocytes (%) (Auto) 9 % (24-48) Monocytes (%) (Auto) 13 % (0-9) Eosinophils (%) (Auto) 0 % (0-3) Basophils (%) (Auto) 0 % (0-3) Neutrophils # (Auto) 13.7 x10^3/uL (1.8-7.7) Lymphocytes # (Auto) 1.6 x10^3/uL (1.0-4.8) Monocytes # (Auto) 2.4 x10^3/uL (0.0-1.1) Eosinophils # (Auto) 0.0 x10^3/uL (0.0-0.7) Basophils # (Auto) 0.0 x10^3/uL (0.0-0.2) Segmented Neutrophils % 79 % (35-66) Band Neutrophils % 6 % (0-9) Lymphocytes % 7 % (24-48) Monocytes % 7 % (0-10) Metamyelocytes % 1 % (0-0) Platelet Estimate Adequate (ADEQUATE) Polychromasia Occasional Macrocytosis Present Sodium Level 139 mmol/L (136-145) Potassium Level 5.4 mmol/L (3.5-5.1) Chloride Level 101 mmol/L (98-107) Carbon Dioxide Level 25 mmol/L (21-32) Anion Gap 13 (6-14) Blood Urea Nitrogen 95 mg/dL (8-26) Creatinine 4.5 mg/dL (0.7-1.3) Estimated GFR (Cockcroft-Gault) 16.2 Glucose Level 121 mg/dL (70-99) Calcium Level 9.5 mg/dL (8.5-10.1) Phosphorus Level 5.7 mg/dL (2.6-4.7) Albumin 2.0 g/dL (3.4-5.0) Test 04/13/21 16:11 04/13/21 23:25 04/14/21 06:00 Heparin Anti-Xa Act, Unfractionated 0.33 IU/mL (0.30-0.70) 0.28 IU/mL (0.30-0.70) 0.24 IU/mL (0.30-0.70) Laboratory Tests Test 04/13/21 16:11 04/13/21 23:25 04/14/21 06:00 Heparin Anti-Xa Act, Unfractionated 0.33 IU/mL (0.30-0.70) 0.28 IU/mL (0.30-0.70) 0.24 IU/mL (0.30-0.70) Medications Active Scripts Medications Dose Route/Sig Max Daily Dose Days Date Category Aspirin 81 Mg Tab.chew 81 Mg PO DAILY 06/13/19 Reported Eliquis (Apixaban) 5 Mg Tablet 5 Mg PO BID 06/13/19 Reported Lasix (Furosemide) 20 Mg Tablet 20 Mg PO DAILY 06/13/19 Reported Spironolactone 25 Mg Tablet 25 Mg PO DAILY 06/13/19 Reported Coreg (Carvedilol) 25 Mg Tablet 25 Mg PO BIDWMEALS 06/13/19 Reported Flomax (Tamsulosin Hcl) 0.4 Mg Cap.er.24h 0.4 Mg PO DAILY 06/13/19 Reported Impression . 1. Acute hypoxic respiratory failure secondary to atrial flutter with rapid ventricular response and suspected congestive heart failure. 2. Abnormal CT chest with ground glass infiltrates. Could be early congestive heart failure versus cocaine-induced pneumonitis. 3. Atrial flutter with rapid ventricular response, heart rate is still 140s. Cardiology is managing. 4. Acute kidney injury.--on HD 5. Substance abuse and ongoing cocainism. The patient also has tobacco use. 6. Abnormal previous echo with RV dilation due to suspected secondary Pulmonary HTN ( ASD/ CMP). No need for VTE w/u except dopplers. Pt already on Eliquis 7. Encephalopathy, drug induced 8. hypotension off pressors Plan . Continue current nasal cannula and as needed BIPAP , keep oxygen sats above 92% CXR PRN BIPAP setting reviewed 13/04 rate 12 at 40% Follow cardiology recs --EF 20%, on amio gtt and heparin. Off dopamine. Follow Nephrology recs -- on HD NEBS DVT/GI PPX: D/W RN and RT Minimize sedatives. Social work following for DC planning -- planned to DC to [facility]-JULIETA GOLDBERG MD Apr 14, 2021 10:16
[2021-04-14 11:00] VITALS: BP 128/88
--- NOTE | 2021-04-14 11:00 | PDOC ---
Renal-Progress Notes Subjective Notes Notes CONFUSED History of Present Illness Hx of present illness SOME SLOW IMPROVEMENTS BUT WILL NEED TO HAVE LTAC Vitals Vitals Vital Signs Date Time Temp Pulse Resp B/P (MAP) Pulse Ox O2 Delivery O2 Flow Rate FiO2 04/14/21 08:00 Nasal Cannula 5.0 04/14/21 07:50 94 04/14/21 07:00 94.9 76 24 127/75 (92) 94.9 Weight Weight [ ] I.O. Intake and Output Intake and Output 04/14/21 07:00 Intake Total 0 ml Output Total 225 ml Balance -225 ml Intake Oral 0 ml Output Urine Total 225 ml Labs Labs Laboratory Tests Test 04/13/21 16:11 04/13/21 23:25 04/14/21 06:00 Heparin Anti-Xa Act, Unfractionated 0.33 IU/mL (0.30-0.70) 0.28 IU/mL (0.30-0.70) 0.24 IU/mL (0.30-0.70) Review of Systems Constitutional: yes: other (UNABLE TO OBTAIN, CONFUSED) Physical Exam General Appearance: moderate distress, cachetic Skin: warm Respiratory: decreased breath sounds, BiPAP/NIPPV, dyspnea Abdomen: soft, bowel sounds present, no guarding Genitourinary: bladder flat Extremities: pulses present Neurology: other (sleeping, confused per nursing staff) Assessment Assessment IMP HYPERKALEMIA-BETTER CKD STAGE 3B - CR OF ABOUT 2.0 [id number] AFIB RVT NSTEMI ACUTE ON CHRONIC SYSTOLIC AND DIASTOLIC CHF CM WITH EF OF 20% COCAIN ABUSE POLYCYTHEMIA HX ASD CLOSURE AND LA THROMBUS ACUTE ON CHRONIC RESP FAILURE POSSIBLE PNEUMONITIS PLAN EMPIRIC ANTIBIOTICS SUPPLEMENTAL O2 CARDIOLOGY EVAL PULM EVAL ANTICOAGULATION HD TOMORROW OVERALL POOR PROGNOSIS TO SELECT SOON EFE URENA MD Apr 14, 2021 11:00
--- NOTE | 2021-04-14 11:50 | PDOC ---
CARDIO Progress Notes Date and Time Date of Service 04/14/2021 Time of Evaluation 1120 Subjective Subjective: Other (restless, confused) Vitals Vitals Vital Signs Date Time Temp Pulse Resp B/P (MAP) Pulse Ox O2 Delivery O2 Flow Rate FiO2 04/14/21 08:00 Nasal Cannula 5.0 04/14/21 07:50 94 04/14/21 07:00 94.9 76 24 127/75 (92) 94.9 Weight Weight [ ] Input and Output Intake and Output Intake and Output 04/14/21 07:00 Intake Total 0 ml Output Total 225 ml Balance -225 ml Intake Oral 0 ml Output Urine Total 225 ml Laboratory Labs Laboratory Tests Test 04/13/21 16:11 04/13/21 23:25 04/14/21 06:00 Heparin Anti-Xa Act, Unfractionated 0.33 IU/mL (0.30-0.70) 0.28 IU/mL (0.30-0.70) 0.24 IU/mL (0.30-0.70) Review of Systems Constitutional: yes: other (UNABLE TO OBTAIN, CONFUSED) Physical Exam HEENT: Neck Supple W Full Motion Chest: Symmetric LUNGS: Other (diminished) Heart: irregularly irregular (AFIB, rate controlled ) Abdomen: Other (soft ) Extremities: No Edema Neurology: alert, confused Assessment Assessment 1. Acute on chronic diastolic/systolic CHF 2. Cocaine/marijuana abuse 3. NICM: last known EF at 20% 4. AFIB RVR: appears to be chronic. rate mostly controlled 5. NSTEMI: type 2, demand mediated with culprits above 6. Hx of VENKATA thrombus and ASD closure 7. OSORIO on CKD with hyperkalemia; HD initiated 8. Hx of noncompliance 8. Acute respiratory failure with CHF/AECOPD and possible pneumonitis likely from cocaine inhalation. Pulmonary following 10. Metabolic encephalopathy Recommendations Digoxin QOD for rate control after every HD Amiodarone drip for rate control. Continue metoprolol IV as no GI access currently as he is NPO Heparin gtt for stroke prophylaxis Fluid off loading per HD Poor prognosis Follow up with cardiology asn an outpt. Possible LTAC Supporitve care Justicifation of Admission Dx: Justifications for Admission: Justification of Admission Dx: Yes HEENA MCKEON MA[employer]GER [employer]Y Apr 14, 2021 11:50
--- NOTE | 2021-04-14 13:27 | PDOC ---
PROGRESS NOTES Date of Service: DATE: 04/14/21 TIME: 13:26 Chief Complaint Chief Complaint CHF exacerbation Afib Rvr Hypokalemia History of Present Illness History of Present Illness 04/10/2021 Pt seen and examined at bedside Patient got his temporary dialysis catheter yesterday its in the right IJ Patient's brother [place] is now here Pt went for dialysis today Pt has hypoxic encephalitis Pt has a Bipap Pt is on 60% FiO2 with 99% Sat Pt has Mits on for safety D/W RN Chart reviewed 04/09/2021 Pt seen and examined at bedside D/W nephrology to do emergent dialysis. We tried to get ahold of a family member but could not find a working phone number. We deemed the temporary cath for dialysis necessary for pt care and treatment. It is in the pts best interest to get dialysis today. Pt has hypoxic encephalitis Pt is very agitated D/W RN Chart reviewed 04/08/2021 Pt seen and examined Pt was very agitated and encephalopathic Pt has Folley to BSD Pt has mits on hands for safety Pt has edema D/W RN Chart reviewed The patient is a pleasant 61-year-old male who presented with shortness of breath. While in the ER, we had noticed that he is quite hypoxic, we have him on a lot of oxygen. His potassium is also high at 6. He also has azotemia with a BUN of 35 and a creatinine of 2. Hemoglobin is high at 17.7. Surprisingly, his COVID testing is negative, but his chest x-ray does show cardiomegaly and pulmonary hypertension, infiltrates and possible emphysema. We are admitting the patient with consultation to Cardiology and Nephrology. 04/11/2021 seen and examined at bedside temporary dialysis catheter 8-14 its in the right IJ hypoxic encephalopathy Pt has a Bipap Pt is on 60% FiO2 with 99% Sat Mits on for safety D/W RN Chart reviewed 04/12/2021 seen and examined at bedside temporary dialysis catheter 8-14 its in the right IJ hypoxic encephalopathy Pt has a Bipap Pt is on 60% FiO2 with 99% Sat Mits on for safety D/W RN Chart reviewed pt. remains on BIPAP at 40% on Dopamine and Amio gtt no improvement in mentation 04/13/2021 seen and examined at bedside temporary dialysis catheter 8-14 its in the right IJ hypoxic encephalopathy on Bipap 8 L nasal cannula. Mits on for safety D/W RN Chart reviewed pt. remains on BIPAP at 40% on Dopamine and Amio gtt no improvement in mentation plan SELECT ADMIT pending insurance D/W SS 04/14/2021 seen and examined at bedside temporary dialysis catheter 8-14 its in the right IJ hypoxic encephalopathy on Bipap 8 L nasal cannula. Mits on for safety D/W RN Chart reviewed pt. remains on BIPAP at 40% on Dopamine and Amio gtt no improvement in mentation plan SELECT ADMIT pending insurance D/W SS Vitals Vitals Vital Signs Date Time Temp Pulse Resp B/P (MAP) Pulse Ox O2 Delivery O2 Flow Rate FiO2 04/14/21 12:20 94 Nasal Cannula 5.0 04/14/21 12:07 71 132/88 04/14/21 11:00 97.6 18 97.6 Physical Exam Physical Exam Physical Exam General: Other (Continues to be agitated.) Heart: Other (Irregular rhythm) Lungs: Other (Decreased breath sounds) Abdomen: Normal bowel sounds Extremities: No clubbing, Other (2+ LE EDEMA) Skin: No significant lesion General: Cooperative, No acute distress, Other (Continues to be agitated.) Heart: Other (Irregular rhythm) Lungs: Other (Decreased breath sounds) Abdomen: Normal bowel sounds Extremities: No clubbing, No cyanosis, Other (2+ LE EDEMA) Skin: No significant lesion Labs LABS Laboratory Tests Test 04/13/21 16:11 04/13/21 23:25 04/14/21 06:00 Heparin Anti-Xa Act, Unfractionated 0.33 IU/mL (0.30-0.70) 0.28 IU/mL (0.30-0.70) 0.24 IU/mL (0.30-0.70) Assessment and Plan Assessmemt and Plan Problems Medical Problems: (1) Atrial fibrillation with RVR Status: Acute (2) CHF (congestive heart failure) Status: Acute (3) Chronic renal insufficiency Status: Acute (4) Cocaine use Status: Acute (5) Elevated troponin Status: Acute (6) Hyperkalemia Status: Acute Comment Review of Relevant I have reviewed the following items vesna (where applicable) has been applied. Labs Laboratory Tests Test 04/12/21 16:41 04/12/21 20:40 04/13/21 06:10 04/13/21 08:38 O2 Saturation 96 % (92-99) Arterial Blood pH 7.47 (7.35-7.45) Arterial Blood pCO2 at Patient Temp 30 mmHg (35-46) Arterial Blood pO2 at Patient Temp 79 mmHg (65-108) Arterial Blood HCO3 21 mmol/L (21-28) Arterial Blood Base Excess -1 mmol/L (-3-3) FiO2 40% bipap Heparin Anti-Xa Act, Unfractionated 0.71 IU/mL (0.30-0.70) 0.87 IU/mL (0.30-0.70) White Blood Count 17.6 x10^3/uL (4.0-11.0) Red Blood Count 4.41 x10^6/uL (4.30-5.70) Hemoglobin 16.2 g/dL (13.0-17.5) Hematocrit 48.0 % (39.0-53.0) Mean Corpuscular Volume 109 fL (79-100) Mean Corpuscular Hemoglobin 37 pg (25-35) Mean Corpuscular Hemoglobin Concent 34 g/dL (31-37) Red Cell Distribution Width 16.7 % (11.5-14.5) Platelet Count 166 x10^3/uL (140-400) Neutrophils (%) (Auto) 78 % (31-73) Lymphocytes (%) (Auto) 9 % (24-48) Monocytes (%) (Auto) 13 % (0-9) Eosinophils (%) (Auto) 0 % (0-3) Basophils (%) (Auto) 0 % (0-3) Neutrophils # (Auto) 13.7 x10^3/uL (1.8-7.7) Lymphocytes # (Auto) 1.6 x10^3/uL (1.0-4.8) Monocytes # (Auto) 2.4 x10^3/uL (0.0-1.1) Eosinophils # (Auto) 0.0 x10^3/uL (0.0-0.7) Basophils # (Auto) 0.0 x10^3/uL (0.0-0.2) Segmented Neutrophils % 79 % (35-66) Band Neutrophils % 6 % (0-9) Lymphocytes % 7 % (24-48) Monocytes % 7 % (0-10) Metamyelocytes % 1 % (0-0) Platelet Estimate Adequate (ADEQUATE) Polychromasia Occasional Macrocytosis Present Sodium Level 139 mmol/L (136-145) Potassium Level 5.4 mmol/L (3.5-5.1) Chloride Level 101 mmol/L (98-107) Carbon Dioxide Level 25 mmol/L (21-32) Anion Gap 13 (6-14) Blood Urea Nitrogen 95 mg/dL (8-26) Creatinine 4.5 mg/dL (0.7-1.3) Estimated GFR (Cockcroft-Gault) 16.2 Glucose Level 121 mg/dL (70-99) Calcium Level 9.5 mg/dL (8.5-10.1) Phosphorus Level 5.7 mg/dL (2.6-4.7) Albumin 2.0 g/dL (3.4-5.0) Test 04/13/21 16:11 04/13/21 23:25 04/14/21 06:00 Heparin Anti-Xa Act, Unfractionated 0.33 IU/mL (0.30-0.70) 0.28 IU/mL (0.30-0.70) 0.24 IU/mL (0.30-0.70) Laboratory Tests Test 04/13/21 16:11 04/13/21 23:25 04/14/21 06:00 Heparin Anti-Xa Act, Unfractionated 0.33 IU/mL (0.30-0.70) 0.28 IU/mL (0.30-0.70) 0.24 IU/mL (0.30-0.70) Medications Current Medications Albuterol/ Ipratropium (Duoneb) 3 ml 1X ONCE NEB Last administered on 04/07/21at 09:19; Start 04/07/21 at 09:15; Stop 04/07/21 at 09:16; Status DC Dexamethasone Sodium Phosphate (Decadron) 10 mg 1X ONCE IVP Last administered on 04/07/21at 09:19; Start 04/07/21 at 09:15; Stop 04/07/21 at 09:16; Status DC Aspirin (Ecotrin) 325 mg 1X ONCE PO Last administered on 04/07/21at 09:18; Start 04/07/21 at 09:15; Stop 04/07/21 at 09:16; Status DC Diltiazem HCl (Cardizem Iv Push) 20 mg 1X ONCE IVP Last administered on 04/07/21at 09:33; Start 04/07/21 at 09:45; Stop 04/07/21 at 09:46; Status DC Diltiazem HCl 125 mg/Sodium Chloride 125 ml @ 5 mls/hr CONT PRN IV SEE I/O RECORD Last administered on 04/07/21at 09:34; Start 04/07/21 at 09:30; Stop 04/07/21 at 14:58; Status DC Bumetanide (Bumex) 1 mg DAILY ONCE IV Last administered on 04/07/21at 11:09; Start 04/07/21 at 10:44; Stop 04/07/21 at 10:45; Status DC Calcium Gluconate (Calcium Gluconate) 1,000 mg 1X ONCE IVP Last administered on 04/07/21at 12:14; Start 04/07/21 at 11:15; Stop 04/07/21 at 11:16; Status DC Insulin Human Regular (HumuLIN R VIAL) 10 unit 1X ONCE IV Last administered on 04/07/21at 12:19; Start 04/07/21 at 11:15; Stop 04/07/21 at 11:16; Status DC Dextrose (Dextrose 50%-Water Syringe) 25 gm 1X ONCE IV Last administered on 04/07/21at 12:12; Start 04/07/21 at 11:15; Stop 04/07/21 at 11:16; Status DC Ondansetron HCl (Zofran) 4 mg PRN Q8HRS PRN IVP NAUSEA/VOMITING; Start 04/07/21 at 12:30; Stop 04/08/21 at 12:29; Status DC Piperacillin Sod/ Tazobactam Sod (Zosyn Per Pharmacy) 1 each PRN DAILY PRN MC SEE COMMENTS; Start 04/07/21 at 12:45; Stop 04/08/21 at 13:50; Status DC Piperacillin Sod/ Tazobactam Sod 3.375 gm/Sodium Chloride 50 ml @ 100 mls/hr 1X ONCE IV Last administered on 04/07/21at 14:30; Start 04/07/21 at 13:00; Stop 04/07/21 at 13:29; Status DC Piperacillin Sod/ Tazobactam Sod 3.375 gm/Sodium Chloride 50 ml @ 100 mls/hr Q6HRS IV Last administered on 04/08/21at 12:41; Start 04/07/21 at 18:00; Stop 04/08/21 at 13:50; Status DC Carvedilol (Coreg) 3.125 mg BIDWMEALS PO ; Start 04/07/21 at 17:00; Stop 04/07/21 at 15:07; Status DC Carvedilol (Coreg) 6.25 mg BIDWMEALS PO Last administered on 04/07/21at 15:52; Start 04/07/21 at 17:00; Stop 04/08/21 at 14:18; Status DC Apixaban (Eliquis) 5 mg BID PO Last administered on 04/07/21at 20:20; Start 04/07/21 at 21:00; Stop 04/08/21 at 14:18; Status DC Furosemide (Lasix) 40 mg BID66 IVP Last administered on 04/14/21at 12:06; Start 04/07/21 at 18:00 Info (Anti-Coagulation Monitoring By Pharmacy) 1 each PRN DAILY PRN MC PER PROTOCOL Last administered on 04/14/21at 09:40; Start 04/07/21 at 15:15 Methylprednisolone Sodium Succinate (SOLU-Medrol 125MG VIAL) 125 mg 1X ONCE IV Last administered on 04/07/21at 15:59; Start 04/07/21 at 15:45; Stop 04/07/21 at 15:46; Status DC Albuterol Sulfate (Ventolin Neb Soln) 2.5 mg 1X ONCE NEB Last administered on 04/07/21at 16:54; Start 04/07/21 at 15:45; Stop 04/07/21 at 15:46; Status DC Digoxin (Lanoxin) 250 mcg 1X ONCE IV Last administered on 04/07/21at 16:16; Start 04/07/21 at 16:15; Stop 04/07/21 at 16:16; Status DC Tamsulosin HCl (Flomax) 0.4 mg DAILY PO ; Start 04/08/21 at 09:00 Acetaminophen (Tylenol) 500 mg PRN Q6HRS PRN PO MILD PAIN / TEMP > 100.3'F; Start 04/07/21 at 21:00 Albuterol/ Ipratropium (Duoneb) 3 ml 1X ONCE NEB ; Start 04/07/21 at 21:00; Stop 04/07/21 at 21:01; Status DC Hydralazine HCl (Apresoline Inj) 10 mg PRN Q4HRS PRN IVP ELEVATED BP, SEE COMMENTS Last administered on 04/08/21at 03:19; Start 04/07/21 at 21:00 Oxycodone/ Acetaminophen (Percocet 5/325) 1 tab 1X ONCE PO Last administered on 04/07/21at 21:17; Start 04/07/21 at 21:30; Stop 04/07/21 at 21:31; Status DC Albuterol/ Ipratropium (Duoneb) 3 ml RTQID NEB ; Start 04/07/21 at 21:30; Status Cancel Furosemide (Lasix) 40 mg 1X ONCE IVP Last administered on 04/07/21at 21:42; Start 04/07/21 at 22:00; Stop 04/07/21 at 22:01; Status DC Morphine Sulfate (Morphine Sulfate) 2 mg PRN Q2HR PRN IVP SEVERE PAIN 7-10 Last administered on 04/08/21at 22:44; Start 04/07/21 at 21:30; Stop 04/09/21 at 19:08; Status DC Albuterol/ Ipratropium (Combivent Respimat 20-100 Mcg) 1 puff RTQID INH Last administered on 04/08/21at 17:17; Start 04/08/21 at 08:00; Stop 04/11/21 at 08:10; Status DC Carvedilol (Coreg) 6.25 mg 1X ONCE PO Last administered on 04/08/21at 04:20; Start 04/08/21 at 04:30; Stop 04/08/21 at 04:31; Status DC Alprazolam (Xanax) 0.25 mg 1X ONCE PO Last administered on 04/08/21at 04:20; Start 04/08/21 at 04:30; Stop 04/08/21 at 04:31; Status DC Furosemide (Lasix) 40 mg 1X ONCE IVP Last administered on 04/08/21at 05:42; Start 04/08/21 at 06:00; Stop 04/08/21 at 06:01; Status DC Digoxin (Lanoxin) 250 mcg 1X ONCE IV Last administered on 04/08/21at 06:49; Start 04/08/21 at 07:00; Stop 04/08/21 at 07:01; Status DC Digoxin (Lanoxin) 250 mcg DAILY IV Last administered on 04/12/21at 10:10; Start 04/08/21 at 07:15; Stop 04/12/21 at 13:12; Status DC Metoprolol Tartrate (Lopressor Vial) 5 mg 1X ONCE IVP Last administered on 04/08/21at 08:56; Start 04/08/21 at 08:15; Stop 04/08/21 at 08:17; Status DC Lorazepam (Ativan Inj) 2 mg PRN Q4HRS PRN IVP ANXIETY / AGITATION Last administered on 04/09/21at 16:16; Start 04/08/21 at 10:15; Stop 04/09/21 at 19:08; Status DC Furosemide (Lasix) 40 mg 1X ONCE IVP Last administered on 04/08/21at 12:43; Start 04/08/21 at 10:45; Stop 04/08/21 at 10:47; Status DC Amiodarone HCl 150 mg/Dextrose 103 ml @ 600 mls/hr 1X ONCE IV Last administered on 04/08/21at 14:43; Start 04/08/21 at 14:30; Stop 04/08/21 at 14:40; Status DC Amiodarone HCl 450 mg/Dextrose 259 ml @ 0 mls/hr CONT PRN IV SEE I/O RECORD Last administered on 04/09/21at 00:16; Start 04/08/21 at 14:30; Stop 04/09/21 at 14:29; Status DC Metoprolol Tartrate (Lopressor Vial) 5 mg Q6HRS IVP Last administered on 04/10/21at 05:46; Start 04/08/21 at 18:00; Stop 04/10/21 at 11:44; Status DC Enoxaparin Sodium (Lovenox Per Pharmacy Treatment Dosing) 1 each PRN DAILY PRN MC SEE COMMENTS; Start 04/08/21 at 14:30; Stop 04/12/21 at 08:26; Status DC Enoxaparin Sodium (Lovenox 100mg Syringe) 90 mg Q24H SQ Last administered on 04/10/21at 16:17; Start 04/08/21 at 16:00; Stop 04/12/21 at 08:26; Status DC Amiodarone HCl 450 mg/Dextrose 259 ml @ 0 mls/hr CONT PRN IV SEE I/O RECORD Last administered on 04/13/21at 16:02; Start 04/09/21 at 17:30 Lorazepam (Ativan Inj) 2 mg PRN Q2HRS PRN IVP ANXIETY / AGITATION Last administered on 04/13/21at 15:31; Start 04/09/21 at 19:15; Stop 04/14/21 at 10:17; Status DC Morphine Sulfate (Morphine Sulfate) 4 mg PRN Q2HR PRN IVP SEVERE PAIN 7-10; Start 04/09/21 at 19:30; Stop 04/09/21 at 19:22; Status DC Lidocaine HCl (Buffered Lidocaine 1%) 3 ml STK-MED ONCE .ROUTE ; Start 04/10/21 at 09:36; Stop 04/10/21 at 09:36; Status DC Heparin Sodium (Porcine) (Hep Lock Adult) 500 unit STK-MED ONCE IVP ; Start 04/10/21 at 09:39; Stop 04/10/21 at 09:39; Status DC Heparin Sodium (Porcine) (Heparin Sodium) 10,000 unit STK-MED ONCE .ROUTE ; Start 04/10/21 at 09:41; Stop 04/10/21 at 09:41; Status DC Lidocaine HCl (Buffered Lidocaine 1%) 3 ml 1X ONCE IJ Last administered on 04/10/21at 10:13; Start 04/10/21 at 10:00; Stop 04/10/21 at 10:03; Status DC Sodium Chloride 1,000 ml @ 1,000 mls/hr Q1H PRN IV hypotension; Start 04/10/21 at 11:15; Stop 04/10/21 at 17:14; Status DC Albumin Human 200 ml @ 200 mls/hr 1X PRN PRN IV Hypotension Last administered on 04/10/21at 13:00; Start 04/10/21 at 11:15; Stop 04/10/21 at 17:14; Status DC Sodium Chloride 1,000 ml @ 400 mls/hr Q2H30M PRN IV PATENCY; Start 04/10/21 at 11:15; Stop 04/10/21 at 23:14; Status DC Info (PHARMACY MONITORING -- do not chart) 1 each PRN DAILY PRN MC SEE COMMENTS; Start 04/10/21 at 12:15; Status UNV Info (PHARMACY MONITORING -- do not chart) 1 each PRN DAILY PRN MC SEE COMMENTS; Start 04/10/21 at 12:15; Status Cancel Albuterol/ Ipratropium (Duoneb) 3 ml RTQID NEB Last administered on 04/14/21at 12:00; Start 04/11/21 at 12:00 Heparin Sodium (Porcine) (Heparin Sodium) 2,000 unit 1X ONCE IV Last administered on 04/11/21at 08:30; Start 04/11/21 at 08:30; Stop 04/11/21 at 08:37; Status DC Sodium Chloride 1,000 ml @ 1,000 mls/hr Q1H PRN IV hypotension; Start 04/11/21 at 08:30; Stop 04/11/21 at 14:29; Status DC Sodium Chloride 1,000 ml @ 400 mls/hr Q2H30M PRN IV PATENCY; Start 04/11/21 at 08:30; Stop 04/11/21 at 20:29; Status DC Info (PHARMACY MONITORING -- do not chart) 1 each PRN DAILY PRN MC SEE COMMENTS; Start 04/11/21 at 08:30; Status Cancel Sodium Chloride 500 ml @ 500 mls/hr 1X ONCE IV Last administered on 04/11/21at 22:40; Start 04/11/21 at 23:00; Stop 04/11/21 at 23:59; Status DC Dopamine HCl/ Dextrose 250 ml @ 16.744 mls/ hr CONT PRN IV SEE I/O RECORD Last administered on 04/12/21at 00:08; Start 04/11/21 at 23:45; Stop 04/12/21 at 14:50; Status DC Digoxin (Lanoxin) 250 mcg QMWF IV Last administered on 04/13/21at 13:10; Start 04/13/21 at 14:00 Heparin Sodium/ Dextrose 250 ml @ 0 mls/hr CONT PRN IV PER PROTOCOL Last administered on 04/14/21at 08:29; Start 04/12/21 at 13:15 Heparin Sodium (Porcine) (Heparin Sodium) 2,250 unit PRN Q6HRS PRN IV FOR UFH LEVEL LESS THAN 0.2 Last administered on 04/12/21at 14:30; Start 04/12/21 at 13:15 Metoprolol Tartrate (Lopressor Vial) 5 mg PRN Q6HRS PRN IVP HYPERTENSION; Start 04/12/21 at 13:15 Metoprolol Tartrate (Lopressor Vial) 5 mg Q6HRS IVP Last administered on 04/14/21at 12:07; Start 04/12/21 at 13:30 Sodium Chloride 1,000 ml @ 1,000 mls/hr Q1H PRN IV hypotension; Start 04/13/21 at 07:30; Stop 04/13/21 at 13:29; Status DC Sodium Chloride 1,000 ml @ 400 mls/hr Q2H30M PRN IV PATENCY; Start 04/13/21 at 07:30; Stop 04/13/21 at 19:29; Status DC Info (PHARMACY MONITORING -- do not chart) 1 each PRN DAILY PRN MC SEE COMMENTS; Start 04/13/21 at 11:30; Status Cancel Info (PHARMACY MONITORING -- do not chart) 1 each PRN DAILY PRN MC SEE COMMENTS; Start 04/13/21 at 11:30 Lorazepam (Ativan Inj) 1 mg PRN Q6HRS PRN IVP ANXIETY / AGITATION; Start 04/14/21 at 10:30 Active Scripts Active Reported Aspirin 81 Mg Tab.chew 81 Mg PO DAILY Eliquis (Apixaban) 5 Mg Tablet 5 Mg PO BID Lasix (Furosemide) 20 Mg Tablet 20 Mg PO DAILY Spironolactone 25 Mg Tablet 25 Mg PO DAILY Coreg (Carvedilol) 25 Mg Tablet 25 Mg PO BIDWMEALS Flomax (Tamsulosin Hcl) 0.4 Mg Cap.er.24h 0.4 Mg PO DAILY Vitals/I & O Vital Sign - Last 24 Hours 04/13/21 04/13/21 04/13/21 04/13/21 14:07 15:00 15:07 15:21 Temp 96.5 96.5 Pulse 94 91 96 108 Resp 22 B/P (MAP) 124/81 (95) 124/81 (95) 92/44 (60) 99/67 (78) Pulse Ox 98 O2 Delivery Nasal Cannula O2 Flow Rate 5.0 8/18/21 8/18/21 8/18/21 8/18/21 16:07 16:07 18:07 18:18 Pulse 90 98 94 B/P (MAP) 106/82 (90) 65/56 (59) 103/61 (75) Pulse Ox 96 O2 Delivery Nasal Cannula O2 Flow Rate 5.0 04/13/21 04/13/21 04/13/21 04/13/21 19:07 19:18 19:18 19:30 Temp 97.4 97.4 Pulse 90 81 90 Resp 24 B/P (MAP) 89/54 (66) 106/75 (85) 106/75 (85) Pulse Ox 97 O2 Delivery Nasal Cannula Nasal Cannula Nasal Cannula O2 Flow Rate 5.0 5.0 5.0 5.0 04/13/21 04/13/21 04/13/21 04/14/21 19:30 20:58 22:40 00:56 Pulse 88 90 Resp 22 B/P (MAP) 109/59 (76) 117/61 Pulse Ox 97 97 O2 Delivery Nasal Cannula Nasal Cannula Nasal Cannula O2 Flow Rate 5.0 5.0 5.0 04/14/21 04/14/21 04/14/21 04/14/21 03:23 05:45 07:00 07:50 Temp 98.0 94.9 98.0 94.9 Pulse 85 92 76 Resp 18 24 B/P (MAP) 106/82 (90) 145/91 127/75 (92) Pulse Ox 94 97 94 O2 Delivery Room Air Nasal Cannula Nasal Cannula O2 Flow Rate 5.0 5.0 04/14/21 04/14/21 04/14/21 04/14/21 08:00 11:00 12:07 12:20 Temp 97.6 97.6 Pulse 80 71 Resp 18 B/P (MAP) 128/88 (101) 132/88 Pulse Ox 97 94 O2 Delivery Nasal Cannula Room Air Nasal Cannula O2 Flow Rate 5.0 5.0 Intake and Output 0 04/13/21 04/13/21 04/14/21 15:00 23:00 07:00 Intake Total 0 ml 0 ml 0 ml Output Total 225 ml Balance 0 ml 0 ml -225 ml Justicifation of Admission Dx: Justifications for Admission: Justification of Admission Dx: Yes OG BRUNSON MD Apr 14, 2021 13:27
--- NOTE | 2021-04-14 14:51 | NUR ---
SS following up with discharge planning. SS reviewed pt chart and discussed with pt RN. Pt is currently requiring oxygen at five liters nasal canula. COVID19 negative. NPO. Pt on Heparin drip. Pt on IV Metoprolol and IV Lasix. Hemodialysis. Pt accepted at [facility], ; fax [phone]. Insurance authorization received. Currently awaiting bed availability. SS will continue to follow for discharge planning.
[2021-04-14 15:00] VITALS: BP 87/62
[2021-04-14 18:53] VITALS: BP 105/75
[2021-04-14 23:14] VITALS: BP 102/77
[2021-04-15 03:28] VITALS: BP 122/70
[2021-04-15] MEDS: HEPARIN 25,000UTS/250ML PREMIX 250 ML IV PRN (04:43)
[2021-04-15 06:46] VITALS: BP 108/78
[2021-04-15] MEDS: METOPROLOL IV PUSH 5 MG/5 ML VIAL. IVP SCH ×4 (06:51→17:46)
[2021-04-15] MEDS: FUROSEMIDE 40 MG/4 ML VIAL. IVP SCH ×2 (06:51→17:46)
[2021-04-15] MEDS: IPRATRPIUM/ALBUTEROL 0.5/2.5MG 3 ML NEBU. NEB SCH ×4 (07:14→21:00)
[2021-04-15 08:31] LABS: BASO % 0 % (0-3); EOS % 0 % (0-3); HEMATOCRIT 50.6 % (39.0-53.0); HEMOGLOBIN 16.9 g/dL (13.0-17.5); LYMPH # 1.4 x10^3/uL (1.0-4.8); LYMPH % 10 % (24-48); MEAN CORPUSCULAR HEMOGLOBIN 37 pg (25-35); MEAN CORPUSCULAR HGB CONC 33 g/dL (31-37); MEAN CORPUSCULAR VOLUME 109 fL (79-100); MONO # 1.5 x10^3/uL (0.0-1.1); MONO % 11 % (0-9); NEUT # 10.8 x10^3/uL (1.8-7.7); NEUT % 79 % (31-73); PLATELET COUNT 255 x10^3/uL (140-400); RED BLOOD COUNT 4.63 x10^6/uL (4.30-5.70); RED CELL DISTRIBUTION WIDTH 17.2 % (11.5-14.5); WHITE BLOOD COUNT 13.8 x10^3/uL (4.0-11.0)
[2021-04-15] MEDS: TAMSULOSIN 0.4 MG CAP.ER.24H. PO SCH (09:00)
--- NOTE | 2021-04-15 09:02 | PDOC ---
PROGRESS NOTES Date of Service: DATE: 04/15/21 TIME: 09:02 Chief Complaint Chief Complaint CHF exacerbation Afib Rvr Hypokalemia History of Present Illness History of Present Illness 04/10/2021 Pt seen and examined at bedside Patient got his temporary dialysis catheter yesterday its in the right IJ Patient's brother [place] is now here Pt went for dialysis today Pt has hypoxic encephalitis Pt has a Bipap Pt is on 60% FiO2 with 99% Sat Pt has Mits on for safety D/W RN Chart reviewed 04/09/2021 Pt seen and examined at bedside D/W nephrology to do emergent dialysis. We tried to get ahold of a family member but could not find a working phone number. We deemed the temporary cath for dialysis necessary for pt care and treatment. It is in the pts best interest to get dialysis today. Pt has hypoxic encephalitis Pt is very agitated D/W RN Chart reviewed 04/08/2021 Pt seen and examined Pt was very agitated and encephalopathic Pt has Folley to BSD Pt has mits on hands for safety Pt has edema D/W RN Chart reviewed The patient is a pleasant 61-year-old male who presented with shortness of breath. While in the ER, we had noticed that he is quite hypoxic, we have him on a lot of oxygen. His potassium is also high at 6. He also has azotemia with a BUN of 35 and a creatinine of 2. Hemoglobin is high at 17.7. Surprisingly, his COVID testing is negative, but his chest x-ray does show cardiomegaly and pulmonary hypertension, infiltrates and possible emphysema. We are admitting the patient with consultation to Cardiology and Nephrology. 04/11/2021 seen and examined at bedside temporary dialysis catheter 8-14 its in the right IJ hypoxic encephalopathy Pt has a Bipap Pt is on 60% FiO2 with 99% Sat Mits on for safety D/W RN Chart reviewed 04/12/2021 seen and examined at bedside temporary dialysis catheter 8-14 its in the right IJ hypoxic encephalopathy Pt has a Bipap Pt is on 60% FiO2 with 99% Sat Mits on for safety D/W RN Chart reviewed pt. remains on BIPAP at 40% on Dopamine and Amio gtt no improvement in mentation 04/13/2021 seen and examined at bedside temporary dialysis catheter 8-14 its in the right IJ hypoxic encephalopathy on Bipap 8 L nasal cannula. Mits on for safety D/W RN Chart reviewed pt. remains on BIPAP at 40% on Dopamine and Amio gtt no improvement in mentation plan SELECT ADMIT pending insurance D/W SS 04/14/2021 seen and examined at bedside temporary dialysis catheter 8-14 its in the right IJ hypoxic encephalopathy on Bipap 8 L nasal cannula. Mits on for safety D/W RN Chart reviewed pt. remains on BIPAP at 40% on Dopamine and Amio gtt no improvement in mentation plan SELECT ADMIT pending insurance D/W SS 04/15 seen and examined at bedside temporary dialysis catheter 8-14 its in the right IJ hypoxic encephalopathy on Bipap Mits on for safety D/W RN AND CASE MGT Chart reviewed pt. remains on PRN BIPAP, O2 AT 5 LITERS NC Amio gtt no improvement in mentation plan SELECT ADMIT pending insurance D/W SS BIPAP setting reviewed 13/04 rate 12 at 40% Follow cardiology recs --EF 20%, on amio gtt and heparin. Off dopamine. Follow Nephrology recs -- on HD D/W RN Vitals Vitals Vital Signs Date Time Temp Pulse Resp B/P (MAP) Pulse Ox O2 Delivery O2 Flow Rate FiO2 04/15/21 07:25 94 BiPAP/CPAP 04/15/21 07:15 5.0 04/15/21 06:51 71 108/78 04/15/21 06:46 97.5 18 97.5 Physical Exam Physical Exam Physical Exam General: Other (Continues to be agitated.) Heart: Other (Irregular rhythm) Lungs: Other (Decreased breath sounds) Abdomen: Normal bowel sounds Extremities: No clubbing, Other (2+ LE EDEMA) Skin: No significant lesion General: Cooperative, No acute distress, Other (Continues to be agitated.) Heart: Other (Irregular rhythm) Lungs: Other (Decreased breath sounds) Abdomen: Normal bowel sounds Extremities: No clubbing, No cyanosis, Other (2+ LE EDEMA) Skin: No significant lesion Labs LABS Laboratory Tests Test 04/14/21 15:04 04/14/21 21:00 04/15/21 07:30 Heparin Anti-Xa Act, Unfractionated 0.53 IU/mL (0.30-0.70) 0.43 IU/mL (0.30-0.70) 0.51 IU/mL (0.30-0.70) White Blood Count 13.8 x10^3/uL (4.0-11.0) Red Blood Count 4.63 x10^6/uL (4.30-5.70) Hemoglobin 16.9 g/dL (13.0-17.5) Hematocrit 50.6 % (39.0-53.0) Mean Corpuscular Volume 109 fL (79-100) Mean Corpuscular Hemoglobin 37 pg (25-35) Mean Corpuscular Hemoglobin Concent 33 g/dL (31-37) Red Cell Distribution Width 17.2 % (11.5-14.5) Platelet Count 255 x10^3/uL (140-400) Neutrophils (%) (Auto) 79 % (31-73) Lymphocytes (%) (Auto) 10 % (24-48) Monocytes (%) (Auto) 11 % (0-9) Eosinophils (%) (Auto) 0 % (0-3) Basophils (%) (Auto) 0 % (0-3) Neutrophils # (Auto) 10.8 x10^3/uL (1.8-7.7) Lymphocytes # (Auto) 1.4 x10^3/uL (1.0-4.8) Monocytes # (Auto) 1.5 x10^3/uL (0.0-1.1) Eosinophils # (Auto) 0.0 x10^3/uL (0.0-0.7) Basophils # (Auto) 0.0 x10^3/uL (0.0-0.2) Assessment and Plan Assessmemt and Plan Problems Medical Problems: (1) Atrial fibrillation with RVR Status: Acute (2) CHF (congestive heart failure) Status: Acute (3) Chronic renal insufficiency Status: Acute (4) Cocaine use Status: Acute (5) Elevated troponin Status: Acute (6) Hyperkalemia Status: Acute Comment Review of Relevant I have reviewed the following items vesna (where applicable) has been applied. Labs Laboratory Tests Test 04/13/21 16:11 04/13/21 23:25 04/14/21 06:00 04/14/21 15:04 Heparin Anti-Xa Act, Unfractionated 0.33 IU/mL (0.30-0.70) 0.28 IU/mL (0.30-0.70) 0.24 IU/mL (0.30-0.70) 0.53 IU/mL (0.30-0.70) Test 04/14/21 21:00 04/15/21 07:30 Heparin Anti-Xa Act, Unfractionated 0.43 IU/mL (0.30-0.70) 0.51 IU/mL (0.30-0.70) White Blood Count 13.8 x10^3/uL (4.0-11.0) Red Blood Count 4.63 x10^6/uL (4.30-5.70) Hemoglobin 16.9 g/dL (13.0-17.5) Hematocrit 50.6 % (39.0-53.0) Mean Corpuscular Volume 109 fL (79-100) Mean Corpuscular Hemoglobin 37 pg (25-35) Mean Corpuscular Hemoglobin Concent 33 g/dL (31-37) Red Cell Distribution Width 17.2 % (11.5-14.5) Platelet Count 255 x10^3/uL (140-400) Neutrophils (%) (Auto) 79 % (31-73) Lymphocytes (%) (Auto) 10 % (24-48) Monocytes (%) (Auto) 11 % (0-9) Eosinophils (%) (Auto) 0 % (0-3) Basophils (%) (Auto) 0 % (0-3) Neutrophils # (Auto) 10.8 x10^3/uL (1.8-7.7) Lymphocytes # (Auto) 1.4 x10^3/uL (1.0-4.8) Monocytes # (Auto) 1.5 x10^3/uL (0.0-1.1) Eosinophils # (Auto) 0.0 x10^3/uL (0.0-0.7) Basophils # (Auto) 0.0 x10^3/uL (0.0-0.2) Laboratory Tests Test 04/14/21 15:04 04/14/21 21:00 04/15/21 07:30 Heparin Anti-Xa Act, Unfractionated 0.53 IU/mL (0.30-0.70) 0.43 IU/mL (0.30-0.70) 0.51 IU/mL (0.30-0.70) White Blood Count 13.8 x10^3/uL (4.0-11.0) Red Blood Count 4.63 x10^6/uL (4.30-5.70) Hemoglobin 16.9 g/dL (13.0-17.5) Hematocrit 50.6 % (39.0-53.0) Mean Corpuscular Volume 109 fL (79-100) Mean Corpuscular Hemoglobin 37 pg (25-35) Mean Corpuscular Hemoglobin Concent 33 g/dL (31-37) Red Cell Distribution Width 17.2 % (11.5-14.5) Platelet Count 255 x10^3/uL (140-400) Neutrophils (%) (Auto) 79 % (31-73) Lymphocytes (%) (Auto) 10 % (24-48) Monocytes (%) (Auto) 11 % (0-9) Eosinophils (%) (Auto) 0 % (0-3) Basophils (%) (Auto) 0 % (0-3) Neutrophils # (Auto) 10.8 x10^3/uL (1.8-7.7) Lymphocytes # (Auto) 1.4 x10^3/uL (1.0-4.8) Monocytes # (Auto) 1.5 x10^3/uL (0.0-1.1) Eosinophils # (Auto) 0.0 x10^3/uL (0.0-0.7) Basophils # (Auto) 0.0 x10^3/uL (0.0-0.2) Medications Current Medications Albuterol/ Ipratropium (Duoneb) 3 ml 1X ONCE NEB Last administered on 04/07/21at 09:19; Start 04/07/21 at 09:15; Stop 04/07/21 at 09:16; Status DC Dexamethasone Sodium Phosphate (Decadron) 10 mg 1X ONCE IVP Last administered on 04/07/21at 09:19; Start 04/07/21 at 09:15; Stop 04/07/21 at 09:16; Status DC Aspirin (Ecotrin) 325 mg 1X ONCE PO Last administered on 04/07/21at 09:18; Start 04/07/21 at 09:15; Stop 04/07/21 at 09:16; Status DC Diltiazem HCl (Cardizem Iv Push) 20 mg 1X ONCE IVP Last administered on 04/07/21at 09:33; Start 04/07/21 at 09:45; Stop 04/07/21 at 09:46; Status DC Diltiazem HCl 125 mg/Sodium Chloride 125 ml @ 5 mls/hr CONT PRN IV SEE I/O RECORD Last administered on 04/07/21at 09:34; Start 04/07/21 at 09:30; Stop 04/07/21 at 14:58; Status DC Bumetanide (Bumex) 1 mg DAILY ONCE IV Last administered on 04/07/21at 11:09; Start 04/07/21 at 10:44; Stop 04/07/21 at 10:45; Status DC Calcium Gluconate (Calcium Gluconate) 1,000 mg 1X ONCE IVP Last administered on 04/07/21at 12:14; Start 04/07/21 at 11:15; Stop 04/07/21 at 11:16; Status DC Insulin Human Regular (HumuLIN R VIAL) 10 unit 1X ONCE IV Last administered on 04/07/21at 12:19; Start 04/07/21 at 11:15; Stop 04/07/21 at 11:16; Status DC Dextrose (Dextrose 50%-Water Syringe) 25 gm 1X ONCE IV Last administered on 04/07/21at 12:12; Start 04/07/21 at 11:15; Stop 04/07/21 at 11:16; Status DC Ondansetron HCl (Zofran) 4 mg PRN Q8HRS PRN IVP NAUSEA/VOMITING; Start 04/07/21 at 12:30; Stop 04/08/21 at 12:29; Status DC Piperacillin Sod/ Tazobactam Sod (Zosyn Per Pharmacy) 1 each PRN DAILY PRN MC SEE COMMENTS; Start 04/07/21 at 12:45; Stop 04/08/21 at 13:50; Status DC Piperacillin Sod/ Tazobactam Sod 3.375 gm/Sodium Chloride 50 ml @ 100 mls/hr 1X ONCE IV Last administered on 04/07/21at 14:30; Start 04/07/21 at 13:00; Stop 04/07/21 at 13:29; Status DC Piperacillin Sod/ Tazobactam Sod 3.375 gm/Sodium Chloride 50 ml @ 100 mls/hr Q6HRS IV Last administered on 04/08/21at 12:41; Start 04/07/21 at 18:00; Stop 04/08/21 at 13:50; Status DC Carvedilol (Coreg) 3.125 mg BIDWMEALS PO ; Start 04/07/21 at 17:00; Stop 04/07/21 at 15:07; Status DC Carvedilol (Coreg) 6.25 mg BIDWMEALS PO Last administered on 04/07/21at 15:52; Start 04/07/21 at 17:00; Stop 04/08/21 at 14:18; Status DC Apixaban (Eliquis) 5 mg BID PO Last administered on 04/07/21at 20:20; Start 04/07/21 at 21:00; Stop 04/08/21 at 14:18; Status DC Furosemide (Lasix) 40 mg BID66 IVP Last administered on 04/15/21at 06:51; Start 04/07/21 at 18:00 Info (Anti-Coagulation Monitoring By Pharmacy) 1 each PRN DAILY PRN MC PER PROTOCOL Last administered on 04/14/21at 09:40; Start 04/07/21 at 15:15 Methylprednisolone Sodium Succinate (SOLU-Medrol 125MG VIAL) 125 mg 1X ONCE IV Last administered on 04/07/21at 15:59; Start 04/07/21 at 15:45; Stop 04/07/21 at 15:46; Status DC Albuterol Sulfate (Ventolin Neb Soln) 2.5 mg 1X ONCE NEB Last administered on 04/07/21at 16:54; Start 04/07/21 at 15:45; Stop 04/07/21 at 15:46; Status DC Digoxin (Lanoxin) 250 mcg 1X ONCE IV Last administered on 04/07/21at 16:16; Start 04/07/21 at 16:15; Stop 04/07/21 at 16:16; Status DC Tamsulosin HCl (Flomax) 0.4 mg DAILY PO ; Start 04/08/21 at 09:00 Acetaminophen (Tylenol) 500 mg PRN Q6HRS PRN PO MILD PAIN / TEMP > 100.3'F; Start 04/07/21 at 21:00 Albuterol/ Ipratropium (Duoneb) 3 ml 1X ONCE NEB ; Start 04/07/21 at 21:00; Stop 04/07/21 at 21:01; Status DC Hydralazine HCl (Apresoline Inj) 10 mg PRN Q4HRS PRN IVP ELEVATED BP, 1ST CHOICE Last administered on 04/08/21at 03:19; Start 04/07/21 at 21:00 Oxycodone/ Acetaminophen (Percocet 5/325) 1 tab 1X ONCE PO Last administered on 04/07/21at 21:17; Start 04/07/21 at 21:30; Stop 04/07/21 at 21:31; Status DC Albuterol/ Ipratropium (Duoneb) 3 ml RTQID NEB ; Start 04/07/21 at 21:30; Status Cancel Furosemide (Lasix) 40 mg 1X ONCE IVP Last administered on 04/07/21at 21:42; Start 04/07/21 at 22:00; Stop 04/07/21 at 22:01; Status DC Morphine Sulfate (Morphine Sulfate) 2 mg PRN Q2HR PRN IVP SEVERE PAIN 7-10 Last administered on 04/08/21at 22:44; Start 04/07/21 at 21:30; Stop 04/09/21 at 19:08; Status DC Albuterol/ Ipratropium (Combivent Respimat 20-100 Mcg) 1 puff RTQID INH Last administered on 04/08/21at 17:17; Start 04/08/21 at 08:00; Stop 04/11/21 at 08:10; Status DC Carvedilol (Coreg) 6.25 mg 1X ONCE PO Last administered on 04/08/21at 04:20; Start 04/08/21 at 04:30; Stop 04/08/21 at 04:31; Status DC Alprazolam (Xanax) 0.25 mg 1X ONCE PO Last administered on 04/08/21at 04:20; Start 04/08/21 at 04:30; Stop 04/08/21 at 04:31; Status DC Furosemide (Lasix) 40 mg 1X ONCE IVP Last administered on 04/08/21at 05:42; Start 04/08/21 at 06:00; Stop 04/08/21 at 06:01; Status DC Digoxin (Lanoxin) 250 mcg 1X ONCE IV Last administered on 04/08/21at 06:49; Start 04/08/21 at 07:00; Stop 04/08/21 at 07:01; Status DC Digoxin (Lanoxin) 250 mcg DAILY IV Last administered on 04/12/21at 10:10; Start 04/08/21 at 07:15; Stop 04/12/21 at 13:12; Status DC Metoprolol Tartrate (Lopressor Vial) 5 mg 1X ONCE IVP Last administered on 04/08/21at 08:56; Start 04/08/21 at 08:15; Stop 04/08/21 at 08:17; Status DC Lorazepam (Ativan Inj) 2 mg PRN Q4HRS PRN IVP ANXIETY / AGITATION Last administered on 04/09/21at 16:16; Start 04/08/21 at 10:15; Stop 04/09/21 at 19:08; Status DC Furosemide (Lasix) 40 mg 1X ONCE IVP Last administered on 04/08/21at 12:43; Start 04/08/21 at 10:45; Stop 04/08/21 at 10:47; Status DC Amiodarone HCl 150 mg/Dextrose 103 ml @ 600 mls/hr 1X ONCE IV Last administered on 04/08/21at 14:43; Start 04/08/21 at 14:30; Stop 04/08/21 at 14:40; Status DC Amiodarone HCl 450 mg/Dextrose 259 ml @ 0 mls/hr CONT PRN IV SEE I/O RECORD Last administered on 04/09/21at 00:16; Start 04/08/21 at 14:30; Stop 04/09/21 at 14:29; Status DC Metoprolol Tartrate (Lopressor Vial) 5 mg Q6HRS IVP Last administered on 04/10/21at 05:46; Start 04/08/21 at 18:00; Stop 04/10/21 at 11:44; Status DC Enoxaparin Sodium (Lovenox Per Pharmacy Treatment Dosing) 1 each PRN DAILY PRN MC SEE COMMENTS; Start 04/08/21 at 14:30; Stop 04/12/21 at 08:26; Status DC Enoxaparin Sodium (Lovenox 100mg Syringe) 90 mg Q24H SQ Last administered on 04/10/21at 16:17; Start 04/08/21 at 16:00; Stop 04/12/21 at 08:26; Status DC Amiodarone HCl 450 mg/Dextrose 259 ml @ 0 mls/hr CONT PRN IV SEE I/O RECORD Last administered on 04/13/21at 16:02; Start 04/09/21 at 17:30 Lorazepam (Ativan Inj) 2 mg PRN Q2HRS PRN IVP ANXIETY / AGITATION Last administered on 04/13/21at 15:31; Start 04/09/21 at 19:15; Stop 04/14/21 at 10:17; Status DC Morphine Sulfate (Morphine Sulfate) 4 mg PRN Q2HR PRN IVP SEVERE PAIN 7-10; Start 04/09/21 at 19:30; Stop 04/09/21 at 19:22; Status DC Lidocaine HCl (Buffered Lidocaine 1%) 3 ml STK-MED ONCE .ROUTE ; Start 04/10/21 at 09:36; Stop 04/10/21 at 09:36; Status DC Heparin Sodium (Porcine) (Hep Lock Adult) 500 unit STK-MED ONCE IVP ; Start 04/10/21 at 09:39; Stop 04/10/21 at 09:39; Status DC Heparin Sodium (Porcine) (Heparin Sodium) 10,000 unit STK-MED ONCE .ROUTE ; Start 04/10/21 at 09:41; Stop 04/10/21 at 09:41; Status DC Lidocaine HCl (Buffered Lidocaine 1%) 3 ml 1X ONCE IJ Last administered on 04/10/21at 10:13; Start 04/10/21 at 10:00; Stop 04/10/21 at 10:03; Status DC Sodium Chloride 1,000 ml @ 1,000 mls/hr Q1H PRN IV hypotension; Start 04/10/21 at 11:15; Stop 04/10/21 at 17:14; Status DC Albumin Human 200 ml @ 200 mls/hr 1X PRN PRN IV Hypotension Last administered on 04/10/21at 13:00; Start 04/10/21 at 11:15; Stop 04/10/21 at 17:14; Status DC Sodium Chloride 1,000 ml @ 400 mls/hr Q2H30M PRN IV PATENCY; Start 04/10/21 at 11:15; Stop 04/10/21 at 23:14; Status DC Info (PHARMACY MONITORING -- do not chart) 1 each PRN DAILY PRN MC SEE COMMENTS; Start 04/10/21 at 12:15; Status UNV Info (PHARMACY MONITORING -- do not chart) 1 each PRN DAILY PRN MC SEE COMMENTS; Start 04/10/21 at 12:15; Status Cancel Albuterol/ Ipratropium (Duoneb) 3 ml RTQID NEB Last administered on 04/15/21at 07:14; Start 04/11/21 at 12:00 Heparin Sodium (Porcine) (Heparin Sodium) 2,000 unit 1X ONCE IV Last administered on 04/11/21at 08:30; Start 04/11/21 at 08:30; Stop 04/11/21 at 08:37; Status DC Sodium Chloride 1,000 ml @ 1,000 mls/hr Q1H PRN IV hypotension; Start 04/11/21 at 08:30; Stop 04/11/21 at 14:29; Status DC Sodium Chloride 1,000 ml @ 400 mls/hr Q2H30M PRN IV PATENCY; Start 04/11/21 at 08:30; Stop 04/11/21 at 20:29; Status DC Info (PHARMACY MONITORING -- do not chart) 1 each PRN DAILY PRN MC SEE COMMENTS; Start 04/11/21 at 08:30; Status Cancel Sodium Chloride 500 ml @ 500 mls/hr 1X ONCE IV Last administered on 04/11/21at 22:40; Start 04/11/21 at 23:00; Stop 04/11/21 at 23:59; Status DC Dopamine HCl/ Dextrose 250 ml @ 16.744 mls/ hr CONT PRN IV SEE I/O RECORD Last administered on 04/12/21at 00:08; Start 04/11/21 at 23:45; Stop 04/12/21 at 14:50; Status DC Digoxin (Lanoxin) 250 mcg QMWF IV Last administered on 04/13/21at 13:10; Start 04/13/21 at 14:00 Heparin Sodium/ Dextrose 250 ml @ 0 mls/hr CONT PRN IV PER PROTOCOL Last administered on 04/15/21at 04:43; Start 04/12/21 at 13:15 Heparin Sodium (Porcine) (Heparin Sodium) 2,250 unit PRN Q6HRS PRN IV FOR UFH LEVEL LESS THAN 0.2 Last administered on 04/12/21at 14:30; Start 04/12/21 at 13:15 Metoprolol Tartrate (Lopressor Vial) 5 mg PRN Q6HRS PRN IVP HYPERTENSION, 2ND CHOICE; Start 04/12/21 at 13:15 Metoprolol Tartrate (Lopressor Vial) 5 mg Q6HRS IVP Last administered on 04/15/21at 06:51; Start 04/12/21 at 13:30 Sodium Chloride 1,000 ml @ 1,000 mls/hr Q1H PRN IV hypotension; Start 04/13/21 at 07:30; Stop 04/13/21 at 13:29; Status DC Sodium Chloride 1,000 ml @ 400 mls/hr Q2H30M PRN IV PATENCY; Start 04/13/21 at 07:30; Stop 04/13/21 at 19:29; Status DC Info (PHARMACY MONITORING -- do not chart) 1 each PRN DAILY PRN MC SEE COMMENTS; Start 04/13/21 at 11:30; Status Cancel Info (PHARMACY MONITORING -- do not chart) 1 each PRN DAILY PRN MC SEE COMMENTS; Start 04/13/21 at 11:30 Lorazepam (Ativan Inj) 1 mg PRN Q6HRS PRN IVP ANXIETY / AGITATION; Start 04/14/21 at 10:30 Active Scripts Active Reported Aspirin 81 Mg Tab.chew 81 Mg PO DAILY Eliquis (Apixaban) 5 Mg Tablet 5 Mg PO BID Lasix (Furosemide) 20 Mg Tablet 20 Mg PO DAILY Spironolactone 25 Mg Tablet 25 Mg PO DAILY Coreg (Carvedilol) 25 Mg Tablet 25 Mg PO BIDWMEALS Flomax (Tamsulosin Hcl) 0.4 Mg Cap.er.24h 0.4 Mg PO DAILY Vitals/I & O Vital Sign - Last 24 Hours 04/14/21 04/14/21 04/14/21 04/14/21 11:00 12:07 12:20 15:00 Temp 97.6 97.6 Pulse 80 71 81 Resp 18 B/P (MAP) 128/88 (101) 132/88 87/62 (70) Pulse Ox 97 94 99 O2 Delivery Room Air Nasal Cannula O2 Flow Rate 5.0 8/19/04/14/21 04/14/21 04/14/21 15:46 17:15 18:53 20:00 Pulse 94 94 Resp 20 B/P (MAP) 87/62 105/75 (85) Pulse Ox 94 93 O2 Delivery Nasal Cannula Nasal Cannula Nasal Cannula O2 Flow Rate 5.0 5.0 5.0 04/14/21 04/14/21 04/15/21 04/15/21 20:52 23:14 00:00 03:28 Temp 97.8 97.8 Pulse 92 92 78 Resp 16 24 B/P (MAP) 102/77 (85) 89/62 122/70 (87) Pulse Ox 89 100 100 O2 Delivery Nasal Cannula Nasal Cannula Nasal Cannula O2 Flow Rate 5.0 5.0 5.0 04/15/21 04/15/21 04/15/21 04/15/21 06:46 06:51 07:15 07:25 Temp 97.5 97.5 Pulse 71 71 Resp 18 B/P (MAP) 108/78 (88) 108/78 Pulse Ox 93 94 94 O2 Delivery Nasal Cannula Nasal Cannula BiPAP/CPAP O2 Flow Rate 5.0 5.0 Intake and Output 04/14/21 04/14/21 04/15/21 15:00 23:00 07:00 Intake Total 0 ml 250 ml Output Total 700 ml Balance 0 ml -450 ml Justicifation of Admission Dx: Justifications for Admission: Justification of Admission Dx: Yes OG BRUNSON MD Apr 15, 2021 09:02
--- NOTE | 2021-04-15 10:07 | PDOC ---
CARDIO Progress Notes Date and Time Date of Service 04/15/2021 Time of Evaluation 1000 Subjective Subjective: Other (restless, confused) Vitals Vitals Vital Signs Date Time Temp Pulse Resp B/P (MAP) Pulse Ox O2 Delivery O2 Flow Rate FiO2 04/15/21 07:25 94 BiPAP/CPAP 04/15/21 07:15 5.0 04/15/21 06:51 71 108/78 04/15/21 06:46 97.5 18 97.5 Weight Weight [ ] Input and Output Intake and Output Intake and Output 04/15/21 07:00 Intake Total 250 ml Output Total 700 ml Balance -450 ml Intake Oral 0 ml IV Total 250 ml Output Urine Total 700 ml # Bowel Movements 1 Laboratory Labs Laboratory Tests Test 04/14/21 15:04 04/14/21 21:00 04/15/21 07:30 Heparin Anti-Xa Act, Unfractionated 0.53 IU/mL (0.30-0.70) 0.43 IU/mL (0.30-0.70) 0.51 IU/mL (0.30-0.70) White Blood Count 13.8 x10^3/uL (4.0-11.0) Red Blood Count 4.63 x10^6/uL (4.30-5.70) Hemoglobin 16.9 g/dL (13.0-17.5) Hematocrit 50.6 % (39.0-53.0) Mean Corpuscular Volume 109 fL (79-100) Mean Corpuscular Hemoglobin 37 pg (25-35) Mean Corpuscular Hemoglobin Concent 33 g/dL (31-37) Red Cell Distribution Width 17.2 % (11.5-14.5) Platelet Count 255 x10^3/uL (140-400) Neutrophils (%) (Auto) 79 % (31-73) Lymphocytes (%) (Auto) 10 % (24-48) Monocytes (%) (Auto) 11 % (0-9) Eosinophils (%) (Auto) 0 % (0-3) Basophils (%) (Auto) 0 % (0-3) Neutrophils # (Auto) 10.8 x10^3/uL (1.8-7.7) Lymphocytes # (Auto) 1.4 x10^3/uL (1.0-4.8) Monocytes # (Auto) 1.5 x10^3/uL (0.0-1.1) Eosinophils # (Auto) 0.0 x10^3/uL (0.0-0.7) Basophils # (Auto) 0.0 x10^3/uL (0.0-0.2) Review of Systems Constitutional: yes: other (UNABLE TO OBTAIN, CONFUSED) Physical Exam HEENT: Neck Supple W Full Motion Chest: Symmetric LUNGS: Other (diminished) Heart: irregularly irregular (AFIB, rate controlled ) Abdomen: Other (soft ) Extremities: No Edema Neurology: alert, confused Assessment Assessment 1. Acute on chronic diastolic/systolic CHF 2. Cocaine/marijuana abuse 3. NICM: last known EF at 20% 4. AFIB RVR: appears to be chronic. rate mostly controlled 5. NSTEMI: type 2, demand mediated with culprits above 6. Hx of VENKATA thrombus and ASD closure 7. OSORIO on CKD with hyperkalemia; HD initiated 8. Hx of noncompliance 8. Acute respiratory failure with CHF/AECOPD and possible pneumonitis likely from cocaine inhalation. Pulmonary following 10. Metabolic encephalopathy Recommendations Digoxin QOD for rate control after every HD Amiodarone drip for rate control. Continue metoprolol IV as no GI access currently as he is NPO Heparin gtt for stroke prophylaxis Fluid off loading per HD today. Bipap PRN Poor prognosis, consider discussion with family re goals of care Follow up with [facility]ology as an outpt. Possible LTAC Supporitve care Justicifation of Admission Dx: Justifications for Admission: Justification of Admission Dx: Yes HEENA MCKEON PERSONAL INJURY SPECIALIST Apr 15, 2021 10:07
--- NOTE | 2021-04-15 10:25 | PDOC ---
PULMONARY PROGRESS NOTES DATE: 04/15/21 TIME: 10:24 Subjective Patient back on the BiPAP. Responds to verbal commands Vitals Vital Signs Date Time Temp Pulse Resp B/P (MAP) Pulse Ox O2 Delivery O2 Flow Rate FiO2 04/15/21 07:25 94 BiPAP/CPAP 04/15/21 07:15 5.0 04/15/21 06:51 71 108/78 04/15/21 06:46 97.5 18 97.5 Comments unable to report ROS Lungs: Other (Decreased breath sounds) Cardiovascular: S1, Other (Tachycardia) Abdomen: Soft Extremities: Other (1+ edema) Skin: Warm Labs Laboratory Tests Test 04/13/21 16:11 04/13/21 23:25 04/14/21 06:00 04/14/21 15:04 Heparin Anti-Xa Act, Unfractionated 0.33 IU/mL (0.30-0.70) 0.28 IU/mL (0.30-0.70) 0.24 IU/mL (0.30-0.70) 0.53 IU/mL (0.30-0.70) Test 04/14/21 21:00 04/15/21 07:30 Heparin Anti-Xa Act, Unfractionated 0.43 IU/mL (0.30-0.70) 0.51 IU/mL (0.30-0.70) White Blood Count 13.8 x10^3/uL (4.0-11.0) Red Blood Count 4.63 x10^6/uL (4.30-5.70) Hemoglobin 16.9 g/dL (13.0-17.5) Hematocrit 50.6 % (39.0-53.0) Mean Corpuscular Volume 109 fL (79-100) Mean Corpuscular Hemoglobin 37 pg (25-35) Mean Corpuscular Hemoglobin Concent 33 g/dL (31-37) Red Cell Distribution Width 17.2 % (11.5-14.5) Platelet Count 255 x10^3/uL (140-400) Neutrophils (%) (Auto) 79 % (31-73) Lymphocytes (%) (Auto) 10 % (24-48) Monocytes (%) (Auto) 11 % (0-9) Eosinophils (%) (Auto) 0 % (0-3) Basophils (%) (Auto) 0 % (0-3) Neutrophils # (Auto) 10.8 x10^3/uL (1.8-7.7) Lymphocytes # (Auto) 1.4 x10^3/uL (1.0-4.8) Monocytes # (Auto) 1.5 x10^3/uL (0.0-1.1) Eosinophils # (Auto) 0.0 x10^3/uL (0.0-0.7) Basophils # (Auto) 0.0 x10^3/uL (0.0-0.2) Laboratory Tests Test 04/14/21 15:04 04/14/21 21:00 04/15/21 07:30 Heparin Anti-Xa Act, Unfractionated 0.53 IU/mL (0.30-0.70) 0.43 IU/mL (0.30-0.70) 0.51 IU/mL (0.30-0.70) White Blood Count 13.8 x10^3/uL (4.0-11.0) Red Blood Count 4.63 x10^6/uL (4.30-5.70) Hemoglobin 16.9 g/dL (13.0-17.5) Hematocrit 50.6 % (39.0-53.0) Mean Corpuscular Volume 109 fL (79-100) Mean Corpuscular Hemoglobin 37 pg (25-35) Mean Corpuscular Hemoglobin Concent 33 g/dL (31-37) Red Cell Distribution Width 17.2 % (11.5-14.5) Platelet Count 255 x10^3/uL (140-400) Neutrophils (%) (Auto) 79 % (31-73) Lymphocytes (%) (Auto) 10 % (24-48) Monocytes (%) (Auto) 11 % (0-9) Eosinophils (%) (Auto) 0 % (0-3) Basophils (%) (Auto) 0 % (0-3) Neutrophils # (Auto) 10.8 x10^3/uL (1.8-7.7) Lymphocytes # (Auto) 1.4 x10^3/uL (1.0-4.8) Monocytes # (Auto) 1.5 x10^3/uL (0.0-1.1) Eosinophils # (Auto) 0.0 x10^3/uL (0.0-0.7) Basophils # (Auto) 0.0 x10^3/uL (0.0-0.2) Medications Active Scripts Medications Dose Route/Sig Max Daily Dose Days Date Category Aspirin 81 Mg Tab.chew 81 Mg PO DAILY 06/13/19 Reported Eliquis (Apixaban) 5 Mg Tablet 5 Mg PO BID 06/13/19 Reported Lasix (Furosemide) 20 Mg Tablet 20 Mg PO DAILY 06/13/19 Reported Spironolactone 25 Mg Tablet 25 Mg PO DAILY 06/13/19 Reported Coreg (Carvedilol) 25 Mg Tablet 25 Mg PO BIDWMEALS 06/13/19 Reported Flomax (Tamsulosin Hcl) 0.4 Mg Cap.er.24h 0.4 Mg PO DAILY 06/13/19 Reported Impression . 1. Acute hypoxic respiratory failure secondary to atrial flutter with rapid ventricular response and suspected congestive heart failure. 2. Abnormal CT chest with ground glass infiltrates. Could be early congestive heart failure versus cocaine-induced pneumonitis. 3. Atrial flutter with rapid ventricular response, heart rate is still 140s. Cardiology is managing. 4. Acute kidney injury.--on HD 5. Substance abuse and ongoing cocainism. The patient also has tobacco use. 6. Abnormal previous echo with RV dilation due to suspected secondary Pulmonary HTN ( ASD/ CMP). No need for VTE w/u except dopplers. Pt already on Eliquis 7. Encephalopathy, drug induced 8. hypotension off pressors Plan . Continue current nasal cannula and as needed BIPAP , keep oxygen sats above 92% CXR PRN BIPAP setting reviewed 13/04 rate 12 at 40% Follow cardiology recs --EF 20%, on amio gtt and heparin. Off dopamine. Follow Nephrology recs -- on HD NEBS DVT/GI PPX: D/W RN and RT Minimize sedatives. Social work following for DC planning -- planned to DC to [facility] MD Apr 15, 2021 10:25
[2021-04-15] MEDS ORDERED: LIDOCAINE WITH 8.4% SOD BICARB 3 ML DISP.SYRIN. ONE (10:27)
[2021-04-15 11:00] VITALS: BP 124/69
[2021-04-15] MEDS ORDERED: LIDOCAINE WITH 8.4% SOD BICARB 3 ML DISP.SYRIN. INJ ONE (11:00)
[2021-04-15] MEDS ORDERED: HEPARIN for IV BOLUS 10,000 UNIT/10 ML VIAL. ONE (11:05)
--- NOTE | 2021-04-15 11:07 | NUR ---
Pt to IR for nonfunctioning temporary dialysis catheter, new catheter exchanged, good blood return, sutured in place by Dr Crocker. pt tolerated without difficulty. VICTOR MANUEL MCNAMARA Addendum: 04/15/21 at 1108 by MASON ASH RN Amended: Links added.
[2021-04-15] MEDS ORDERED: HEPARIN for IV BOLUS 10,000 UNIT/10 ML VIAL. INT CAT ONE (11:15)
--- NOTE | 2021-04-15 11:33 | PDOC ---
Renal-Progress Notes Subjective Notes Notes STILL CONFUSED History of Present Illness Hx of present illness SLOW IMPROVEMENT Vitals Vitals Vital Signs Date Time Temp Pulse Resp B/P (MAP) Pulse Ox O2 Delivery O2 Flow Rate FiO2 04/15/21 08:00 Nasal Cannula 5.0 04/15/21 07:25 94 04/15/21 06:51 71 108/78 04/15/21 06:46 97.5 18 97.5 Weight Weight [ ] I.O. Intake and Output Intake and Output 04/15/21 07:00 Intake Total 250 ml Output Total 700 ml Balance -450 ml Intake Oral 0 ml IV Total 250 ml Output Urine Total 700 ml # Bowel Movements 1 Labs Labs Laboratory Tests Test 04/14/21 15:04 04/14/21 21:00 04/15/21 07:30 Heparin Anti-Xa Act, Unfractionated 0.53 IU/mL (0.30-0.70) 0.43 IU/mL (0.30-0.70) 0.51 IU/mL (0.30-0.70) White Blood Count 13.8 x10^3/uL (4.0-11.0) Red Blood Count 4.63 x10^6/uL (4.30-5.70) Hemoglobin 16.9 g/dL (13.0-17.5) Hematocrit 50.6 % (39.0-53.0) Mean Corpuscular Volume 109 fL (79-100) Mean Corpuscular Hemoglobin 37 pg (25-35) Mean Corpuscular Hemoglobin Concent 33 g/dL (31-37) Red Cell Distribution Width 17.2 % (11.5-14.5) Platelet Count 255 x10^3/uL (140-400) Neutrophils (%) (Auto) 79 % (31-73) Lymphocytes (%) (Auto) 10 % (24-48) Monocytes (%) (Auto) 11 % (0-9) Eosinophils (%) (Auto) 0 % (0-3) Basophils (%) (Auto) 0 % (0-3) Neutrophils # (Auto) 10.8 x10^3/uL (1.8-7.7) Lymphocytes # (Auto) 1.4 x10^3/uL (1.0-4.8) Monocytes # (Auto) 1.5 x10^3/uL (0.0-1.1) Eosinophils # (Auto) 0.0 x10^3/uL (0.0-0.7) Basophils # (Auto) 0.0 x10^3/uL (0.0-0.2) Review of Systems Constitutional: yes: other (UNABLE TO OBTAIN, CONFUSED) Physical Exam General Appearance: moderate distress, cachetic Skin: warm Respiratory: decreased breath sounds, BiPAP/NIPPV, dyspnea Abdomen: soft, bowel sounds present, no guarding Genitourinary: bladder flat Extremities: pulses present Neurology: alert, confused Assessment Assessment IMP NON FUNCTIONING RIGHT IJ TEMP HD LINE HYPERKALEMIA-CORRECTED CKD STAGE 3B - CR OF ABOUT 2.0 [id number] RVT NSTEMI ACUTE ON CHRONIC SYSTOLIC AND DIASTOLIC CHF CM WITH EF OF 20% COCAIN ABUSE POLYCYTHEMIA HX ASD CLOSURE AND LA THROMBUS ACUTE ON CHRONIC RESP FAILURE POSSIBLE PNEUMONITIS PLAN EMPIRIC ANTIBIOTICS SUPPLEMENTAL O2 CARDIOLOGY EVAL PULM EVAL ANTICOAGULATION WILL ASK IR TO REPLACE TEMP HD LINE HD TODAY UF TO TW OVERALL POOR PROGNOSIS TO SELECT SOON EFE URENA MD Apr 15, 2021 11:33
--- NOTE | 2021-04-15 12:41 | PDOC3 ---
Discharge Summary Date of Admission: Apr 07, 2021 Date of Discharge: Apr 15, 2021 Follow-Up: 1-2 days Admitting Diagnosis comment: HISTORY OF PRESENT ILLNESS: pleasant 61-year-old male who presented with shortness of breath. While in the ER, we had noticed that he is quite hypoxic, we have him on a lot of oxygen. His potassium is also high at 6. He also has azotemia with a BUN of 35 and a creatinine of 2. Hemoglobin is high at 17.7. Surprisingly, his COVID testing is negative, HAS history of nonischemic cardiomyopathy with an EF of 40%, history of cocaine abuse, history of ASD, history of left atrial thrombus. He was brought into the hospital with increasing dyspnea. is noncompliant. The patient was noted to be in atrial flutter with rapid ventricular response. 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 He HAD orthopnea and lower extremity edema and dyspnea on exertion. his chest x-ray does show cardiomegaly and pulmonary hypertension, infiltrates and possible emphysema. We are admitting the patient with consultation to Cardiology and Nephrology. PAST MEDICAL HISTORY: BPH, AFib, hypertension, tobacco abuse. ALLERGIES: None. FAMILY HISTORY: Hypertension. SOCIAL HISTORY: He smokes and drinks. No drugs. TRANSFER DX . Acute hypoxic respiratory failure secondary to atrial flutter with rapid ventricular response and suspected congestive heart failure. Abnormal CT chest with ground glass infiltrates. Could be early congestive heart failure versus cocaine-induced pneumonitis. Atrial flutter with rapid ventricular response, heart rate is still 140s. Cardiology is managing. Acute kidney injury.--on HD Substance abuse and ongoing cocainism. The patient also has tobacco use. Abnormal previous echo with RV dilation due to suspected secondary Pulmonary HTN ( ASD/ CMP). No need for VTE w/u except dopplers. Pt already on Eliquis Encephalopathy, drug induced hypotension off pressors Digoxin QOD for rate control after every HD Amiodarone drip for rate control. Continue metoprolol IV as no GI access currently as he is NPO Heparin gtt for stroke prophylaxis Fluid off loading per HD Poor prognosis, consider discussion with family re goals of care Follow up with cardiology asn an outpt. TRANSFER TO LTAC 8-20 CHF exacerbation Afib Rvr Hypokalemia CONSULTS CARDIOLOGY, PULMONARY TRANSFER CONDITION FAIR PROGNOSIS VERY GUARDED HOSPITAL COURSE History of Present Illness 04/10/2021 Pt seen and examined at bedside Patient got his temporary dialysis catheter yesterday its in the right IJ Patient's brother [place] is now here Pt went for dialysis today Pt has hypoxic encephalitis Pt has a Bipap Pt is on 60% FiO2 with 99% Sat Pt has Mits on for safety D/W RN Chart reviewed 04/09/2021 Pt seen and examined at bedside D/W nephrology to do emergent dialysis. We tried to get ahold of a family member but could not find a working phone number. We deemed the temporary cath for dialysis necessary for pt care and treatment. It is in the pts best interest to get dialysis today. Pt has hypoxic encephalitis Pt is very agitated D/W RN Chart reviewed 04/08/2021 Pt seen and examined Pt was very agitated and encephalopathic Pt has Folley to BSD Pt has mits on hands for safety Pt has edema D/W RN Chart reviewed The patient is a pleasant 61-year-old male who presented with shortness of breath. While in the ER, we had noticed that he is quite hypoxic, we have him on a lot of oxygen. His potassium is also high at 6. He also has azotemia with a BUN of 35 and a creatinine of 2. Hemoglobin is high at 17.7. Surprisingly, his COVID testing is negative, but his chest x-ray does show cardiomegaly and pulmonary hypertension, infiltrates and possible emphysema. We are admitting the patient with consultation to Cardiology and Nephrology. 04/11/2021 seen and examined at bedside temporary dialysis catheter 8-14 its in the right IJ hypoxic encephalopathy Pt has a Bipap Pt is on 60% FiO2 with 99% Sat Mits on for safety D/W RN Chart reviewed 04/12/2021 seen and examined at bedside temporary dialysis catheter 8-14 its in the right IJ hypoxic encephalopathy Pt has a Bipap Pt is on 60% FiO2 with 99% Sat Mits on for safety D/W RN Chart reviewed pt. remains on BIPAP at 40% on Dopamine and Amio gtt no improvement in mentation 04/13/2021 seen and examined at bedside temporary dialysis catheter 8-14 its in the right IJ hypoxic encephalopathy on Bipap 8 L nasal cannula. Mits on for safety D/W RN Chart reviewed pt. remains on BIPAP at 40% on Dopamine and Amio gtt no improvement in mentation plan [facility] pending insurance D/W SS 04/14/2021 seen and examined at bedside temporary dialysis catheter 8-14 its in the right IJ hypoxic encephalopathy on Bipap 8 L nasal cannula. Mits on for safety D/W RN Chart reviewed pt. remains on BIPAP at 40% on Dopamine and Amio gtt no improvement in mentation plan [facility] pending insurance D/W SS 04/15 seen and examined at bedside temporary dialysis catheter 8-14 its in the right IJ hypoxic encephalopathy on Bipap Mits on for safety D/W RN AND CASE MGT Chart reviewed pt. remains on PRN BIPAP, O2 AT 5 LITERS NC Amio gtt no improvement in mentation plan [facility] pending insurance D/W SS BIPAP setting reviewed 13/04 rate 12 at 40% Follow cardiology recs --EF 20%, on amio gtt and heparin. Off dopamine. Follow Nephrology recs -- on HD D/C PLANNING 50 MIN FINAL DIAGNOSIS Problems Medical Problems: (1) Atrial fibrillation with RVR Status: Acute (2) CHF (congestive heart failure) Status: Acute (3) Chronic renal insufficiency Status: Acute (4) Cocaine use Status: Acute (5) Elevated troponin Status: Acute (6) Hyperkalemia Status: Acute Brief Hospital Course Mr. Bermudez is a 61 old [sex] who presented with [ ] CONDITION AT DISCHARGE: Comment (GUARDED) Discharge Medications Current Medications Albuterol/ Ipratropium (Duoneb) 3 ml 1X ONCE NEB Last administered on 04/07/21at 09:19; Start 04/07/21 at 09:15; Stop 04/07/21 at 09:16; Status DC Dexamethasone Sodium Phosphate (Decadron) 10 mg 1X ONCE IVP Last administered on 04/07/21at 09:19; Start 04/07/21 at 09:15; Stop 04/07/21 at 09:16; Status DC Aspirin (Ecotrin) 325 mg 1X ONCE PO Last administered on 04/07/21at 09:18; Start 04/07/21 at 09:15; Stop 04/07/21 at 09:16; Status DC Diltiazem HCl (Cardizem Iv Push) 20 mg 1X ONCE IVP Last administered on 04/07/21at 09:33; Start 04/07/21 at 09:45; Stop 04/07/21 at 09:46; Status DC Diltiazem HCl 125 mg/Sodium Chloride 125 ml @ 5 mls/hr CONT PRN IV SEE I/O RECORD Last administered on 04/07/21at 09:34; Start 04/07/21 at 09:30; Stop 04/07/21 at 14:58; Status DC Bumetanide (Bumex) 1 mg DAILY ONCE IV Last administered on 04/07/21at 11:09; Start 04/07/21 at 10:44; Stop 04/07/21 at 10:45; Status DC Calcium Gluconate (Calcium Gluconate) 1,000 mg 1X ONCE IVP Last administered on 04/07/21at 12:14; Start 04/07/21 at 11:15; Stop 04/07/21 at 11:16; Status DC Insulin Human Regular (HumuLIN R VIAL) 10 unit 1X ONCE IV Last administered on 04/07/21at 12:19; Start 04/07/21 at 11:15; Stop 04/07/21 at 11:16; Status DC Dextrose (Dextrose 50%-Water Syringe) 25 gm 1X ONCE IV Last administered on 04/07/21at 12:12; Start 04/07/21 at 11:15; Stop 04/07/21 at 11:16; Status DC Ondansetron HCl (Zofran) 4 mg PRN Q8HRS PRN IVP NAUSEA/VOMITING; Start 04/07/21 at 12:30; Stop 04/08/21 at 12:29; Status DC Piperacillin Sod/ Tazobactam Sod (Zosyn Per Pharmacy) 1 each PRN DAILY PRN MC SEE COMMENTS; Start 04/07/21 at 12:45; Stop 04/08/21 at 13:50; Status DC Piperacillin Sod/ Tazobactam Sod 3.375 gm/Sodium Chloride 50 ml @ 100 mls/hr 1X ONCE IV Last administered on 04/07/21at 14:30; Start 04/07/21 at 13:00; Stop 04/07/21 at 13:29; Status DC Piperacillin Sod/ Tazobactam Sod 3.375 gm/Sodium Chloride 50 ml @ 100 mls/hr Q6HRS IV Last administered on 04/08/21at 12:41; Start 04/07/21 at 18:00; Stop 04/08/21 at 13:50; Status DC Carvedilol (Coreg) 3.125 mg BIDWMEALS PO ; Start 04/07/21 at 17:00; Stop 04/07/21 at 15:07; Status DC Carvedilol (Coreg) 6.25 mg BIDWMEALS PO Last administered on 04/07/21at 15:52; Start 04/07/21 at 17:00; Stop 04/08/21 at 14:18; Status DC Apixaban (Eliquis) 5 mg BID PO Last administered on 04/07/21at 20:20; Start 04/07/21 at 21:00; Stop 04/08/21 at 14:18; Status DC Furosemide (Lasix) 40 mg BID66 IVP Last administered on 04/15/21at 06:51; Start 04/07/21 at 18:00 Info (Anti-Coagulation Monitoring By Pharmacy) 1 each PRN DAILY PRN MC PER ID OTOCOL Last administered on 04/14/21at 09:40; Start 04/07/21 at 15:15 Methylprednisolone Sodium Succinate (SOLU-Medrol 125MG VIAL) 125 mg 1X ONCE IV Last administered on 04/07/21at 15:59; Start 04/07/21 at 15:45; Stop 04/07/21 at 15:46; Status DC Albuterol Sulfate (Ventolin Neb Soln) 2.5 mg 1X ONCE NEB Last administered on 04/07/21at 16:54; Start 04/07/21 at 15:45; Stop 04/07/21 at 15:46; Status DC Digoxin (Lanoxin) 250 mcg 1X ONCE IV Last administered on 04/07/21at 16:16; Start 04/07/21 at 16:15; Stop 04/07/21 at 16:16; Status DC Tamsulosin HCl (Flomax) 0.4 mg DAILY PO ; Start 04/08/21 at 09:00 Acetaminophen (Tylenol) 500 mg PRN Q6HRS PRN PO MILD PAIN / TEMP > 100.3'F; Start 04/07/21 at 21:00 Albuterol/ Ipratropium (Duoneb) 3 ml 1X ONCE NEB ; Start 04/07/21 at 21:00; Stop 04/07/21 at 21:01; Status DC Hydralazine HCl (Apresoline Inj) 10 mg PRN Q4HRS PRN IVP ELEVATED BP, 1ST CHOICE Last administered on 04/08/21at 03:19; Start 04/07/21 at 21:00 Oxycodone/ Acetaminophen (Percocet 5/325) 1 tab 1X ONCE PO Last administered on 04/07/21at 21:17; Start 04/07/21 at 21:30; Stop 04/07/21 at 21:31; Status DC Albuterol/ Ipratropium (Duoneb) 3 ml RTQID NEB ; Start 04/07/21 at 21:30; Status Cancel Furosemide (Lasix) 40 mg 1X ONCE IVP Last administered on 04/07/21at 21:42; Start 04/07/21 at 22:00; Stop 04/07/21 at 22:01; Status DC Morphine Sulfate (Morphine Sulfate) 2 mg PRN Q2HR PRN IVP SEVERE PAIN 7-10 Last administered on 04/08/21at 22:44; Start 04/07/21 at 21:30; Stop 04/09/21 at 19:08; Status DC Albuterol/ Ipratropium (Combivent Respimat 20-100 Mcg) 1 puff RTQID INH Last administered on 04/08/21at 17:17; Start 04/08/21 at 08:00; Stop 04/11/21 at 08:10; Status DC Carvedilol (Coreg) 6.25 mg 1X ONCE PO Last administered on 04/08/21at 04:20; Start 04/08/21 at 04:30; Stop 04/08/21 at 04:31; Status DC Alprazolam (Xanax) 0.25 mg 1X ONCE PO Last administered on 04/08/21at 04:20; Start 04/08/21 at 04:30; Stop 04/08/21 at 04:31; Status DC Furosemide (Lasix) 40 mg 1X ONCE IVP Last administered on 04/08/21at 05:42; Start 04/08/21 at 06:00; Stop 04/08/21 at 06:01; Status DC Digoxin (Lanoxin) 250 mcg 1X ONCE IV Last administered on 04/08/21at 06:49; Start 04/08/21 at 07:00; Stop 04/08/21 at 07:01; Status DC Digoxin (Lanoxin) 250 mcg DAILY IV Last administered on 04/12/21at 10:10; Start 04/08/21 at 07:15; Stop 04/12/21 at 13:12; Status DC Metoprolol Tartrate (Lopressor Vial) 5 mg 1X ONCE IVP Last administered on 04/08/21at 08:56; Start 04/08/21 at 08:15; Stop 04/08/21 at 08:17; Status DC Lorazepam (Ativan Inj) 2 mg PRN Q4HRS PRN IVP ANXIETY / AGITATION Last administered on 04/09/21at 16:16; Start 04/08/21 at 10:15; Stop 04/09/21 at 19:08; Status DC Furosemide (Lasix) 40 mg 1X ONCE IVP Last administered on 04/08/21at 12:43; Start 04/08/21 at 10:45; Stop 04/08/21 at 10:47; Status DC Amiodarone HCl 150 mg/Dextrose 103 ml @ 600 mls/hr 1X ONCE IV Last administered on 04/08/21at 14:43; Start 04/08/21 at 14:30; Stop 04/08/21 at 14:40; Status DC Amiodarone HCl 450 mg/Dextrose 259 ml @ 0 mls/hr CONT PRN IV SEE I/O RECORD Last administered on 04/09/21at 00:16; Start 04/08/21 at 14:30; Stop 04/09/21 at 14:29; Status DC Metoprolol Tartrate (Lopressor Vial) 5 mg Q6HRS IVP Last administered on 04/10/21at 05:46; Start 04/08/21 at 18:00; Stop 04/10/21 at 11:44; Status DC Enoxaparin Sodium (Lovenox Per Pharmacy Treatment Dosing) 1 each PRN DAILY PRN MC SEE COMMENTS; Start 04/08/21 at 14:30; Stop 04/12/21 at 08:26; Status DC Enoxaparin Sodium (Lovenox 100mg Syringe) 90 mg Q24H SQ Last administered on 04/10/21at 16:17; Start 04/08/21 at 16:00; Stop 04/12/21 at 08:26; Status DC Amiodarone HCl 450 mg/Dextrose 259 ml @ 0 mls/hr CONT PRN IV SEE I/O RECORD Last administered on 04/13/21at 16:02; Start 04/09/21 at 17:30 Lorazepam (Ativan Inj) 2 mg PRN Q2HRS PRN IVP ANXIETY / AGITATION Last administered on 04/13/21at 15:31; Start 04/09/21 at 19:15; Stop 04/14/21 at 10:17; Status DC Morphine Sulfate (Morphine Sulfate) 4 mg PRN Q2HR PRN IVP SEVERE PAIN 7-10; Start 04/09/21 at 19:30; Stop 04/09/21 at 19:22; Status DC Lidocaine HCl (Buffered Lidocaine 1%) 3 ml STK-MED ONCE .ROUTE ; Start 04/10/21 at 09:36; Stop 04/10/21 at 09:36; Status DC Heparin Sodium (Porcine) (Hep Lock Adult) 500 unit STK-MED ONCE IVP ; Start 04/10/21 at 09:39; Stop 04/10/21 at 09:39; Status DC Heparin Sodium (Porcine) (Heparin Sodium) 10,000 unit STK-MED ONCE .ROUTE ; Start 04/10/21 at 09:41; Stop 04/10/21 at 09:41; Status DC Lidocaine HCl (Buffered Lidocaine 1%) 3 ml 1X ONCE IJ Last administered on 04/10/21at 10:13; Start 04/10/21 at 10:00; Stop 04/10/21 at 10:03; Status DC Sodium Chloride 1,000 ml @ 1,000 mls/hr Q1H PRN IV hypotension; Start 04/10/21 at 11:15; Stop 04/10/21 at 17:14; Status DC Albumin Human 200 ml @ 200 mls/hr 1X PRN PRN IV Hypotension Last administered on 04/10/21at 13:00; Start 04/10/21 at 11:15; Stop 04/10/21 at 17:14; Status DC Sodium Chloride 1,000 ml @ 400 mls/hr Q2H30M PRN IV PATENCY; Start 04/10/21 at 11:15; Stop 04/10/21 at 23:14; Status DC Info (PHARMACY MONITORING -- do not chart) 1 each PRN DAILY PRN MC SEE COMMENTS; Start 04/10/21 at 12:15; Status UNV Info (PHARMACY MONITORING -- do not chart) 1 each PRN DAILY PRN MC SEE COMMENTS; Start 04/10/21 at 12:15; Status Cancel Albuterol/ Ipratropium (Duoneb) 3 ml RTQID NEB Last administered on 04/15/21at 07:14; Start 04/11/21 at 12:00 Heparin Sodium (Porcine) (Heparin Sodium) 2,000 unit 1X ONCE IV Last administered on 04/11/21at 08:30; Start 04/11/21 at 08:30; Stop 04/11/21 at 08:37; Status DC Sodium Chloride 1,000 ml @ 1,000 mls/hr Q1H PRN IV hypotension; Start 04/11/21 at 08:30; Stop 04/11/21 at 14:29; Status DC Sodium Chloride 1,000 ml @ 400 mls/hr Q2H30M PRN IV PATENCY; Start 04/11/21 at 08:30; Stop 04/11/21 at 20:29; Status DC Info (PHARMACY MONITORING -- do not chart) 1 each PRN DAILY PRN MC SEE COMMENTS; Start 04/11/21 at 08:30; Status Cancel Sodium Chloride 500 ml @ 500 mls/hr 1X ONCE IV Last administered on 04/11/21at 22:40; Start 04/11/21 at 23:00; Stop 04/11/21 at 23:59; Status DC Dopamine HCl/ Dextrose 250 ml @ 16.744 mls/ hr CONT PRN IV SEE I/O RECORD Last administered on 04/12/21at 00:08; Start 04/11/21 at 23:45; Stop 04/12/21 at 14:50; Status DC Digoxin (Lanoxin) 250 mcg QMWF IV Last administered on 04/13/21at 13:10; Start 04/13/21 at 14:00 Heparin Sodium/ Dextrose 250 ml @ 0 mls/hr CONT PRN IV PER PROTOCOL Last administered on 04/15/21at 04:43; Start 04/12/21 at 13:15 Heparin Sodium (Porcine) (Heparin Sodium) 2,250 unit PRN Q6HRS PRN IV FOR UFH LEVEL LESS THAN 0.2 Last administered on 04/12/21at 14:30; Start 04/12/21 at 13:15 Metoprolol Tartrate (Lopressor Vial) 5 mg PRN Q6HRS PRN IVP HYPERTENSION, 2ND CHOICE; Start 04/12/21 at 13:15 Metoprolol Tartrate (Lopressor Vial) 5 mg Q6HRS IVP Last administered on 04/15/21at 06:51; Start 04/12/21 at 13:30 Sodium Chloride 1,000 ml @ 1,000 mls/hr Q1H PRN IV hypotension; Start 04/13/21 at 07:30; Stop 04/13/21 at 13:29; Status DC Sodium Chloride 1,000 ml @ 400 mls/hr Q2H30M PRN IV PATENCY; Start 04/13/21 at 07:30; Stop 04/13/21 at 19:29; Status DC Info (PHARMACY MONITORING -- do not chart) 1 each PRN DAILY PRN MC SEE COMMENTS; Start 04/13/21 at 11:30; Status Cancel Info (PHARMACY MONITORING -- do not chart) 1 each PRN DAILY PRN MC SEE COMME NTS; Start 04/13/21 at 11:30 Lorazepam (Ativan Inj) 1 mg PRN Q6HRS PRN IVP ANXIETY / AGITATION; Start 04/14/21 at 10:30 Lidocaine HCl (Buffered Lidocaine 1%) 3 ml STK-MED ONCE .ROUTE ; Start 04/15/21 at 10:27; Stop 04/15/21 at 10:28; Status DC Lidocaine HCl (Buffered Lidocaine 1%) 3 ml 1X ONCE INJ Last administered on 04/15/21at 11:00; Start 04/15/21 at 11:00; Stop 04/15/21 at 11:01; Status DC Heparin Sodium (Porcine) (Heparin Sodium) 10,000 unit STK-MED ONCE .ROUTE ; Start 04/15/21 at 11:05; Stop 04/15/21 at 11:05; Status DC Heparin Sodium (Porcine) (Heparin Sodium) 2,600 unit 1X ONCE INT CAT Last administered on 04/15/21at 11:10; Start 04/15/21 at 11:15; Stop 04/15/21 at 11:16; Status DC Active Scripts Active Reported Aspirin 81 Mg Tab.chew 81 Mg PO DAILY Eliquis (Apixaban) 5 Mg Tablet 5 Mg PO BID Lasix (Furosemide) 20 Mg Tablet 20 Mg PO DAILY Spironolactone 25 Mg Tablet 25 Mg PO DAILY Coreg (Carvedilol) 25 Mg Tablet 25 Mg PO BIDWMEALS Flomax (Tamsulosin Hcl) 0.4 Mg Cap.er.24h 0.4 Mg PO DAILY Vital Signs Vital Signs Date Time Temp Pulse Resp B/P (MAP) Pulse Ox O2 Delivery O2 Flow Rate FiO2 04/15/21 11:00 97.8 75 124/69 (87) 98 BiPAP/CPAP 97.8 04/15/21 08:00 5.0 04/15/21 06:46 18 Labs Laboratory Tests Test 04/13/21 16:11 04/13/21 23:25 04/14/21 06:00 04/14/21 15:04 Heparin Anti-Xa Act, Unfractionated 0.33 IU/mL (0.30-0.70) 0.28 IU/mL (0.30-0.70) 0.24 IU/mL (0.30-0.70) 0.53 IU/mL (0.30-0.70) Test 04/14/21 21:00 04/15/21 07:30 Heparin Anti-Xa Act, Unfractionated 0.43 IU/mL (0.30-0.70) 0.51 IU/mL (0.30-0.70) White Blood Count 13.8 x10^3/uL (4.0-11.0) Red Blood Count 4.63 x10^6/uL (4.30-5.70) Hemoglobin 16.9 g/dL (13.0-17.5) Hematocrit 50.6 % (39.0-53.0) Mean Corpuscular Volume 109 fL (79-100) Mean Corpuscular Hemoglobin 37 pg (25-35) Mean Corpuscular Hemoglobin Concent 33 g/dL (31-37) Red Cell Distribution Width 17.2 % (11.5-14.5) Platelet Count 255 x10^3/uL (140-400) Neutrophils (%) (Auto) 79 % (31-73) Lymphocytes (%) (Auto) 10 % (24-48) Monocytes (%) (Auto) 11 % (0-9) Eosinophils (%) (Auto) 0 % (0-3) Basophils (%) (Auto) 0 % (0-3) Neutrophils # (Auto) 10.8 x10^3/uL (1.8-7.7) Lymphocytes # (Auto) 1.4 x10^3/uL (1.0-4.8) Monocytes # (Auto) 1.5 x10^3/uL (0.0-1.1) Eosinophils # (Auto) 0.0 x10^3/uL (0.0-0.7) Basophils # (Auto) 0.0 x10^3/uL (0.0-0.2) Laboratory Tests Test 04/14/21 15:04 04/14/21 21:00 04/15/21 07:30 Heparin Anti-Xa Act, Unfractionated 0.53 IU/mL (0.30-0.70) 0.43 IU/mL (0.30-0.70) 0.51 IU/mL (0.30-0.70) White Blood Count 13.8 x10^3/uL (4.0-11.0) Red Blood Count 4.63 x10^6/uL (4.30-5.70) Hemoglobin 16.9 g/dL (13.0-17.5) Hematocrit 50.6 % (39.0-53.0) Mean Corpuscular Volume 109 fL (79-100) Mean Corpuscular Hemoglobin 37 pg (25-35) Mean Corpuscular Hemoglobin Concent 33 g/dL (31-37) Red Cell Distribution Width 17.2 % (11.5-14.5) Platelet Count 255 x10^3/uL (140-400) Neutrophils (%) (Auto) 79 % (31-73) Lymphocytes (%) (Auto) 10 % (24-48) Monocytes (%) (Auto) 11 % (0-9) Eosinophils (%) (Auto) 0 % (0-3) Basophils (%) (Auto) 0 % (0-3) Neutrophils # (Auto) 10.8 x10^3/uL (1.8-7.7) Lymphocytes # (Auto) 1.4 x10^3/uL (1.0-4.8) Monocytes # (Auto) 1.5 x10^3/uL (0.0-1.1) Eosinophils # (Auto) 0.0 x10^3/uL (0.0-0.7) Basophils # (Auto) 0.0 x10^3/uL (0.0-0.2) Allergies Allergies Coded Allergies Type Severity Reaction Last Updated Verified No Known Drug Allergies 04/14/14 No Disposition/Orders: Other (D/C TO LTAC) Justicifation of Admission Dx: Justifications for Admission: Justification of Admission Dx: Yes OG BRUNSON MD Apr 15, 2021 12:41
--- NOTE | 2021-04-15 12:48 | SNU/HH DC ---
DISCHARGE ORDERS DISCHARGE INFORMATION: DISCHARGE DATE: Apr 15, 2021 FINAL DIAGNOSIS Problems Medical Problems: (1) Atrial fibrillation with RVR Status: Acute (2) CHF (congestive heart failure) Status: Acute (3) Chronic renal insufficiency Status: Acute (4) Cocaine use Status: Acute (5) Elevated troponin Status: Acute (6) Hyperkalemia Status: Acute CONDITION ON DISCHARGE: Guarded CODE STATUS: Code Status: Full PENITENTIARY: SNF STAY <30 DAYS: No HOSPICE: HOSPICE: No HOSPICE EVAL & TREAT: No LTAC: ADMIT TO LTAC: Yes POST DISCHARGE ORDERS: ACTIVITY ORDERS: Resume previous activity, Activity as tolerated WEIGHT BEARING STATUS: As tolerated CHECKS AFTER DISCHARGE: CHECKS AFTER DISCHARGE: Check blood press - daily FOLLOW-UP: PHYSICIAN FOLLOW-UP: CARE AT [facility] TREATMENT/EQUIPMENT ORDERS: ADAPTIVE EQUIPMENT NEEDED: None Physical Therapy For: Evalulation/Treatment Occupational Therapy For: Evaluation/Treatment Speech Language Pathology For: Evaluation/Treatment DISCHARGE MEDICATIONS: Home Meds Reported Medications Aspirin (ASPIRIN) 81 Mg Tab.chew, 81 MG PO DAILY for blood thinner, TAB.CHEW 06/13/19 Apixaban (ELIQUIS) 5 Mg Tablet, 5 MG PO BID for stroke prevention, TAB 06/13/19 Furosemide (LASIX) 20 Mg Tablet, 20 MG PO DAILY for diuretic, TAB 06/13/19 Spironolactone (SPIRONOLACTONE) 25 Mg Tablet, 25 MG PO DAILY for heart, TAB 06/13/19 Carvedilol (COREG) 25 Mg Tablet, 25 MG PO BIDWMEALS for blood pressure and chf, TAB 06/13/19 Tamsulosin Hcl (FLOMAX) 0.4 Mg Cap.er.24h, 0.4 MG PO DAILY for prostate, TAB 06/13/19 OG BRUNSON MD Apr 15, 2021 12:48
--- NOTE | 2021-04-15 12:49 | RAD ---
Replacement of right internal jugular temporary hemodialysis catheter over a guidewire INDICATION: Nonfunctioning catheter. Discussion: Consent: The procedure was explained in its entirety to the patient or the patients desig nated computer help desk representative by a member of the treatment team, including a discussion of the risks, benefits and commonly accepted alternatives to the procedure, as well as the expected consequences of no ther apy whatsoever. Discussion of the risks included, but was not limited to, those that are most frequ ent and those that are rare but possibly severe or life-threatening, as well as the possibility of un foreseen complications. The patient was prepped and draped using maximum sterile technique, including the use of: Current carrie deline approved cutaneous antisepsis, a large sterile sheet to establish a sterile field. Additionall y the cnc router operator wore a hat, mask, sterile gloves, a sterile gown during the procedure as well as pract iced acceptable hand hygiene prior to placing the line. The pre-existing line was evaluated under fluoroscopy and found to be in grossly normal position. The line was removed over a guidewire. Thrombosis of the catheter noted. The catheter was replaced with a new 20 cm temporary dialysis catheter over the guidewire. Wire was removed. Sterile dressings were applied. The catheter was packed with heparin. Fluoroscopy time: 0.2 minutes Dose area product 1 Wall centimeter squared IMPRESSION: Replacement of right internal jugular temporary hemodialysis, over a wire Electronically signed by: Des Crocker MD (04/15/2021 12:46 PM) [id number]
--- NOTE | 2021-04-15 12:49 | RAD ---
Replacement of right internal jugular temporary hemodialysis catheter over a guidewire INDICATION: Nonfunctioning catheter. Discussion: Consent: The procedure was explained in its entirety to the patient or the patients desig nated labor representative by a member of the treatment team, including a discussion of the risks, benefits and commonly accepted alternatives to the procedure, as well as the expected consequences of no ther apy whatsoever. Discussion of the risks included, but was not limited to, those that are most frequ ent and those that are rare but possibly severe or life-threatening, as well as the possibility of un foreseen complications. The patient was prepped and draped using maximum sterile technique, including the use of: Current carrie deline approved cutaneous antisepsis, a large sterile sheet to establish a sterile field. 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 The pre-existing line was evaluated under fluoroscopy and found to be in grossly normal position. The line was removed over a guidewire. Thrombosis of the catheter noted. The catheter was replaced with a new 20 cm temporary dialysis catheter over the guidewire. Wire was removed. Sterile dressings were applied. The catheter was packed with heparin. Fluoroscopy time: 0.2 minutes Dose area product 1 Wall centimeter squared IMPRESSION: Replacement of right internal jugular temporary hemodialysis, over a wire Electronically signed by: Des Crocker MD (04/15/2021 12:46 PM) [id number]
--- NOTE | 2021-04-15 12:49 | RAD ---
Replacement of right internal jugular temporary hemodialysis catheter over a guidewire INDICATION: Nonfunctioning catheter. Discussion: Consent: The procedure was explained in its entirety to the patient or the patients desig nated nutrition representative by a member of the treatment team, including a discussion of the risks, benefits and commonly accepted alternatives to the procedure, as well as the expected consequences of no ther apy whatsoever. Discussion of the risks included, but was not limited to, those that are most frequ ent and those that are rare but possibly severe or life-threatening, as well as the possibility of un foreseen complications. The patient was prepped and draped using maximum sterile technique, including the use of: Current carrie deline approved cutaneous antisepsis, a large sterile sheet to establish a sterile field. 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 The pre-existing line was evaluated under fluoroscopy and found to be in grossly normal position. The line was removed over a guidewire. Thrombosis of the catheter noted. The catheter was replaced with a new 20 cm temporary dialysis catheter over the guidewire. Wire was removed. Sterile dressings were applied. The catheter was packed with heparin. Fluoroscopy time: 0.2 minutes Dose area product 1 Wall centimeter squared IMPRESSION: Replacement of right internal jugular temporary hemodialysis, over a wire Electronically signed by: Des Crocker MD (04/15/2021 12:46 PM) [id number]
--- NOTE | 2021-04-15 12:54 | NUR ---
SS following up with discharge planning. SS reviewed pt chart and discussed with pt RN. Pt is currently on BIPAP at 40%. COVID19 negative. Pt on Heparin and Amiodarone drip. Pt on IV Lasix and IV Metoprolol. Hemodialysis today. COVID19 negative. Pt accepted at [facility], ; fax [phone]. Insurance authorization received. Discharge orders received and phoned and faxed to [facility]. Pt will discharge today and go to [facility] at 1999 via [facility] ambulance, . Pt's family and pt's RN notified. Packet and ambulance form on the chart.
[2021-04-15 15:00] VITALS: BP 120/62
[2021-04-15] MEDS: DIGOXIN IV 500 MCG/2 ML AMPUL. IV SCH (16:00)
--- NOTE | 2021-04-15 18:02 | RAD ---
Single view chest dated 04/15/2021 5:59 PM: COMPARISON: 04/10/2021 Clinical Indication: Line placement. Findings: Single upright portable exam of the chest was performed. Heart size is upper limits of normal, stable . There is a right-sided dialysis catheter with tip projected to the mid right atrium, advanced charity red to the prior exam. Patchy and linear perihilar opacities. No pleural effusion. No pneumothorax. IMPRESSION: 1. Right-sided dialysis catheter with no evidence of pneumothorax. 2. Patchy perihilar airspace disease, atelectasis versus pneumonia. Electronically signed by: Gabriel Reyes MD (04/15/2021 6:00 PM) BETTE
[2021-04-15 19:14] LABS: CALCIUM 8.9 mg/dL (8.5-10.1); CREATININE 3.3 mg/dL (0.7-1.3); GFR 23.2; POTASSIUM 4.2 mmol/L (3.5-5.1)
[2021-04-15 21:07] VITALS: BP 102/66
[2021-04-15] MEDS ORDERED: IV NORMAL SALINE 1000ML BAG 1,000 ML IV PRN ×2 (21:30)
[2021-04-15] MEDS ORDERED: DIALYSIS PATIENT. MC PRN ×2 (21:30)
[2021-04-15] MEDS ORDERED: ALBUMIN HUMAN 25% 200 ML IV PRN (21:30)
--- NOTE | 2021-04-15 22:17 | NUR ---
Discharge Note: APOLINAR DAVIS Discharge instructions and discharge home medications reviewed with Other facility and a copy given. All questions have been answered and understanding verbalized. Pt sent with IV's intact and temp Dialysis catheter in place. [facility] Personnel via [facility] All belongings sent with ambulance personnel
--- NOTE | 2021-04-18 11:56 | RAD ---
Procedure: Replacement of right internal jugular temporary hemodialysis catheter over a guidewire at the bedside Sterility: All elements of maximal sterile barrier technique including the use of a cap, mask, steril e gown, sterile gloves, large sterile sheet, appropriate hand hygiene, and 2% chlorhexidine for cutan eous antisepsis (or acceptable alternative antiseptic per current guidelines) were followed for this procedure. Technique and Findings: The right neck and catheter were prepped using maximum sterile barrier technique. A guidewire was adv anced to the pre-existing 20 cm temporary dialysis catheter which was exchanged for 24 cm catheter at the patient's bedside. The catheter was found to flush and aspirate normally. Sterile dressings were applied. IMPRESSION: Exchange of a right internal jugular temporary dialysis catheter at the bedside Electronically signed by: Des Crocker MD (04/18/2021 11:53 AM) [id number]
== END 2021-04-15 22:27 | DRG 280 ==
LOC: ER 08:46 → ED HOLD 11:09 → 6 SOUTH 13:57
PROVIDERS: ADMIT Internal Medicine; ATTEND Internal Medicine
PROC: 02PAX3Z Removal of Infusion Device from Heart, External Approach (ICD-10-PCS; 2021-04-07)
PROC: 02H633Z Insertion of Infusion Device into Right Atrium, Percutaneous Approach (ICD-10-PCS; 2021-04-07)
PROC: B5181ZA Fluoroscopy of Superior Vena Cava using Low Osmolar Contrast, Guidance (ICD-10-PCS; 2021-04-07)
PROC: 5A09457 Assistance with Respiratory Ventilation, 24-96 Consecutive Hours, Continuous Positive Airway Pressure (ICD-10-PCS; 2021-04-08)
PROC: 5A1D70Z Performance of Urinary Filtration, Intermittent, Less than 6 Hours Per Day (ICD-10-PCS; 2021-04-10)
PROC: 5A1D70Z Performance of Urinary Filtration, Intermittent, Less than 6 Hours Per Day (ICD-10-PCS; 2021-04-11)
PROC: 5A1D70Z Performance of Urinary Filtration, Intermittent, Less than 6 Hours Per Day (ICD-10-PCS; 2021-04-13)
PROC: 02H633Z Insertion of Infusion Device into Right Atrium, Percutaneous Approach (ICD-10-PCS; principal; 2021-04-15)
PROC: 5A1D70Z Performance of Urinary Filtration, Intermittent, Less than 6 Hours Per Day (ICD-10-PCS; 2021-04-15)
PROC: 5A09357 Assistance with Respiratory Ventilation, Less than 24 Consecutive Hours, Continuous Positive Airway Pressure (ICD-10-PCS; 2021-04-15)
DX: I13.0 Hypertensive heart and chronic kidney disease with heart failure and stage 1 through stage 4 chronic kidney disease, or unspecified chronic kidney disease (principal); I50.43 Acute on chronic combined systolic (congestive) and diastolic (congestive) heart failure; I21.A1 Myocardial infarction type 2; J96.21 Acute and chronic respiratory failure with hypoxia; G93.41 Metabolic encephalopathy; G04.90 Encephalitis and encephalomyelitis, unspecified; N17.0 Acute kidney failure with tubular necrosis; I48.92 Unspecified atrial flutter; E87.2 Acidosis; G93.1 Anoxic brain damage, not elsewhere classified; I42.8 Other cardiomyopathies; D75.1 Secondary polycythemia; E78.5 Hyperlipidemia, unspecified; E87.5 Hyperkalemia; E87.6 Hypokalemia; F12.10 Cannabis abuse, uncomplicated; F14.90 Cocaine use, unspecified, uncomplicated; F17.210 Nicotine dependence, cigarettes, uncomplicated; I25.10 Atherosclerotic heart disease of native coronary artery without angina pectoris; I27.20 Pulmonary hypertension, unspecified; I48.0 Paroxysmal atrial fibrillation; J43.2 Centrilobular emphysema; N18.32 Chronic kidney disease, stage 3b; N40.0 Benign prostatic hyperplasia without lower urinary tract symptoms; Z20.822 Contact with and (suspected) exposure to COVID-19; Z82.49 Family history of ischemic heart disease and other diseases of the circulatory system; Z87.74 Personal history of (corrected) congenital malformations of heart and circulatory system; Z91.19 Patient's noncompliance with other medical treatment and regimen; Z99.2 Dependence on renal dialysis; M19.90 Unspecified osteoarthritis, unspecified site
CPT/HCPCS: 36415; 36556; 36580; 36600; 71045; 71250; 76937; 77001; 80048; 80053; 80069; 80307; 81001; 82553; 82805; 83605; 83735; 83880; 84100; 84484; 85007; 85025; 85027; 85520; 86317; 86706; 87340; 87426; 93005; 93971; 94640; 94660; 94760; 96365; 96375; 96376; C1892; J0282; J0360; J0610; J1100; J1160; J1265; J1644; J1650; J1815; J1940; J2060; J2270; J2543; J2930; J3490; J7040; J7060; P9046; U0003; U0005; 99291-25; G0378; J7613